=== PATIENT | male | born 1955 | race Caucasian/White ===

== ENCOUNTER 2024-10-24 02:35 | Inpatient (IN) | payer MEDICARE, BC ==
[2024-10-24] VITALS (66 sets, daily range): BP systolic 80–129; BP diastolic 39–74; PULSE 82–115; RESP 14–31; TEMP 98–99.9; O2SAT 85–99
[~2024-10-24] VITALS: Ht 172.7 cm; Wt 90.9 kg
[2024-10-24 04:14] LABS: Alanine Aminotransferase 13 U/L (7-40); Albumin 3.6 g/dL (3.2-4.8); Alkaline Phosphatase 61 U/L (46-116); Anion Gap 9 (5-15); BUN/Creatinine Ratio 10.2 (10.0-20.0); Blood Urea Nitrogen 13 mg/dL (9-23); Calcium 8.8 mg/dL (8.7-10.4); Carbon Dioxide 22 mmol/L (20-31); Chloride 103 mmol/L (98-107); Glucose 101 mg/dL (74-106); Potassium 4.0 mmol/L (3.5-5.1); Total Protein 6.0 g/dL (5.7-8.2)
[2024-10-24 04:15] LABS: Bilirubin, Total 0.7 mg/dL (0.2-1.0)
[2024-10-24] MEDS: SODIUM CHLORIDE 0.9% 3,000 ML IV ONE (04:15)
[2024-10-24] MEDS: MORPHINE SULFATE 4 MG/ML SYR/VIAL IV ONE (04:15)
[2024-10-24 04:17] LABS: Hematocrit 37.6 % (41.0-53.0); Hemoglobin 13.1 g/dL (13.5-17.5); Mean Corpuscular Hemoglobin 31.4 pg (28.0-32.0); Mean Corpuscular Volume 90.4 fL (80.0-100.0); Nucleated Red Blood Cells % 0.0 %
[2024-10-24 04:30] LABS: Sodium 134 mmol/L (136-145)
[2024-10-24] MEDS: ONDANSETRON HCL 4 MG/2 ML VIAL IV ONE (04:41)
[2024-10-24] MEDS: PANTOPRAZOLE 40 MG/10 ML VIAL INJ IV ONE (04:41)
--- NOTE | 2024-10-24 04:45 | ED.PDOC ---
GI ASSESSMENT HPI Comments 68-year-old male with a history of COPD on home O2, hypertension, dyslipidemia and diverticular disease brought in by EMS from home complaining of left lower quadrant pain associated with explosive diarrhea for the past week. Patient states he was seen at urgent care last week and prescribed Cipro and Flagyl, which he has been taking. He states despite taking be antibiotics he has not had improvement of his symptoms. He also notes low-grade fever. He denies any nausea, vomiting or dysuria. He states the current symptoms are similar to past episodes of diverticulitis. Chief Complaint: Diarrhea Time Seen by MD: 02:43 Primary Care Provider: Dr. Fofana Reviewed Notes: Nurses Notes, Painter Notes, Medications, Allergies Allergies: Coded Allergies: NO KNOWN ALLERGIES (Unverified , 10/24/24) Information Source: Patient Mode of Arrival: EMS Past Medical History PAST MEDICAL HISTORY: COPD, High Lipids, HTN Past Medical History (Other): Melanoma in remission, Diverticular disease Surgical History (Other): Left upper extremity surgery for melanoma, right wrist ORIF, bilateral ankle surgery Family History Family History: Reviewed,noncontributory to illness Social History Smoker: Non-Smoker Alcohol: Occasionally Drugs: Denies Drug Use Lives In: Home All Other Systems: Reviewed and Negative (Comprehensive systems review obtained and negative except for what is stated in the HPI.) Physical Exam General Appearance: Mild Distress, Obese HEENT: Other (Pupils and face symmetric. Moist mucous membranes.) Neck: Full Range of Motion, Normal Inspection Respiratory: Lungs Clear, No Accessory Muscle Use, No Respiratory Distress, Normal Breath Sounds Cardiovascular: No Edema, No JVD, Regular Rate/Rhythm Breast Exam: Deferred Gastrointestinal: LLQ, Soft, Tenderness (Left lower quadrant) Genitalia: Deferred Pelvic: Deferred Rectal: Deferred Extremities: Normal inspection, Normal range of motion, Non-tender, No pedal edema Neurologic: Alert (Oriented x4), Normal Affect, Normal Mood, Other (Ambulatory) Cerebellar Function: NOT DONE Reflexes: NOT DONE Skin: Dry, Normal Color, Warm Lymphatic: NOT DONE Was a procedure done? Was a procedure done?: No GI differential Dx Differential Diagnosis: Diverticular disease, Gastroenteritis, Inflammatory BD, Ischemic Bowel, UTI, Dehydration, Electrolyte Imbalance, Food Poisoning, Bacterial, Viral, Hypovolemia, Renal Failure, Stress Ulcer, Kidney Stone X-Ray, Labs, Meds, VS Vital Signs Date Time Temp Pulse Resp B/P (MAP) Pulse Ox O2 Delivery O2 Flow Rate FiO2 10/24/24 05:25 98.1 98 18 93/47 (62) 97 98.1 10/24/24 03:15 98.1 99 18 115/37 (63) 97 98.1 10/24/24 03:15 99 18 97 Nasal Cannula* 3 32 10/24/24 02:37 99.0 102 18 81/38 (52) 97 99.0 10/24/24 02:36 99 Lab Test 10/24/24 03:10 10/24/24 02:45 Range/Units White Blood Count 15.9 H 4.4-10.8 10^3/uL Red Blood Count 4.16 L 4.5-5.90 10^6/uL Hemoglobin 13.1 L 13.5-17.5 g/dL Hematocrit 37.6 L 41.0-53.0 % Mean Corpuscular Volume 90.4 80.0-100.0 fL Mean Corpuscular Hemoglobin 31.4 28.0-32.0 pg Mean Corpuscular Hemoglobin Concent 34.8 32.0-36.0 g/dL Red Cell Distribution Width 13.1 11.8-14.3 % Platelet Count 371 140-450 10^3/uL Mean Platelet Volume 7.5 6.9-10.8 fL Neutrophils (%) (Auto) 78.8 37.0-80.0 % Lymphocytes (%) (Auto) 6.1 L 10.0-50.0 % Monocytes (%) (Auto) 14.3 H 0.0-12.0 % Eosinophils (%) (Auto) 0.4 0.0-7.0 % Basophils (%) (Auto) 0.4 0.0-2.0 % Neutrophils # (Auto) 12.5 H 1.6-8.6 10 ^3/uL Lymphocytes # (Auto) 1.0 0.4-5.4 10 ^3/uL Monocytes # (Auto) 2.3 H 0-1.3 10 ^3/uL Eosinophils # (Auto) 0.1 0-0.8 10 ^3/uL Basophils # (Auto) 0.1 0-0.2 10 ^3/uL Nucleated Red Blood Cells 0.0 % Sodium Level 134 L 136-145 mmol/L Potassium Level 4.0 3.5-5.1 mmol/L Chloride Level 103 98-107 mmol/L Carbon Dioxide Level 22 20-31 mmol/L Anion Gap 9 5-15 Blood Urea Nitrogen 13 9-23 mg/dL Creatinine 1.27 0.700-1.30 mg/dL Glomerular Filtration Rate Calc 61 >90 mL/min BUN/Creatinine Ratio 10.2 10.0-20.0 Serum Glucose 101 74-106 mg/dL Lactic Acid Level 1.8 0.4-2.0 mmol/L Calcium Level 8.8 8.7-10.4 mg/dL Total Bilirubin 0.7 0.2-1.0 mg/dL Aspartate Amino Transferase (AST) 21 13-40 U/L Alanine Aminotransferase (ALT) 13 7-40 U/L Alkaline Phosphatase 61 46-116 U/L Total Protein 6.0 5.7-8.2 g/dL Albumin 3.6 3.2-4.8 g/dL POC Glucose 99 70-106 mg/dl Current Medications Medications (Trade) Dose Ordered Sig/Yari Route Start Time Stop Time Status Last Admin Sodium Chloride 3,000 ml @ 1,000 mls/hr Q3H ONCE IV 10/24/24 04:15 10/24/24 07:14 10/24/24 04:15 Ondansetron HCl (Zofran) 4 mg ONCE ONCE IV 10/24/24 04:15 10/24/24 04:16 DC 10/24/24 04:41 Pantoprazole Sodium (Protonix) 40 mg ONCE ONCE IV 10/24/24 04:15 10/24/24 04:16 DC 10/24/24 04:41 Levofloxacin/ Dextrose 100 ml @ 100 mls/hr ONCE ONCE IV 10/24/24 04:15 10/24/24 05:14 DC 10/24/24 04:15 Metronidazole 100 ml @ 100 mls/hr ONCE ONCE IV 10/24/24 04:15 10/24/24 05:14 DC 10/24/24 04:15 Ketorolac Tromethamine (Toradol Injection) 15 mg ONCE ONCE IV 10/24/24 05:30 10/24/24 05:31 DC 10/24/24 05:45 PROCEDURE(s): ABPL - CT AB PEL WO CON-NO ORAL OR IV REASON: diarrhea, abd pain ORDER NUMBER(s): [id number], ACCESSION NUMBER(s): [id number] EXAM: CT CT AB PEL WO CON-NO ORAL OR IV HISTORY: diarrhea, abd pain COMPARISON: None TECHNIQUE: Helical CT images of the abdomen and pelvis were performed without IV contrast. Sagittal and coronal reformatted images were obtained. This CT exam was performed using one or more of the following dose reduction techniques: Automated exposure control, adjustment of the mA and/or kv according to patient size, or the use of iterative reconstruction techniques. Radiation Dose: Abdomen/Pelvis: CTDIvol 19.28 mGy, DLP 1237.98 mGy*cm. FINDINGS: CT abdomen: There is severe emphysema in the lung bases. There are coronary artery calcifications. The heart is not enlarged. The central pulmonary arteries are ectatic, not fully imaged here. The liver is diffusely fatty density. The gallbladder is hydropic measuring 10.5 cm length x 4.7 cm width, without visualization of gallstones. The noncontrast spleen, pancreas, kidneys, and adrenal glands are unremarkable. No abdominal aortic aneurysm. There is a chronic appearing infrarenal abdominal aortic dissection just below the level of the renal arteries (image 43, series 2). There is a left upper quadrant splenule. CT pelvis: No abnormal bowel dilatation or free air. There is low volume free fluid in the pelvis. There is wall thickening of the sigmoid colon, distal descending colon, and rectum, with adjacent fat stranding and fluid. There is also wall thickening of the ascending colon and hepatic flexure with mild adjace nt fat stranding. There are sigmoid colon diverticula. The appendix and urinary bladder are unremarkable. The prostate is upper limits of normal in size. There are small fatty bilateral inguinal indirect hernias. There is advanced lumbar degenerative disc disease. IMPRESSION: 1. Severe emphysema in the lung bases. The chest is not fully imaged here. 2. Coronary artery disease. 3. Pulmonary arterial hypertension. 4. Hepatic steatosis. 5. Colitis involving the sigmoid colon, rectum, and distal descending colon. Additionally, there is less severe colitis involving the ascending colon and hepatic flexure. 6. Advanced lumbar degenerative disc disease. 7. No evidence of bowel obstruction, acute appendicitis, or other acute process in the abdomen or pelvis. X-Ray, Labs, Meds, VS Comment 68-year-old male with a history of COPD, hypertension, dyslipidemia and diverticular disease brought in by EMS complaining of left lower quadrant pain and diarrhea despite taking antibiotics Vitals remarkable for heart rate 102, BP 81/38 Exam remarkable for left lower quadrant tenderness to palpation Rhythm strip independently interpreted by me: Sinus tach, rate 102, no ectopy. CT abdomen and pelvis IMPRESSION: 1. Severe emphysema in the lung bases. The chest is not fully imaged here. 2. Coronary artery disease. 3. Pulmonary arterial hypertension. 4. Hepatic steatosis. 5. Colitis involving the sigmoid colon, rectum, and distal descending colon. Additionally, there is less severe colitis involving the ascending colon and hepatic flexure. 6. Advanced lumbar degenerative disc disease. 7. No evidence of bowel obstruction, acute appendicitis, or other acute process in the abdomen or pelvis. CBC remarkable for WBC 15.9, CMP remarkable for sodium 134, lactate 1.8, UA pending Patient treated with the following in the ED: 3 L 0.9 normal saline IV bolus, morphine 4 mg IV, Zofran 4 mg IV, Protonix 40 mg IV, Levaquin 500 mg IV, Flagyl 500 mg IV On re-evaluation, patient states pain has improved. Despite IV fluid boluses, patient's blood pressure dropped to the 70s systolic. IV Levophed was ordered. Plan is to admit the patient for IV antibiotics, blood pressure support and pain control. Time of 1ST Reevaluation: 04:44 Reevaluation 1ST: Improved Patient Education/Counseling: Diagnosis, Treatment Family Education/Counseling: Diagnosis, Treatment SEPSIS Sepsis Screen Date sepsis recognized/suspect: Oct 24, 2024 Time Sepsis recognized/suspect: 236 Recent Procedure: No On Antibiotic Therapy: No Respiratory Rate >20: No Heart Rate >90: Yes Temp<36 C (96.8 F) or >38.3 C: No SBP <90 or MAP <65 mmHG: Yes New Acute Mental Status Change: No Is the patient on CPAP, BIPAP,: No SEPSIS EXCLUSION NOTE: Sepsis Exclusion Note: Patient presents with SIRS criteria, but the SIRS response is attributed to [dehydration, acute pain ]. Sepsis bundle is not initiated at this time, due to this reason. Further management will focus on the treatment of the above condition (s). Physician Orders Urinalysis (10/24/24 02:50) Ct Ab Pel Wo Con-No Oral Or Iv (10/24/24 02:50) Blood Culture (10/24/24 02:50) Electrocardigram (10/24/24 02:52) Sodium Chloride 0.9% (10/24/24 04:15) Vital Signs Date Time Temp Pulse Resp B/P (MAP) Pulse Ox O2 Delivery O2 Flow Rate FiO2 10/24/24 05:25 98.1 98 18 93/47 (62) 97 98.1 10/24/24 03:15 98.1 99 18 115/37 (63) 97 98.1 10/24/24 03:15 99 18 97 Nasal Cannula* 3 32 10/24/24 02:37 99.0 102 18 81/38 (52) 97 99.0 10/24/24 02:36 99 Laboratory Tests Test 10/24/24 03:10 Lactic Acid Level 1.8 mmol/L (0.4-2.0) White Blood Count 15.9 10^3/uL (4.4-10.8) H Medications Medications Dose Ordered Sig/Yari Route Start Time Stop Time Status Last Admin Dose Admin Ketorolac Tromethamine 15 mg ONCE ONCE IV 10/24/24 05:30 10/24/24 05:31 DC 10/24/24 05:45 Levofloxacin/ Dextrose 100 ml @ 100 mls/hr ONCE ONCE IV 10/24/24 04:15 10/24/24 05:14 DC 10/24/24 04:15 Metronidazole 100 ml @ 100 mls/hr ONCE ONCE IV 10/24/24 04:15 10/24/24 05:14 DC 10/24/24 04:15 Ondansetron HCl 4 mg ONCE ONCE IV 10/24/24 04:15 10/24/24 04:16 DC 10/24/24 04:41 Pantoprazole Sodium 40 mg ONCE ONCE IV 10/24/24 04:15 10/24/24 04:16 DC 10/24/24 04:41 Sodium Chloride 3,000 ml @ 1,000 mls/hr Q3H ONCE IV 10/24/24 04:15 10/24/24 07:14 10/24/24 04:15 Departure 1 Departure Time of Disposition: 04:45 Impression: Primary Impression: Diverticulitis Additional Impression: Hypotension Disposition: 09 ADMITTED INPATIENT Admit to: Tele Condition: Guarded Critical Care Note Critical Care Time?: Yes (45 min-critical care time only) Critical care comment: Critical care time including multiple bedside re-evaluations, review of lab and imaging studies, and discussion of the case with the admitting provider. Patient is high risk for hemodynamic decompensation. Stability Stability form required: No Heart Score Heart Score: Heart Score Response (Comments) Value History N/A 0 EKG N/A 0 Age N/A 0 Risk Factors N/A 0 Troponin N/A 0 Total 0 NITZA RUEDA MD Oct 24, 2024 04:45
[2024-10-24] MEDS: KETOROLAC TROMETH 30 MG/ML 1ML VIAL IV ONE (05:45)
--- NOTE | 2024-10-24 05:57 | DVH ---
EXAM: CT CT AB PEL WO CON-NO ORAL OR IV HISTORY: diarrhea, abd pain COMPARISON: None TECHNIQUE: Helical CT images of the abdomen and pelvis were performed without IV contrast. Sagittal a nd coronal reformatted images were obtained. This CT exam was performed using one or more of the foll owing dose reduction techniques: Automated exposure control, adjustment of the mA and/or kv according to patient size, or the use of iterative reconstruction techniques. Radiation Dose: Abdomen/Pelvis: CTDIvol 19.28 mGy, DLP 1237.98 mGy*cm. FINDINGS: CT abdomen: There is severe emphysema in the lung bases. There are coronary artery calcifications. T he heart is not enlarged. The central pulmonary arteries are ectatic, not fully imaged here. The live r is diffusely fatty density. The gallbladder is hydropic measuring 10.5 cm length x 4.7 cm width, wi thout visualization of gallstones. The noncontrast spleen, pancreas, kidneys, and adrenal glands are unremarkable. No abdominal aortic aneurysm. There is a chronic appearing infrarenal abdominal aortic dissection just below the level of the renal arteries (image 43, series 2). There is a left upper pierce drant splenule. CT pelvis: No abnormal bowel dilatation or free air. There is low volume free fluid in the pelvis. T here is wall thickening of the sigmoid colon, distal descending colon, and rectum, with adjacent fat stranding and fluid. There is also wall thickening of the ascending colon and hepatic flexure with mi ld adjacent fat stranding. There are sigmoid colon diverticula. The appendix and urinary bladder are unremarkable. The prostate is upper limits of normal in size. There are small fatty bilateral inguin al indirect hernias. There is advanced lumbar degenerative disc disease. IMPRESSION: 1. Severe emphysema in the lung bases. The chest is not fully imaged here. 2. Coronary artery disease. 3. Pulmonary arterial hypertension. 4. Hepatic steatosis. 5. Colitis involving the sigmoid colon, rectum, and distal descending colon. Additionally, there is less severe colitis involving the ascending colon and hepatic flexure. 6. Advanced lumbar degenerative disc disease. 7. No evidence of bowel obstruction, acute appendicitis, or other acute process in the abdomen or pel vis.
[2024-10-24] MEDS: NOREPINEPHRINE 8 MG/250ML KIT 250 ML IV SCH (06:37)
[2024-10-24] MEDS: NOREPINEPHRINE 8 MG/250ML KIT 250 ML IV ONE (06:38)
--- NOTE | 2024-10-24 07:01 | ECG ---
[facility] Test Date: 2024-10-24 Test Time: 02:36:03 Pat Name: JAG BHATT Department: ED Room: [address] [place] [address] Gender: M Defense Attorney: milena : 1955 Requested By: NITZA CARLTON Order Number: [id number] Reading MD: Vikash Bruce Measurements Intervals [place] Rate: 99 P: -53 ND: 129 QRS: 69 QRSD: 108 T: 45 QT: 374 QTc: 480 Interpretive Statements Sinus or ectopic atrial rhythm RSR' in V1 or V2, right VCD or RVH Borderline prolonged QT interval Electronically Signed On 10-29-2024 18:49:44 PDT by Vikash Bruce Please click the below link to view image of tracing.
[2024-10-24] MEDS ORDERED: DOCUSATE SOD 100 MG CAP PO PRN (08:45)
--- NOTE | 2024-10-24 09:08 | DVHHP2 ---
History of Present Illness Reason for Visit: Hypotension History of Present Illness The patient is a 62-year-old male with multiple past medical history including COPD, hypertension, and hyperlipidemia who presented to [facility] ED with complaint of left lower quadrant abdominal pain. Patient reports symptoms progressively get worse with explosive diarrhea for the past 1 week, notes low-grade fever, seen at urgent care last week and was prescribed Cipro and Flagyl with no improvement of symptoms. Patient was seen and evaluated in the ED, laboratory data shows WBC 15.9, platelets 371, sodium 134, potassium 4.0, BUN 13, creatinine 1.27, glucose 101, calcium 8.8, lactic acid 1.8, blood pressure 81/38 trending up to 95/65, heart rate 115 trending down to 85, temperature 99.9 F trending down to 98.2 F, O2 saturation 97% on oxygen. Abdomen/pelvis CT revealing colitis involving the sigmoid colon, rectum, and distal descending colon. Patient was started on IV antibiotic regimen levofloxacin, please see medication orders section in the computer. On my assessment, patient denied chest pain, no headache, no dizziness, no diaphoresis, no shortness of breaths, no diarrhea, nausea or vomiting at this moment, no fever, no chills. Patient was admitted for further evaluation and medical management. Past Medical History COPD, High Lipids, HTN, Melanoma in remission, Diverticular disease Past Surgical History Left upper extremity surgery for melanoma, right wrist ORIF, bilateral ankle surgery Family History Reviewed, noncontributory to the management of this case. Past Social History The patient lives at home, denies smoking, alcohol or illicit drugs abuse. Review of Systems Constitutional: Yes: Weakness; No: Fever, Chills, Sweats, Malaise, Other Eyes: No: Pain, Vision change, Conjunctivae inflammation, Eyelid inflammation, Other, Redness ENT: No: Ear pain, Ear discharge, Nose pain, Nose discharge, Nose congestion, Mouth pain, Mouth swelling, Throat pain, Throat swelling, Other Respiratory: Shortness of breath; No: Cough, Dry, SOB with excertion, Wheezing, Hemoptysis, Pleuritic Pain, Sputum, Wheezing, Other Cardiovascular: No: Chest Pain, Palpitations, Orthopnea, Paroxysmal Noc. Dyspnea, Edema, Lt Headedness, Other Gastrointestinal: Nausea, Vomiting, Abdominal Pain, Diarrhea; No: Constipation, Melena, Hematochezia, Other Genitourinary: No Dysuria, No Frequency, No Incontinence, No Hematuria, No Retention, No Other Musculoskeletal: No: other, neck pain, shoulder pain, arm pain, back pain, hand pain, leg pain, foot pain Skin: No: Rash, Lesions, Jaundice, Bruising, Other Neurological: No: Weakness, Numbness, Incoordination, Change in speech, Confusion, Seizures, Other Allergies: Coded Allergies: NO KNOWN ALLERGIES (Unverified , 10/24/24) Medications Current Medications Medications Dose Ordered Sig/Yari Route Start Time Stop Time Status Last Admin Dose Admin Norepinephrine Bitartrate 250 ml @ 3.75 mls/hr Q24H IV 10/24/24 06:30 10/24/24 06:38 3.75 MLS/HR Pantoprazole Sodium 40 mg DAILY IV 10/24/24 10:00 UNV Levofloxacin/ Dextrose 100 ml @ 100 mls/hr DAILY IV 10/24/24 10:00 UNV Metronidazole 100 ml @ 100 mls/hr Q8HR IV 10/24/24 14:00 UNV Albuterol 2.5 mg Q4HPRN PRN NEB 10/24/24 08:45 UNV Ipratropium [place] 0.5 mg Q4HR NEB 10/24/24 10:00 UNV Clonidine HCl 0.1 mg Q4HP PRN PO 10/24/24 08:45 UNV Sodium Chloride 1,000 ml @ 60 mls/hr [id number] IV 10/24/24 08:45 UNV Acetaminophen/ Hydrocodone Bitart 1 tab Q4HP PRN PO 10/24/24 08:45 UNV Ondansetron HCl 4 mg Q4HP PRN IV 10/24/24 08:45 UNV Docusate Sodium 100 mg BIDPRN PRN PO 10/24/24 08:45 UNV Acetaminophen 650 mg Q6HP PRN PO 10/24/24 08:45 UNV Morphine Sulfate 2 mg Q4HPRN PRN IV 10/24/24 08:45 UNV Atorvastatin Calcium 20 mg HS PO 10/24/24 22:00 UNV Exam Vital Signs Vital Signs Date Time Temp Pulse Resp B/P (MAP) Pulse Ox O2 Delivery O2 Flow Rate FiO2 10/24/24 08:31 73/34 10/24/24 07:51 85 20 97 Nasal Cannula* 2 28 10/24/24 07:51 98.2 98.2 General Appearance: Alert, Oriented X3, Cooperative, No acute distress HEENT: Atraumatic, PERRLA, EOMI, Mucous membr. moist/pink Respiratory: Normal air movement Cardiovascular: Regular rate, Normal S1, Normal S2, No murmurs Abdominal: Normal bowel sounds, Soft, No tenderness, No hepatospenomegaly, No masses Extremities: No clubbing, No cyanosis, No edema, Normal pulses, No tenderness/swelling Skin: No rashes, No breakdown, No significant lesion Neuro: Normal speech, Normal tone, Sensation intact, Cranial nerves 3-12 NL, Reflexes 2+, Other (Generalized weakness) Psych/Mental Status: Mental status NL, Mood NL Labs/Xrays Labs Test 10/24/24 03:10 10/24/24 02:45 Range/Units White Blood Count 15.9 H 4.4-10.8 10^3/uL Red Blood Count 4.16 L 4.5-5.90 10^6/uL Hemoglobin 13.1 L 13.5-17.5 g/dL Hematocrit 37.6 L 41.0-53.0 % Mean Corpuscular Volume 90.4 80.0-100.0 fL Mean Corpuscular Hemoglobin 31.4 28.0-32.0 pg Mean Corpuscular Hemoglobin Concent 34.8 32.0-36.0 g/dL Red Cell Distribution Width 13.1 11.8-14.3 % Platelet Count 371 140-450 10^3/uL Mean Platelet Volume 7.5 6.9-10.8 fL Neutrophils (%) (Auto) 78.8 37.0-80.0 % Lymphocytes (%) (Auto) 6.1 L 10.0-50.0 % Monocytes (%) (Auto) 14.3 H 0.0-12.0 % Eosinophils (%) (Auto) 0.4 0.0-7.0 % Basophils (%) (Auto) 0.4 0.0-2.0 % Neutrophils # (Auto) 12.5 H 1.6-8.6 10 ^3/uL Lymphocytes # (Auto) 1.0 0.4-5.4 10 ^3/uL Monocytes # (Auto) 2.3 H 0-1.3 10 ^3/uL Eosinophils # (Auto) 0.1 0-0.8 10 ^3/uL Basophils # (Auto) 0.1 0-0.2 10 ^3/uL Nucleated Red Blood Cells 0.0 % Sodium Level 134 L 136-145 mmol/L Potassium Level 4.0 3.5-5.1 mmol/L Chloride Level 103 98-107 mmol/L Carbon Dioxide Level 22 20-31 mmol/L Anion Gap 9 5-15 Blood Urea Nitrogen 13 9-23 mg/dL Creatinine 1.27 0.700-1.30 mg/dL Glomerular Filtration Rate Calc 61 >90 mL/min BUN/Creatinine Ratio 10.2 10.0-20.0 Serum Glucose 101 74-106 mg/dL Lactic Acid Level 1.8 0.4-2.0 mmol/L Calcium Level 8.8 8.7-10.4 mg/dL Total Bilirubin 0.7 0.2-1.0 mg/dL Aspartate Amino Transferase (AST) 21 13-40 U/L Alanine Aminotransferase (ALT) 13 7-40 U/L Alkaline Phosphatase 61 46-116 U/L Total Protein 6.0 5.7-8.2 g/dL Albumin 3.6 3.2-4.8 g/dL POC Glucose 99 70-106 mg/dl PATIENT: JAG BHATT ACCT: [id number] UNIT: [id number] : 1955 LOC: ER ROOM / BED: / AGE / SEX: 68 / M ADM STATUS: REG ER SERVICE 0250 ORDERING PHYSICIAN: NITZA RUEDA MD PROCEDURE(s): ABPL - CT AB PEL WO CON-NO ORAL OR IV REASON: diarrhea, abd pain ORDER NUMBER(s): [id number], ACCESSION NUMBER(s): [id number] EXAM: CT CT AB PEL WO CON-NO ORAL OR IV HISTORY: diarrhea, abd pain COMPARISON: None TECHNIQUE: Helical CT images of the abdomen and pelvis were performed without IV contrast. Sagittal and coronal reformatted images were obtained. This CT exam was performed using one or more of the following dose reduction techniques: Automated exposure control, adjustment of the mA and/or kv according to patient size, or the use of iterative reconstruction techniques. Radiation Dose: Abdomen/Pelvis: CTDIvol 19.28 mGy, DLP 1237.98 mGy*cm. FINDINGS: CT abdomen: There is severe emphysema in the lung bases. There are coronary artery calcifications. The heart is not enlarged. The central pulmonary arteries are ectatic, not fully imaged here. The liver is diffusely fatty density. The gallbladder is hydropic measuring 10.5 cm length x 4.7 cm width, without v isualization of gallstones. The noncontrast spleen, pancreas, kidneys, and adrenal glands are unremarkable. No abdominal aortic aneurysm. There is a chronic appearing infrarenal abdominal aortic dissection just below the level of the renal arteries (image 43, series 2). There is a left upper quadrant splenule. CT pelvis: No abnormal bowel dilatation or free air. There is low volume free fluid in the pelvis. There is wall thickening of the sigmoid colon, distal descending colon, and rectum, with adjacent fat stranding and fluid. There is also wall thickening of the ascending colon and hepatic flexure with mild adjacent fat stranding. There are sigmoid colon diverticula. The appendix and urinary bladder are unremarkable. The prostate is upper limits of normal in size. There are small fatty bilateral inguinal indirect hernias. There is advanced lumbar degenerative disc disease. IMPRESSION: 1. Severe emphysema in the lung bases. The chest is not fully imaged here. 2. Coronary artery disease. 3. Pulmonary arterial hypertension. 4. Hepatic steatosis. 5. Colitis involving the sigmoid colon, rectum, and distal descending colon. Additionally, there is less severe colitis involving the ascending colon and hepatic flexure. 6. Advanced lumbar degenerative disc disease. 7. No evidence of bowel obstruction, acute appendicitis, or other acute process in the abdomen or pelvis. Assessment/Plan Assessment/Plan Diverticulitis Hypotension Abdominal pain Leukocytosis, unspecified Plan 1. Admit to telemetry unit 2. Breathing treatment 3. Pain control management 4. IV antibiotic management 5. Management of fluids and electrolytes 6. Consultation for Cardiology 7. Diagnostic test abdomen/pelvis CT 8. DVT prophylaxis-on SCDs 9. Repeat labs CBC, CMP in a.m. 10. Home medication reviewed and reconciled 11. Continue with current medical management 12. Treatment plan discussed with patient and RN. Patient verbalized understanding. Plan discussed with: Patient, Other (RN) My Orders Orders - VAZQUEZ LITTLE DNP Procedure Category Date Status Time * Cardiology Consult CONS 10/24/24 Transmitted 08:33 Pantoprazole PHA 10/24/24 Logged (Protonix) 10:00 Levofloxacin 500mg PHA 10/24/24 Logged (Levaquin 500mg/ 100m 10:00 Metronidazole PHA 10/24/24 Logged 500mg/100ml (Flagyl 14:00 Albuterol Medneb PHA 10/24/24 Logged (Ventolin Medneb) 08:45 Ipratropium Medneb PHA 10/24/24 Logged (Atrovent Medneb) 10:00 Clonidine Hcl Tablet PHA 10/24/24 Logged (Catapres Tablet) 08:45 Allergies GISELE 10/24/24 In Process 08:33 Code Status CODE 10/24/24 Transmitted 08:33 2 Gm Sodium Diet DIET 10/24/24 Transmitted Breakfast Sodium Chloride 0.9% PHA 10/24/24 Logged 08:45 Oxygen Per Hour RT 10/24/24 Transmitted 08:33 Hydrocodone-Acet PHA 10/24/24 Logged 5/325mg Tab ([place] 08:45 Ondansetron Hcl PHA 10/24/24 Logged (Zofran) 08:45 Docusate Sodium PHA 10/24/24 Logged Capsule (Colace 08:45 Complete Blood Count LAB 10/25/24 Verified 04:00 Comprehensive LAB 10/25/24 Verified Metabolic Panel 04:00 Condition: Serious GISELE 10/24/24 In Process 08:33 Acetaminophen Tablet PHA 10/24/24 Logged (Tylenol Tablet) 08:45 Bedrest With Bathroom GISELE 10/24/24 In Process Privileg 08:33 Morphine Sulfate PHA 10/24/24 Logged Injection 08:45 Sequential GISELE 10/24/24 In Process Compression Device Atorvastatin (Lipitor) PHA 10/24/24 Logged 22:00 Problem List: (1) Diverticulitis (2) Hypotension (3) Abdominal pain (4) Leukocytosis, unspecified Date of Service: Oct 24, 2024 Billing Provider: VAZQUEZ LITTLE DNP Common Visit Codes: [id number] INP/OBS CARE (HIGH) VAZQUEZ LITTLE DNP Oct 24, 2024 09:08
[2024-10-24] MEDS ORDERED: MORPHINE SULFATE INJ 2 MG/ml SYRG IV PRN (09:15)
[2024-10-24] MEDS ORDERED: NITROGLYCERIN 0.4 MG SL TAB SL PRN (09:15)
[2024-10-24] MEDS: SODIUM CHLORIDE 0.9% 1,000 ML IV SCH ×2 (10:00→16:00)
[2024-10-24] MEDS: IPRATROPIUM BROM 0.5 MG/2.5ML INH SOL NEB SCH (10:00)
[2024-10-24] MEDS: PANTOPRAZOLE 40 MG/10 ML VIAL INJ IV SCH (10:28)
--- NOTE | 2024-10-24 13:16 | DVHINCON2 ---
Date Seen: Oct 24, 2024 Referring Physician REGINA Desir Reason for Consultation Hypotension History of Present Illness This is a 68-year-old male patient who presents to the emergency room with chief complaint of left lower quadrant abdominal pain and diarrhea for two weeks. The patient reports recently going to urgent care where he was diagnosed with diverticulitis and sent home on antibiotics. On the day of emergency room arrival, the patient reports having explosive diarrhea which prompted him to come to the emergency room. While in the emergency room, the patient was noted to be hypotensive. Cardiology has now been consulted for hypotension. Initial twelve lead electrocardiogram reveals normal sinus rhythm. No troponin levels available at time of assessment. The patient denies any cardiac symptoms. Significant past medical history includes hypertension, dyslipidemia, COPD on continuous home O2, diverticulitis, malignant melanoma status post excision on left arm, osteoarthritis, tobacco use and morbid obesity. Past Medical History Past medical history reviewed. No other significant than mentioned above. Past Surgical History Multiple orthopedic surgeries Family History: Patient reports no known family medical history. Family History Family history reviewed. Social History Patient has a 50 pack-year history, quit smoking approximately 20 months ago Admits to occasional marijuana use Denies any alcohol use Allergies: Coded Allergies: NO KNOWN ALLERGIES (Unverified , 10/24/24) Home Meds Home medications reviewed. Current Medications Current Medications Medications (Trade) Dose Ordered Sig/Yari Route PRN Reason Start Time Stop Time Status Last Admin Norepinephrine Bitartrate 250 ml @ 3.75 mls/hr Q24H IV 10/24/24 06:30 10/24/24 06:38 Pantoprazole Sodium (Protonix) 40 mg DAILY IV 10/24/24 10:00 10/24/24 10:28 Levofloxacin/ Dextrose 100 ml @ 100 mls/hr DAILY IV 10/24/24 10:00 10/24/24 10:28 Metronidazole 100 ml @ 100 mls/hr Q8HR IV 10/24/24 14:00 Albuterol (Ventolin Medneb) 2.5 mg Q4HPRN PRN NEB SHORTNESS OF BREATH 10/24/24 08:45 Ipratropium [place] (Atrovent Medneb) 0.5 mg Q4HR NEB 10/24/24 10:00 Clonidine HCl (Catapres Tablet) 0.1 mg Q4HP PRN PO SBP>150 10/24/24 08:45 10/24/24 12:47 DC Sodium Chloride 1,000 ml @ 60 mls/hr [id number] IV 10/24/24 08:45 10/24/24 10:00 Acetaminophen/ Hydrocodone Bitart ([place] 5/325MG Tab) 1 tab Q4HP PRN PO MODERATE PAIN (4-6 PAIN SCALE) 10/24/24 08:45 Ondansetron HCl (Zofran) 4 mg Q4HP PRN IV NAUSEA / VOMITING 10/24/24 08:45 Docusate Sodium (Colace Capsule) 100 mg BIDPRN PRN PO FOR CONSTIPATION 10/24/24 08:45 Acetaminophen (Tylenol Tablet) 650 mg Q6HP PRN PO PAIN SCALE 1-3 OR TEMP>100.4 10/24/24 08:45 Morphine Sulfate 2 mg Q4HPRN PRN IV SEVERE PAIN (7-10 PAIN SCALE) 10/24/24 08:45 Atorvastatin Calcium (Lipitor) 20 mg HS PO 10/24/24 22:00 Nitroglycerin (Ntrostat Sublingual) 0.4 mg Q5MINP PRN SL FOR CHEST PAIN 10/24/24 09:15 Morphine Sulfate 2 mg Q30M PRN IV FOR CHEST PAIN 10/24/24 09:15 Loperamide HCl (Imodium Capsule) 2 mg PRN PRN PO FOR DIARRHEA 10/24/24 13:00 UNV Review of Systems Constitutional: No symptom reported Ears, Nose, & Throat: No symptom reported Eyes: No symptom reported Neurological: No symptoms reported Pulmonary/Respiratory: No symptoms reported Cardiovascular: No symptom reported Gastrointestinal: Left lower quadrant pain, diarrhea Genitourinary: No symptom reported Musculoskeletal: No symptom reported Skin: No symptom reported Psychiatric: No symptom reported Endocrine: No symptom reported Hematologic/Lymphatic: No symptom reported Vital Signs Vital Signs Date Time Temp Pulse Resp B/P (MAP) Pulse Ox O2 Delivery O2 Flow Rate FiO2 10/24/24 12:16 96 10/24/24 12:15 20 117/65 (82) 97 10/24/24 12:13 Nasal Cannula* 3 32 10/24/24 10:45 98.1 98.1 Physical Exam General Appearance: Cooperative. Obese. Pulmonary/Respiratory: Clear, bilateral breaths sounds. Cardiovascular/Chest: Regular rate and rhythm. Peripheral Pulses: 2+ Radial (R). 2+ Radial (L). 2+ Pedal (R). 2+ Pedal (L) Abdominal Exam: Normal bowel sounds. Ankle Exam: Negative ankle edema Lower extremities: Negative lower extremity edema Neuro/Mental Status: A/OX4, coherent. Thoughts/Psych: Normal thought pattern. Appropriate mood and affect. Good judgment and insight. Appearance: No acute distress. Skin Exam: Normal inspection. Normal color. Warm and dry. Labs/Diagnostic Data Labs Test 10/24/24 03:10 10/24/24 02:45 Range/Units White Blood Count 15.9 H 4.4-10.8 10^3/uL Red Blood Count 4.16 L 4.5-5.90 10^6/uL Hemoglobin 13.1 L 13.5-17.5 g/dL Hematocrit 37.6 L 41.0-53.0 % Mean Corpuscular Volume 90.4 80.0-100.0 fL Mean Corpuscular Hemoglobin 31.4 28.0-32.0 pg Mean Corpuscular Hemoglobin Concent 34.8 32.0-36.0 g/dL Red Cell Distribution Width 13.1 11.8-14.3 % Platelet Count 371 140-450 10^3/uL Mean Platelet Volume 7.5 6.9-10.8 fL Neutrophils (%) (Auto) 78.8 37.0-80.0 % Lymphocytes (%) (Auto) 6.1 L 10.0-50.0 % Monocytes (%) (Auto) 14.3 H 0.0-12.0 % Eosinophils (%) (Auto) 0.4 0.0-7.0 % Basophils (%) (Auto) 0.4 0.0-2.0 % Neutrophils # (Auto) 12.5 H 1.6-8.6 10 ^3/uL Lymphocytes # (Auto) 1.0 0.4-5.4 10 ^3/uL Monocytes # (Auto) 2.3 H 0-1.3 10 ^3/uL Eosinophils # (Auto) 0.1 0-0.8 10 ^3/uL Basophils # (Auto) 0.1 0-0.2 10 ^3/uL Nucleated Red Blood Cells 0.0 % Sodium Level 134 L 136-145 mmol/L Potassium Level 4.0 3.5-5.1 mmol/L Chloride Level 103 98-107 mmol/L Carbon Dioxide Level 22 20-31 mmol/L Anion Gap 9 5-15 Blood Urea Nitrogen 13 9-23 mg/dL Creatinine 1.27 0.700-1.30 mg/dL Glomerular Filtration Rate Calc 61 >90 mL/min BUN/Creatinine Ratio 10.2 10.0-20.0 Serum Glucose 101 74-106 mg/dL Lactic Acid Level 1.8 0.4-2.0 mmol/L Calcium Level 8.8 8.7-10.4 mg/dL Total Bilirubin 0.7 0.2-1.0 mg/dL Aspartate Amino Transferase (AST) 21 13-40 U/L Alanine Aminotransferase (ALT) 13 7-40 U/L Alkaline Phosphatase 61 46-116 U/L Total Protein 6.0 5.7-8.2 g/dL Albumin 3.6 3.2-4.8 g/dL POC Glucose 99 70-106 mg/dl Assessment Hypotension, likely in the setting of sepsis Rule out structural heart disease History of hypertension Dyslipidemia COPD with continuous home O2 Colitis History of diverticulitis Malignant melanoma status post excision on left arm Osteoarthritis Tobacco use Morbid obesity Plan/Recommendation We will continue with the following plan/recommendations (Dr. Wilkerson): Case discussed with . We will proceed with obtaining a transthoracic echocardiogram to evaluate cardiac function. Hypotension likely in the setting of infection. Recommend to treat the underlying cause. Continue with vasopressor therapy for hemodynamic support in the meantime. In the setting of an unremarkable transthoracic echocardiogram, there is no further inpatient cardiac workup indicated at this time. Consider GI consult for colitis found on imaging. Thank you for allowing us to care for this patient. Please call with any questions or concerns. Critical care time spent: 44 minutes This medical document was created using an electronic medical record system with voice recognition software and computerized dictation system. Although this document has been carefully reviewed, there might still be some phonetic and typographical errors. Occasional wrong-word or ``sound-alike substitutions may have occurred due to the inherent limitations of voice recognition software. These areas are purely typographical due to imperfections of the software programs and do not reflect any compromise in the patient's medical care. Please read the chart carefully and recognize, using context, where these substitutions have occurred. Plan discussed with: Patient NYHA Physical activity limitations: NA Date of Service: Oct 24, 2024 Billing Provider: WILIAM HALL Cardiology Common Codes: 12996-[id number] INP/OBS CARE (High) Cardiology Consultation Codes: [id number] CONSULT <45MIN WILIAM HALL Oct 24, 2024 13:16
[2024-10-24 13:58] LABS: Urine Protein, UAD 1+ (Negative)
[2024-10-24] MEDS: LOPERAMIDE HCL 2 MG CAP/TAB PO PRN (14:48)
[2024-10-24] MEDS: ALBUTEROL SULF 2.5 MG/0.5ML(0.5%) NEB SOLN NEB PRN (18:33)
[2024-10-24] MEDS: ATORVASTATIN 20 MG TAB PO SCH (22:38)
[2024-10-25] VITALS (106 sets, daily range): BP systolic 82–140; BP diastolic 29–122; PULSE 90–120; RESP 10–34; TEMP 98.4–100.2; O2SAT 73–100
[2024-10-25 04:02] LABS: Hematocrit 34.8 % (41.0-53.0); Hemoglobin 12.1 g/dL (13.5-17.5); Mean Corpuscular Hemoglobin 31.7 pg (28.0-32.0); Mean Corpuscular Volume 91.4 fL (80.0-100.0); Nucleated Red Blood Cells % 0.1 %
[2024-10-25 04:22] LABS: Alanine Aminotransferase 15 U/L (7-40); Albumin 3.1 g/dL (3.2-4.8); Alkaline Phosphatase 53 U/L (46-116); Anion Gap 11 (5-15); BUN/Creatinine Ratio 10.1 (10.0-20.0); Bilirubin, Total 0.4 mg/dL (0.2-1.0); Blood Urea Nitrogen 9 mg/dL (9-23); Calcium 8.2 mg/dL (8.7-10.4); Carbon Dioxide 20 mmol/L (20-31); Chloride 106 mmol/L (98-107); Glucose 103 mg/dL (74-106); Magnesium 2.1 mg/dL (1.6-2.6); Potassium 3.7 mmol/L (3.5-5.1); Sodium 137 mmol/L (136-145); Total Protein 5.3 g/dL (5.7-8.2)
--- NOTE | 2024-10-25 09:56 | DVHSR ---
APPROVED REPORT EXAM: LIMITED Two-dimensional and M-mode echocardiogram with Doppler and color Doppler. Blood Pressure: 121/63 mmHg INDICATION heart function RISK FACTORS Obesity: Height: 5'8, Weight: 215 DIMENSIONS LVDd3.9 (3.8-5.7cm)LA (2D)3.8 (1.9-4.0cm)Aortic Root3.1 (2.0-3.7cm) LVDs2.6 (2.5-4.0cm)LA (MM) (1.9-4.0cm)Aortic Cusp Exc (1.5-2.0cm) EF (%) 60.0 (55-70%)Rt. Atrium4.4 (1.9-4.0cm)Asc. Aorta cm IVSd0.9 (0.7-1.1cm)RV (D) (1.8-2.4cm) PWd1.0 (0.7-1.1cm) Mitral Valve MitralMitral Stenosis E wave0.73m/sMV Mean GR.mmHg A wave1.26m/sMV Peak GR.mmHg E/A ratio0.62D MVAcm2 DECEL [id number] 1/2 [place] Aortic Valve Aortic ValveAortic Stenosis V11.39m/Jeff Mean GR.7mmHg V21.86m/Jeff Peak GR.14mmHg LVOT Diameter1.9 (1.8-2.4cm)Doppler AVA2.12cm2 Tricuspid Valve TR Velocity2.46m/s [id number] Other Information Quality : Technically LimitedRhythm : Technically limited study due to body habitus.patient position. COPD Conclusion very limited study lvef 55% mild lvh pericardial fat pad noted valves note wlell seen
[2024-10-25] MEDS: ONDANSETRON HCL 4 MG/2 ML VIAL IV PRN (11:29)
[2024-10-25] MEDS: HYDROcodone-ACET 5/325MG TAB PO PRN (11:30)
[2024-10-25] MEDS: MORPHINE SULFATE INJ 2 MG/ml SYRG IV PRN (11:31)
--- NOTE | 2024-10-25 12:40 | DVHPN2 ---
Reviewed: Care Plan, H&P, Labs, Medications, Previous Orders, Radiology Changes from previous H/P or p: No Changes General: Per HPI Eyes: No Pain, No Vision change, No Conjunctivae inflammation, No Eyelid inflammation, No Other, No Redness ENT: No Ear pain, No Ear discharge, No Nose pain, No Nose discharge, No Nose congestion, No Mouth pain, No Mouth swelling, No Throat pain, No Throat swelling, No Other Cardiovascular: No Chest Pain, No Palpitations, No Orthopnea, No Paroxysmal Noc. Dyspnea, No Edema, No Lt Headedness, No Other Respiratory: No Cough, No Dry; Shortness of breath; No SOB with excertion, No Wheezing, No Hemoptysis, No Pleuritic Pain, No Sputum, No Other Gastrointestinal: Nausea, Vomiting, Abdominal Pain, Diarrhea; No Constipation, No Melena, No Hematochezia, No Other Genitourinary: No Dysuria, No Frequency, No Incontinence, No Hematuria, No Retention, No Other Musculoskeletal: No other, No neck pain, No shoulder pain, No arm pain, No back pain, No hand pain, No leg pain, No foot pain Skin: No Rash, No Lesions, No Jaundice, No Bruising, No Other Objective Vitals Vital Signs Date Time Temp Pulse Resp B/P (MAP) Pulse Ox O2 Delivery O2 Flow Rate FiO2 10/25/24 11:31 107 28 126/70 10/25/24 10:44 94 10/25/24 09:59 Nasal Cannula 3.0 10/25/24 09:59 32 10/24/24 23:02 98.7 98.7 Intake/Output Intake and Output 10/25/24 06:59 Intake Total 4203.75 ml Output Total 2681 ml Balance 1522.75 ml Intake Oral 1900 ml IV Total 2303.75 ml Output Urine Total 2380 ml Stool Total 301 ml # Bowel Movements 8 General Appearance: Alert, Oriented X3, Cooperative Cardiovascular: Regular rate Medications Current Medications Medications Dose Ordered Sig/Yari Route Start Time Stop Time Status Last Admin Dose Admin Norepinephrine Bitartrate 250 ml @ 3.75 mls/hr Q24H IV 10/24/24 06:30 10/25/24 01:30 7.5 MLS/HR Pantoprazole Sodium 40 mg DAILY IV 10/24/24 10:00 10/25/24 11:19 40 MG Levofloxacin/ Dextrose 100 ml @ 100 mls/hr DAILY IV 10/24/24 10:00 10/25/24 11:19 100 MLS/HR Metronidazole 100 ml @ 100 mls/hr Q8HR IV 10/24/24 14:00 10/25/24 06:02 100 MLS/HR Albuterol 2.5 mg Q4HPRN PRN NEB 10/24/24 08:45 10/25/24 09:59 2.5 MG Ipratropium [place] 0.5 mg Q4HR NEB 10/24/24 10:00 10/25/24 09:59 0.5 MG Acetaminophen/ Hydrocodone Bitart 1 tab Q4HP PRN PO 10/24/24 08:45 10/25/24 11:30 1 TAB Ondansetron HCl 4 mg Q4HP PRN IV 10/24/24 08:45 10/25/24 11:29 4 MG Docusate Sodium 100 mg BIDPRN PRN PO 10/24/24 08:45 Acetaminophen 650 mg Q6HP PRN PO 10/24/24 08:45 Morphine Sulfate 2 mg Q4HPRN PRN IV 10/24/24 08:45 10/25/24 11:31 2 MG Atorvastatin Calcium 20 mg HS PO 10/24/24 22:00 10/24/24 22:38 20 MG Nitroglycerin 0.4 mg Q5MINP PRN SL 10/24/24 09:15 Morphine Sulfate 2 mg Q30M PRN IV 10/24/24 09:15 Loperamide HCl 2 mg Q2H PRN PO 10/24/24 13:00 10/25/24 11:29 2 MG Sodium Chloride 1,000 ml @ 100 mls/hr Q10H IV 10/24/24 16:30 10/25/24 01:31 100 MLS/HR Laboratory Results Laboratory Tests 10/25/24 03:14 Chemistry Test 10/25/24 03:14 Albumin 3.1 g/dL (3.2-4.8) L Calcium Level 8.2 mg/dL (8.7-10.4) L Magnesium Level 2.1 mg/dL (1.6-2.6) Total Protein 5.3 g/dL (5.7-8.2) L LFT Test 10/25/24 03:14 Alanine Aminotransferase (ALT) 15 U/L (7-40) Alkaline Phosphatase 53 U/L (46-116) Aspartate Amino Transferase (AST) 28 U/L (13-40) Total Bilirubin 0.4 mg/dL (0.2-1.0) Urinalysis Test 10/24/24 12:35 Urine Color [place] (Yellow) H Urine Clarity Turbid (Clear) H Urine pH 5.5 (5.0-9.0) Urine Specific [place] 1.023 (1.001-1.035) Urine Protein 1+ (Negative) H Urine Ketones 2+ (Negative) H Urine Blood Negative /uL (Negative) Urine Nitrite Negative (Negative) Urine Bilirubin Negative (Negative) Urine Urobilinogen Normal mg/dL (Negative) Urine Leukocyte Esterase Trace /uL (Negative) Urine RBC 3 /hpf (0 - 3) Urine Microscopic WBC 11 /HPF (0-3) H Urine Squamous Epithelial Cells Few /hpf (<5) Urine Bacteria None seen /hpf (None Seen) Urine Hyaline Casts Many /lpf (0 - 2) Urine Mucus Few (None Seen) Urine Glucose Normal mg/dL (Normal) Microbiology Microbiology Date/Time Source Procedure Growth Status 10/24/24 03:10 Blood Blood Culture - Preliminary NO GROWTH AFTER 24 HOURS OF INCUBATION. Resulted Labs and/or images reviewed: Labs reviewed by me, Image(s) reviewed by me Assessment/Plan Assessment/Plan The patient is a 62-year-old male with multiple past medical history including COPD, hypertension, and hyperlipidemia who presented to [facility] ED with complaint of left lower quadrant abdominal pain. Patient reports symptoms progressively get worse with explosive diarrhea for the past 1 week, notes low-grade fever, seen at urgent care last week and was prescribed Cipro and Flagyl with no improvement of symptoms. Patient was seen and evaluated in the ED, laboratory data shows WBC 15.9, platelets 371, sodium 134, potassium 4.0, BUN 13, creatinine 1.27, glucose 101, calcium 8.8, lactic acid 1.8, blood pressure 81/38 trending up to 95/65, heart rate 115 trending down to 85, temperature 99.9 F trending down to 98.2 F, O2 saturation 97% on oxygen. Abdomen/pelvis CT revealing colitis involving the sigmoid colon, rectum, and distal descending colon. Patient was started on IV antibiotic regimen levofloxacin, please see medication orders section in the computer. On my assessment, patient denied chest pain, no headache, no dizziness, no diaphoresis, no shortness of breaths, no diarrhea, nausea or vomiting at this moment, no fever, no chills. Patient was admitted for further evaluation and medical management. (1) Diverticulitis (2) Hypotension (3) Abdominal pain (4) Leukocytosis, unspecified Melena Obesity Hypertension History of COPD, acute on chronic respiratory failure 10/25/2024: Discussed with nursing at bedside. Patient's significant other (? ) was at bedside writing down everything. Patient was seen by GI, patient will be started on either clear or full liquid per GI Depending on how patient is doing, perhaps IV fluid can be started since patient has not had much p.o. intake for the past 24 hours Mild tachycardia with intermittent episode of tachycardia in the 130s, however asymptomatic. Can be related to be on Levophed and dehydration Discussed with the patient at bedside patient agree with plan of care and has no questions for me Time: > 35 minutes of critical care time Plan discussed with: Patient Date of Service: Oct 25, 2024 Billing Provider: PHILLY YEAGER DO Common Visit Codes: [id number] CARE 30-74 MIN PHILLY YEAGER DO Oct 25, 2024 12:40
--- NOTE | 2024-10-25 14:00 | DVHINCON2 ---
Date of service: Oct 25, [address] Desir Reason for Consultation Abdominal pain diarrhea abdominal distention History of Present Illness This 68-year-old male with history of COPD on oxygen and history of diverticulosis and dyslipidemia is admitted with complaints of abdominal pain in the left lower quadrant with severe diarrhea for about a week patient was seen in the urgent care and was given antibiotics but apparently had persistence of symptoms and did not improve and also had some low-grade fever and hence came to the hospital and from there admitted patient has got history of diverticulosis in the past no history of any colitis no history of travel or unusual food ingestion and history of recent antibiotics intake. Past Medical History COPD hyperlipidemia hypertension Past Surgical History History of melanoma in the past as well as diverticular disease Family History: Patient reports no known family medical history. Family History Noncontributory Social History Social smoking and drinking Allergies: Coded Allergies: NO KNOWN ALLERGIES (Unverified , 10/24/24) Current Medications Current Medications Medications (Trade) Dose Ordered Sig/Yari Route PRN Reason Start Time Stop Time Status Last Admin Metronidazole 100 ml @ 100 mls/hr Q8HR IV 10/24/24 14:00 10/25/24 06:02 Atorvastatin Calcium (Lipitor) 20 mg HS PO 10/24/24 22:00 10/24/24 22:38 Sodium Chloride 1,000 ml @ 100 mls/hr Q10H IV 10/24/24 16:30 10/25/24 01:31 Review of Systems unRemarkable Vital Signs Vital Signs Date Time Temp Pulse Resp B/P (MAP) Pulse Ox O2 Delivery O2 Flow Rate FiO2 10/25/24 12:44 104 21 122/74 (90) 92 10/25/24 09:59 Nasal Cannula 3.0 10/25/24 09:59 32 10/24/24 23:02 98.7 98.7 Physical Exam Moderately Built and nourished slightly on the obese side Distress because of the abdominal discomfort Examination no pallor no clear Vascular unremarkable Mild distention tenderness in the left lower quadrant no rigidity no guarding some fullness bowel sounds were slightly decreased Extremities no edema no varicosities no clubbing Neurological grossly intact Labs/Diagnostic Data Labs Test 10/25/24 03:14 10/24/24 12:35 10/24/24 03:10 10/24/24 02:45 Range/Units White Blood Count 13.6 H 4.4-10.8 10^3/uL Red Blood Count 3.81 L 4.5-5.90 10^6/uL Hemoglobin 12.1 L 13.5-17.5 g/dL Hematocrit 34.8 L 41.0-53.0 % Mean Corpuscular Volume 91.4 80.0-100.0 fL Mean Corpuscular Hemoglobin 31.7 28.0-32.0 pg Mean Corpuscular Hemoglobin Concent 34.7 32.0-36.0 g/dL Red Cell Distribution Width 12.9 11.8-14.3 % Platelet Count 342 140-450 10^3/uL Mean Platelet Volume 7.2 6.9-10.8 fL Neutrophils (%) (Auto) 76.4 37.0-80.0 % Lymphocytes (%) (Auto) 7.4 L 10.0-50.0 % Monocytes (%) (Auto) 14.8 H 0.0-12.0 % Eosinophils (%) (Auto) 1.0 0.0-7.0 % Basophils (%) (Auto) 0.4 0.0-2.0 % Neutrophils # (Auto) 10.4 H 1.6-8.6 10 ^3/uL Lymphocytes # (Auto) 1.0 0.4-5.4 10 ^3/uL Monocytes # (Auto) 2.0 H 0-1.3 10 ^3/uL Eosinophils # (Auto) 0.1 0-0.8 10 ^3/uL Basophils # (Auto) 0 0-0.2 10 ^3/uL Nucleated Red Blood Cells 0.1 % Sodium Level 137 136-145 mmol/L Potassium Level 3.7 3.5-5.1 mmol/L Chloride Level 106 98-107 mmol/L Carbon Dioxide Level 20 20-31 mmol/L Anion Gap 11 5-15 Blood Urea Nitrogen 9 9-23 mg/dL Creatinine 0.89 0.700-1.30 mg/dL Glomerular Filtration Rate Calc 93 >90 mL/min BUN/Creatinine Ratio 10.1 10.0-20.0 Serum Glucose 103 74-106 mg/dL Calcium Level 8.2 L 8.7-10.4 mg/dL Magnesium Level 2.1 1.6-2.6 mg/dL Total Bilirubin 0.4 0.2-1.0 mg/dL Aspartate Amino Transferase (AST) 28 13-40 U/L Alanine Aminotransferase (ALT) 15 7-40 U/L Alkaline Phosphatase 53 46-116 U/L Total Protein 5.3 L 5.7-8.2 g/dL Albumin 3.1 L 3.2-4.8 g/dL Urine Color [place] H Yellow Urine Clarity Turbid H Clear Urine pH 5.5 5.0-9.0 Urine Specific [place] 1.023 1.001-1.035 Urine Protein 1+ H Negative Urine Ketones 2+ H Negative Urine Blood Negative Negative /uL Urine Nitrite Negative Negative Urine Bilirubin Negative Negative Urine Urobilinogen Normal Negative mg/dL Urine Leukocyte Esterase Trace Negative /uL Urine RBC 3 0 - 3 /hpf Urine Microscopic WBC 11 H 0-3 /HPF Urine Squamous Epithelial Cells Few <5 /hpf Urine Bacteria None seen None Seen /hpf Urine Hyaline Casts Many 0 - 2 /lpf Urine Mucus Few None Seen Urine Glucose Normal Normal mg/dL Lactic Acid Level 1.8 0.4-2.0 mmol/L POC Glucose 99 70-106 mg/dl Microbiology Date/Time Source Procedure Growth Status 10/24/24 21:34 Nose MRSA Screen - Final Complete 10/24/24 03:10 Blood Blood Culture - Preliminary NO GROWTH AFTER 24 HOURS OF INCUBATION. Resulted Assessment 68-year-old with a history of COPD and oxygen residual diverticular disease admitted with complaints of abdominal pain and severe diarrhea patient was on Cipro and Flagyl for possible diverticulitis CT scan showed colitis involving mostly in the left side and severe emphysema in the lungs. No evidence of any acute abdomen Impression is possible diverticulitis possible colitis rule out possible C diff also Plan/Recommendation Recommend stool studies including O&P C&S and C diff Abdominal KUB If symptoms persist in the pains persist surgical consult as well as the infectious disease consult CBC CMP lipase tomorrow If abdominal Distention persist as well as pain persist may need to repeat the CAT scan with oral contrast of abdomen and pelvis Thank you Dr. chau Plan discussed with: Patient ELIZABETH CHAU MD Oct 25, 2024 14:00
--- NOTE | 2024-10-25 23:38 | DVHINCON2 ---
Date of service: Oct 25, 2024 Referring Physician [facility] Reason for Consultation Acute hypoxic respiratory failure History of Present Illness A 68-year-old man with multiple past medical history including COPD, hypertension, and hyperlipidemia who presented to ED on 10/24/24 with complaint of left lower quadrant abdominal pain. Patient reported progressively worsening sx with explosive diarrhea for the past 1 week, noted low-grade fever. He was seen at urgent care last week and was prescribed Cipro and Flagyl with no improvement of symptoms. ED workup shows WBC 15.9, platelets 371, sodium 134, potassium 4.0, BUN 13, creatinine 1.27, glucose 101, calcium 8.8, lactic acid 1.8, blood pressure 81/38 trending up to 95/65, heart rate 115 trending down to 85, temperature 99.9 F trending down to 98.2 F, O2 saturation 97% on oxygen. Abdomen/pelvis CT revealing colitis involving the sigmoid colon, rectum, and distal descending colon. Patient was started on IV antibiotic regimen and admitted for further care. Pulmonary consultation is requested for evaluation and management of acute hypoxic respiratory failure. Review of Systems: 14-point review of systems negative unless otherwise noted above. Past Medical History COPD, High Lipids, HTN, Melanoma in remission, Diverticular disease Past Surgical History Left upper extremity surgery for melanoma, right wrist ORIF, bilateral ankle surgery Medications: Reviewed. Allergies: No known drug allergies. Family History: No family history of premature CAD. No family history of lung disorders. Social History: Nonsmoker. No alcohol or illicit drug use. Family History: Patient reports no known family medical history. Allergies: Coded Allergies: NO KNOWN ALLERGIES (Unverified , 10/24/24) Vital Signs Vital Signs Date Time Temp Pulse Resp B/P (MAP) Pulse Ox O2 Delivery O2 Flow Rate FiO2 10/25/24 22:00 101 10/25/24 20:00 21 92 Nasal Cannula* 3 32 10/25/24 19:00 130/76 (94) 10/25/24 16:01 100.2 100.2 Physical Exam Gen.: Patient lying in bed in no apparent distress. On supplemental oxygen. Head: Normocephalic, atraumatic. Eyes: EOMI/PERRLA. Ears: Normal hearing. Normal anatomy. Neck/trachea: Trachea midline, supple. Nose: Normal external anatomy. Mouth: Moist mucous membranes. Chest: Decreased air entry bilaterally. No wheezing or rhonchi. Cardiovascular: Positive S1, positive S2. Regular rate and rhythm. Abdomen: Positive bowel sounds in all 4 quadrants. Soft, non-tender, non- distended. : Deferred. Rectal: Deferred. Skin: Warm, dry. Intact. Extremities: 2+ radial pulses bilaterally. No lower extremity edema. Neuro: Awake, alert, oriented x3. No gross motor or sensory deficits. Cranial nerves II through XII intact. Gait not assessed. Labs/Diagnostic Data Labs Test 10/25/24 03:14 10/24/24 12:35 10/24/24 03:10 10/24/24 02:45 Range/Units White Blood Count 13.6 H 4.4-10.8 10^3/uL Red Blood Count 3.81 L 4.5-5.90 10^6/uL Hemoglobin 12.1 L 13.5-17.5 g/dL Hematocrit 34.8 L 41.0-53.0 % Mean Corpuscular Volume 91.4 80.0-100.0 fL Mean Corpuscular Hemoglobin 31.7 28.0-32.0 pg Mean Corpuscular Hemoglobin Concent 34.7 32.0-36.0 g/dL Red Cell Distribution Width 12.9 11.8-14.3 % Platelet Count 342 140-450 10^3/uL Mean Platelet Volume 7.2 6.9-10.8 fL Neutrophils (%) (Auto) 76.4 37.0-80.0 % Lymphocytes (%) (Auto) 7.4 L 10.0-50.0 % Monocytes (%) (Auto) 14.8 H 0.0-12.0 % Eosinophils (%) (Auto) 1.0 0.0-7.0 % Basophils (%) (Auto) 0.4 0.0-2.0 % Neutrophils # (Auto) 10.4 H 1.6-8.6 10 ^3/uL Lymphocytes # (Auto) 1.0 0.4-5.4 10 ^3/uL Monocytes # (Auto) 2.0 H 0-1.3 10 ^3/uL Eosinophils # (Auto) 0.1 0-0.8 10 ^3/uL Basophils # (Auto) 0 0-0.2 10 ^3/uL Nucleated Red Blood Cells 0.1 % Sodium Level 137 136-145 mmol/L Potassium Level 3.7 3.5-5.1 mmol/L Chloride Level 106 98-107 mmol/L Carbon Dioxide Level 20 20-31 mmol/L Anion Gap 11 5-15 Blood Urea Nitrogen 9 9-23 mg/dL Creatinine 0.89 0.700-1.30 mg/dL Glomerular Filtration Rate Calc 93 >90 mL/min BUN/Creatinine Ratio 10.1 10.0-20.0 Serum Glucose 103 74-106 mg/dL Calcium Level 8.2 L 8.7-10.4 mg/dL Magnesium Level 2.1 1.6-2.6 mg/dL Total Bilirubin 0.4 0.2-1.0 mg/dL Aspartate Amino Transferase (AST) 28 13-40 U/L Alanine Aminotransferase (ALT) 15 7-40 U/L Alkaline Phosphatase 53 46-116 U/L Total Protein 5.3 L 5.7-8.2 g/dL Albumin 3.1 L 3.2-4.8 g/dL Urine Color [place] H Yellow Urine Clarity Turbid H Clear Urine pH 5.5 5.0-9.0 Urine Specific [place] 1.023 1.001-1.035 Urine Protein 1+ H Negative Urine Ketones 2+ H Negative Urine Blood Negative Negative /uL Urine Nitrite Negative Negative Urine Bilirubin Negative Negative Urine Urobilinogen Normal Negative mg/dL Urine Leukocyte Esterase Trace Negative /uL Urine RBC 3 0 - 3 /hpf Urine Microscopic WBC 11 H 0-3 /HPF Urine Squamous Epithelial Cells Few <5 /hpf Urine Bacteria None seen None Seen /hpf Urine Hyaline Casts Many 0 - 2 /lpf Urine Mucus Few None Seen Urine Glucose Normal Normal mg/dL Lactic Acid Level 1.8 0.4-2.0 mmol/L POC Glucose 99 70-106 mg/dl Microbiology Date/Time Source Procedure Growth Status 10/24/24 21:34 Nose MRSA Screen - Final Complete 10/24/24 03:10 Blood Blood Culture - Preliminary NO GROWTH AFTER 24 HOURS OF INCUBATION. Resulted Assessment Impression: Acute hypoxic respiratory failure Dependence on supplemental oxygen Sepsis Colitis Diarrhea Shock Obesity, BMI 32.5 Plan: Supplemental oxygen 4 LPM NC Titrate to keep O2 sats above 92%. Taper O2 as tolerated. On pressors for hemodynamic support Levophed 4 mcg/min Titrate to keep mean arterial pressure greater than 65 mmHg. Continue antibiotics Follow up cultures Monitor renal function. Monitor electrolytes. Supplement as necessary. Monitor ins and outs. Follow up GI recommendations Started on clear liquids Monitor rectal tube output Diet and lifestyle modifications for weight reduction Obesity - complicates all care DVT prophylaxis. Prognosis: Poor given patient's multiple co-morbidities. Condition: Critical Rest of plan per hospitalist and other consultants. A total of 35 minutes of critical care time was spent reviewing the patient record, examining the patient, making a diagnostic and therapeutic plan, discussing this plan with the medical personnel, following up on diagnostic studies and following the patient for clinical stability excluding any and all procedures. At least 50% of this time was spent in direct, [id number] contact. Thank you, REGINA Desir, for allowing me to participate in this patient's care. Further recommendations will depend on the patient's clinical course. Please do not hesitate to contact me if you have any questions or concerns. This medical document was created using an electronic medical record system with [employer] computerized dictation system. Although these documentations are being carefully reviewed, there may still be some phonetic and typographical changes. The errors are purely typographical, due to imperfection on the software program, and do not reflect any compromise in the patient's medical care. Plan discussed with: Patient, Other (JELENA Ambriz/REGINA Desir/) EH DE SOUZA MD Oct 25, 2024 23:38
[2024-10-26] VITALS (91 sets, daily range): BP systolic 69–133; BP diastolic 31–101; PULSE 83–113; RESP 14–98; TEMP 97.2–98.5; O2SAT 86–100
[2024-10-26 04:08] LABS: Hematocrit 34.6 % (41.0-53.0); Hemoglobin 11.9 g/dL (13.5-17.5); Mean Corpuscular Hemoglobin 31.3 pg (28.0-32.0); Mean Corpuscular Volume 91.3 fL (80.0-100.0); Nucleated Red Blood Cells % 0.0 %
[2024-10-26 04:19] LABS: Alanine Aminotransferase 19 U/L (7-40); Alkaline Phosphatase 52 U/L (46-116); Anion Gap 8 (5-15); BUN/Creatinine Ratio 8.8 (10.0-20.0); Carbon Dioxide 25 mmol/L (20-31); Chloride 103 mmol/L (98-107); Glucose 87 mg/dL (74-106); Lipase 20 U/L (12-53); Potassium 4.1 mmol/L (3.5-5.1)
[2024-10-26 04:20] LABS: Bilirubin, Total 0.5 mg/dL (0.2-1.0)
[2024-10-26 04:40] LABS: Albumin 3.0 g/dL (3.2-4.8); Blood Urea Nitrogen 9 mg/dL (9-23); Calcium 8.4 mg/dL (8.7-10.4); Sodium 136 mmol/L (136-145); Total Protein 5.0 g/dL (5.7-8.2)
[2024-10-26 10:56] LABS: Base Excess -4.5 mmol/L (-2.0-3.0)
--- NOTE | 2024-10-26 11:32 | DVH ---
CHEST RADIOGRAPH Indication: SOB Technique: Single frontal view of the chest was obtained Comparison: None FINDINGS: Lines and Tubes: None Lungs: Right basilar opacity. Pleura: No effusion. No pneumothorax. Cardiomediastinal contours: Unremarkable Bones: No acute osseous abnormality. IMPRESSION: No acute cardiopulmonary disease. Severe emphysema. Right basilar opacity.
--- NOTE | 2024-10-26 12:39 | DVHPN2 ---
Subjective Patient continues to report having severe abdominal distention and pain. Reviewed: Care Plan, H&P, Labs, Medications, Previous Orders, Radiology Changes from previous H/P or p: No Changes General: Per HPI Eyes: No Pain, No Vision change, No Conjunctivae inflammation, No Eyelid inflammation, No Other, No Redness ENT: No Ear pain, No Ear discharge, No Nose pain, No Nose discharge, No Nose congestion, No Mouth pain, No Mouth swelling, No Throat pain, No Throat swelling, No Other Cardiovascular: No Chest Pain, No Palpitations, No Orthopnea, No Paroxysmal Noc. Dyspnea, No Edema, No Lt Headedness, No Other Respiratory: No Cough, No Dry; Shortness of breath; No SOB with excertion, No Wheezing, No Hemoptysis, No Pleuritic Pain, No Sputum, No Other Gastrointestinal: Nausea, Vomiting, Abdominal Pain, Diarrhea; No Constipation, No Melena, No Hematochezia, No Other Genitourinary: No Dysuria, No Frequency, No Incontinence, No Hematuria, No Retention, No Other Musculoskeletal: No other, No neck pain, No shoulder pain, No arm pain, No back pain, No hand pain, No leg pain, No foot pain Skin: No Rash, No Lesions, No Jaundice, No Bruising, No Other Objective Vitals Vital Signs Date Time Temp Pulse Resp B/P (MAP) Pulse Ox O2 Delivery O2 Flow Rate FiO2 10/26/24 10:29 108 20 94 10/26/24 10:21 Nasal Cannula* 4 36 10/26/24 06:45 98.3 98.3 Intake/Output Intake and Output 10/26/24 07:00 Intake Total 4434.25 ml Output Total 2750 ml Balance 1684.25 ml Intake Oral 1670 ml IV Total 2764.25 ml Output Urine Total 1550 ml Stool Total 1200 ml # Bowel Movements 4 General Appearance: Alert, Oriented X3, Cooperative, moderate distress HEENT: Atraumatic Lungs: Other (Decreased breath sounds in bases. Nasal cannula 4 L/min) Cardiovascular: Regular rate, Normal S1, Normal S2 Abdomen: Other (Absent bowel sounds. Severely distended abdomen) Genitourinary: No Apparent Abnormalities Skin: Dry, Intact Psych/Mental Status: Mental status NL, Mood NL Medications Current Medications Medications Dose Ordered Sig/Yari Route Start Time Stop Time Status Last Admin Dose Admin Norepinephrine Bitartrate 250 ml @ 3.75 mls/hr Q24H IV 10/24/24 06:30 10/25/24 01:30 7.5 MLS/HR Pantoprazole Sodium 40 mg DAILY IV 10/24/24 10:00 10/26/24 10:33 40 MG Levofloxacin/ Dextrose 100 ml @ 100 mls/hr DAILY IV 10/24/24 10:00 10/26/24 10:34 100 MLS/HR Metronidazole 100 ml @ 100 mls/hr Q8HR IV 10/24/24 14:00 10/26/24 05:39 100 MLS/HR Albuterol 2.5 mg Q4HPRN PRN NEB 10/24/24 08:45 10/25/24 13:57 2.5 MG Ipratropium [place] 0.5 mg Q4HR NEB 10/24/24 10:00 10/26/24 10:21 0.5 MG Acetaminophen/ Hydrocodone Bitart 1 tab Q4HP PRN PO 10/24/24 08:45 10/26/24 00:45 1 TAB Ondansetron HCl 4 mg Q4HP PRN IV 10/24/24 08:45 10/25/24 11:29 4 MG Docusate Sodium 100 mg BIDPRN PRN PO 10/24/24 08:45 Acetaminophen 650 mg Q6HP PRN PO 10/24/24 08:45 Morphine Sulfate 2 mg Q4HPRN PRN IV 10/24/24 08:45 10/25/24 11:31 2 MG Atorvastatin Calcium 20 mg HS PO 10/24/24 22:00 10/25/24 21:29 20 MG Nitroglycerin 0.4 mg Q5MINP PRN SL 10/24/24 09:15 Morphine Sulfate 2 mg Q30M PRN IV 10/24/24 09:15 Loperamide HCl 2 mg Q2H PRN PO 10/24/24 13:00 10/25/24 16:36 2 MG Sodium Chloride 1,000 ml @ 100 mls/hr Q10H IV 10/24/24 16:30 10/25/24 22:30 100 MLS/HR Laboratory Results Laboratory Tests 10/26/24 03:23 Chemistry Test 10/26/24 03:23 Albumin 3.0 g/dL (3.2-4.8) L Calcium Level 8.4 mg/dL (8.7-10.4) L Total Protein 5.0 g/dL (5.7-8.2) L Lipid panel Test 10/26/24 03:23 Lipase 20 U/L (12-53) LFT Test 10/26/24 03:23 Alanine Aminotransferase (ALT) 19 U/L (7-40) Alkaline Phosphatase 52 U/L (46-116) Aspartate Amino Transferase (AST) 47 U/L (13-40) H Total Bilirubin 0.5 mg/dL (0.2-1.0) Urinalysis Test 10/24/24 12:35 Urine Color [place] (Yellow) H Urine Clarity Turbid (Clear) H Urine pH 5.5 (5.0-9.0) Urine Specific [place] 1.023 (1.001-1.035) Urine Protein 1+ (Negative) H Urine Ketones 2+ (Negative) H Urine Blood Negative /uL (Negative) Urine Nitrite Negative (Negative) Urine Bilirubin Negative (Negative) Urine Urobilinogen Normal mg/dL (Negative) Urine Leukocyte Esterase Trace /uL (Negative) Urine RBC 3 /hpf (0 - 3) Urine Microscopic WBC 11 /HPF (0-3) H Urine Squamous Epithelial Cells Few /hpf (<5) Urine Bacteria None seen /hpf (None Seen) Urine Hyaline Casts Many /lpf (0 - 2) Urine Mucus Few (None Seen) Urine Glucose Normal mg/dL (Normal) Blood Gas Results Test 10/26/24 10:46 Arterial Blood pH 7.401 (7.350-7.450) FiO2 % 32.0 Microbiology Microbiology Date/Time Source Procedure Growth Status 10/24/24 21:34 Nose MRSA Screen - Final Complete 10/24/24 03:10 Blood Blood Culture - Preliminary NO GROWTH AFTER 48 HOURS OF INCUBATION. Resulted Labs and/or images reviewed: Labs reviewed by me, Image(s) reviewed by me Assessment/Plan Assessment/Plan Impression: -septic shock -acute colitis, rule out acute gastric perforation -obesity -acute on chronic hypoxic respiratory failure -COPD -degenerative joint disease Plan: -continue IV fluids at 100 mL/hour. Five hundred normal saline bolus -norepinephrine drip to keep map greater than 65 mm of mercury -stat CT scan of the abdomen and pelvis with oral contrast -NG tube to low intermittent suction -O2 supplementation to keep saturation greater than 92% -continue bronchodilators -continue antibiotic therapy with Levaquin and Flagyl -consultations: Pulmonology, GI -repeat labs in a.m. -surgical consultation warranted if patient is noted to have acute abdomen. Awaiting CT scan results Critical care time spent with patient discussing and formulating plan of care: 40 minutes. This does not include time spent performing procedures. This medical document was created using an electronic medical record system with [employer] dictation system. Although this document has been carefully reviewed, there may still be some phonetic and typographical errors. These areas are purely typographical due to imperfections of the software programs, and do not reflect any compromise in the patient's medical care. Plan discussed with: Patient, Other (RN) My Orders Orders - ANAYA ONTIVEROS NP Procedure Category Date Status Time Abg W/ Co-Ox RT 10/26/24 Logged 10:23 Chest Portable XY 10/26/24 Resulted 10:23 Sodium Chloride 0.9% PHA 10/26/24 In Process 11:45 Basic Metabolic Panel LAB 10/27/24 Verified 05:00 Basic Metabolic Panel LAB 10/28/24 Verified 05:00 Basic Metabolic Panel LAB 10/29/24 Verified 05:00 Stool Bacterial JULIA 10/26/24 Logged Culture 11:36 Date of Service: Oct 26, 2024 Billing Provider: ANAYA ONTIVEROS NP Common Visit Codes: [id number] CARE 30-74 MIN ANAYA ONTIVEROS NP Oct 26, 2024 12:39
[2024-10-26] MEDS: SODIUM CHLORIDE 0.9% 500 ML IV ONE (14:35)
--- NOTE | 2024-10-26 16:19 | DVH ---
Exam: CT CT AB PEL WITH ORAL CON ONLY History: abd distention Comparison Study: CT CT AB PEL WO CON-NO ORAL OR IV on DOS: 10/24/24 Technique: Multidetector CT of the abdomen and pelvis with oral contrast only. Axial, coronal and sag ittal multiplanar reformats were performed by the technologist on a separate workstation. Radiation Dose Information: CT Dose: CTDI volume is 23.14 mGy. Dose-length product is 1331.74 mGy*cm Findings: Severe emphysematous changes of the lung bases. Trace bilateral pleural effusions with bibasilar atel ectasis. Partially visualized heart is unremarkable. Liver, spleen, pancreas and adrenal glands unremarkable. Moderate distention of the gallbladder. Oth erwise, the gallbladder is unremarkable. Small splenule is noted adjacent to the spleen. Mild nonspecific bilateral perirenal fat stranding. Otherwise, kidneys, ureters and urinary bladder a re unremarkable. Prostate is unremarkable. Small amount of fluid within the esophagus. Enteric tube terminates within the stomach. Contrast is noted within the stomach and proximal to mid small bowel loops no contrast within the mid to distal s mall bowel loops which may be due to timing of imaging. The small bowel loops unremarkable. The colon is filled with liquid stool and gas with distention of the transverse colon up to 7.7 cm distention of the ascending colon up to 9.9 cm. Descending colon and sigmoid are not significantly distended servando suring up to 5.2 cm. There is fat stranding adjacent to the colon. Wall thickening of the rectum and segmental Sigmoid. A rectal tube is noted in place. Colonic diverticulosis with limited evaluation fo r diverticulitis given pericolonic fat stranding. Appendix is unremarkable. No evidence of intraperitoneal free air. Colonic fat stranding extends adjacent to the duodenum. 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 Slightly prominent Mesenteric lymph nodes measuring up to 1 cm in short axis which may be reactive. Small fat containing bilateral inguinal hernias. Mild abdominopelvic body wall edema. No destructive osseous lesions are noted. IMPRESSION: A rectal tube is noted in place. Large amount of liquid stool and gas within the colon with distentio n of the ascending colon up to 9.5 cm and distention of the transverse colon to 7.7 cm. Fat stranding adjacent to the colon with wall thickening of the rectum and segmental wall thickening of the sigmoid consistent with colitis. Oral contrast is noted within the stomach and proximal to mid small bowel with no contrast noted with in the mid to distal small bowel and large bowel which may be due to timing of imaging. Additional findings as above.
--- NOTE | 2024-10-26 17:06 | DVHINCON2 ---
Date of service: Oct 26, 2024 Family History: Patient reports no known family medical history. Allergies: Coded Allergies: NO KNOWN ALLERGIES (Unverified , 10/24/24) Vital Signs Vital Signs Date Time Temp Pulse Resp B/P (MAP) Pulse Ox O2 Delivery O2 Flow Rate FiO2 10/26/24 15:40 105 22 102/62 (75) 98 10/26/24 14:41 97.2 97.2 10/26/24 13:18 Nasal Cannula* 3 32 Labs/Diagnostic Data Labs Test 10/26/24 10:46 10/26/24 03:23 10/25/24 03:14 10/24/24 12:35 Range/Units Blood Gas Specimen Type Arterial Blood Gas Sample Site Left radial Blood Gas Patient Temperature 37.0 Arterial Blood Date Drawn [id number] Arterial Blood pH 7.401 7.350-7.450 Arterial Blood Partial Pressure CO2 31.8 L 35.0-48.0 mmHg Arterial Blood Partial Pressure O2 65.2 L 83.0-108.0 mmHg Arterial Blood HCO3 19.3 L 21.0-28.0 mmol/L Arterial Blood Oxygen Saturation 91.5 L 94.0-98.0 % Arterial Blood Base Excess -4.5 L -2.0-3.0 mmol/L Arterial Blood Oxyhemoglobin 90.7 L 94.0-98.0 % Arterial Blood Carboxyhemoglobin 0.3 L 0.5-1.5 % Arterial Blood Methemoglobin 0.6 0.0-1.5 % Mack Test Yes Blood Gas Total Hemoglobin 13.10 L 13.5-17.5 g/dL Blood Gas Liter Flow 3.00 Blood Gas Modality Nasal cannula FiO2 % 32.0 White Blood Count 14.2 H 4.4-10.8 10^3/uL Red Blood Count 3.80 L 4.5-5.90 10^6/uL Hemoglobin 11.9 L 13.5-17.5 g/dL Hematocrit 34.6 L 41.0-53.0 % Mean Corpuscular Volume 91.3 80.0-100.0 fL Mean Corpuscular Hemoglobin 31.3 28.0-32.0 pg Mean Corpuscular Hemoglobin Concent 34.3 32.0-36.0 g/dL Red Cell Distribution Width 13.2 11.8-14.3 % Platelet Count 336 140-450 10^3/uL Mean Platelet Volume 7.1 6.9-10.8 fL Neutrophils (%) (Auto) 78.1 37.0-80.0 % Lymphocytes (%) (Auto) 6.7 L 10.0-50.0 % Monocytes (%) (Auto) 13.9 H 0.0-12.0 % Eosinophils (%) (Auto) 1.3 0.0-7.0 % Basophils (%) (Auto) 0.0 0.0-2.0 % Neutrophils # (Auto) 11.1 H 1.6-8.6 10 ^3/uL Lymphocytes # (Auto) 1.0 0.4-5.4 10 ^3/uL Monocytes # (Auto) 2.0 H 0-1.3 10 ^3/uL Eosinophils # (Auto) 0.2 0-0.8 10 ^3/uL Basophils # (Auto) 0 0-0.2 10 ^3/uL Nucleated Red Blood Cells 0.0 % Sodium Level 136 136-145 mmol/L Potassium Level 4.1 3.5-5.1 mmol/L Chloride Level 103 98-107 mmol/L Carbon Dioxide Level 25 20-31 mmol/L Anion Gap 8 5-15 Blood Urea Nitrogen 9 9-23 mg/dL Creatinine 1.02 0.700-1.30 mg/dL Glomerular Filtration Rate Calc 80 >90 mL/min BUN/Creatinine Ratio 8.8 L 10.0-20.0 Serum Glucose 87 74-106 mg/dL Calcium Level 8.4 L 8.7-10.4 mg/dL Total Bilirubin 0.5 0.2-1.0 mg/dL Aspartate Amino Transferase (AST) 47 H 13-40 U/L Alanine Aminotransferase (ALT) 19 7-40 U/L Alkaline Phosphatase 52 46-116 U/L Total Protein 5.0 L 5.7-8.2 g/dL Albumin 3.0 L 3.2-4.8 g/dL Lipase 20 12-53 U/L Magnesium Level 2.1 1.6-2.6 mg/dL Urine Color [place] H Yellow Urine Clarity Turbid H Clear Urine pH 5.5 5.0-9.0 Urine Specific [place] 1.023 1.001-1.035 Urine Protein 1+ H Negative Urine Ketones 2+ H Negative Urine Blood Negative Negative /uL Urine Nitrite Negative Negative Urine Bilirubin Negative Negative Urine Urobilinogen Normal Negative mg/dL Urine Leukocyte Esterase Trace Negative /uL Urine RBC 3 0 - 3 /hpf Urine Microscopic WBC 11 H 0-3 /HPF Urine Squamous Epithelial Cells Few <5 /hpf Urine Bacteria None seen None Seen /hpf Urine Hyaline Casts Many 0 - 2 /lpf Urine Mucus Few None Seen Urine Glucose Normal Normal mg/dL Test 10/24/24 03:10 10/24/24 02:45 Range/Units Lactic Acid Level 1.8 0.4-2.0 mmol/L POC Glucose 99 70-106 mg/dl Microbiology Date/Time Source Procedure Growth Status 10/25/24 16:00 Stool Clostridium difficile Toxin Assay - Final Complete 10/24/24 21:34 Nose MRSA Screen - Final Complete 10/24/24 03:10 Blood Blood Culture - Preliminary NO GROWTH AFTER 48 HOURS OF INCUBATION. Resulted Assessment [id number] AFEBRILE VSS ABD SOFT DISTENDED MILD TENDER LLQ BM + DIARRHEA CT SCAN NO AC PROCESS WBC MILD ELEVATION LACTATE WNL COLITIS CONTINUE CLOSE OBSERVATION CONSIDER EMERGENT SURGERY BASED ON ONGOING EVAL REPEAT CT SCAN PENDING Plan discussed with: Patient LINDSAY RAMOS MD Oct 26, 2024 17:06
--- NOTE | 2024-10-26 18:12 | DVHINCON2 ---
DATE OF CONSULTATION: 10/26/2024 HISTORY OF PRESENT ILLNESS: This patient is 68 years old, seen in the ICU and originally admitted on 10/24 with left lower quadrant abdominal pain. The pain got worse and he had explosive diarrhea for the past 1 week with low-grade fever. He was seen in the urgent care, given Cipro and Flagyl, and then he comes and gets admitted, and I was asked to see him with regards to abdominal pain and evaluation for possible surgery. PAST MEDICAL HISTORY: COPD, hypertension, melanoma in remission, diverticular disease. PAST SURGICAL HISTORY: Left upper extremity surgery for melanoma, right wrist ORIF, and bilateral ankle surgery. PHYSICAL EXAMINATION: VITAL SIGNS: Afebrile, stable signs. HEENT: There is no evidence of pallor, cyanosis, or jaundice. NECK: Supple and nontender with no thyromegaly or lymphadenopathy. CHEST AND LUNGS: Clear. HEART: Within normal limits. ABDOMEN: Soft. He is distended. He is morbidly obese. Difficult to evaluate, but minimally tender. No rebound. EXTREMITIES: Unremarkable. NEUROLOGIC: Not assessed. DIAGNOSTIC DATA: His white cell count is 14.2 up from 13.6 and lipase is 20. Lactic acid is 1.8 and liver enzymes are within normal limits with AST mildly elevated to 47. He has had an abdominal CT scan done showing severe emphysema in the lung bases and hepatic steatosis. There is colitis involving the sigmoid colon as well as the ascending colon and hepatic flexure. No evidence of bowel obstruction or acute process identified in the first CT scan and the second CT scan is pending. CLINICAL IMPRESSION: Colitis, gastroenteritis, rule out ileus. PLAN: Continue close observation, keep him n.p.o. with NG suctioning and evaluate the repeat CT scan and consider emergent surgery based upon ongoing evaluation and repeat CT scan findings. Randall Berry MD RG/VIDA TID: [id number] RECEIPT: [id number] cc: Edi Mccartney NP
--- NOTE | 2024-10-26 21:25 | DVHPN2 ---
Progress Note - Dictate Date Seen: Oct 26, 2024 Medical Necessity Reason Pt with a Central, PICC or Fol: Yes Subjective Patient seen at bedside in ICU 105 Patient is awake responsive in mild distress Mild generalized abdominal distention with underlying obesity Patient had removal of his rectal tube and since then had a small bowel movement and abdominal distention is improved He has not had a recent colonoscopy and last exam was several years ago which showed diverticulosis Patient had an attack of diverticulitis what 6-7 years ago vital signs Vital Sign Date Time Temp Pulse Resp B/P (MAP) Pulse Ox O2 Delivery O2 Flow Rate FiO2 10/26/24 20:00 97 15 98 Nasal Cannula* 3 32 10/26/24 19:02 97/55 (69) 10/26/24 16:20 97.8 97.8 Total Intake and Output 10/25/24 10/25/24 10/26/24 15:00 23:00 07:00 Intake Total 1057.5 ml 1956.75 ml 1520 ml Output Total 1550 ml 200 ml 1000 ml Balance -492.5 ml 1756.75 ml 520 ml medications Current Medications Medications Dose Ordered Sig/Yari Route Start Time Stop Time Status Last Admin Dose Admin Norepinephrine Bitartrate 250 ml @ 3.75 mls/hr Q24H IV 10/24/24 06:30 10/25/24 01:30 7.5 MLS/HR Pantoprazole Sodium 40 mg DAILY IV 10/24/24 10:00 10/26/24 10:33 40 MG Levofloxacin/ Dextrose 100 ml @ 100 mls/hr DAILY IV 10/24/24 10:00 10/26/24 10:34 100 MLS/HR Metronidazole 100 ml @ 100 mls/hr Q8HR IV 10/24/24 14:00 10/26/24 14:32 100 MLS/HR Albuterol 2.5 mg Q4HPRN PRN NEB 10/24/24 08:45 10/26/24 18:54 2.5 MG Ipratropium [place] 0.5 mg Q4HR NEB 10/24/24 10:00 10/26/24 18:54 0.5 MG Acetaminophen/ Hydrocodone Bitart 1 tab Q4HP PRN PO 10/24/24 08:45 10/26/24 00:45 1 TAB Ondansetron HCl 4 mg Q4HP PRN IV 10/24/24 08:45 10/25/24 11:29 4 MG Docusate Sodium 100 mg BIDPRN PRN PO 10/24/24 08:45 Acetaminophen 650 mg Q6HP PRN PO 10/24/24 08:45 Morphine Sulfate 2 mg Q4HPRN PRN IV 10/24/24 08:45 10/26/24 14:35 2 MG Atorvastatin Calcium 20 mg HS PO 10/24/24 22:00 10/25/24 21:29 20 MG Nitroglycerin 0.4 mg Q5MINP PRN SL 10/24/24 09:15 Morphine Sulfate 2 mg Q30M PRN IV 10/24/24 09:15 Loperamide HCl 2 mg Q2H PRN PO 10/24/24 13:00 10/25/24 16:36 2 MG Sodium Chloride 1,000 ml @ 100 mls/hr Q10H IV 10/24/24 16:30 10/26/24 18:35 100 MLS/HR Phenol/Menthol 1 spr Q2HP PRN MT 10/26/24 18:45 objective VITAL SIGNS: Afebrile, stable signs. HEENT: There is no evidence of pallor, cyanosis, or jaundice. NECK: Supple and nontender with no thyromegaly or lymphadenopathy. CHEST AND LUNGS: Clear. HEART: Within normal limits. ABDOMEN: Soft and distended. He is morbidly obese. Difficult to evaluate, but minimally tender. No rebound. EXTREMITIES: Unremarkable. NEUROLOGIC: Alert and oriented x3, nonfocal laboratory and microbiology Laboratory Tests 10/26/24 03:23 Test 10/26/24 03:23 Range/Units Serum Glucose 87 74-106 mg/dL Repeat CT scan abd pelvis IMPRESSION: A rectal tube is noted in place. Large amount of liquid stool and gas within the colon with distention of the ascending colon up to 9.5 cm and distention of the transverse colon to 7.7 cm. Fat stranding adjacent to the colon with wall thickening of the rectum and segmental wall thickening of the sigmoid consistent with colitis. Oral contrast is noted within the stomach and proximal to mid small bowel with no contrast noted within the mid to distal small bowel and large bowel which may be due to timing of imaging. Problems(with codes): (1) Ileus (2) Leukocytosis, unspecified (3) Abdominal pain (4) Diverticulitis (5) Hypotension Prognosis Plan NPO, IV fluid hydration ; NG tube to low intermittent suction Broad-spectrum antibiotics Repeat KUB in a.m. Consider Gastrografin small-bowel series Surgical input is appreciated Plan discussed with: Patient, Spouse, Other (ICU Nurse) LAURITA RAMOS MD Oct 26, 2024 21:24
--- NOTE | 2024-10-26 23:49 | DVHPN2 ---
Progress Note - Dictate Date Seen: Oct 26, 2024 Medical Necessity Reason Pt with a Central, PICC or Fol: Yes Subjective Patient seen and examined at bedside. Remains on supplemental oxygen Overnight events reviewed. [facility] vital signs Vital Sign Date Time Temp Pulse Resp B/P (MAP) Pulse Ox O2 Delivery O2 Flow Rate FiO2 10/26/24 22:18 101 19 99 10/26/24 22:10 Nasal Cannula* 2 28 10/26/24 19:02 97/55 (69) 10/26/24 16:20 97.8 97.8 Total Intake and Output 10/25/24 10/25/24 10/26/24 15:00 23:00 07:00 Intake Total 1057.5 ml 1956.75 ml 1520 ml Output Total 1550 ml 200 ml 1000 ml Balance -492.5 ml 1756.75 ml 520 ml medications Current Medications Medications Dose Ordered Sig/Yari Route Start Time Stop Time Status Last Admin Dose Admin Norepinephrine Bitartrate 250 ml @ 3.75 mls/hr Q24H IV 10/24/24 06:30 10/25/24 01:30 7.5 MLS/HR Pantoprazole Sodium 40 mg DAILY IV 10/24/24 10:00 10/26/24 10:33 40 MG Levofloxacin/ Dextrose 100 ml @ 100 mls/hr DAILY IV 10/24/24 10:00 10/26/24 10:34 100 MLS/HR Metronidazole 100 ml @ 100 mls/hr Q8HR IV 10/24/24 14:00 10/26/24 22:01 100 MLS/HR Albuterol 2.5 mg Q4HPRN PRN NEB 10/24/24 08:45 10/26/24 22:10 2.5 MG Ipratropium [place] 0.5 mg Q4HR NEB 10/24/24 10:00 10/26/24 22:10 0.5 MG Acetaminophen/ Hydrocodone Bitart 1 tab Q4HP PRN PO 10/24/24 08:45 10/26/24 00:45 1 TAB Ondansetron HCl 4 mg Q4HP PRN IV 10/24/24 08:45 10/25/24 11:29 4 MG Docusate Sodium 100 mg BIDPRN PRN PO 10/24/24 08:45 Acetaminophen 650 mg Q6HP PRN PO 10/24/24 08:45 Morphine Sulfate 2 mg Q4HPRN PRN IV 10/24/24 08:45 10/26/24 14:35 2 MG Atorvastatin Calcium 20 mg HS PO 10/24/24 22:00 10/25/24 21:29 20 MG Nitroglycerin 0.4 mg Q5MINP PRN SL 10/24/24 09:15 Morphine Sulfate 2 mg Q30M PRN IV 10/24/24 09:15 Loperamide HCl 2 mg Q2H PRN PO 10/24/24 13:00 10/25/24 16:36 2 MG Sodium Chloride 1,000 ml @ 100 mls/hr Q10H IV 10/24/24 16:30 10/26/24 18:35 100 MLS/HR Phenol/Menthol 1 spr Q2HP PRN MT 10/26/24 18:45 objective Gen.: Patient lying in bed in no apparent distress. On supplemental oxygen. Head: Normocephalic, atraumatic. Eyes: EOMI/PERRLA. Ears: Normal hearing. Normal anatomy. Neck/trachea: Trachea midline, supple. Nose: Normal external anatomy. Mouth: Moist mucous membranes. Chest: Decreased air entry bilaterally. No wheezing or rhonchi. Cardiovascular: Positive S1, positive S2. Regular rate and rhythm. Abdomen: Positive bowel sounds in all 4 quadrants. Soft, non-tender, non- distended. : Deferred. Rectal: Deferred. Skin: Warm, dry. Intact. Extremities: 2+ radial pulses bilaterally. No lower extremity edema. Neuro: Awake, alert, oriented x3. No gross motor or sensory deficits. Cranial nerves II through XII intact. Gait not assessed. laboratory and microbiology Laboratory Tests 10/26/24 03:23 Test 10/26/24 03:23 Range/Units Serum Glucose 87 74-106 mg/dL Assessment/Plan Impression: Acute hypoxic respiratory failure Dependence on supplemental oxygen Sepsis Colitis Diarrhea Shock Obesity, BMI 32.5 Events: Remains on supplemental oxygen, 2 LPM NC Taper O2 as tolerated Off Levophed since 10/25/24, monitor hemodynamics Monitor BP closely - remains labile. Surgery recommendations appreciated NPO NGT to LIS. Removed rectal tube. Continue bronchodilators Continue antibiotics Labs and imaging reviewed. Rest of plan as noted below. Plan: Supplemental oxygen Titrate to keep O2 sats above 92%. Pressors as necessary for hemodynamic support Titrate to keep mean arterial pressure greater than 65 mmHg. Continue antibiotics Follow up cultures Monitor renal function. Monitor electrolytes. Supplement as necessary. Monitor ins and outs. NGT to LIS Follow up GI recommendations Rectal tube removed. Surgery recs appreciated. Diet and lifestyle modifications for weight reduction Obesity - complicates all care DVT prophylaxis. Prognosis: Poor given patient's multiple co-morbidities. Rest of plan per hospitalist and other consultants. Thank you, REGINA Desir, for allowing me to participate in this patient's care. Further recommendations will depend on the patient's clinical course. Please do not hesitate to contact me if you have any questions or concerns. This medical document was created using an electronic medical record system with [employer] computerized dictation system. Although these documentations are being carefully reviewed, there may still be some phonetic and typographical changes. The errors are purely typographical, due to imperfection on the software program, and do not reflect any compromise in the patient's medical care. Plan discussed with: Patient, Other (JELENA Holley) EH DE SOUZA MD Oct 26, 2024 23:49
[2024-10-27] VITALS (86 sets, daily range): BP systolic 93–184; BP diastolic 54–115; PULSE 76–111; RESP 12–26; TEMP 97.8–98.3; O2SAT 88–100
[2024-10-27 03:46] LABS: Chloride 103 mmol/L (98-107); Potassium 3.7 mmol/L (3.5-5.1)
[2024-10-27 03:47] LABS: Anion Gap 10 (5-15); Carbon Dioxide 20 mmol/L (20-31)
[2024-10-27 03:52] LABS: BUN/Creatinine Ratio 17.0 (10.0-20.0); Blood Urea Nitrogen 17 mg/dL (9-23)
[2024-10-27 04:15] LABS: Calcium 8.1 mg/dL (8.7-10.4); Glucose 66 mg/dL (74-106); Sodium 133 mmol/L (136-145)
[2024-10-27] MEDS ORDERED: CLINIMIX PER PHARMACY 0 ML IV SCH (09:15)
--- NOTE | 2024-10-27 09:40 | DVHPN2 ---
Progress Note Date Seen: Oct 27, 2024 Medical Necessity Reason Pt with a Central, PICC or Fol: Yes Objective vital signs Vital Sign Date Time Temp Pulse Resp B/P (MAP) Pulse Ox O2 Delivery O2 Flow Rate FiO2 10/27/24 06:28 95 13 98 10/27/24 06:22 Nasal Cannula 2.0 10/27/24 06:22 28 10/27/24 03:10 124/59 (80) 10/26/24 19:40 98.5 98.5 Total Intake and Output 10/26/24 10/26/24 10/27/24 14:59 22:59 06:59 Intake Total 800 ml 800 ml 900 ml Output Total 250 ml Balance 800 ml 800 ml 650 ml medications Current Medications Medications Dose Ordered Sig/Yari Route Start Time Stop Time Status Last Admin Dose Admin Norepinephrine Bitartrate 250 ml @ 3.75 mls/hr Q24H IV 10/24/24 06:30 10/25/24 01:30 7.5 MLS/HR Pantoprazole Sodium 40 mg DAILY IV 10/24/24 10:00 10/26/24 10:33 40 MG Levofloxacin/ Dextrose 100 ml @ 100 mls/hr DAILY IV 10/24/24 10:00 10/26/24 10:34 100 MLS/HR Metronidazole 100 ml @ 100 mls/hr Q8HR IV 10/24/24 14:00 10/27/24 05:41 100 MLS/HR Albuterol 2.5 mg Q4HPRN PRN NEB 10/24/24 08:45 10/27/24 02:38 2.5 MG Ipratropium [place] 0.5 mg Q4HR NEB 10/24/24 10:00 10/27/24 06:22 0.5 MG Acetaminophen/ Hydrocodone Bitart 1 tab Q4HP PRN PO 10/24/24 08:45 10/26/24 00:45 1 TAB Ondansetron HCl 4 mg Q4HP PRN IV 10/24/24 08:45 10/25/24 11:29 4 MG Docusate Sodium 100 mg BIDPRN PRN PO 10/24/24 08:45 Acetaminophen 650 mg Q6HP PRN PO 10/24/24 08:45 Morphine Sulfate 2 mg Q4HPRN PRN IV 10/24/24 08:45 10/26/24 14:35 2 MG Atorvastatin Calcium 20 mg HS PO 10/24/24 22:00 10/25/24 21:29 20 MG Nitroglycerin 0.4 mg Q5MINP PRN SL 10/24/24 09:15 Morphine Sulfate 2 mg Q30M PRN IV 10/24/24 09:15 Loperamide HCl 2 mg Q2H PRN PO 10/24/24 13:00 10/25/24 16:36 2 MG Phenol/Menthol 1 spr Q2HP PRN MT 10/26/24 18:45 Amino Acids 0 ml @ 0 mls/hr PER PHARMACY IV 10/27/24 09:15 UNV Dextrose/Sodium Chloride 1,000 ml @ 50 mls/hr Q20H IV 10/27/24 09:15 laboratory and microbiology Laboratory Tests 10/27/24 02:44 10/26/24 03:23 Test 10/27/24 02:44 Range/Units Serum Glucose 66 L 74-106 mg/dL Microbiology Date/Time Source Procedure Growth Status 10/25/24 16:00 Stool Clostridium difficile Toxin Assay - Final Complete 10/24/24 21:34 Nose MRSA Screen - Final Complete 10/24/24 03:10 Blood Blood Culture - Preliminary NO GROWTH AFTER 72 HOURS OF INCUBATION. Resulted Problem List/Assessment/Plan Problem List/Assessment/Plan AFEBRILE VSS ABD SOFT LESS DISTENDED BM + FLATUS + REPEAT CT SCAN ILEUS LIQUID STOOL CONTINUE CLOSE OBSERVATION REPEAT LABS KUB NURSE AT BEDSIDE Plan discussed with: Patient My Orders My Orders Orders - LINDSAY RAMOS MD Procedure Category Date Status Time D/C Rectal Tube ORDERS 10/26/24 Transmitted 16:21 Npo Except Ice Chips GISELE 10/26/24 In Process 16:21 Npo (Nothing By DIET 10/26/24 Transmitted Mouth) Diet Breakfast Kub Abdomen Single XY 10/27/24 Logged View 09:36 LINDSAY RAMOS MD Oct 27, 2024 09:40
[2024-10-27] MEDS: D5W/SOD CHLO 0.9% 1,000 ML IV SCH (09:57)
[2024-10-27 10:04] LABS: Hematocrit 34.7 % (41.0-53.0); Hemoglobin 11.7 g/dL (13.5-17.5); Mean Corpuscular Hemoglobin 31.4 pg (28.0-32.0); Mean Corpuscular Volume 92.9 fL (80.0-100.0); Nucleated Red Blood Cells % 0.1 %
--- NOTE | 2024-10-27 10:12 | DVHPN2 ---
Subjective Patient continues to report having severe abdominal distention and pain. Reviewed: Care Plan, H&P, Labs, Medications, Previous Orders, Radiology Changes from previous H/P or p: No Changes General: Per HPI Eyes: No Pain, No Vision change, No Conjunctivae inflammation, No Eyelid inflammation, No Other, No Redness ENT: No Ear pain, No Ear discharge, No Nose pain, No Nose discharge, No Nose congestion, No Mouth pain, No Mouth swelling, No Throat pain, No Throat swelling, No Other Cardiovascular: No Chest Pain, No Palpitations, No Orthopnea, No Paroxysmal Noc. Dyspnea, No Edema, No Lt Headedness, No Other Respiratory: No Cough, No Dry; Shortness of breath; No SOB with excertion, No Wheezing, No Hemoptysis, No Pleuritic Pain, No Sputum, No Other Gastrointestinal: Nausea, Vomiting, Abdominal Pain, Diarrhea; No Constipation, No Melena, No Hematochezia, No Other Genitourinary: No Dysuria, No Frequency, No Incontinence, No Hematuria, No Retention, No Other Musculoskeletal: No other, No neck pain, No shoulder pain, No arm pain, No back pain, No hand pain, No leg pain, No foot pain Skin: No Rash, No Lesions, No Jaundice, No Bruising, No Other Objective Vitals Vital Signs Date Time Temp Pulse Resp B/P (MAP) Pulse Ox O2 Delivery O2 Flow Rate FiO2 10/27/24 09:48 95 19 98 10/27/24 09:40 Nasal Cannula 2.0 10/27/24 09:40 28 10/27/24 03:10 124/59 (80) 10/26/24 19:40 98.5 98.5 Intake/Output Intake and Output 10/27/24 07:00 Intake Total 2500 ml Output Total 250 ml Balance 2250 ml Intake Oral 100 ml IV Total 2400 ml Drainage Total 250 ml # Bowel Movements 2 General Appearance: Alert, Oriented X3, Cooperative, moderate distress HEENT: Atraumatic, PERRLA Lungs: Other (Decreased breath sounds in bases. Nasal cannula 4 L/min) Cardiovascular: Regular rate, Normal S1, Normal S2 Abdomen: Other (Absent bowel sounds. Severely distended abdomen) Genitourinary: No Apparent Abnormalities Extremities: Normal pulses Skin: Dry, Intact Psych/Mental Status: Mental status NL, Mood NL Medications Current Medications Medications Dose Ordered Sig/Yari Route Start Time Stop Time Status Last Admin Dose Admin Norepinephrine Bitartrate 250 ml @ 3.75 mls/hr Q24H IV 10/24/24 06:30 10/25/24 01:30 7.5 MLS/HR Pantoprazole Sodium 40 mg DAILY IV 10/24/24 10:00 10/27/24 09:57 40 MG Levofloxacin/ Dextrose 100 ml @ 100 mls/hr DAILY IV 10/24/24 10:00 10/27/24 09:57 100 MLS/HR Metronidazole 100 ml @ 100 mls/hr Q8HR IV 10/24/24 14:00 10/27/24 05:41 100 MLS/HR Albuterol 2.5 mg Q4HPRN PRN NEB 10/24/24 08:45 10/27/24 09:40 2.5 MG Ipratropium [place] 0.5 mg Q4HR NEB 10/24/24 10:00 10/27/24 09:40 0.5 MG Acetaminophen/ Hydrocodone Bitart 1 tab Q4HP PRN PO 10/24/24 08:45 10/26/24 00:45 1 TAB Ondansetron HCl 4 mg Q4HP PRN IV 10/24/24 08:45 10/25/24 11:29 4 MG Docusate Sodium 100 mg BIDPRN PRN PO 10/24/24 08:45 Acetaminophen 650 mg Q6HP PRN PO 10/24/24 08:45 Morphine Sulfate 2 mg Q4HPRN PRN IV 10/24/24 08:45 10/26/24 14:35 2 MG Atorvastatin Calcium 20 mg HS PO 10/24/24 22:00 10/25/24 21:29 20 MG Nitroglycerin 0.4 mg Q5MINP PRN SL 10/24/24 09:15 Morphine Sulfate 2 mg Q30M PRN IV 10/24/24 09:15 Phenol/Menthol 1 spr Q2HP PRN MT 10/26/24 18:45 Amino Acids 0 ml @ 0 mls/hr PER PHARMACY IV 10/27/24 09:15 Dextrose/Sodium Chloride 1,000 ml @ 50 mls/hr Q20H IV 10/27/24 09:15 10/27/24 09:57 50 MLS/HR Laboratory Results Laboratory Tests 10/27/24 02:44 10/27/24 09:41 Chemistry Test 10/27/24 02:44 Calcium Level 8.1 mg/dL (8.7-10.4) L Urinalysis Test 10/24/24 12:35 Urine Color [place] (Yellow) H Urine Clarity Turbid (Clear) H Urine pH 5.5 (5.0-9.0) Urine Specific [place] 1.023 (1.001-1.035) Urine Protein 1+ (Negative) H Urine Ketones 2+ (Negative) H Urine Blood Negative /uL (Negative) Urine Nitrite Negative (Negative) Urine Bilirubin Negative (Negative) Urine Urobilinogen Normal mg/dL (Negative) Urine Leukocyte Esterase Trace /uL (Negative) Urine RBC 3 /hpf (0 - 3) Urine Microscopic WBC 11 /HPF (0-3) H Urine Squamous Epithelial Cells Few /hpf (<5) Urine Bacteria None seen /hpf (None Seen) Urine Hyaline Casts Many /lpf (0 - 2) Urine Mucus Few (None Seen) Urine Glucose Normal mg/dL (Normal) Blood Gas Results Test 10/26/24 10:46 Arterial Blood pH 7.401 (7.350-7.450) FiO2 % 32.0 Microbiology Microbiology Date/Time Source Procedure Growth Status 10/25/24 16:00 Stool Clostridium difficile Toxin Assay - Final Complete 10/24/24 21:34 Nose MRSA Screen - Final Complete 10/24/24 03:10 Blood Blood Culture - Preliminary NO GROWTH AFTER 72 HOURS OF INCUBATION. Resulted Labs and/or images reviewed: Labs reviewed by me, Image(s) reviewed by me Assessment/Plan Assessment/Plan Impression: -septic shock -acute colitis, rule out acute gastric perforation -obesity -acute on chronic hypoxic respiratory failure -COPD -degenerative joint disease -probable ileus Plan: Events: No events overnight -CT scan results reviewed and discussed with General surgery. -continue NPO status -NG tube to low intermittent suction -O2 supplementation to keep saturation greater than 92% -continue bronchodilators -continue antibiotic therapy with Levaquin and Flagyl -consultations: Pulmonology, GI -repeat labs in a.m. -off vasopressors Critical care time spent with patient discussing and formulating plan of care: 40 minutes. This does not include time spent performing procedures. This medical document was created using an electronic medical record system with [employer] dictation system. Although this document has been carefully reviewed, there may still be some phonetic and typographical errors. These areas are purely typographical due to imperfections of the software programs, and do not reflect any compromise in the patient's medical care. Plan discussed with: Patient, Other (RN) My Orders Orders - ANAYA ONTIVEROS NP Procedure Category Date Status Time Abg W/ Co-Ox RT 10/26/24 Logged 10:23 Chest Portable XY 10/26/24 Resulted 10:23 Basic Metabolic Panel LAB 10/28/24 Verified 05:00 Basic Metabolic Panel LAB 10/29/24 Verified 05:00 Stool Bacterial JULIA 10/26/24 In Process Culture 11:36 * Dietary Consult CONS 10/26/24 Transmitted 17:28 Complete Blood Count LAB 10/28/24 Verified 05:00 Complete Blood Count LAB 10/29/24 Verified 05:00 Complete Blood Count LAB 10/30/24 Verified 05:00 Clinimix Per Pharmacy PHA 10/27/24 In Process 09:15 D5w/Sod Chlo 0.9% PHA 10/27/24 In Process (D5w Ns 0.9%) 09:15 Date of Service: Oct 27, 2024 Billing Provider: ANAYA ONTIVEROS NP Common Visit Codes: 95000-CEGMKNXF CARE 30-74 MIN ANAYA ONTIVEROS NP Oct 27, 2024 10:12
--- NOTE | 2024-10-27 11:04 | DVH ---
Exam: XY KUB ABDOMEN SINGLE VIEW Indication: abdominal distension Comparison: None Technique: 1 radiographic views of the abdomen. Findings: Nasogastric tube tip in the stomach. Nonspecific bowel-gas pattern There is no definite evidence for pneumoperitoneum. No abnormal calcifications noted. Impression: Nonspecific bowel-gas pattern.
[2024-10-27] MEDS: SORE THROAT SPRAY 6OZ BOTTLE MT PRN (11:14)
--- NOTE | 2024-10-27 15:40 | DVHPN2 ---
Progress Note - Dictate Date Seen: Oct 27, 2024 Medical Necessity Reason Pt with a Central, PICC or Fol: Yes Subjective Patient seen at bedside in ICU 105 Patient is awake responsive in no acute distress, tolerating clear liquid diet Mild generalized abdominal distention with underlying obesity Patient had removal of his rectal tube and since then has been moving his bowels and abdominal distention is improved He has not had a recent colonoscopy and last exam was several years ago which showed diverticulosis Patient had an attack of diverticulitis what 6-7 years ago Stool WBC showed many WBC and stool for occult blood was positive suggestive of colitis Stool for C diff is negative, bacterial culture is pending vital signs Vital Sign Date Time Temp Pulse Resp B/P (MAP) Pulse Ox O2 Delivery O2 Flow Rate FiO2 10/27/24 14:00 91 16 104/70 (81) 96 10/27/24 13:37 Nasal Cannula* 2 28 10/27/24 13:00 97.8 97.8 Total Intake and Output 10/26/24 10/26/24 10/27/24 15:00 23:00 07:00 Intake Total 800 ml 800 ml 900 ml Output Total 250 ml Balance 800 ml 800 ml 650 ml medications Current Medications Medications Dose Ordered Sig/Yari Route Start Time Stop Time Status Last Admin Dose Admin Pantoprazole Sodium 40 mg DAILY IV 10/24/24 10:00 10/27/24 09:57 40 MG Levofloxacin/ Dextrose 100 ml @ 100 mls/hr DAILY IV 10/24/24 10:00 10/27/24 09:57 100 MLS/HR Metronidazole 100 ml @ 100 mls/hr Q8HR IV 10/24/24 14:00 10/27/24 14:28 100 MLS/HR Albuterol 2.5 mg Q4HPRN PRN NEB 10/24/24 08:45 10/27/24 13:37 2.5 MG Ipratropium [place] 0.5 mg Q4HR NEB 10/24/24 10:00 10/27/24 13:37 0.5 MG Acetaminophen/ Hydrocodone Bitart 1 tab Q4HP PRN PO 10/24/24 08:45 10/26/24 00:45 1 TAB Ondansetron HCl 4 mg Q4HP PRN IV 10/24/24 08:45 10/25/24 11:29 4 MG Docusate Sodium 100 mg BIDPRN PRN PO 10/24/24 08:45 Acetaminophen 650 mg Q6HP PRN PO 10/24/24 08:45 Morphine Sulfate 2 mg Q4HPRN PRN IV 10/24/24 08:45 10/26/24 14:35 2 MG Atorvastatin Calcium 20 mg HS PO 10/24/24 22:00 10/25/24 21:29 20 MG Nitroglycerin 0.4 mg Q5MINP PRN SL 10/24/24 09:15 Morphine Sulfate 2 mg Q30M PRN IV 10/24/24 09:15 Phenol/Menthol 1 spr Q2HP PRN MT 10/26/24 18:45 10/27/24 14:28 1 SPR Amino Acids 0 ml @ 0 mls/hr PER PHARMACY IV 10/27/24 09:15 Dextrose/Sodium Chloride 1,000 ml @ 50 mls/hr Q20H IV 10/27/24 09:15 10/27/24 09:57 50 MLS/HR Amino Acids/ Electrolytes/ Dextrose 1,000 ml @ 41 mls/hr DAILY@2200 IV 10/27/24 22:00 Diagnostic Test (Pha) 1 strip Q6HR 10/28/24 00:00 Insulin Human Regular FOLLOW SLIDING SCALE Q6HR SC 10/28/24 00:00 Dextrose 50 ml UD IV 10/27/24 22:00 objective VITAL SIGNS: Afebrile, stable signs. HEENT: There is no evidence of pallor, cyanosis, or jaundice. NECK: Supple and nontender with no thyromegaly or lymphadenopathy. CHEST AND LUNGS: Clear. HEART: Within normal limits. ABDOMEN: Soft and distended. He is morbidly obese. Difficult to evaluate, but minimally tender. No rebound. EXTREMITIES: Unremarkable. NEUROLOGIC: Alert and oriented x3, nonfocal laboratory and microbiology Laboratory Tests 10/27/24 09:41 10/27/24 02:44 Test 10/27/24 02:44 Range/Units Serum Glucose 66 L 74-106 mg/dL Repeat KUB Impression: Nonspecific bowel-gas pattern. Problems(with codes): (1) Ileus (2) Leukocytosis, unspecified (3) Abdominal pain (4) Diverticulitis Prognosis Plan Continue IV Levaquin and IV Flagyl Clear liquid diet advance to full liquid diet Continue to monitor labs, his leukocytosis is improving Check stool for bacterial culture Outpatient elective colonoscopy once medically stabilized Dietary Evaluation Review Comments: 1) Advance Diet as medically feasible 2) TPN to meet at leaast 75% estimated needs within 7 days Expected Outcomes/Goals: GI symptoms to improve To meet 75% estimated needs in 7 days FU 2-3 days Plan discussed with: Patient, Other (Nurse) LAURITA RAMOS MD Oct 27, 2024 15:40
[2024-10-27] MEDS: AMINO ACID INFUSION IN D10W 1,000 ML IV SCH (21:57)
[2024-10-27] MEDS ORDERED: DEXTROSE (50%) 50ML SYRG IV SCH (22:00)
--- NOTE | 2024-10-27 23:08 | DVHPN2 ---
Progress Note - Dictate Date Seen: Oct 27, 2024 Medical Necessity Reason Pt with a Central, PICC or Fol: Yes Subjective Patient seen and examined at bedside. Remains on supplemental oxygen Overnight events reviewed. [facility] vital signs Vital Sign Date Time Temp Pulse Resp B/P (MAP) Pulse Ox O2 Delivery O2 Flow Rate FiO2 10/27/24 22:10 93 14 100 10/27/24 22:01 107/65 (79) 10/27/24 20:01 98.0 98.0 10/27/24 20:00 Nasal Cannula* 3 32 Total Intake and Output 10/26/24 10/26/24 10/27/24 15:00 23:00 07:00 Intake Total 800 ml 800 ml 1000 ml Output Total 250 ml Balance 800 ml 800 ml 750 ml medications Current Medications Medications Dose Ordered Sig/Yari Route Start Time Stop Time Status Last Admin Dose Admin Pantoprazole Sodium 40 mg DAILY IV 10/24/24 10:00 10/27/24 09:57 40 MG Levofloxacin/ Dextrose 100 ml @ 100 mls/hr DAILY IV 10/24/24 10:00 10/27/24 09:57 100 MLS/HR Metronidazole 100 ml @ 100 mls/hr Q8HR IV 10/24/24 14:00 10/27/24 21:56 100 MLS/HR Albuterol 2.5 mg Q4HPRN PRN NEB 10/24/24 08:45 10/27/24 22:00 2.5 MG Ipratropium [place] 0.5 mg Q4HR NEB 10/24/24 10:00 10/27/24 22:00 0.5 MG Acetaminophen/ Hydrocodone Bitart 1 tab Q4HP PRN PO 10/24/24 08:45 10/26/24 00:45 1 TAB Ondansetron HCl 4 mg Q4HP PRN IV 10/24/24 08:45 10/25/24 11:29 4 MG Docusate Sodium 100 mg BIDPRN PRN PO 10/24/24 08:45 Acetaminophen 650 mg Q6HP PRN PO 10/24/24 08:45 Morphine Sulfate 2 mg Q4HPRN PRN IV 10/24/24 08:45 10/27/24 18:20 2 MG Atorvastatin Calcium 20 mg HS PO 10/24/24 22:00 10/25/24 21:29 20 MG Nitroglycerin 0.4 mg Q5MINP PRN SL 10/24/24 09:15 Morphine Sulfate 2 mg Q30M PRN IV 10/24/24 09:15 Phenol/Menthol 1 spr Q2HP PRN MT 10/26/24 18:45 10/27/24 22:29 1 SPR Amino Acids 0 ml @ 0 mls/hr PER PHARMACY IV 10/27/24 09:15 Dextrose/Sodium Chloride 1,000 ml @ 50 mls/hr Q20H IV 10/27/24 09:15 10/27/24 09:57 50 MLS/HR Amino Acids/ Electrolytes/ Dextrose 1,000 ml @ 41 mls/hr DAILY@2200 IV 10/27/24 22:00 10/27/24 21:57 41 MLS/HR Diagnostic Test (Pha) 1 strip Q6HR 10/28/24 00:00 Insulin Human Regular FOLLOW SLIDING SCALE Q6HR SC 10/28/24 00:00 Dextrose 50 ml UD IV 10/27/24 22:00 objective Gen.: Patient lying in bed in no apparent distress. On supplemental oxygen. Head: Normocephalic, atraumatic. Eyes: EOMI/PERRLA. Ears: Normal hearing. Normal anatomy. Neck/trachea: Trachea midline, supple. Nose: Normal external anatomy. Mouth: Moist mucous membranes. Chest: Decreased air entry bilaterally. No wheezing or rhonchi. Cardiovascular: Positive S1, positive S2. Regular rate and rhythm. Abdomen: Positive bowel sounds in all 4 quadrants. Soft, non-tender, non- distended. : Deferred. Rectal: Deferred. Skin: Warm, dry. Intact. Extremities: 2+ radial pulses bilaterally. No lower extremity edema. Neuro: Awake, alert, oriented x3. No gross motor or sensory deficits. Cranial nerves II through XII intact. Gait not assessed. laboratory and microbiology Laboratory Tests 10/27/24 09:41 10/27/24 02:44 Test 10/27/24 02:44 Range/Units Serum Glucose 66 L 74-106 mg/dL Assessment/Plan Impression: Acute hypoxic respiratory failure Dependence on supplemental oxygen Sepsis Colitis Diarrhea Shock Obesity, BMI 32.5 Events: Remains on supplemental oxygen, 2 LPM NC Taper O2 as tolerated Off Levophed since 10/25/24, monitor hemodynamics Monitor BP closely - remains labile. Surgery recommendations appreciated NGT was clamped. Patient had flatus/bowel movement Clinimix for nutritional support Continue bronchodilators Continue antibiotics IV fluids with D5-NS at 50 ml/hr. Pain control Avoid oversedation Labs and imaging reviewed. Rest of plan as noted below. Plan: Supplemental oxygen Titrate to keep O2 sats above 92%. Pressors as necessary for hemodynamic support Titrate to keep mean arterial pressure greater than 65 mmHg. Continue bronchodilators Continue antibiotics Follow up cultures Pain control Avoid oversedation Monitor renal function. Monitor electrolytes. Supplement as necessary. Monitor ins and outs. Follow up GI recommendations NGT clamped Surgery recs appreciated. Clinimix for nutritional support Diet and lifestyle modifications for weight reduction Obesity - complicates all care DVT prophylaxis. Prognosis: Poor given patient's multiple co-morbidities. Rest of plan per hospitalist and other consultants. Thank you, [employer] Karlee, for allowing me to participate in this patient's care. Further recommendations will depend on the patient's clinical course. Please do not hesitate to contact me if you have any questions or concerns. This medical document was created using an electronic medical record system with [employer] dictation system. Although these documentations are being carefully reviewed, there may still be some phonetic and typographical changes. The errors are purely typographical, due to imperfection on the software program, and do not reflect any compromise in the patient's medical care. Dietary Evaluation Review Comments: 1) Advance Diet as medically feasible 2) TPN to meet at leaast 75% estimated needs within 7 days Expected Outcomes/Goals: GI symptoms to improve To meet 75% estimated needs in 7 days FU 2-3 days Plan discussed with: Patient, Other (JELENA Nichole) EH DE SOUZA MD Oct 27, 2024 23:08
[2024-10-28] VITALS (38 sets, daily range): BP systolic 102–142; BP diastolic 56–78; PULSE 84–112; RESP 12–33; TEMP 97.7–98.3; O2SAT 89–100
[2024-10-28] MEDS: InsuLIN REG 1unit/0.01ml Soln (100units/ml) SC SCH
[2024-10-28] MEDS: ACCU-CHEK COMFORT CURVE STRIP VI SCH
[2024-10-28 03:30] LABS: Hematocrit 35.6 % (41.0-53.0); Hemoglobin 12.0 g/dL (13.5-17.5); Mean Corpuscular Hemoglobin 31.2 pg (28.0-32.0); Mean Corpuscular Volume 92.3 fL (80.0-100.0); Nucleated Red Blood Cells % 0.1 %
[2024-10-28 03:38] LABS: Chloride 105 mmol/L (98-107); Potassium 3.6 mmol/L (3.5-5.1); Sodium 137 mmol/L (136-145)
[2024-10-28 03:39] LABS: Anion Gap 9 (5-15); Carbon Dioxide 23 mmol/L (20-31)
[2024-10-28 03:45] LABS: BUN/Creatinine Ratio 22.0 (10.0-20.0); Blood Urea Nitrogen 18 mg/dL (9-23); Magnesium 2.3 mg/dL (1.6-2.6)
[2024-10-28 03:50] LABS: Calcium 8.3 mg/dL (8.7-10.4); Glucose 107 mg/dL (74-106)
--- NOTE | 2024-10-28 09:39 | DVHPN2 ---
Subjective Reporting multiple loose BMs. Reviewed: Care Plan, H&P, Labs, Medications, Previous Orders, Radiology Changes from previous H/P or p: Changes General: Per HPI Eyes: No Pain, No Vision change, No Conjunctivae inflammation, No Eyelid inflammation, No Other, No Redness ENT: No Ear pain, No Ear discharge, No Nose pain, No Nose discharge, No Nose congestion, No Mouth pain, No Mouth swelling, No Throat pain, No Throat swelling, No Other Cardiovascular: No Chest Pain, No Palpitations, No Orthopnea, No Paroxysmal Noc. Dyspnea, No Edema, No Lt Headedness, No Other Respiratory: No Cough, No Dry; Shortness of breath; No SOB with excertion, No Wheezing, No Hemoptysis, No Pleuritic Pain, No Sputum, No Other Gastrointestinal: Nausea, Vomiting, Abdominal Pain, Diarrhea; No Constipation, No Melena, No Hematochezia, No Other Genitourinary: No Dysuria, No Frequency, No Incontinence, No Hematuria, No Retention, No Other Musculoskeletal: No other, No neck pain, No shoulder pain, No arm pain, No back pain, No hand pain, No leg pain, No foot pain Skin: No Rash, No Lesions, No Jaundice, No Bruising, No Other Objective Vitals Vital Signs Date Time Temp Pulse Resp B/P (MAP) Pulse Ox O2 Delivery O2 Flow Rate FiO2 10/28/24 08:52 101 23 137/72 10/28/24 06:23 95 10/28/24 06:23 Nasal Cannula* 3 32 10/28/24 04:01 97.7 97.7 Intake/Output Intake and Output 10/28/24 07:00 Intake Total 1971 ml Output Total 500 ml Balance 1471 ml Intake Oral 0 ml IV Total 1971 ml Output Urine Total 500 ml # Bowel Movements 3 General Appearance: Alert, Oriented X3, Cooperative, mild distress HEENT: Atraumatic, PERRLA Lungs: Other (Decreased breath sounds in bases. Nasal cannula 4 L/min) Cardiovascular: Regular rate, Normal S1, Normal S2 Abdomen: Other (Absent bowel sounds. Severely distended abdomen) Genitourinary: No Apparent Abnormalities Extremities: Normal pulses Skin: Dry, Intact Psych/Mental Status: Mental status NL, Mood NL Medications Current Medications Medications Dose Ordered Sig/Yari Route Start Time Stop Time Status Last Admin Dose Admin Pantoprazole Sodium 40 mg DAILY IV 10/24/24 10:00 10/27/24 09:57 40 MG Levofloxacin/ Dextrose 100 ml @ 100 mls/hr DAILY IV 10/24/24 10:00 10/27/24 09:57 100 MLS/HR Metronidazole 100 ml @ 100 mls/hr Q8HR IV 10/24/24 14:00 10/28/24 05:30 100 MLS/HR Albuterol 2.5 mg Q4HPRN PRN NEB 10/24/24 08:45 10/28/24 06:24 2.5 MG Ipratropium [place] 0.5 mg Q4HR NEB 10/24/24 10:00 10/28/24 06:24 0.5 MG Acetaminophen/ Hydrocodone Bitart 1 tab Q4HP PRN PO 10/24/24 08:45 10/26/24 00:45 1 TAB Ondansetron HCl 4 mg Q4HP PRN IV 10/24/24 08:45 10/25/24 11:29 4 MG Docusate Sodium 100 mg BIDPRN PRN PO 10/24/24 08:45 Acetaminophen 650 mg Q6HP PRN PO 10/24/24 08:45 Morphine Sulfate 2 mg Q4HPRN PRN IV 10/24/24 08:45 10/28/24 08:52 2 MG Atorvastatin Calcium 20 mg HS PO 10/24/24 22:00 10/25/24 21:29 20 MG Nitroglycerin 0.4 mg Q5MINP PRN SL 10/24/24 09:15 Morphine Sulfate 2 mg Q30M PRN IV 10/24/24 09:15 Phenol/Menthol 1 spr Q2HP PRN MT 10/26/24 18:45 10/27/24 22:29 1 SPR Amino Acids 0 ml @ 0 mls/hr PER PHARMACY IV 10/27/24 09:15 Dextrose/Sodium Chloride 1,000 ml @ 50 mls/hr Q20H IV 10/27/24 09:15 10/27/24 09:57 50 MLS/HR Amino Acids/ Electrolytes/ Dextrose 1,000 ml @ 41 mls/hr DAILY@2200 IV 10/27/24 22:00 10/27/24 21:57 41 MLS/HR Diagnostic Test (Pha) 1 strip Q6HR 10/28/24 00:00 10/28/24 05:25 1 STRIP Insulin Human Regular FOLLOW SLIDING SCALE Q6HR SC 10/28/24 00:00 Dextrose 50 ml UD IV 10/27/24 22:00 Laboratory Results Laboratory Tests 10/28/24 02:42 Chemistry Test 10/28/24 02:42 Calcium Level 8.3 mg/dL (8.7-10.4) L Magnesium Level 2.3 mg/dL (1.6-2.6) Phosphorus Level 2.3 mg/dL (2.4-5.1) L Urinalysis Test 10/24/24 12:35 Urine Color [place] (Yellow) H Urine Clarity Turbid (Clear) H Urine pH 5.5 (5.0-9.0) Urine Specific [place] 1.023 (1.001-1.035) Urine Protein 1+ (Negative) H Urine Ketones 2+ (Negative) H Urine Blood Negative /uL (Negative) Urine Nitrite Negative (Negative) Urine Bilirubin Negative (Negative) Urine Urobilinogen Normal mg/dL (Negative) Urine Leukocyte Esterase Trace /uL (Negative) Urine RBC 3 /hpf (0 - 3) Urine Microscopic WBC 11 /HPF (0-3) H Urine Squamous Epithelial Cells Few /hpf (<5) Urine Bacteria None seen /hpf (None Seen) Urine Hyaline Casts Many /lpf (0 - 2) Urine Mucus Few (None Seen) Urine Glucose Normal mg/dL (Normal) Microbiology Microbiology Date/Time Source Procedure Growth Status 10/27/24 09:14 Stool Stool Culture - Preliminary Resulted 10/27/24 09:14 Stool Shiga Toxin I & II - Final Resulted 10/24/24 21:34 Nose MRSA Screen - Final Complete 10/24/24 03:10 Blood Blood Culture - Preliminary NO GROWTH AFTER 72 HOURS OF INCUBATION. Resulted Labs and/or images reviewed: Labs reviewed by me, Image(s) reviewed by me Assessment/Plan Assessment/Plan Impression: -septic shock -acute colitis, rule out acute gastric perforation -obesity -acute on chronic hypoxic respiratory failure -COPD -degenerative joint disease -probable ileus Plan: Events: No events overnight. Multiple BMs. -CT scan results reviewed and discussed with General surgery. -continue NPO status -Repeat KUB pending -O2 supplementation to keep saturation greater than 92% -continue bronchodilators, add mucomyst and pulmicort. -continue antibiotic therapy with Levaquin and Flagyl -PT -Advance diet as tolerated. -consultations: Pulmonology, GI -repeat labs in a.m. -Transfer to [facility] Critical care time spent with patient discussing and formulating plan of care: 40 minutes. This does not include time spent performing procedures. This medical document was created using an electronic medical record system with [employer] dictation system. Although this document has been carefully reviewed, there may still be some phonetic and typographical errors. These areas are purely typographical due to imperfections of the software programs, and do not reflect any compromise in the patient's medical care. Plan discussed with: Patient, Other (RN) My Orders Orders - ANAYA ONTIVEROS NP Procedure Category Date Status Time Clinimix Per Pharmacy GISELE 10/27/24 In Process 22:00 Amino Acid Infusion PHA 10/27/24 In Process In D10w (Clinimix 4. 22:00 Glucose Blood PHA 10/28/24 In Process (Accu-Chek Comfort 00:00 Insulin R (Human) PHA 10/28/24 In Process (Insulin R) 00:00 Dextrose 50% Syringe PHA 10/27/24 In Process 22:00 Pt Request For Service PT 10/27/24 Logged 12:54 Kub Abdomen Single XY 10/28/24 Logged View 09:18 Transfer Orders XFER 10/28/24 Transmitted 09:19 Acetylcysteine PHA 10/28/24 Logged Inhalation 10% 12:00 Budesonide PHA 10/28/24 Logged (Inhalation) 10:00 Date of Service: Oct 28, 2024 Billing Provider: ANAYA ONTIVEROS NP Common Visit Codes: [id number] INP/OBS CARE(HIGH) ANAYA ONTIVEROS NP Oct 28, 2024 09:39
--- NOTE | 2024-10-28 09:57 | DVH ---
Date: 10/28/2024 09:24 AM Examination: XY KUB ABDOMEN SINGLE VIEW History: ileus Comparison: XY KUB ABDOMEN SINGLE VIEW on DOS: 10/27/24 TECHNIQUE: Frontal views of the abdomen was obtained. FINDINGS: DIFFUSELY DILATED LOOPS of large bowel measuring up to 13 cm. Nasogastric tube in the stomach. The lung bases are unremarkable. No acute osseous abnormality identified. IMPRESSION: DIFFUSELY DILATED LOOPS of large bowel measuring up to 13 cm. Nasogastric tube in the stomach.
[2024-10-28] MEDS: BUDESONIDE (INHALATION) 0.5 MG/2 ML NEB NEB SCH (10:00)
--- NOTE | 2024-10-28 11:50 | DVHPN2 ---
Progress Note Date Seen: Oct 28, 2024 Medical Necessity Reason Pt with a Central, PICC or Fol: Yes Objective vital signs Vital Sign Date Time Temp Pulse Resp B/P (MAP) Pulse Ox O2 Delivery O2 Flow Rate FiO2 10/28/24 10:10 96 16 94 10/28/24 09:22 111/63 10/28/24 08:00 Nasal Cannula* 3 32 10/28/24 04:01 97.7 97.7 Total Intake and Output 10/27/24 10/27/24 10/28/24 15:00 23:00 07:00 Intake Total 500 ml 644 ml 827 ml Output Total 500 ml Balance 500 ml 644 ml 327 ml medications Current Medications Medications Dose Ordered Sig/Yari Route Start Time Stop Time Status Last Admin Dose Admin Pantoprazole Sodium 40 mg DAILY IV 10/24/24 10:00 10/28/24 10:46 40 MG Levofloxacin/ Dextrose 100 ml @ 100 mls/hr DAILY IV 10/24/24 10:00 10/28/24 10:46 100 MLS/HR Metronidazole 100 ml @ 100 mls/hr Q8HR IV 10/24/24 14:00 10/28/24 05:30 100 MLS/HR Albuterol 2.5 mg Q4HPRN PRN NEB 10/24/24 08:45 10/28/24 10:10 2.5 MG Ipratropium [place] 0.5 mg Q4HR NEB 10/24/24 10:00 10/28/24 10:10 0.5 MG Acetaminophen/ Hydrocodone Bitart 1 tab Q4HP PRN PO 10/24/24 08:45 10/26/24 00:45 1 TAB Ondansetron HCl 4 mg Q4HP PRN IV 10/24/24 08:45 10/25/24 11:29 4 MG Docusate Sodium 100 mg BIDPRN PRN PO 10/24/24 08:45 Acetaminophen 650 mg Q6HP PRN PO 10/24/24 08:45 Morphine Sulfate 2 mg Q4HPRN PRN IV 10/24/24 08:45 10/28/24 08:52 2 MG Atorvastatin Calcium 20 mg HS PO 10/24/24 22:00 10/25/24 21:29 20 MG Nitroglycerin 0.4 mg Q5MINP PRN SL 10/24/24 09:15 Morphine Sulfate 2 mg Q30M PRN IV 10/24/24 09:15 Phenol/Menthol 1 spr Q2HP PRN MT 10/26/24 18:45 10/27/24 22:29 1 SPR Amino Acids 0 ml @ 0 mls/hr PER PHARMACY IV 10/27/24 09:15 Dextrose/Sodium Chloride 1,000 ml @ 50 mls/hr Q20H IV 10/27/24 09:15 10/27/24 09:57 50 MLS/HR Amino Acids/ Electrolytes/ Dextrose 1,000 ml @ 41 mls/hr DAILY@2200 IV 10/27/24 22:00 10/28/24 21:59 10/27/24 21:57 41 MLS/HR Diagnostic Test (Pha) 1 strip Q6HR 10/28/24 00:00 10/28/24 05:25 1 STRIP Insulin Human Regular FOLLOW SLIDING SCALE Q6HR SC 10/28/24 00:00 Dextrose 50 ml UD IV 10/27/24 22:00 Acetylcysteine 100 mg Q6HR NEB 10/28/24 12:00 Budesonide 0.5 mg BID NEB 10/28/24 10:00 laboratory and microbiology Laboratory Tests 10/28/24 02:42 Test 10/28/24 02:42 Range/Units Serum Glucose 107 H 74-106 mg/dL Microbiology Date/Time Source Procedure Growth Status 10/27/24 09:14 Stool Stool Culture - Preliminary Resulted 10/27/24 09:14 Stool Shiga Toxin I & II - Final Resulted 10/24/24 21:34 Nose MRSA Screen - Final Complete 10/24/24 03:10 Blood Blood Culture - Preliminary NO GROWTH AFTER 72 HOURS OF INCUBATION. Resulted Problem List/Assessment/Plan Problem List/Assessment/Plan AFEBRILE VSS ABD SOFT LESS DISTENDED BM + FLATUS + REPEAT CT SCAN ILEUS LIQUID STOOL CONTINUE CLOSE OBSERVATION KUB DILATED COLON RECTAL TUBE DECOMPRESSION DONE AT BEDSIDE USING BAIN CATH NO COMPLICATIONS REPEAT KUB THIS PM CONSIDER EMERGENT SURGERY BASED ON ONGOING EVAL NURSE AND FAMILY AT BEDSIDE Plan discussed with: Patient Dietary Evaluation Review Comments: 1) Advance Diet as medically feasible 2) TPN to meet at leaast 75% estimated needs within 7 days Expected Outcomes/Goals: GI symptoms to improve To meet 75% estimated needs in 7 days FU 2-3 days LINDSAY RAMOS MD Oct 28, 2024 11:50
[2024-10-28] MEDS: ACETYLCYSTEINE 10 %(100MG/ML) SOL 4ML NEB SCH (12:00)
[2024-10-28] MEDS: POTASSIUM PHOSPHATE 22 MEQ in SODIUM CHL 0.9% 100 ML IV ONE (13:24)
[2024-10-28] MEDS ORDERED: SODIUM CHLORIDE LOCK 10 ML ONE (14:03)
[2024-10-28] MEDS ORDERED: FLUMAZENIL 0.1 MG/ML INJ 10ML MDV IV ONE (14:05)
[2024-10-28] MEDS ORDERED: NALOXONE HCL 0.4 MG/ML VIAL ONE (14:05)
[2024-10-28 14:28] LABS: INR 1.52 (0.9-1.15); Partial Thromboplastin Time 29.2 SEC (24.5-34.5); Prothrombin Time 15.5 sec (9.3-11.8)
[2024-10-28] MEDS: fentaNYL CITRATE 100 MCG/2 ML VL ONE (14:46)
[2024-10-28] MEDS: MIDAZOLAM HCL 5 MG/ML-1ML VIAL ONE (14:46)
[2024-10-28] MEDS: diphenhdrAMINE HCL 50 MG/1 ML VL ONE (14:50)
--- NOTE | 2024-10-28 15:02 | DVHOP2 ---
Operative Report DATE OF OPERATION: 10/28/24 PROCEDURE: Flexible sigmoidoscopy with biopsy and decompression PREOPERATIVE INDICATION: The patient is a 68 -year-old male undergoing Sigmoidoscopy for colonic distention and suspected colitis POSTOPERATIVE DIAGNOSES: 1. Patient had severe ulcerative colitis up to and beyond the extent of the examination to 35 cm above the anal verge with areas of extensive ulceration hyperemia erythema mucopus There was moderate amount of spasm at the sigmoid and descending colon junction and because of severe inflammation the colonoscope was not pushed or advanced any further at this time Colonic decompression was performed PROCEDURE PERFORMED BY: Laurita Berry M.D. SCOPE: Olympus videocolonoscope. ASA CLASS: 3 PREOPERATIVE MEDICATIONS: Versed 1 mg, Fentanyl 25 mcg, Benadryl 25 mg PROCEDURE IN DETAIL: After obtaining an informed consent, the patient was placed on left lateral decubitus position. He was then sedated with the above medications. A rectal examination was performed that was normal. The colonoscope was then passed through the anus into the rectosigmoid up to 35 cm above the anal verge Beyond this area there was sharp angulation some spasm and severe inflammation mucosal edema beyond which the colonoscope could not be advanced safely at this time Colonic decompression was performed. Multiple rectosigmoid biopsies were obtained. The colonoscope was then withdrawn. The patient tolerated the procedure well without difficulty. WITHDRAWAL TIME: Not applicable QUALITY OF THE PREP: [place] Bowel Prep score: Not applicable COMPLICATIONS : None SPECIMENS: Rectosigmoid biopsy DISPOSITION: Monitor in ICU Stable PLAN: 1. Repeat colonoscopy at a future date once acute inflammation subsides 2. Continue IV Levaquin and Flagyl 3. Check stool for bacterial culture and check IBD panel and CRP 4. I will add IV steroids Solu-Medrol 40 mg q.8 hours 5. Continue to monitor labs 6. Prognosis is guarded at this time and surgical consult is standing by; if patient does not improve clinically then he may need a subtotal colectomy LAURITA BERRY MD Oct 28, 2024 15:02
--- NOTE | 2024-10-28 16:03 | DVH ---
Date: 10/28/2024 03:32 PM Examination: XY KUB ABDOMEN SINGLE VIEW History: POST PROCEDURE ENDOSCOPIC/SIDMOID DECOMPRESSION Comparison: XY KUB ABDOMEN SINGLE VIEW on DOS: 10/28/24, XY KUB ABDOMEN SINGLE VIEW on DOS: 10/27/24 TECHNIQUE: Frontal views of the abdomen was obtained. FINDINGS: Bowel gas pattern is unremarkable. The lung bases are unremarkable. No acute osseous abnormality identified. IMPRESSION: 1. Gas in the colon consistent with endoscopy. 2. Free air can not be excluded since both views are supine.
--- NOTE | 2024-10-28 21:05 | DVHPN2 ---
Progress Note Date Seen: Oct 28, 2024 Medical Necessity Reason Pt with a Central, PICC or Fol: Yes Objective vital signs Vital Sign Date Time Temp Pulse Resp B/P (MAP) Pulse Ox O2 Delivery O2 Flow Rate FiO2 10/28/24 19:05 106 18 98 10/28/24 19:00 120/63 (82) 10/28/24 18:55 Nasal Cannula* 4 36 10/28/24 16:00 97.9 97.9 Total Intake and Output 10/27/24 10/27/24 10/28/24 15:00 23:00 07:00 Intake Total 500 ml 644 ml 827 ml Output Total 500 ml Balance 500 ml 644 ml 327 ml medications Current Medications Medications Dose Ordered Sig/Yari Route Start Time Stop Time Status Last Admin Dose Admin Pantoprazole Sodium 40 mg DAILY IV 10/24/24 10:00 10/28/24 10:46 40 MG Levofloxacin/ Dextrose 100 ml @ 100 mls/hr DAILY IV 10/24/24 10:00 10/28/24 10:46 100 MLS/HR Metronidazole 100 ml @ 100 mls/hr Q8HR IV 10/24/24 14:00 10/28/24 15:06 100 MLS/HR Albuterol 2.5 mg Q4HPRN PRN NEB 10/24/24 08:45 10/28/24 18:57 2.5 MG Ipratropium [place] 0.5 mg Q4HR NEB 10/24/24 10:00 10/28/24 18:57 0.5 MG Acetaminophen/ Hydrocodone Bitart 1 tab Q4HP PRN PO 10/24/24 08:45 10/26/24 00:45 1 TAB Ondansetron HCl 4 mg Q4HP PRN IV 10/24/24 08:45 10/25/24 11:29 4 MG Docusate Sodium 100 mg BIDPRN PRN PO 10/24/24 08:45 Acetaminophen 650 mg Q6HP PRN PO 10/24/24 08:45 Morphine Sulfate 2 mg Q4HPRN PRN IV 10/24/24 08:45 10/28/24 18:41 2 MG Atorvastatin Calcium 20 mg HS PO 10/24/24 22:00 10/25/24 21:29 20 MG Nitroglycerin 0.4 mg Q5MINP PRN SL 10/24/24 09:15 Morphine Sulfate 2 mg Q30M PRN IV 10/24/24 09:15 Phenol/Menthol 1 spr Q2HP PRN MT 10/26/24 18:45 10/27/24 22:29 1 SPR Amino Acids 0 ml @ 0 mls/hr PER PHARMACY IV 10/27/24 09:15 Dextrose/Sodium Chloride 1,000 ml @ 50 mls/hr Q20H IV 10/27/24 09:15 10/28/24 19:48 50 MLS/HR Amino Acids/ Electrolytes/ Dextrose 1,000 ml @ 41 mls/hr DAILY@2200 IV 10/27/24 22:00 10/28/24 21:59 10/27/24 21:57 41 MLS/HR Diagnostic Test (Pha) 1 strip Q6HR 10/28/24 00:00 10/28/24 18:00 1 STRIP Insulin Human Regular FOLLOW SLIDING SCALE Q6HR SC 10/28/24 00:00 Dextrose 50 ml UD IV 10/27/24 22:00 Acetylcysteine 100 mg Q6HR NEB 10/28/24 12:00 10/28/24 18:57 100 MG Budesonide 0.5 mg BID NEB 10/28/24 10:00 10/28/24 15:47 0.5 MG Amino Acids 1,000 ml @ 41 mls/hr DAILY@2200 IV 10/28/24 22:00 Methylprednisolone Sodium Succinate 40 mg Q8HR IV 10/28/24 22:00 laboratory and microbiology Laboratory Tests 10/28/24 02:42 Test 10/28/24 02:42 Range/Units Serum Glucose 107 H 74-106 mg/dL Microbiology Date/Time Source Procedure Growth Status 10/27/24 09:14 Stool Stool Culture - Preliminary Resulted 10/27/24 09:14 Stool Shiga Toxin I & II - Final Resulted 10/24/24 21:34 Nose MRSA Screen - Final Complete 10/24/24 03:10 Blood Blood Culture - Preliminary NO GROWTH AFTER 72 HOURS OF INCUBATION. Resulted Problem List/Assessment/Plan Problem List/Assessment/Plan AFEBRILE VSS ABD SOFT LESS DISTENDED BM + FLATUS + CONTINUE CLOSE OBSERVATION KUB DILATED COLON LIMITED SIGMOIDOSCOPY R/O ULCERATIVE COLITIS REPEAT KUB AM CONSIDER EMERGENT SURGERY BASED ON ONGOING EVAL KEEP NPO NG NURSE AND AT BEDSIDE Plan discussed with: Patient My Orders My Orders Orders - LINDSAY RAMOS MD Procedure Category Date Status Time Kub Abdomen Single XY 10/28/24 Resulted View 16:00 Dietary Evaluation Review Comments: 1) Advance Diet as medically feasible 2) TPN to meet at leaast 75% estimated needs within 7 days Expected Outcomes/Goals: GI symptoms to improve To meet 75% estimated needs in 7 days FU 2-3 days LINDSAY RAMOS MD Oct 28, 2024 21:05
--- NOTE | 2024-10-28 21:20 | DVHPN2 ---
Progress Note - Dictate Date Seen: Oct 28, 2024 Medical Necessity Reason Pt with a Central, PICC or Fol: Yes Subjective Patient seen and examined at bedside. Remains on supplemental oxygen Overnight events reviewed. [facility] vital signs Vital Sign Date Time Temp Pulse Resp B/P (MAP) Pulse Ox O2 Delivery O2 Flow Rate FiO2 10/28/24 19:05 106 18 98 10/28/24 19:00 120/63 (82) 10/28/24 18:55 Nasal Cannula* 4 36 10/28/24 16:00 97.9 97.9 Total Intake and Output 10/27/24 10/27/24 10/28/24 15:00 23:00 07:00 Intake Total 500 ml 644 ml 827 ml Output Total 500 ml Balance 500 ml 644 ml 327 ml medications Current Medications Medications Dose Ordered Sig/Yari Route Start Time Stop Time Status Last Admin Dose Admin Pantoprazole Sodium 40 mg DAILY IV 10/24/24 10:00 10/28/24 10:46 40 MG Levofloxacin/ Dextrose 100 ml @ 100 mls/hr DAILY IV 10/24/24 10:00 10/28/24 10:46 100 MLS/HR Metronidazole 100 ml @ 100 mls/hr Q8HR IV 10/24/24 14:00 10/28/24 15:06 100 MLS/HR Albuterol 2.5 mg Q4HPRN PRN NEB 10/24/24 08:45 10/28/24 18:57 2.5 MG Ipratropium [place] 0.5 mg Q4HR NEB 10/24/24 10:00 10/28/24 18:57 0.5 MG Acetaminophen/ Hydrocodone Bitart 1 tab Q4HP PRN PO 10/24/24 08:45 10/26/24 00:45 1 TAB Ondansetron HCl 4 mg Q4HP PRN IV 10/24/24 08:45 10/25/24 11:29 4 MG Docusate Sodium 100 mg BIDPRN PRN PO 10/24/24 08:45 Acetaminophen 650 mg Q6HP PRN PO 10/24/24 08:45 Morphine Sulfate 2 mg Q4HPRN PRN IV 10/24/24 08:45 10/28/24 18:41 2 MG Atorvastatin Calcium 20 mg HS PO 10/24/24 22:00 10/25/24 21:29 20 MG Nitroglycerin 0.4 mg Q5MINP PRN SL 10/24/24 09:15 Morphine Sulfate 2 mg Q30M PRN IV 10/24/24 09:15 Phenol/Menthol 1 spr Q2HP PRN MT 10/26/24 18:45 10/27/24 22:29 1 SPR Amino Acids 0 ml @ 0 mls/hr PER PHARMACY IV 10/27/24 09:15 Dextrose/Sodium Chloride 1,000 ml @ 50 mls/hr Q20H IV 10/27/24 09:15 10/28/24 19:48 50 MLS/HR Amino Acids/ Electrolytes/ Dextrose 1,000 ml @ 41 mls/hr DAILY@2200 IV 10/27/24 22:00 10/28/24 21:59 10/27/24 21:57 41 MLS/HR Diagnostic Test (Pha) 1 strip Q6HR 10/28/24 00:00 10/28/24 18:00 1 STRIP Insulin Human Regular FOLLOW SLIDING SCALE Q6HR SC 10/28/24 00:00 Dextrose 50 ml UD IV 10/27/24 22:00 Acetylcysteine 100 mg Q6HR NEB 10/28/24 12:00 10/28/24 18:57 100 MG Budesonide 0.5 mg BID NEB 10/28/24 10:00 10/28/24 15:47 0.5 MG Amino Acids 1,000 ml @ 41 mls/hr DAILY@2200 IV 10/28/24 22:00 Methylprednisolone Sodium Succinate 40 mg Q8HR IV 10/28/24 22:00 objective Gen.: Patient lying in bed in no apparent distress. On supplemental oxygen. Head: Normocephalic, atraumatic. Eyes: EOMI/PERRLA. Ears: Normal hearing. Normal anatomy. Neck/trachea: Trachea midline, supple. Nose: Normal external anatomy. Mouth: Moist mucous membranes. Chest: Decreased air entry bilaterally. No wheezing or rhonchi. Cardiovascular: Positive S1, positive S2. Regular rate and rhythm. Abdomen: Positive bowel sounds in all 4 quadrants. Soft, non-tender, non- distended. : Deferred. Rectal: Deferred. Skin: Warm, dry. Intact. Extremities: 2+ radial pulses bilaterally. No lower extremity edema. Neuro: Awake, alert, oriented x3. No gross motor or sensory deficits. Cranial nerves II through XII intact. Gait not assessed. laboratory and microbiology Laboratory Tests 10/28/24 02:42 Test 10/28/24 02:42 Range/Units Serum Glucose 107 H 74-106 mg/dL Assessment/Plan Impression: Acute hypoxic respiratory failure Dependence on supplemental oxygen Sepsis Colitis Diarrhea Shock Obesity, BMI 32.5 Events: Remains on supplemental oxygen, 3 LPM NC Taper O2 as tolerated Patient noted to have desaturation episodes. Off Levophed since 10/25/24, monitor hemodynamics Monitor BP closely. Patient is s/p sigmoid decompression by GI for severe colitis. GI recommendations appreciated NGT to LIS. Patient is NPO Continue bronchodilators Mucomyst, Pulmicort BID Continue antibiotics Started on IV steroids Incentive spirometry IV fluids with D5-NS at 50 ml/hr. Pain control Avoid oversedation Labs and imaging reviewed. Rest of plan as noted below. Plan: Supplemental oxygen Titrate to keep O2 sats above 92%. Pressors as necessary for hemodynamic support Titrate to keep mean arterial pressure greater than 65 mmHg. Continue bronchodilators Continue antibiotics Follow up cultures IV steroids Pain control Avoid oversedation Monitor renal function. Monitor electrolytes. Supplement as necessary. Monitor ins and outs. Follow up GI recommendations Follow up Surgery recommendations Diet and lifestyle modifications for weight reduction Obesity - complicates all care DVT prophylaxis. Prognosis: Poor given patient's multiple co-morbidities. Rest of plan per hospitalist and other consultants. Thank you, [employer] Karlee, for allowing me to participate in this patient's care. Further recommendations will depend on the patient's clinical course. Please do not hesitate to contact me if you have any questions or concerns. This medical document was created using an electronic medical record system with [employer] dictation system. Although these documentations are being carefully reviewed, there may still be some phonetic and typographical changes. The errors are purely typographical, due to imperfection on the software program, and do not reflect any compromise in the patient's medical care. Dietary Evaluation Review Comments: 1) Advance Diet as medically feasible 2) TPN to meet at leaast 75% estimated needs within 7 days Expected Outcomes/Goals: GI symptoms to improve To meet 75% estimated needs in 7 days FU 2-3 days Plan discussed with: Patient, Other (JELENA Lewis) EH DE SOUZA MD Oct 28, 2024 21:20
[2024-10-28] MEDS: methylPREDNISolone SOD SUCC 40 MG/ML VL IV SCH (21:56)
[2024-10-28] MEDS: AMINO ACID INFUSION IN D5W 1,000 ML IV SCH (21:56)
[2024-10-28] MEDS ORDERED: MESALAMINE 400mg Delayed Release Cap PO SCH (22:00)
[2024-10-28] MEDS: phytonadione 10 MG in SODIUM CHL 0.9% 50 ML IV ONE (22:23)
[2024-10-29] VITALS (37 sets, daily range): BP systolic 92–148; BP diastolic 48–86; PULSE 83–122; RESP 13–27; TEMP 97.7–98.4; O2SAT 89–99
[2024-10-29 04:19] LABS: Alanine Aminotransferase 19 U/L (7-40); Alkaline Phosphatase 61 U/L (46-116); Anion Gap 9 (5-15); BUN/Creatinine Ratio 23.0 (10.0-20.0); Blood Urea Nitrogen 17 mg/dL (9-23); Calcium 9.1 mg/dL (8.7-10.4); Carbon Dioxide 23 mmol/L (20-31); Chloride 107 mmol/L (98-107); Magnesium 2.1 mg/dL (1.6-2.6); Potassium 3.6 mmol/L (3.5-5.1); Sodium 139 mmol/L (136-145); Triglycerides 55 mg/dL (< 150)
[2024-10-29 04:25] LABS: Hematocrit 35.0 % (41.0-53.0); Hemoglobin 12.2 g/dL (13.5-17.5); Mean Corpuscular Hemoglobin 31.6 pg (28.0-32.0); Mean Corpuscular Volume 90.8 fL (80.0-100.0)
[2024-10-29 04:31] LABS: Albumin 3.1 g/dL (3.2-4.8); Bilirubin, Total 0.3 mg/dL (0.2-1.0); Glucose 142 mg/dL (74-106); Total Protein 5.3 g/dL (5.7-8.2)
[2024-10-29 04:57] LABS: Total Cells Counted 100.0 (100)
--- NOTE | 2024-10-29 07:28 | DVH ---
ABDOMINAL RADIOGRAPH Indication: colitis Technique: Single frontal view of the abdomen was obtained Comparison: XY KUB ABDOMEN SINGLE VIEW on DOS: 10/28/24 FINDINGS: Lines and tubes: Enteric tube with tip terminating in the proximal stomach. There is dilated bowel loops throughout the partially imaged upper abdomen. Bibasilar airspace disease. IMPRESSION: 1. Enteric tube terminates in the proximal stomach.
--- NOTE | 2024-10-29 09:15 | DVHPN2 ---
Subjective Reported to loose BMs yesterday evening. Patient states that clinically his stomach feels better. Breathing has improved. Reviewed: Care Plan, H&P, Labs, Medications, Previous Orders, Radiology Changes from previous H/P or p: No Changes General: Per HPI Eyes: No Pain, No Vision change, No Conjunctivae inflammation, No Eyelid inflammation, No Other, No Redness ENT: No Ear pain, No Ear discharge, No Nose pain, No Nose discharge, No Nose congestion, No Mouth pain, No Mouth swelling, No Throat pain, No Throat swelling, No Other Cardiovascular: No Chest Pain, No Palpitations, No Orthopnea, No Paroxysmal Noc. Dyspnea, No Edema, No Lt Headedness, No Other Respiratory: No Cough, No Dry; Shortness of breath; No SOB with excertion, No Wheezing, No Hemoptysis, No Pleuritic Pain, No Sputum, No Other Gastrointestinal: Nausea, Vomiting, Abdominal Pain, Diarrhea; No Constipation, No Melena, No Hematochezia, No Other Genitourinary: No Dysuria, No Frequency, No Incontinence, No Hematuria, No Retention, No Other Musculoskeletal: No other, No neck pain, No shoulder pain, No arm pain, No back pain, No hand pain, No leg pain, No foot pain Skin: No Rash, No Lesions, No Jaundice, No Bruising, No Other Objective Vitals Vital Signs Date Time Temp Pulse Resp B/P (MAP) Pulse Ox O2 Delivery O2 Flow Rate FiO2 10/29/24 07:23 90 18 98 10/29/24 07:11 Nasal Cannula 4.0 10/29/24 07:11 36 10/29/24 06:00 126/76 (93) 10/29/24 04:00 98.4 98.4 Intake/Output Intake and Output 10/29/24 07:00 Intake Total 2690.00 ml Output Total 1240 ml Balance 1450.00 ml Intake Oral 0 ml IV Total 2690.00 ml Output Urine Total 1060 ml Drainage Total 180 ml # Bowel Movements 6 General Appearance: Alert, Oriented X3, Cooperative, mild distress HEENT: Atraumatic, PERRLA Lungs: Other (Decreased breath sounds in bases. Nasal cannula 4 L/min) Cardiovascular: Regular rate, Normal S1, Normal S2 Abdomen: Other (Absent bowel sounds. Severely distended abdomen) Genitourinary: No Apparent Abnormalities Extremities: Normal pulses Skin: Dry, Intact Psych/Mental Status: Mental status NL, Mood NL Medications Current Medications Medications Dose Ordered Sig/Yari Route Start Time Stop Time Status Last Admin Dose Admin Pantoprazole Sodium 40 mg DAILY IV 10/24/24 10:00 10/28/24 10:46 40 MG Levofloxacin/ Dextrose 100 ml @ 100 mls/hr DAILY IV 10/24/24 10:00 10/28/24 10:46 100 MLS/HR Metronidazole 100 ml @ 100 mls/hr Q8HR IV 10/24/24 14:00 10/29/24 05:42 100 MLS/HR Albuterol 2.5 mg Q4HPRN PRN NEB 10/24/24 08:45 10/29/24 07:11 2.5 MG Ipratropium [place] 0.5 mg Q4HR NEB 10/24/24 10:00 10/29/24 07:11 0.5 MG Acetaminophen/ Hydrocodone Bitart 1 tab Q4HP PRN PO 10/24/24 08:45 10/26/24 00:45 1 TAB Ondansetron HCl 4 mg Q4HP PRN IV 10/24/24 08:45 10/25/24 11:29 4 MG Docusate Sodium 100 mg BIDPRN PRN PO 10/24/24 08:45 Acetaminophen 650 mg Q6HP PRN PO 10/24/24 08:45 Morphine Sulfate 2 mg Q4HPRN PRN IV 10/24/24 08:45 10/28/24 18:41 2 MG Atorvastatin Calcium 20 mg HS PO 10/24/24 22:00 10/25/24 21:29 20 MG Nitroglycerin 0.4 mg Q5MINP PRN SL 10/24/24 09:15 Morphine Sulfate 2 mg Q30M PRN IV 10/24/24 09:15 Phenol/Menthol 1 spr Q2HP PRN MT 10/26/24 18:45 10/29/24 01:45 1 SPR Amino Acids 0 ml @ 0 mls/hr PER PHARMACY IV 10/27/24 09:15 Dextrose/Sodium Chloride 1,000 ml @ 50 mls/hr Q20H IV 10/27/24 09:15 10/28/24 19:48 50 MLS/HR Diagnostic Test (Pha) 1 strip Q6HR 10/28/24 00:00 10/29/24 05:41 1 STRIP Insulin Human Regular FOLLOW SLIDING SCALE Q6HR SC 10/28/24 00:00 Dextrose 50 ml UD IV 10/27/24 22:00 Acetylcysteine 100 mg Q6HR NEB 10/28/24 12:00 10/29/24 07:12 100 MG Budesonide 0.5 mg BID NEB 10/28/24 10:00 10/29/24 07:11 0.5 MG Amino Acids 1,000 ml @ 41 mls/hr DAILY@2200 IV 10/28/24 22:00 10/28/24 21:56 41 MLS/HR Methylprednisolone Sodium Succinate 40 mg Q8HR IV 10/28/24 22:00 10/29/24 05:42 40 MG Laboratory Results Laboratory Tests 10/29/24 02:50 Chemistry Test 10/29/24 02:50 Albumin 3.1 g/dL (3.2-4.8) L Calcium Level 9.1 mg/dL (8.7-10.4) Magnesium Level 2.1 mg/dL (1.6-2.6) Phosphorus Level 2.4 mg/dL (2.4-5.1) Total Protein 5.3 g/dL (5.7-8.2) L Coagulation Test 10/28/24 13:50 Prothrombin Time 15.5 sec (9.3-11.8) H Prothrombin Time INR 1.52 (0.9-1.15) H Activated Partial Thromboplast Time 29.2 SEC (24.5-34.5) Lipid panel Test 10/29/24 02:50 Triglycerides Level 55 mg/dL (< 150) LFT Test 10/29/24 02:50 Alanine Aminotransferase (ALT) 19 U/L (7-40) Alkaline Phosphatase 61 U/L (46-116) Aspartate Amino Transferase (AST) 28 U/L (13-40) Total Bilirubin 0.3 mg/dL (0.2-1.0) Urinalysis Test 10/24/24 12:35 Urine Color [place] (Yellow) H Urine Clarity Turbid (Clear) H Urine pH 5.5 (5.0-9.0) Urine Specific [place] 1.023 (1.001-1.035) Urine Protein 1+ (Negative) H Urine Ketones 2+ (Negative) H Urine Blood Negative /uL (Negative) Urine Nitrite Negative (Negative) Urine Bilirubin Negative (Negative) Urine Urobilinogen Normal mg/dL (Negative) Urine Leukocyte Esterase Trace /uL (Negative) Urine RBC 3 /hpf (0 - 3) Urine Microscopic WBC 11 /HPF (0-3) H Urine Squamous Epithelial Cells Few /hpf (<5) Urine Bacteria None seen /hpf (None Seen) Urine Hyaline Casts Many /lpf (0 - 2) Urine Mucus Few (None Seen) Urine Glucose Normal mg/dL (Normal) Microbiology Microbiology Date/Time Source Procedure Growth Status 10/28/24 18:50 Stool Stool Culture - Preliminary Resulted 10/28/24 18:50 Stool Shiga Toxin I & II Pending Resulted 10/24/24 21:34 Nose MRSA Screen - Final Complete 10/24/24 03:10 Blood Blood Culture - Final NO GROWTH AFTER 5 DAYS OF INCUBATION. Complete Labs and/or images reviewed: Labs reviewed by me, Image(s) reviewed by me Assessment/Plan Assessment/Plan Impression: -septic shock -acute colitis, rule out acute gastric perforation -obesity -acute on chronic hypoxic respiratory failure -COPD -degenerative joint disease -probable ileus -ulcerative colitis Plan: Events: No events overnight. Status post colonoscopy. Abdomen softer, not as distended. Repeat KUB reveals persistent distended colon. -continue IV steroids -continue NPO status, NG to low intermittent suction -Repeat KUB in a.m. -O2 supplementation to keep saturation greater than 92% -continue bronchodilators, add mucomyst and pulmicort. -continue antibiotic therapy with Levaquin and Flagyl -continue Clinimix. Consider TPN if patient remains NPO per Gastroenterology recommendations. -PT -Advance diet as tolerated. -consultations: Pulmonology, GI -repeat labs in a.m. Critical care time spent with patient discussing and formulating plan of care: 40 minutes. This does not include time spent performing procedures. This medical document was created using an electronic medical record system with [employer] system. Although this document has been carefully reviewed, there may still be some phonetic and typographical errors. These areas are purely typographical due to imperfections of the software programs, and do not reflect any compromise in the patient's medical care. Plan discussed with: Patient, Other (RN) My Orders Orders - ANAYA ONTIVEROS [employer] Procedure Category Date Status Time Kub Abdomen Single XY 10/28/24 Resulted View 09:18 Transfer Orders XFER 10/28/24 Transmitted 09:19 Acetylcysteine PHA 10/28/24 In Process Inhalation 10% 12:00 Budesonide PHA 10/28/24 In Process (Inhalation) 10:00 Amino Acid Infusion PHA 10/28/24 In Process In D5w (Clinimix 4.2 22:00 Clinimix Per Pharmacy GISELE 10/28/24 In Process 22:00 Communication Order ORDERS 10/28/24 Transmitted 20:09 Date of Service: Oct 29, 2024 Billing Provider: ANAYA ONTIVEROS NP Common Visit Codes: [id number] CARE 30-74 MIN ANAYA ONTIVEROS NP Oct 29, 2024 09:15
--- NOTE | 2024-10-29 09:43 | DVHPN2 ---
Progress Note Date Seen: Oct 29, 2024 Medical Necessity Reason Pt with a Central, PICC or Fol: Yes Objective vital signs Vital Sign Date Time Temp Pulse Resp B/P (MAP) Pulse Ox O2 Delivery O2 Flow Rate FiO2 10/29/24 07:23 90 18 98 10/29/24 07:11 Nasal Cannula 4.0 10/29/24 07:11 36 10/29/24 06:00 126/76 (93) 10/29/24 04:00 98.4 98.4 Total Intake and Output 10/28/24 10/28/24 10/29/24 15:00 23:00 07:00 Intake Total 880.50 ml 981.50 ml 828 ml Output Total 400 ml 840 ml Balance 880.50 ml 581.50 ml -12 ml medications Current Medications Medications Dose Ordered Sig/Yari Route Start Time Stop Time Status Last Admin Dose Admin Pantoprazole Sodium 40 mg DAILY IV 10/24/24 10:00 10/28/24 10:46 40 MG Levofloxacin/ Dextrose 100 ml @ 100 mls/hr DAILY IV 10/24/24 10:00 10/28/24 10:46 100 MLS/HR Metronidazole 100 ml @ 100 mls/hr Q8HR IV 10/24/24 14:00 10/29/24 05:42 100 MLS/HR Albuterol 2.5 mg Q4HPRN PRN NEB 10/24/24 08:45 10/29/24 07:11 2.5 MG Ipratropium [place] 0.5 mg Q4HR NEB 10/24/24 10:00 10/29/24 07:11 0.5 MG Acetaminophen/ Hydrocodone Bitart 1 tab Q4HP PRN PO 10/24/24 08:45 10/26/24 00:45 1 TAB Ondansetron HCl 4 mg Q4HP PRN IV 10/24/24 08:45 10/25/24 11:29 4 MG Docusate Sodium 100 mg BIDPRN PRN PO 10/24/24 08:45 Acetaminophen 650 mg Q6HP PRN PO 10/24/24 08:45 Morphine Sulfate 2 mg Q4HPRN PRN IV 10/24/24 08:45 10/28/24 18:41 2 MG Atorvastatin Calcium 20 mg HS PO 10/24/24 22:00 10/25/24 21:29 20 MG Nitroglycerin 0.4 mg Q5MINP PRN SL 10/24/24 09:15 Morphine Sulfate 2 mg Q30M PRN IV 10/24/24 09:15 Phenol/Menthol 1 spr Q2HP PRN MT 10/26/24 18:45 10/29/24 01:45 1 SPR Amino Acids 0 ml @ 0 mls/hr PER PHARMACY IV 10/27/24 09:15 Dextrose/Sodium Chloride 1,000 ml @ 50 mls/hr Q20H IV 10/27/24 09:15 10/28/24 19:48 50 MLS/HR Diagnostic Test (Pha) 1 strip Q6HR 10/28/24 00:00 10/29/24 05:41 1 STRIP Insulin Human Regular FOLLOW SLIDING SCALE Q6HR SC 10/28/24 00:00 Dextrose 50 ml UD IV 10/27/24 22:00 Acetylcysteine 100 mg Q6HR NEB 10/28/24 12:00 10/29/24 07:12 100 MG Budesonide 0.5 mg BID NEB 10/28/24 10:00 10/29/24 07:11 0.5 MG Amino Acids 1,000 ml @ 41 mls/hr DAILY@2200 IV 10/28/24 22:00 10/28/24 21:56 41 MLS/HR Methylprednisolone Sodium Succinate 40 mg Q8HR IV 10/28/24 22:00 10/29/24 05:42 40 MG laboratory and microbiology Laboratory Tests 10/29/24 02:50 Test 10/29/24 02:50 Range/Units Serum Glucose 142 H 74-106 mg/dL Microbiology Date/Time Source Procedure Growth Status 10/28/24 18:50 Stool Stool Culture - Preliminary Resulted 10/28/24 18:50 Stool Shiga Toxin I & II Pending Resulted 10/24/24 21:34 Nose MRSA Screen - Final Complete 10/24/24 03:10 Blood Blood Culture - Final NO GROWTH AFTER 5 DAYS OF INCUBATION. Complete Problem List/Assessment/Plan Problem List/Assessment/Plan AFEBRILE VSS ABD SOFT LESS DISTENDED BM + FLATUS + CONTINUE CLOSE OBSERVATION KUB DILATED COLON NO FREE AIR RECTAL DISIMPACTION DONE AGAIN USING BAIN CATH. AIR AND STOOL NOTED. NO COMPLICATIONS CONSIDER EMERGENT SURGERY BASED ON ONGOING EVAL KEEP NPO NG NURSE AND FAMILY AT BEDSIDE Plan discussed with: Patient My Orders My Orders Orders - LINDSAY RAMOS MD Procedure Category Date Status Time Kub Abdomen Single XY 10/28/24 Resulted View 16:00 Phytonadione (Vitamin PHA 10/29/24 In Process K) 10:00 Kub Abdomen Single XY 10/29/24 Resulted View 09:00 Dietary Evaluation Review Comments: 1) Advance Diet as medically feasible 2) TPN to meet at leaast 75% estimated needs within 7 days Expected Outcomes/Goals: GI symptoms to improve To meet 75% estimated needs in 7 days FU 2-3 days LINDSAY RAMOS MD Oct 29, 2024 09:43
[2024-10-29] MEDS: phytonadione 10 MG in SODIUM CHL 0.9% 50 ML IV ONE (09:59)
[2024-10-29] MEDS ORDERED: TPN PER PHARMACY 0 ML IV SCH (10:15)
[2024-10-29] MEDS: LIDOCAINE 1% (LOCAL ANESTH.) PF 5ml SDV ID ONE (14:30)
[2024-10-29] MEDS: POTASSIUM PHOSPHATE 26.4 MEQ in SODIUM CHL 0.9% 100 ML IV ONE (17:19)
[2024-10-29] MEDS: SODIUM CHLOR 0.9% PF (SALINE LOCK) 10ML VIAL/SYR IV SCH (22:27)
--- NOTE | 2024-10-29 23:28 | DVHPN2 ---
Progress Note - Dictate Date Seen: Oct 29, 2024 Medical Necessity Reason Pt with a Central, PICC or Fol: Yes Subjective Patient is clinically stable He has been started on IV Solu-Medrol 40 mg g q.8 hours Once the patient is started on oral liquid diet we can put him on mesalamine 800 mg p.o. three times a day His stool tests were negative Stool WBC showed many WBC and stool for occult blood was positive suggestive of colitis Stool for C diff is negative, bacterial culture is pending vital signs Vital Sign Date Time Temp Pulse Resp B/P (MAP) Pulse Ox O2 Delivery O2 Flow Rate FiO2 10/29/24 22:14 120 18 96 10/29/24 21:00 119/78 (92) 10/29/24 20:09 Nasal Cannula* 4 36 10/29/24 19:00 97.9 97.9 Total Intake and Output 10/28/24 10/28/24 10/29/24 15:00 23:00 07:00 Intake Total 880.50 ml 981.50 ml 828 ml Output Total 400 ml 840 ml Balance 880.50 ml 581.50 ml -12 ml medications Current Medications Medications Dose Ordered Sig/Yari Route Start Time Stop Time Status Last Admin Dose Admin Pantoprazole Sodium 40 mg DAILY IV 10/24/24 10:00 10/29/24 09:50 40 MG Levofloxacin/ Dextrose 100 ml @ 100 mls/hr DAILY IV 10/24/24 10:00 10/29/24 09:54 100 MLS/HR Metronidazole 100 ml @ 100 mls/hr Q8HR IV 10/24/24 14:00 10/29/24 22:27 100 MLS/HR Albuterol 2.5 mg Q4HPRN PRN NEB 10/24/24 08:45 10/29/24 22:07 2.5 MG Ipratropium [place] 0.5 mg Q4HR NEB 10/24/24 10:00 10/29/24 22:07 0.5 MG Acetaminophen/ Hydrocodone Bitart 1 tab Q4HP PRN PO 10/24/24 08:45 10/26/24 00:45 1 TAB Ondansetron HCl 4 mg Q4HP PRN IV 10/24/24 08:45 10/25/24 11:29 4 MG Docusate Sodium 100 mg BIDPRN PRN PO 10/24/24 08:45 Acetaminophen 650 mg Q6HP PRN PO 10/24/24 08:45 Morphine Sulfate 2 mg Q4HPRN PRN IV 10/24/24 08:45 10/29/24 18:28 2 MG Atorvastatin Calcium 20 mg HS PO 10/24/24 22:00 10/25/24 21:29 20 MG Nitroglycerin 0.4 mg Q5MINP PRN SL 10/24/24 09:15 Morphine Sulfate 2 mg Q30M PRN IV 10/24/24 09:15 Phenol/Menthol 1 spr Q2HP PRN MT 10/26/24 18:45 10/29/24 01:45 1 SPR Dextrose/Sodium Chloride 1,000 ml @ 50 mls/hr Q20H IV 10/27/24 09:15 10/29/24 20:36 50 MLS/HR Diagnostic Test (Pha) 1 strip Q6HR 10/28/24 00:00 10/29/24 18:20 1 STRIP Insulin Human Regular FOLLOW SLIDING SCALE Q6HR SC 10/28/24 00:00 10/29/24 18:21 2 UNITS Dextrose 50 ml UD IV 10/27/24 22:00 Acetylcysteine 100 mg Q6HR NEB 10/28/24 12:00 10/29/24 17:42 100 MG Budesonide 0.5 mg BID NEB 10/28/24 10:00 10/29/24 22:07 0.5 MG Amino Acids 1,000 ml @ 41 mls/hr DAILY@2200 IV 10/28/24 22:00 10/30/24 21:59 10/29/24 22:00 41 MLS/HR Methylprednisolone Sodium Succinate 40 mg Q8HR IV 10/28/24 22:00 10/29/24 22:27 40 MG Amino Acids 0 ml @ 0 mls/hr PER PHARMACY IV 10/29/24 10:15 Sodium Chloride 10 ml QSHIFT@10,22 IV 10/29/24 22:00 10/29/24 22:27 10 ML objective VITAL SIGNS: Afebrile, stable signs. HEENT: There is no evidence of pallor, cyanosis, or jaundice. NECK: Supple and nontender with no thyromegaly or lymphadenopathy. CHEST AND LUNGS: Clear. HEART: Within normal limits. ABDOMEN: Soft and distended. He is morbidly obese. Difficult to evaluate, but minimally tender. No rebound. EXTREMITIES: Unremarkable. NEUROLOGIC: Alert and oriented x3, nonfocal laboratory and microbiology Laboratory Tests 10/29/24 02:50 Test 10/29/24 02:50 Range/Units Serum Glucose 142 H 74-106 mg/dL Problems(with codes): (1) Severe ulcerative colitis (2) Ileus (3) Leukocytosis, unspecified (4) Abdominal pain Prognosis Plan Await biopsy results Continue to monitor him clinically Surgical consult on board for severe ileus NG tube to low intermittent suction Jaramillo catheter decompression per rectally done by Dr. Collin Berry Monitor labs normal IV Clinimix, IV antibiotics Dietary Evaluation Review Comments: 1) Advance Diet as medically feasible 2) TPN to meet at leaast 75% estimated needs within 7 days Expected Outcomes/Goals: GI symptoms to improve To meet 75% estimated needs in 7 days FU 2-3 days Plan discussed with: Other (Dr Collin Berry) LAURITA BERRY MD Oct 29, 2024 23:28
--- NOTE | 2024-10-29 23:41 | DVHPN2 ---
Progress Note - Dictate Date Seen: Oct 29, 2024 Medical Necessity Reason Pt with a Central, PICC or Fol: Yes Subjective Patient seen and examined at bedside. Remains on supplemental oxygen Overnight events reviewed. [facility] vital signs Vital Sign Date Time Temp Pulse Resp B/P (MAP) Pulse Ox O2 Delivery O2 Flow Rate FiO2 10/29/24 22:14 120 18 96 10/29/24 21:00 119/78 (92) 10/29/24 20:09 Nasal Cannula* 4 36 10/29/24 19:00 97.9 97.9 Total Intake and Output 10/28/24 10/28/24 10/29/24 15:00 23:00 07:00 Intake Total 880.50 ml 981.50 ml 828 ml Output Total 400 ml 840 ml Balance 880.50 ml 581.50 ml -12 ml medications Current Medications Medications Dose Ordered Sig/Yari Route Start Time Stop Time Status Last Admin Dose Admin Pantoprazole Sodium 40 mg DAILY IV 10/24/24 10:00 10/29/24 09:50 40 MG Levofloxacin/ Dextrose 100 ml @ 100 mls/hr DAILY IV 10/24/24 10:00 10/29/24 09:54 100 MLS/HR Metronidazole 100 ml @ 100 mls/hr Q8HR IV 10/24/24 14:00 10/29/24 22:27 100 MLS/HR Albuterol 2.5 mg Q4HPRN PRN NEB 10/24/24 08:45 10/29/24 22:07 2.5 MG Ipratropium [place] 0.5 mg Q4HR NEB 10/24/24 10:00 10/29/24 22:07 0.5 MG Acetaminophen/ Hydrocodone Bitart 1 tab Q4HP PRN PO 10/24/24 08:45 10/26/24 00:45 1 TAB Ondansetron HCl 4 mg Q4HP PRN IV 10/24/24 08:45 10/25/24 11:29 4 MG Docusate Sodium 100 mg BIDPRN PRN PO 10/24/24 08:45 Acetaminophen 650 mg Q6HP PRN PO 10/24/24 08:45 Morphine Sulfate 2 mg Q4HPRN PRN IV 10/24/24 08:45 10/29/24 18:28 2 MG Atorvastatin Calcium 20 mg HS PO 10/24/24 22:00 10/25/24 21:29 20 MG Nitroglycerin 0.4 mg Q5MINP PRN SL 10/24/24 09:15 Morphine Sulfate 2 mg Q30M PRN IV 10/24/24 09:15 Phenol/Menthol 1 spr Q2HP PRN MT 10/26/24 18:45 10/29/24 01:45 1 SPR Dextrose/Sodium Chloride 1,000 ml @ 50 mls/hr Q20H IV 10/27/24 09:15 10/29/24 20:36 50 MLS/HR Diagnostic Test (Pha) 1 strip Q6HR 10/28/24 00:00 10/29/24 18:20 1 STRIP Insulin Human Regular FOLLOW SLIDING SCALE Q6HR SC 10/28/24 00:00 10/29/24 18:21 2 UNITS Dextrose 50 ml UD IV 10/27/24 22:00 Acetylcysteine 100 mg Q6HR NEB 10/28/24 12:00 10/29/24 17:42 100 MG Budesonide 0.5 mg BID NEB 10/28/24 10:00 10/29/24 22:07 0.5 MG Amino Acids 1,000 ml @ 41 mls/hr DAILY@2200 IV 10/28/24 22:00 10/30/24 21:59 10/29/24 22:00 41 MLS/HR Methylprednisolone Sodium Succinate 40 mg Q8HR IV 10/28/24 22:00 10/29/24 22:27 40 MG Amino Acids 0 ml @ 0 mls/hr PER PHARMACY IV 10/29/24 10:15 Sodium Chloride 10 ml QSHIFT@10,22 IV 10/29/24 22:00 10/29/24 22:27 10 ML objective Gen.: Patient lying in bed in no apparent distress. On supplemental oxygen. Head: Normocephalic, atraumatic. Eyes: EOMI/PERRLA. Ears: Normal hearing. Normal anatomy. Neck/trachea: Trachea midline, supple. Nose: Normal external anatomy. Mouth: Moist mucous membranes. Chest: Decreased air entry bilaterally. No wheezing or rhonchi. Cardiovascular: Positive S1, positive S2. Regular rate and rhythm. Abdomen: Positive bowel sounds in all 4 quadrants. Soft, non-tender, non- distended. : Deferred. Rectal: Deferred. Skin: Warm, dry. Intact. Extremities: 2+ radial pulses bilaterally. No lower extremity edema. Neuro: Awake, alert, oriented x3. No gross motor or sensory deficits. Cranial nerves II through XII intact. Gait not assessed. laboratory and microbiology Laboratory Tests 10/29/24 02:50 Test 10/29/24 02:50 Range/Units Serum Glucose 142 H 74-106 mg/dL Assessment/Plan Impression: Acute hypoxic respiratory failure Dependence on supplemental oxygen Sepsis Colitis Diarrhea Shock Obesity, BMI 32.5 Events: Remains on supplemental oxygen, 4 LPM NC Taper O2 as tolerated Off pressors since 10/25/24, monitor hemodynamics Monitor blood pressure closely. NGT to LIS. Strict NPO Abdomen is distended. S/p sigmoid decompression by GI for severe ulcerative colitis. GI recommendations appreciated Follow up biopsy results Plan for TPN S/p PICC line placement. Bronchodilators PRN. Mucomyst, Pulmicort BID Continue antibiotics Continue steroids Incentive spirometry IV fluids with D5-NS at 50 ml/hr. Pain control Avoid oversedation Labs and imaging reviewed. Rest of plan as noted below. Plan: Supplemental oxygen Titrate to keep O2 sats above 92%. Pressors as necessary for hemodynamic support Titrate to keep mean arterial pressure greater than 65 mmHg. Continue bronchodilators Continue antibiotics Follow up cultures IV steroids Pain control Avoid oversedation Monitor renal function. Monitor electrolytes. Supplement as necessary. Monitor ins and outs. Follow up GI recommendations Follow up Surgery recommendations Diet and lifestyle modifications for weight reduction Obesity - complicates all care DVT prophylaxis. Prognosis: Poor given patient's multiple co-morbidities. Rest of plan per hospitalist and other consultants. Thank you, REGINA Desir, for allowing me to participate in this patient's care. Further recommendations will depend on the patient's clinical course. Please do not hesitate to contact me if you have any questions or concerns. This medical document was created using an electronic medical record system with [employer] dictation system. Although these documentations are being carefully reviewed, there may still be some phonetic and typographical changes. The errors are purely typographical, due to imperfection on the software program, and do not reflect any compromise in the patient's medical care. Dietary Evaluation Review Comments: 1) Advance Diet as medically feasible 2) TPN to meet at leaast 75% estimated needs within 7 days Expected Outcomes/Goals: GI symptoms to improve To meet 75% estimated needs in 7 days FU 2-3 days Plan discussed with: Patient, Other (JELENA Dumont) EH DE SOUZA MD Oct 29, 2024 23:40
[2024-10-30] VITALS (73 sets, daily range): BP systolic 99–149; BP diastolic 60–82; PULSE 66–106; RESP 9–32; TEMP 97.8–98.5; O2SAT 85–99
[2024-10-30 03:47] LABS: Hematocrit 35.4 % (41.0-53.0); Hemoglobin 11.8 g/dL (13.5-17.5); Mean Corpuscular Hemoglobin 30.8 pg (28.0-32.0); Mean Corpuscular Volume 92.9 fL (80.0-100.0); Nucleated Red Blood Cells % 0.0 %
[2024-10-30 04:47] LABS: Alanine Aminotransferase 16 U/L (7-40); Alkaline Phosphatase 59 U/L (46-116); Anion Gap 9 (5-15); BUN/Creatinine Ratio 33.8 (10.0-20.0); Carbon Dioxide 22 mmol/L (20-31); Magnesium 2.2 mg/dL (1.6-2.6); Potassium 3.8 mmol/L (3.5-5.1); Sodium 140 mmol/L (136-145)
[2024-10-30 05:02] LABS: Albumin 3.0 g/dL (3.2-4.8); Bilirubin, Total 0.2 mg/dL (0.2-1.0); Blood Urea Nitrogen 26 mg/dL (9-23); Calcium 8.3 mg/dL (8.7-10.4); Chloride 109 mmol/L (98-107); Glucose 193 mg/dL (74-106); Total Protein 5.2 g/dL (5.7-8.2)
--- NOTE | 2024-10-30 08:51 | DVHPN2 ---
Subjective Patient reporting increased flatulence. Reviewed: Care Plan, H&P, Labs, Medications, Previous Orders, Radiology Changes from previous H/P or p: No Changes General: Per HPI Eyes: No Pain, No Vision change, No Conjunctivae inflammation, No Eyelid inflammation, No Other, No Redness ENT: No Ear pain, No Ear discharge, No Nose pain, No Nose discharge, No Nose congestion, No Mouth pain, No Mouth swelling, No Throat pain, No Throat swelling, No Other Cardiovascular: No Chest Pain, No Palpitations, No Orthopnea, No Paroxysmal Noc. Dyspnea, No Edema, No Lt Headedness, No Other Respiratory: No Cough, No Dry; Shortness of breath; No SOB with excertion, No Wheezing, No Hemoptysis, No Pleuritic Pain, No Sputum, No Other Gastrointestinal: Nausea, Vomiting, Abdominal Pain, Diarrhea; No Constipation, No Melena, No Hematochezia, No Other Genitourinary: No Dysuria, No Frequency, No Incontinence, No Hematuria, No Retention, No Other Musculoskeletal: No other, No neck pain, No shoulder pain, No arm pain, No back pain, No hand pain, No leg pain, No foot pain Skin: No Rash, No Lesions, No Jaundice, No Bruising, No Other Objective Vitals Vital Signs Date Time Temp Pulse Resp B/P (MAP) Pulse Ox O2 Delivery O2 Flow Rate FiO2 10/30/24 08:00 85 15 130/79 10/30/24 07:45 94 10/30/24 06:45 Nasal Cannula* 3 32 10/30/24 04:00 97.9 97.9 Intake/Output Intake and Output 10/30/24 07:00 Intake Total 2322 ml Output Total 1575 ml Balance 747 ml Intake Oral 0 ml IV Total 2322 ml Output Urine Total 1100 ml Gastric Drainage Total 200 ml Drainage Total 275 ml # Bowel Movements 5 General Appearance: Alert, Oriented X3, Cooperative, mild distress HEENT: Atraumatic, PERRLA Lungs: Other (Decreased breath sounds in bases. Nasal cannula 4 L/min) Cardiovascular: Regular rate, Normal S1, Normal S2 Abdomen: Other (Absent bowel sounds. Severely distended abdomen) Genitourinary: No Apparent Abnormalities Extremities: Normal pulses Neuro: Sensation intact, Cranial nerves 3-12 NL Skin: Dry, Intact Psych/Mental Status: Mental status NL, Mood NL Medications Current Medications Medications Dose Ordered Sig/Yari Route Start Time Stop Time Status Last Admin Dose Admin Pantoprazole Sodium 40 mg DAILY IV 10/24/24 10:00 10/29/24 09:50 40 MG Levofloxacin/ Dextrose 100 ml @ 100 mls/hr DAILY IV 10/24/24 10:00 10/29/24 09:54 100 MLS/HR Metronidazole 100 ml @ 100 mls/hr Q8HR IV 10/24/24 14:00 10/30/24 05:39 100 MLS/HR Albuterol 2.5 mg Q4HPRN PRN NEB 10/24/24 08:45 10/30/24 06:40 2.5 MG Ipratropium [place] 0.5 mg Q4HR NEB 10/24/24 10:00 10/30/24 06:40 0.5 MG Acetaminophen/ Hydrocodone Bitart 1 tab Q4HP PRN PO 10/24/24 08:45 10/26/24 00:45 1 TAB Ondansetron HCl 4 mg Q4HP PRN IV 10/24/24 08:45 10/25/24 11:29 4 MG Docusate Sodium 100 mg BIDPRN PRN PO 10/24/24 08:45 Acetaminophen 650 mg Q6HP PRN PO 10/24/24 08:45 Morphine Sulfate 2 mg Q4HPRN PRN IV 10/24/24 08:45 10/30/24 08:00 2 MG Atorvastatin Calcium 20 mg HS PO 10/24/24 22:00 10/25/24 21:29 20 MG Nitroglycerin 0.4 mg Q5MINP PRN SL 10/24/24 09:15 Morphine Sulfate 2 mg Q30M PRN IV 10/24/24 09:15 Phenol/Menthol 1 spr Q2HP PRN MT 10/26/24 18:45 10/29/24 01:45 1 SPR Dextrose/Sodium Chloride 1,000 ml @ 50 mls/hr Q20H IV 10/27/24 09:15 10/29/24 20:36 50 MLS/HR Diagnostic Test (Pha) 1 strip Q6HR 10/28/24 00:00 10/30/24 05:39 1 STRIP Insulin Human Regular FOLLOW SLIDING SCALE Q6HR SC 10/28/24 00:00 10/30/24 05:43 4 UNITS Dextrose 50 ml UD IV 10/27/24 22:00 Acetylcysteine 100 mg Q6HR NEB 10/28/24 12:00 10/30/24 06:40 100 MG Budesonide 0.5 mg BID NEB 10/28/24 10:00 10/29/24 22:07 0.5 MG Amino Acids 1,000 ml @ 41 mls/hr DAILY@2200 IV 10/28/24 22:00 10/30/24 21:59 10/29/24 22:00 41 MLS/HR Methylprednisolone Sodium Succinate 40 mg Q8HR IV 10/28/24 22:00 10/30/24 05:39 40 MG Amino Acids 0 ml @ 0 mls/hr PER PHARMACY IV 10/29/24 10:15 Sodium Chloride 10 ml QSHIFT@ IV 10/29/24 22:00 10/29/24 22:27 10 ML Laboratory Results Laboratory Tests 10/30/24 02:48 Chemistry Test 10/30/24 02:48 Albumin 3.0 g/dL (3.2-4.8) L Calcium Level 8.3 mg/dL (8.7-10.4) L Magnesium Level 2.2 mg/dL (1.6-2.6) Phosphorus Level 2.8 mg/dL (2.4-5.1) Total Protein 5.2 g/dL (5.7-8.2) L LFT Test 10/30/24 02:48 Alanine Aminotransferase (ALT) 16 U/L (7-40) Alkaline Phosphatase 59 U/L (46-116) Aspartate Amino Transferase (AST) 23 U/L (13-40) Total Bilirubin 0.2 mg/dL (0.2-1.0) Urinalysis Test 10/24/24 12:35 Urine Color [place] (Yellow) H Urine Clarity Turbid (Clear) H Urine pH 5.5 (5.0-9.0) Urine Specific [place] 1.023 (1.001-1.035) Urine Protein 1+ (Negative) H Urine Ketones 2+ (Negative) H Urine Blood Negative /uL (Negative) Urine Nitrite Negative (Negative) Urine Bilirubin Negative (Negative) Urine Urobilinogen Normal mg/dL (Negative) Urine Leukocyte Esterase Trace /uL (Negative) Urine RBC 3 /hpf (0 - 3) Urine Microscopic WBC 11 /HPF (0-3) H Urine Squamous Epithelial Cells Few /hpf (<5) Urine Bacteria None seen /hpf (None Seen) Urine Hyaline Casts Many /lpf (0 - 2) Urine Mucus Few (None Seen) Urine Glucose Normal mg/dL (Normal) Microbiology Microbiology Date/Time Source Procedure Growth Status 10/28/24 18:50 Stool Stool Culture - Preliminary Resulted 10/28/24 18:50 Stool Shiga Toxin I & II Pending Resulted 10/24/24 21:34 Nose MRSA Screen - Final Complete 10/24/24 03:10 Blood Blood Culture - Final NO GROWTH AFTER 5 DAYS OF INCUBATION. Complete Labs and/or images reviewed: Labs reviewed by me, Image(s) reviewed by me Assessment/Plan Assessment/Plan Impression: -septic shock -acute colitis, rule out acute gastric perforation -obesity -acute on chronic hypoxic respiratory failure -COPD -degenerative joint disease -probable ileus -ulcerative colitis Plan: Events: No events overnight. -continue IV steroids -continue NPO status, NG to low intermittent suction -Repeat KUB in a.m. -O2 supplementation to keep saturation greater than 92% -continue bronchodilators, add mucomyst and pulmicort. -continue antibiotic therapy with Levaquin and Flagyl -TPN started -PT -consultations: Pulmonology, GI -repeat labs in a.m. Critical care time spent with patient discussing and formulating plan of care: 40 minutes. This does not include time spent performing procedures. This medical document was created using an electronic medical record system with [employer] dictation system. Although this document has been carefully reviewed, there may still be some phonetic and typographical errors. These areas are purely typographical due to imperfections of the software programs, and do not reflect any compromise in the patient's medical care. Plan discussed with: Patient, Other (RN) My Orders Orders - ANAYA ONTIVEROS NP Procedure Category Date Status Time * Clay Stain Mixer CONS 10/29/24 Transmitted Consult Kub Abdomen Single XY 10/31/24 Logged View 05:00 Kub Abdomen Single XY 11/01/24 Logged View 05:00 Kub Abdomen Single XY 11/02/24 Logged View 05:00 Date of Service: Oct 30, 2024 Billing Provider: ANAYA ONTIVEROS NP Common Visit Codes: 24928-[id number] CARE 30-74 MIN ANAYA ONTIVEROS NP Oct 30, 2024 08:51
--- NOTE | 2024-10-30 12:18 | DVHPN2 ---
Progress Note - Dictate Date Seen: Oct 30, 2024 Medical Necessity Reason Pt with a Central, PICC or Fol: Yes vital signs Vital Sign Date Time Temp Pulse Resp B/P (MAP) Pulse Ox O2 Delivery O2 Flow Rate FiO2 10/30/24 12:00 84 10/30/24 12:00 17 96 Nasal Cannula* 4 36 10/30/24 12:00 98.5 98.5 Total Intake and Output 10/29/24 10/29/24 10/30/24 15:00 23:00 07:00 Intake Total 828 ml 757 ml 737 ml Output Total 875 ml 700 ml Balance 828 ml -118 ml 37 ml medications Current Medications Medications Dose Ordered Sig/Yari Route Start Time Stop Time Status Last Admin Dose Admin Pantoprazole Sodium 40 mg DAILY IV 10/24/24 10:00 10/30/24 10:38 40 MG Levofloxacin/ Dextrose 100 ml @ 100 mls/hr DAILY IV 10/24/24 10:00 10/30/24 10:38 100 MLS/HR Metronidazole 100 ml @ 100 mls/hr Q8HR IV 10/24/24 14:00 10/30/24 05:39 100 MLS/HR Albuterol 2.5 mg Q4HPRN PRN NEB 10/24/24 08:45 10/30/24 06:40 2.5 MG Ipratropium [place] 0.5 mg Q4HR NEB 10/24/24 10:00 10/30/24 09:43 0.5 MG Acetaminophen/ Hydrocodone Bitart 1 tab Q4HP PRN PO 10/24/24 08:45 10/26/24 00:45 1 TAB Ondansetron HCl 4 mg Q4HP PRN IV 10/24/24 08:45 10/25/24 11:29 4 MG Docusate Sodium 100 mg BIDPRN PRN PO 10/24/24 08:45 Acetaminophen 650 mg Q6HP PRN PO 10/24/24 08:45 Morphine Sulfate 2 mg Q4HPRN PRN IV 10/24/24 08:45 10/30/24 08:00 2 MG Atorvastatin Calcium 20 mg HS PO 10/24/24 22:00 10/25/24 21:29 20 MG Nitroglycerin 0.4 mg Q5MINP PRN SL 10/24/24 09:15 Morphine Sulfate 2 mg Q30M PRN IV 10/24/24 09:15 Phenol/Menthol 1 spr Q2HP PRN MT 10/26/24 18:45 10/29/24 01:45 1 SPR Dextrose/Sodium Chloride 1,000 ml @ 50 mls/hr Q20H IV 10/27/24 09:15 10/29/24 20:36 50 MLS/HR Diagnostic Test (Pha) 1 strip Q6HR 10/28/24 00:00 10/30/24 11:54 1 STRIP Insulin Human Regular FOLLOW SLIDING SCALE Q6HR SC 10/28/24 00:00 10/30/24 11:56 2 UNITS Dextrose 50 ml UD IV 10/27/24 22:00 Acetylcysteine 100 mg Q6HR NEB 10/28/24 12:00 10/30/24 06:40 100 MG Budesonide 0.5 mg BID NEB 10/28/24 10:00 10/30/24 09:43 0.5 MG Amino Acids 1,000 ml @ 41 mls/hr DAILY@2200 IV 10/28/24 22:00 10/30/24 21:59 10/29/24 22:00 41 MLS/HR Methylprednisolone Sodium Succinate 40 mg Q8HR IV 10/28/24 22:00 10/30/24 05:39 40 MG Amino Acids 0 ml @ 0 mls/hr PER PHARMACY IV 10/29/24 10:15 Sodium Chloride 10 ml QSHIFT@10,22 IV 10/29/24 22:00 10/30/24 10:38 10 ML laboratory and microbiology Laboratory Tests 10/30/24 02:48 Test 10/30/24 02:48 Range/Units Serum Glucose 193 H 74-106 mg/dL Assessment/Plan Impression: Acute hypoxic respiratory failure Dependence on supplemental oxygen Sepsis Colitis Diarrhea Shock Obesity, BMI 32.5 Events: Remains on supplemental oxygen, 4 LPM NC h/o COPD following commands Off pressors monitor hemodynamics Monitor blood pressure closely. NGT to LIS. Strict NPO Abdomen is distended. S/p sigmoid decompression by GI for severe ulcerative colitis. GI recommendations appreciated Follow up biopsy results TPN S/p PICC line placement. Bronchodilators PRN. Mucomyst, Pulmicort BID Continue antibiotics Continue steroids Incentive spirometry Pain control Avoid oversedation dvt proph crit care time 35 min Dietary Evaluation Review Comments: 1) Advance Diet as medically feasible 2) TPN to meet at leaast 75% estimated needs within 7 days Expected Outcomes/Goals: GI symptoms to improve To meet 75% estimated needs in 7 days FU 2-3 days Plan discussed with: Patient, Spouse KELLY ABRAHAM MD Oct 30, 2024 12:18
--- NOTE | 2024-10-30 13:44 | DVHPN2 ---
Progress Note Date Seen: Oct 30, 2024 Medical Necessity Reason Pt with a Central, PICC or Fol: Yes Objective vital signs Vital Sign Date Time Temp Pulse Resp B/P (MAP) Pulse Ox O2 Delivery O2 Flow Rate FiO2 10/30/24 12:30 71 10 121/73 (89) 97 10/30/24 12:00 Nasal Cannula* 4 36 10/30/24 12:00 98.5 98.5 Total Intake and Output 10/29/24 10/29/24 10/30/24 15:00 23:00 07:00 Intake Total 828 ml 757 ml 928 ml Output Total 875 ml 700 ml Balance 828 ml -118 ml 228 ml medications Current Medications Medications Dose Ordered Sig/Yari Route Start Time Stop Time Status Last Admin Dose Admin Pantoprazole Sodium 40 mg DAILY IV 10/24/24 10:00 10/30/24 10:38 40 MG Levofloxacin/ Dextrose 100 ml @ 100 mls/hr DAILY IV 10/24/24 10:00 10/30/24 10:38 100 MLS/HR Metronidazole 100 ml @ 100 mls/hr Q8HR IV 10/24/24 14:00 10/30/24 05:39 100 MLS/HR Albuterol 2.5 mg Q4HPRN PRN NEB 10/24/24 08:45 10/30/24 06:40 2.5 MG Ipratropium [place] 0.5 mg Q4HR NEB 10/24/24 10:00 10/30/24 09:43 0.5 MG Acetaminophen/ Hydrocodone Bitart 1 tab Q4HP PRN PO 10/24/24 08:45 10/26/24 00:45 1 TAB Ondansetron HCl 4 mg Q4HP PRN IV 10/24/24 08:45 10/25/24 11:29 4 MG Docusate Sodium 100 mg BIDPRN PRN PO 10/24/24 08:45 Acetaminophen 650 mg Q6HP PRN PO 10/24/24 08:45 Morphine Sulfate 2 mg Q4HPRN PRN IV 10/24/24 08:45 10/30/24 08:00 2 MG Atorvastatin Calcium 20 mg HS PO 10/24/24 22:00 10/25/24 21:29 20 MG Nitroglycerin 0.4 mg Q5MINP PRN SL 10/24/24 09:15 Morphine Sulfate 2 mg Q30M PRN IV 10/24/24 09:15 Phenol/Menthol 1 spr Q2HP PRN MT 10/26/24 18:45 10/29/24 01:45 1 SPR Dextrose/Sodium Chloride 1,000 ml @ 50 mls/hr Q20H IV 10/27/24 09:15 10/29/24 20:36 50 MLS/HR Diagnostic Test (Pha) 1 strip Q6HR 10/28/24 00:00 10/30/24 11:54 1 STRIP Insulin Human Regular FOLLOW SLIDING SCALE Q6HR SC 10/28/24 00:00 10/30/24 11:56 2 UNITS Dextrose 50 ml UD IV 10/27/24 22:00 Acetylcysteine 100 mg Q6HR NEB 10/28/24 12:00 10/30/24 06:40 100 MG Budesonide 0.5 mg BID NEB 10/28/24 10:00 10/30/24 09:43 0.5 MG Amino Acids 1,000 ml @ 41 mls/hr DAILY@2200 IV 10/28/24 22:00 10/30/24 21:59 10/29/24 22:00 41 MLS/HR Methylprednisolone Sodium Succinate 40 mg Q8HR IV 10/28/24 22:00 10/30/24 05:39 40 MG Amino Acids 0 ml @ 0 mls/hr PER PHARMACY IV 10/29/24 10:15 Sodium Chloride 10 ml QSHIFT@10,22 IV 10/29/24 22:00 10/30/24 10:38 10 ML Fat Emulsion Intravenous 50 ml/ Potassium Acetate 20 meq/Potassium Phosphate 30 meq/ Calcium Gluconate 2.3 meq/Magnesium Sulfate 6 meq/ Multivitamins 10 ml/Chromium/ Copper/Manganese/ Zinc 1 ml/Insulin Human Regular 4 units/Amino Acids/ Dextrose/Purified Water 1,084.3044 ml @ 45 mls/hr Q24H6M IV 10/30/24 22:00 10/31/24 21:59 laboratory and microbiology Laboratory Tests 10/30/24 02:48 Test 10/30/24 02:48 Range/Units Serum Glucose 193 H 74-106 mg/dL Microbiology Date/Time Source Procedure Growth Status 10/28/24 18:50 Stool Stool Culture - Preliminary Resulted 10/28/24 18:50 Stool Shiga Toxin I & II Pending Resulted 10/24/24 21:34 Nose MRSA Screen - Final Complete 10/24/24 03:10 Blood Blood Culture - Final NO GROWTH AFTER 5 DAYS OF INCUBATION. Complete Problem List/Assessment/Plan Problem List/Assessment/Plan AFEBRILE VSS ABD SOFT LESS DISTENDED BM + FLATUS + WBC DOWN CONTINUE CLOSE OBSERVATION CONSIDER EMERGENT SURGERY BASED ON ONGOING EVAL KEEP NPO NG NURSE AND FAMILY AT BEDSIDE Plan discussed with: Patient My Orders My Orders Orders - LINDSAY RAMOS MD Procedure Category Date Status Time Tpn Per Pharmacy [facility] 10/29/24 In Process 22:00 Nursing Protocol Picc GISELE 10/29/24 In Process 14:26 Change Dressing Prn [facility] 10/29/24 In Process 14:26 PICC BD 10/29/24 Transmitted 14:26 Sodium Chloride Lock PHA 10/29/24 In Process (Saline Lock Ns) 22:00 Do Not Use Picc For [facility] 10/29/24 In Process Blood Cult 14:26 May Draw Blood From [facility] 10/29/24 In Process Picc 14:26 Ok To Use Picc [facility] 10/29/24 In Process 14:26 Change Picc Dressing [facility] 10/29/24 In Process Q7 Days 14:26 Amino Acid PHA 10/30/24 In Process Infusion... W/Fat 22:00 Comprehensive LAB 10/31/24 Verified Metabolic Panel 04:00 Magnesium LAB 10/31/24 Verified 04:00 Phosphorus LAB 10/31/24 Verified 04:00 Tpn Per Pharmacy [facility] 10/30/24 In Process 22:00 Dietary Evaluation Review Comments: 1) Advance Diet as medically feasible 2) [facility] estimated needs within 7 days Expected Outcomes/Goals: GI symptoms to improve To meet 75% estimated needs in 7 days FU 2-3 days LINDSAY RAMOS MD Oct 30, 2024 13:44
--- NOTE | 2024-10-30 21:19 | DVHPN2 ---
Progress Note - Dictate Date Seen: Oct 30, 2024 Medical Necessity Reason Pt with a Central, PICC or Fol: Yes Subjective Patient is clinically stable He has been started on IV Solu-Medrol 40 mg g q.8 hours Is overall feeling better Patient continues to have diarrhea Wants NG tube removed, NG tube output minimal at 150 mL vital signs Vital Sign Date Time Temp Pulse Resp B/P (MAP) Pulse Ox O2 Delivery O2 Flow Rate FiO2 10/30/24 20:00 18 96 Nasal Cannula* 4 36 10/30/24 20:00 92 10/30/24 19:00 133/82 (99) 10/30/24 12:00 98.5 98.5 Total Intake and Output 10/29/24 10/29/24 10/30/24 15:00 23:00 07:00 Intake Total 828 ml 757 ml 928 ml Output Total 875 ml 700 ml Balance 828 ml -118 ml 228 ml medications Current Medications Medications Dose Ordered Sig/Yari Route Start Time Stop Time Status Last Admin Dose Admin Pantoprazole Sodium 40 mg DAILY IV 10/24/24 10:00 10/30/24 10:38 40 MG Levofloxacin/ Dextrose 100 ml @ 100 mls/hr DAILY IV 10/24/24 10:00 10/30/24 10:38 100 MLS/HR Metronidazole 100 ml @ 100 mls/hr Q8HR IV 10/24/24 14:00 10/30/24 14:07 100 MLS/HR Albuterol 2.5 mg Q4HPRN PRN NEB 10/24/24 08:45 10/30/24 06:40 2.5 MG Ipratropium [place] 0.5 mg Q4HR NEB 10/24/24 10:00 10/30/24 18:51 0.5 MG Acetaminophen/ Hydrocodone Bitart 1 tab Q4HP PRN PO 10/24/24 08:45 10/26/24 00:45 1 TAB Ondansetron HCl 4 mg Q4HP PRN IV 10/24/24 08:45 10/25/24 11:29 4 MG Docusate Sodium 100 mg BIDPRN PRN PO 10/24/24 08:45 Acetaminophen 650 mg Q6HP PRN PO 10/24/24 08:45 Morphine Sulfate 2 mg Q4HPRN PRN IV 10/24/24 08:45 10/30/24 17:54 2 MG Atorvastatin Calcium 20 mg HS PO 10/24/24 22:00 10/25/24 21:29 20 MG Nitroglycerin 0.4 mg Q5MINP PRN SL 10/24/24 09:15 Morphine Sulfate 2 mg Q30M PRN IV 10/24/24 09:15 Phenol/Menthol 1 spr Q2HP PRN MT 10/26/24 18:45 10/29/24 01:45 1 SPR Dextrose/Sodium Chloride 1,000 ml @ 50 mls/hr Q20H IV 10/27/24 09:15 10/30/24 17:33 50 MLS/HR Diagnostic Test (Pha) 1 strip Q6HR 10/28/24 00:00 10/30/24 17:34 1 STRIP Insulin Human Regular FOLLOW SLIDING SCALE Q6HR SC 10/28/24 00:00 10/30/24 17:42 2 UNITS Dextrose 50 ml UD IV 10/27/24 22:00 Acetylcysteine 100 mg Q6HR NEB 10/28/24 12:00 10/30/24 18:51 100 MG Budesonide 0.5 mg BID NEB 10/28/24 10:00 10/30/24 09:43 0.5 MG Amino Acids 1,000 ml @ 41 mls/hr DAILY@2200 IV 10/28/24 22:00 10/30/24 21:59 10/29/24 22:00 41 MLS/HR Methylprednisolone Sodium Succinate 40 mg Q8HR IV 10/28/24 22:00 10/30/24 14:06 40 MG Amino Acids 0 ml @ 0 mls/hr PER PHARMACY IV 10/29/24 10:15 Sodium Chloride 10 ml QSHIFT@10,22 IV 10/29/24 22:00 10/30/24 10:38 10 ML Fat Emulsion Intravenous 50 ml/ Potassium Acetate 20 meq/Potassium Phosphate 30 meq/ Calcium Gluconate 2.3 meq/Magnesium Sulfate 6 meq/ Multivitamins 10 ml/Chromium/ Copper/Manganese/ Zinc 1 ml/Insulin Human Regular 4 units/Amino Acids/ Dextrose/Purified Water 1,084.3044 ml @ 45 mls/hr Q24H6M IV 10/30/24 22:00 10/31/24 21:59 objective VITAL SIGNS: Afebrile, stable signs. HEENT: There is no evidence of pallor, cyanosis, or jaundice. NECK: Supple and nontender with no thyromegaly or lymphadenopathy. CHEST AND LUNGS: Clear. HEART: Within normal limits. ABDOMEN: Soft and distended. He is morbidly obese. Difficult to evaluate, but minimally tender. No rebound. EXTREMITIES: Unremarkable. NEUROLOGIC: Alert and oriented x3, nonfocal laboratory and microbiology Laboratory Tests 10/30/24 02:48 Test 10/30/24 02:48 Range/Units Serum Glucose 193 H 74-106 mg/dL Problems(with codes): (1) Severe ulcerative colitis (2) Ileus (3) Leukocytosis, unspecified (4) Abdominal pain Prognosis Plan Clamp and then DC NG-tube Continue IV fluid hydration and NPO status, IV Clinimix He is on IV Levaquin and Flagyl , leukocytosis is improving IV Solu-Medrol 40 mg q.8 hours; I will decrease that to 40 mg q.12 hours in a.m. If cleared by surgery consider starting clear liquid diet tomorrow Repeat KUB scheduled for the morning and IBD panel is pending Dietary Evaluation Review Comments: 1) Advance Diet as medically feasible 2) TPN to meet at leaast 75% estimated needs within 7 days Expected Outcomes/Goals: GI symptoms to improve To meet 75% estimated needs in 7 days FU 2-3 days Plan discussed with: Patient, Other (Nurse Yael) LAURITA RAMOS MD Oct 30, 2024 21:19
[2024-10-30] MEDS: TPN PER PHARMACY IV NR (22:00)
[2024-10-31] VITALS (64 sets, daily range): BP systolic 125–150; BP diastolic 66–81; PULSE 64–117; RESP 10–29; TEMP 97.6–98.8; O2SAT 90–100
[2024-10-31 04:05] LABS: Alanine Aminotransferase 19 U/L (7-40); Alkaline Phosphatase 57 U/L (46-116); Anion Gap 8 (5-15); BUN/Creatinine Ratio 34.8 (10.0-20.0); Calcium 9.6 mg/dL (8.7-10.4); Carbon Dioxide 26 mmol/L (20-31); Magnesium 2.3 mg/dL (1.6-2.6); Potassium 4.0 mmol/L (3.5-5.1); Sodium 144 mmol/L (136-145)
[2024-10-31 04:06] LABS: Albumin 3.0 g/dL (3.2-4.8); Bilirubin, Total 0.3 mg/dL (0.2-1.0); Blood Urea Nitrogen 32 mg/dL (9-23); Chloride 110 mmol/L (98-107); Glucose 205 mg/dL (74-106); Total Protein 5.3 g/dL (5.7-8.2)
--- NOTE | 2024-10-31 07:48 | DVH ---
Exam: US US GUIDED VASCULAR ACCESS Clinical History: picc line placement Comparison: None Findings: Targeted sonographic evaluation of the vein was obtained utilizing grayscale and color Doppler joao reyna IMPRESSION: Sonographic assistance for peripherally inserted central line placement. Please refer to procedural r eport for detailed findings.
--- NOTE | 2024-10-31 07:50 | DVH ---
Indication: Colonic distention Technique: XY KUB ABDOMEN SINGLE VIEWXY Comparison: 10/26/2024 FINDINGS/IMPRESSION: Nasogastric tube tip projects at the level of the GE junction. Recommend repositioning / advancement . Cardiomegaly. Bibasilar airspace opacities. Multiple loops of dilated large bowel most pronounced in the transverse colon up to 10 cm. This could be secondary to ileus, colonic obstruction. Correlate clinically.
--- NOTE | 2024-10-31 09:57 | DVHPN2 ---
Subjective Patient with a positive bowel movement, fluctuance. Reviewed: Care Plan, H&P, Labs, Medications, Previous Orders, Radiology Changes from previous H/P or p: No Changes General: Per HPI Eyes: No Pain, No Vision change, No Conjunctivae inflammation, No Eyelid inflammation, No Other, No Redness ENT: No Ear pain, No Ear discharge, No Nose pain, No Nose discharge, No Nose congestion, No Mouth pain, No Mouth swelling, No Throat pain, No Throat swelling, No Other Cardiovascular: No Chest Pain, No Palpitations, No Orthopnea, No Paroxysmal Noc. Dyspnea, No Edema, No Lt Headedness, No Other Respiratory: No Cough, No Dry; Shortness of breath; No SOB with excertion, No Wheezing, No Hemoptysis, No Pleuritic Pain, No Sputum, No Other Gastrointestinal: Nausea, Vomiting, Abdominal Pain, Diarrhea; No Constipation, No Melena, No Hematochezia, No Other Genitourinary: No Dysuria, No Frequency, No Incontinence, No Hematuria, No Retention, No Other Musculoskeletal: No other, No neck pain, No shoulder pain, No arm pain, No back pain, No hand pain, No leg pain, No foot pain Skin: No Rash, No Lesions, No Jaundice, No Bruising, No Other Objective Vitals Vital Signs Date Time Temp Pulse Resp B/P (MAP) Pulse Ox O2 Delivery O2 Flow Rate FiO2 10/31/24 08:30 97.6 88 19 90 97.6 10/31/24 08:00 Nasal Cannula* 4 36 Intake/Output Intake and Output 10/31/24 07:00 Intake Total 2012 ml Output Total 1200 ml Balance 813 ml Intake Oral 0 ml IV Total 2013 ml Output Urine Total 950 ml Gastric Drainage Total 250 ml # Bowel Movements 7 General Appearance: Alert, Oriented X3, Cooperative, mild distress HEENT: Atraumatic, PERRLA Lungs: Other (Decreased breath sounds in bases. Nasal cannula 4 L/min) Cardiovascular: Regular rate, Normal S1, Normal S2 Abdomen: Other (Absent bowel sounds. Severely distended abdomen) Genitourinary: No Apparent Abnormalities Extremities: Normal pulses Neuro: Sensation intact, Cranial nerves 3-12 NL Skin: Dry, Intact Psych/Mental Status: Mental status NL, Mood NL Medications Current Medications Medications Dose Ordered Sig/Yari Route Start Time Stop Time Status Last Admin Dose Admin Pantoprazole Sodium 40 mg DAILY IV 10/24/24 10:00 10/31/24 09:42 40 MG Levofloxacin/ Dextrose 100 ml @ 100 mls/hr DAILY IV 10/24/24 10:00 10/31/24 09:42 100 MLS/HR Metronidazole 100 ml @ 100 mls/hr Q8HR IV 10/24/24 14:00 10/31/24 06:38 100 MLS/HR Albuterol 2.5 mg Q4HPRN PRN NEB 10/24/24 08:45 10/31/24 06:37 2.5 MG Ipratropium [place] 0.5 mg Q4HR NEB 10/24/24 10:00 10/31/24 06:37 0.5 MG Acetaminophen/ Hydrocodone Bitart 1 tab Q4HP PRN PO 10/24/24 08:45 10/26/24 00:45 1 TAB Ondansetron HCl 4 mg Q4HP PRN IV 10/24/24 08:45 10/25/24 11:29 4 MG Docusate Sodium 100 mg BIDPRN PRN PO 10/24/24 08:45 Acetaminophen 650 mg Q6HP PRN PO 10/24/24 08:45 Morphine Sulfate 2 mg Q4HPRN PRN IV 10/24/24 08:45 10/31/24 03:00 2 MG Atorvastatin Calcium 20 mg HS PO 10/24/24 22:00 10/30/24 21:47 20 MG Nitroglycerin 0.4 mg Q5MINP PRN SL 10/24/24 09:15 Morphine Sulfate 2 mg Q30M PRN IV 10/24/24 09:15 Phenol/Menthol 1 spr Q2HP PRN MT 10/26/24 18:45 10/29/24 01:45 1 SPR Dextrose/Sodium Chloride 1,000 ml @ 50 mls/hr Q20H IV 10/27/24 09:15 10/30/24 17:33 50 MLS/HR Diagnostic Test (Pha) 1 strip Q6HR 10/28/24 00:00 10/31/24 06:00 1 STRIP Insulin Human Regular FOLLOW SLIDING SCALE Q6HR SC 10/28/24 00:00 10/31/24 06:36 8 UNITS Dextrose 50 ml UD IV 10/27/24 22:00 Budesonide 0.5 mg BID NEB 10/28/24 10:00 10/31/24 06:36 0.5 MG Methylprednisolone Sodium Succinate 40 mg Q8HR IV 10/28/24 22:00 10/31/24 06:38 40 MG Amino Acids 0 ml @ 0 mls/hr PER PHARMACY IV 10/29/24 10:15 Sodium Chloride 10 ml QSHIFT@10,22 IV 10/29/24 22:00 10/31/24 09:42 10 ML Fat Emulsion Intravenous 50 ml/ Potassium Acetate 20 meq/Potassium Phosphate 30 meq/ Calcium Gluconate 2.3 meq/Magnesium Sulfate 6 meq/ Multivitamins 10 ml/Chromium/ Copper/Manganese/ Zinc 1 ml/Insulin Human Regular 4 units/Amino Acids/ Dextrose/Purified Water 1,084.3044 ml @ 45 mls/hr Q24H6M IV 10/30/24 22:00 10/31/24 21:59 10/30/24 22:00 45 MLS/HR Laboratory Results Laboratory Tests 10/30/24 02:48 10/31/24 03:07 Chemistry Test 10/31/24 03:07 Albumin 3.0 g/dL (3.2-4.8) L Calcium Level 9.6 mg/dL (8.7-10.4) Magnesium Level 2.3 mg/dL (1.6-2.6) Phosphorus Level 3.1 mg/dL (2.4-5.1) Total Protein 5.3 g/dL (5.7-8.2) L LFT Test 10/31/24 03:07 Alanine Aminotransferase (ALT) 19 U/L (7-40) Alkaline Phosphatase 57 U/L (46-116) Aspartate Amino Transferase (AST) 33 U/L (13-40) Total Bilirubin 0.3 mg/dL (0.2-1.0) Urinalysis Test 10/24/24 12:35 Urine Color [place] (Yellow) H Urine Clarity Turbid (Clear) H Urine pH 5.5 (5.0-9.0) Urine Specific [place] 1.023 (1.001-1.035) Urine Protein 1+ (Negative) H Urine Ketones 2+ (Negative) H Urine Blood Negative /uL (Negative) Urine Nitrite Negative (Negative) Urine Bilirubin Negative (Negative) Urine Urobilinogen Normal mg/dL (Negative) Urine Leukocyte Esterase Trace /uL (Negative) Urine RBC 3 /hpf (0 - 3) Urine Microscopic WBC 11 /HPF (0-3) H Urine Squamous Epithelial Cells Few /hpf (<5) Urine Bacteria None seen /hpf (None Seen) Urine Hyaline Casts Many /lpf (0 - 2) Urine Mucus Few (None Seen) Urine Glucose Normal mg/dL (Normal) Microbiology Microbiology Date/Time Source Procedure Growth Status 10/28/24 18:50 Stool Stool Culture - Preliminary Resulted 10/28/24 18:50 Stool Shiga Toxin I & II - Final Resulted 10/24/24 21:34 Nose MRSA Screen - Final Complete 10/24/24 03:10 Blood Blood Culture - Final NO GROWTH AFTER 5 DAYS OF INCUBATION. Complete Labs and/or images reviewed: Labs reviewed by me, Image(s) reviewed by me Assessment/Plan Assessment/Plan Impression: -septic shock -acute colitis, rule out acute gastric perforation -obesity -acute on chronic hypoxic respiratory failure -COPD -degenerative joint disease -probable ileus -ulcerative colitis Plan: Events: No events overnight. KUB reveals persistent ileus. Clinically reporting that he feels better. Continue NPO status at this time. -continue IV steroids -continue NPO status, NG to low intermittent suction -Repeat KUB in a.m. -O2 supplementation to keep saturation greater than 92% -continue bronchodilators, add mucomyst and pulmicort. -continue antibiotic therapy with Levaquin and Flagyl -increase physical therapy -continue TPN -consultations: Pulmonology, GI -repeat labs in a.m. Critical care time spent with patient discussing and formulating plan of care: 40 minutes. This does not include time spent performing procedures. This medical document was created using an electronic medical record system with [employer] dictation system. Although this document has been carefully reviewed, there may still be some phonetic and typographical errors. These areas are purely typographical due to imperfections of the software programs, and do not reflect any compromise in the patient's medical care. Plan discussed with: Patient, Other (RN) My Orders Orders - ANAYA ONTIVEROS HAND MODEL Procedure Category Date Status Time Complete Blood Count LAB 11/01/24 Verified 05:00 Complete Blood Count LAB 11/02/24 Verified 05:00 Complete Blood Count LAB 11/03/24 Verified 05:00 Basic Metabolic Panel LAB 11/01/24 Verified 05:00 Basic Metabolic Panel LAB 11/02/24 Verified 05:00 Basic Metabolic Panel LAB 11/03/24 Verified 05:00 Date of Service: Oct 31, 2024 Billing Provider: ANAYA ONTIVEROS NP Common Visit Codes: 29143-[id number] CARE 30-74 MIN ANAYA ONTIVEROS NP Oct 31, 2024 09:57
--- NOTE | 2024-10-31 10:21 | DVHPN2 ---
Progress Note Date Seen: Oct 31, 2024 Medical Necessity Reason Pt with a Central, PICC or Fol: Yes Objective vital signs Vital Sign Date Time Temp Pulse Resp B/P (MAP) Pulse Ox O2 Delivery O2 Flow Rate FiO2 10/31/24 10:00 85 18 95 10/31/24 09:54 Nasal Cannula* 2 28 10/31/24 08:30 97.6 97.6 Total Intake and Output 10/30/24 10/30/24 10/31/24 15:00 23:00 07:00 Intake Total 928 ml 750 ml 335 ml Output Total 600 ml 600 ml Balance 928 ml 150 ml -265 ml medications Current Medications Medications Dose Ordered Sig/Yari Route Start Time Stop Time Status Last Admin Dose Admin Pantoprazole Sodium 40 mg DAILY IV 10/24/24 10:00 10/31/24 09:42 40 MG Levofloxacin/ Dextrose 100 ml @ 100 mls/hr DAILY IV 10/24/24 10:00 10/31/24 09:42 100 MLS/HR Metronidazole 100 ml @ 100 mls/hr Q8HR IV 10/24/24 14:00 10/31/24 06:38 100 MLS/HR Albuterol 2.5 mg Q4HPRN PRN NEB 10/24/24 08:45 10/31/24 09:54 2.5 MG Ipratropium [place] 0.5 mg Q4HR NEB 10/24/24 10:00 10/31/24 09:54 0.5 MG Acetaminophen/ Hydrocodone Bitart 1 tab Q4HP PRN PO 10/24/24 08:45 10/26/24 00:45 1 TAB Ondansetron HCl 4 mg Q4HP PRN IV 10/24/24 08:45 10/25/24 11:29 4 MG Docusate Sodium 100 mg BIDPRN PRN PO 10/24/24 08:45 Acetaminophen 650 mg Q6HP PRN PO 10/24/24 08:45 Morphine Sulfate 2 mg Q4HPRN PRN IV 10/24/24 08:45 10/31/24 03:00 2 MG Atorvastatin Calcium 20 mg HS PO 10/24/24 22:00 10/30/24 21:47 20 MG Nitroglycerin 0.4 mg Q5MINP PRN SL 10/24/24 09:15 Morphine Sulfate 2 mg Q30M PRN IV 10/24/24 09:15 Phenol/Menthol 1 spr Q2HP PRN MT 10/26/24 18:45 10/29/24 01:45 1 SPR Dextrose/Sodium Chloride 1,000 ml @ 50 mls/hr Q20H IV 10/27/24 09:15 10/30/24 17:33 50 MLS/HR Diagnostic Test (Pha) 1 strip Q6HR 10/28/24 00:00 10/31/24 06:00 1 STRIP Insulin Human Regular FOLLOW SLIDING SCALE Q6HR SC 10/28/24 00:00 10/31/24 06:36 8 UNITS Dextrose 50 ml UD IV 10/27/24 22:00 Budesonide 0.5 mg BID NEB 10/28/24 10:00 10/31/24 06:36 0.5 MG Methylprednisolone Sodium Succinate 40 mg Q8HR IV 10/28/24 22:00 10/31/24 06:38 40 MG Amino Acids 0 ml @ 0 mls/hr PER PHARMACY IV 10/29/24 10:15 Sodium Chloride 10 ml QSHIFT@10,22 IV 10/29/24 22:00 10/31/24 09:42 10 ML Fat Emulsion Intravenous 50 ml/ Potassium Acetate 20 meq/Potassium Phosphate 30 meq/ Calcium Gluconate 2.3 meq/Magnesium Sulfate 6 meq/ Multivitamins 10 ml/Chromium/ Copper/Manganese/ Zinc 1 ml/Insulin Human Regular 4 units/Amino Acids/ Dextrose/Purified Water 1,084.3044 ml @ 45 mls/hr Q24H6M IV 10/30/24 22:00 10/31/24 21:59 10/30/24 22:00 45 MLS/HR laboratory and microbiology Laboratory Tests 10/31/24 03:07 10/30/24 02:48 Test 10/31/24 03:07 Range/Units Serum Glucose 205 H 74-106 mg/dL Microbiology Date/Time Source Procedure Growth Status 10/28/24 18:50 Stool Stool Culture - Preliminary Resulted 10/28/24 18:50 Stool Shiga Toxin I & II - Final Resulted 10/24/24 21:34 Nose MRSA Screen - Final Complete 10/24/24 03:10 Blood Blood Culture - Final NO GROWTH AFTER 5 DAYS OF INCUBATION. Complete Problem List/Assessment/Plan Problem List/Assessment/Plan AFEBRILE VSS ABD SOFT LESS DISTENDED LESS TENDER BM + FLATUS + CONTINUE CLOSE OBSERVATION CONSIDER EMERGENT SURGERY BASED ON ONGOING EVAL KEEP NPO CLAMP NG NURSE AND FAMILY AT BEDSIDE Plan discussed with: Patient My Orders My Orders Orders - LINDSAY RAMOS MD Procedure Category Date Status Time Amino Acid PHA 10/30/24 In Process Infusion... W/Fat 22:00 Tpn Per Pharmacy GISELE 10/30/24 In Process 22:00 Dietary Evaluation Review Comments: 1) Advance Diet as medically feasible 2) TPN to meet at leaast 75% estimated needs within 7 days Expected Outcomes/Goals: GI symptoms to improve To meet 75% estimated needs in 7 days FU 2-3 days LINDSAY RAMOS MD Oct 31, 2024 10:21
--- NOTE | 2024-10-31 12:34 | DVHPN2 ---
Progress Note - Dictate Date Seen: Oct 31, 2024 Medical Necessity Reason Pt with a Central, PICC or Fol: Yes vital signs Vital Sign Date Time Temp Pulse Resp B/P (MAP) Pulse Ox O2 Delivery O2 Flow Rate FiO2 10/31/24 10:00 85 18 95 10/31/24 09:54 Nasal Cannula* 2 28 10/31/24 08:30 97.6 97.6 Total Intake and Output 10/30/24 10/30/24 10/31/24 15:00 23:00 07:00 Intake Total 928 ml 750 ml 335 ml Output Total 600 ml 600 ml Balance 928 ml 150 ml -265 ml medications Current Medications Medications Dose Ordered Sig/Yari Route Start Time Stop Time Status Last Admin Dose Admin Pantoprazole Sodium 40 mg DAILY IV 10/24/24 10:00 10/31/24 09:42 40 MG Levofloxacin/ Dextrose 100 ml @ 100 mls/hr DAILY IV 10/24/24 10:00 10/31/24 09:42 100 MLS/HR Metronidazole 100 ml @ 100 mls/hr Q8HR IV 10/24/24 14:00 10/31/24 06:38 100 MLS/HR Albuterol 2.5 mg Q4HPRN PRN NEB 10/24/24 08:45 10/31/24 09:54 2.5 MG Ipratropium [place] 0.5 mg Q4HR NEB 10/24/24 10:00 10/31/24 09:54 0.5 MG Acetaminophen/ Hydrocodone Bitart 1 tab Q4HP PRN PO 10/24/24 08:45 10/26/24 00:45 1 TAB Ondansetron HCl 4 mg Q4HP PRN IV 10/24/24 08:45 10/25/24 11:29 4 MG Docusate Sodium 100 mg BIDPRN PRN PO 10/24/24 08:45 Acetaminophen 650 mg Q6HP PRN PO 10/24/24 08:45 Morphine Sulfate 2 mg Q4HPRN PRN IV 10/24/24 08:45 10/31/24 03:00 2 MG Atorvastatin Calcium 20 mg HS PO 10/24/24 22:00 10/30/24 21:47 20 MG Nitroglycerin 0.4 mg Q5MINP PRN SL 10/24/24 09:15 Morphine Sulfate 2 mg Q30M PRN IV 10/24/24 09:15 Phenol/Menthol 1 spr Q2HP PRN MT 10/26/24 18:45 10/29/24 01:45 1 SPR Dextrose/Sodium Chloride 1,000 ml @ 50 mls/hr Q20H IV 10/27/24 09:15 10/30/24 17:33 50 MLS/HR Diagnostic Test (Pha) 1 strip Q6HR 10/28/24 00:00 10/31/24 06:00 1 STRIP Insulin Human Regular FOLLOW SLIDING SCALE Q6HR SC 10/28/24 00:00 10/31/24 06:36 8 UNITS Dextrose 50 ml UD IV 10/27/24 22:00 Budesonide 0.5 mg BID NEB 10/28/24 10:00 10/31/24 06:36 0.5 MG Methylprednisolone Sodium Succinate 40 mg Q8HR IV 10/28/24 22:00 10/31/24 06:38 40 MG Amino Acids 0 ml @ 0 mls/hr PER PHARMACY IV 10/29/24 10:15 Sodium Chloride 10 ml QSHIFT@10,22 IV 10/29/24 22:00 10/31/24 09:42 10 ML Fat Emulsion Intravenous 50 ml/ Potassium Acetate 20 meq/Potassium Phosphate 30 meq/ Calcium Gluconate 2.3 meq/Magnesium Sulfate 6 meq/ Multivitamins 10 ml/Chromium/ Copper/Manganese/ Zinc 1 ml/Insulin Human Regular 4 units/Amino Acids/ Dextrose/Purified Water 1,084.3044 ml @ 45 mls/hr Q24H6M IV 10/30/24 22:00 10/31/24 21:59 10/30/24 22:00 45 MLS/HR Fat Emulsion Intravenous 100 ml/Potassium Acetate 20 meq/ Potassium Phosphate 30 meq/ Magnesium Sulfate 6 meq/ Multivitamins 10 ml/Chromium/ Copper/Manganese/ Zinc 1 ml/Insulin Human Regular 8 units/Amino Acids/ Dextrose/Purified Water 1,329.3982 ml @ 55 mls/hr [id number] IV 10/31/24 22:00 11/01/24 21:59 laboratory and microbiology Laboratory Tests 10/31/24 03:07 10/30/24 02:48 Test 10/31/24 03:07 Range/Units Serum Glucose 205 H 74-106 mg/dL Assessment/Plan Impression: Acute hypoxic respiratory failure Dependence on supplemental oxygen Sepsis Colitis Diarrhea Shock Obesity Patient seen and examined in ICU Events: Low oxygen requirements On 2 liters nasal cannula Abdomen remains distended Able to pass gas Labs and imaging reviewed Management Supplemental oxygen Titrate to maintain sats 90% or above Incentive spirometry Bronchodilators PRN. Mucomyst, Pulmicort BID Continue antibiotics Continue steroids Incentive spirometry Pain control Avoid oversedation dvt proph crit care time 35 min Dietary Evaluation Review Comments: 1) Advance Diet as medically feasible 2) TPN to meet at leaast 75% estimated needs within 7 days Expected Outcomes/Goals: GI symptoms to improve To meet 75% estimated needs in 7 days FU 2-3 days Plan discussed with: Patient KELLY ABRAHAM MD Oct 31, 2024 12:33
[2024-10-31] MEDS: POTASSIUM ACETATE IV NR (20:41)
[2024-10-31] MEDS: [UNRECOGNIZED DRUG - OTHER] IV NR (20:41)
[2024-10-31] MEDS: FAT EMULSION IV NR (20:41)
[2024-10-31] MEDS: POTASSIUM PHOSPHATE IV NR (20:41)
--- NOTE | 2024-10-31 23:17 | DVHPN2 ---
Progress Note - Dictate Date Seen: Oct 31, 2024 Medical Necessity Reason Pt with a Central, PICC or Fol: Yes Subjective Patient is clinically stable He has been started on IV Solu-Medrol 40 mg g q.8 hours Is overall feeling better Patient continues to have diarrhea and is passing gas NGT clamped; possible removal Stool cultures were negative, stool for C diff negative vital signs Vital Sign Date Time Temp Pulse Resp B/P (MAP) Pulse Ox O2 Delivery O2 Flow Rate FiO2 10/31/24 22:00 19 95 Nasal Cannula* 4 36 10/31/24 21:34 76 142/78 (99) 10/31/24 20:04 98.1 98.1 Total Intake and Output 10/30/24 10/30/24 10/31/24 15:00 23:00 07:00 Intake Total 928 ml 750 ml 335 ml Output Total 600 ml 600 ml Balance 928 ml 150 ml -265 ml medications Current Medications Medications Dose Ordered Sig/Yari Route Start Time Stop Time Status Last Admin Dose Admin Pantoprazole Sodium 40 mg DAILY IV 10/24/24 10:00 10/31/24 09:42 40 MG Levofloxacin/ Dextrose 100 ml @ 100 mls/hr DAILY IV 10/24/24 10:00 10/31/24 09:42 100 MLS/HR Metronidazole 100 ml @ 100 mls/hr Q8HR IV 10/24/24 14:00 10/31/24 20:18 100 MLS/HR Albuterol 2.5 mg Q4HPRN PRN NEB 10/24/24 08:45 10/31/24 21:26 2.5 MG Ipratropium [place] 0.5 mg Q4HR NEB 10/24/24 10:00 10/31/24 21:26 0.5 MG Acetaminophen/ Hydrocodone Bitart 1 tab Q4HP PRN PO 10/24/24 08:45 10/26/24 00:45 1 TAB Ondansetron HCl 4 mg Q4HP PRN IV 10/24/24 08:45 10/25/24 11:29 4 MG Docusate Sodium 100 mg BIDPRN PRN PO 10/24/24 08:45 Acetaminophen 650 mg Q6HP PRN PO 10/24/24 08:45 Morphine Sulfate 2 mg Q4HPRN PRN IV 10/24/24 08:45 10/31/24 03:00 2 MG Atorvastatin Calcium 20 mg HS PO 10/24/24 22:00 10/30/24 21:47 20 MG Nitroglycerin 0.4 mg Q5MINP PRN SL 10/24/24 09:15 Morphine Sulfate 2 mg Q30M PRN IV 10/24/24 09:15 Phenol/Menthol 1 spr Q2HP PRN MT 10/26/24 18:45 10/29/24 01:45 1 SPR Dextrose/Sodium Chloride 1,000 ml @ 50 mls/hr Q20H IV 10/27/24 09:15 10/31/24 12:42 50 MLS/HR Diagnostic Test (Pha) 1 strip Q6HR 10/28/24 00:00 10/31/24 18:42 1 STRIP Insulin Human Regular FOLLOW SLIDING SCALE Q6HR SC 10/28/24 00:00 10/31/24 18:53 4 UNITS Dextrose 50 ml UD IV 10/27/24 22:00 Budesonide 0.5 mg BID NEB 10/28/24 10:00 10/31/24 19:04 0.5 MG Methylprednisolone Sodium Succinate 40 mg Q8HR IV 10/28/24 22:00 10/31/24 20:18 40 MG Amino Acids 0 ml @ 0 mls/hr PER PHARMACY IV 10/29/24 10:15 Sodium Chloride 10 ml QSHIFT@10,22 IV 10/29/24 22:00 10/31/24 20:18 10 ML Fat Emulsion Intravenous 100 ml/Potassium Acetate 20 meq/ Potassium Phosphate 30 meq/ Magnesium Sulfate 6 meq/ Multivitamins 10 ml/Chromium/ Copper/Manganese/ Zinc 1 ml/Insulin Human Regular 8 units/Amino Acids/ Dextrose/Purified Water 1,329.3982 ml @ 55 mls/hr [id number] IV 10/31/24 22:00 11/01/24 21:59 10/31/24 20:41 55 MLS/HR objective VITAL SIGNS: Afebrile, stable signs. HEENT: There is no evidence of pallor, cyanosis, or jaundice. NECK: Supple and nontender with no thyromegaly or lymphadenopathy. CHEST AND LUNGS: Clear. HEART: Within normal limits. ABDOMEN: Soft and distended. He is morbidly obese. Difficult to evaluate, but minimally tender. No rebound. EXTREMITIES: Unremarkable. NEUROLOGIC: Alert and oriented x3, nonfocal laboratory and microbiology Laboratory Tests 10/31/24 03:07 10/30/24 02:48 Test 10/31/24 03:07 Range/Units Serum Glucose 205 H 74-106 mg/dL Problems(with codes): (1) Severe ulcerative colitis (2) Ileus (3) Leukocytosis, unspecified (4) Abdominal pain Prognosis Plan IV fluid hydration, IV Clinimix IV antibiotics I will likely start tapering his steroids in the next 24-48 hours NPO status ongoing Once patient is started on a diet then we can add mesalamine 800 mg p.o. three times a day Daily KUBs Remove NG tube If cleared by surgical consult possible ice chips and clear liquids in a.m. Dietary Evaluation Review Comments: 1) Advance Diet as medically feasible 2) TPN to meet at leaast 75% estimated needs within 7 days Expected Outcomes/Goals: GI symptoms to improve To meet 75% estimated needs in 7 days FU 2-3 days Plan discussed with: Patient, Other (Dr Collin Berry) LAURITA BERRY MD Oct 31, 2024 23:17
[2024-11-01] VITALS (55 sets, daily range): BP systolic 119–179; BP diastolic 63–94; PULSE 59–120; RESP 9–26; TEMP 97.8–98.8; O2SAT 88–100
[2024-11-01 04:07] LABS: Hematocrit 34.6 % (41.0-53.0); Hemoglobin 11.8 g/dL (13.5-17.5); Mean Corpuscular Hemoglobin 31.5 pg (28.0-32.0); Mean Corpuscular Volume 92.4 fL (80.0-100.0); Nucleated Red Blood Cells % 0.1 %
[2024-11-01 04:18] LABS: Alanine Aminotransferase 19 U/L (7-40); Alkaline Phosphatase 51 U/L (46-116); Anion Gap 6 (5-15); BUN/Creatinine Ratio 37.6 (10.0-20.0); Calcium 9.1 mg/dL (8.7-10.4); Carbon Dioxide 28 mmol/L (20-31); Magnesium 2.2 mg/dL (1.6-2.6); Potassium 3.9 mmol/L (3.5-5.1); Sodium 144 mmol/L (136-145)
[2024-11-01 04:19] LABS: Albumin 2.8 g/dL (3.2-4.8); Bilirubin, Total 0.2 mg/dL (0.2-1.0); Blood Urea Nitrogen 32 mg/dL (9-23); Chloride 110 mmol/L (98-107); Glucose 309 mg/dL (74-106); Total Protein 4.9 g/dL (5.7-8.2)
[2024-11-01] MEDS: SODIUM CHLORIDE 0.9% 1,000 ML IV SCH (07:00)
[2024-11-01] MEDS ORDERED: DEXTROSE (50%) 50ML SYRG IV PRN (07:15)
--- NOTE | 2024-11-01 09:09 | DVHPN2 ---
Subjective Patient with a positive bowel movement, fluctuance. Reviewed: Care Plan, H&P, Labs, Medications, Previous Orders, Radiology Changes from previous H/P or p: No Changes General: Per HPI Eyes: No Pain, No Vision change, No Conjunctivae inflammation, No Eyelid inflammation, No Other, No Redness ENT: No Ear pain, No Ear discharge, No Nose pain, No Nose discharge, No Nose congestion, No Mouth pain, No Mouth swelling, No Throat pain, No Throat swelling, No Other Cardiovascular: No Chest Pain, No Palpitations, No Orthopnea, No Paroxysmal Noc. Dyspnea, No Edema, No Lt Headedness, No Other Respiratory: No Cough, No Dry; Shortness of breath; No SOB with excertion, No Wheezing, No Hemoptysis, No Pleuritic Pain, No Sputum, No Other Gastrointestinal: Nausea, Vomiting, Abdominal Pain, Diarrhea; No Constipation, No Melena, No Hematochezia, No Other Genitourinary: No Dysuria, No Frequency, No Incontinence, No Hematuria, No Retention, No Other Musculoskeletal: No other, No neck pain, No shoulder pain, No arm pain, No back pain, No hand pain, No leg pain, No foot pain Skin: No Rash, No Lesions, No Jaundice, No Bruising, No Other Objective Vitals Vital Signs Date Time Temp Pulse Resp B/P (MAP) Pulse Ox O2 Delivery O2 Flow Rate FiO2 11/01/24 07:15 89 18 100 11/01/24 07:01 121/75 (90) 11/01/24 07:00 Nasal Cannula 2.0 11/01/24 07:00 28 11/01/24 04:00 98.2 98.2 Intake/Output Intake and Output 11/01/24 07:00 Intake Total 2790 ml Output Total 1360 ml Balance 1430 ml Intake Oral 0 ml IV Total 2790 ml Output Urine Total 1350 ml Drainage Total 10 ml # Bowel Movements 3 General Appearance: Alert, Oriented X3, Cooperative, mild distress HEENT: Atraumatic, PERRLA Lungs: Other (Decreased breath sounds in bases. Nasal cannula 4 L/min) Cardiovascular: Regular rate, Normal S1, Normal S2 Abdomen: Other (Absent bowel sounds. Severely distended abdomen) Genitourinary: No Apparent Abnormalities Extremities: Normal pulses Neuro: Sensation intact, Cranial nerves 3-12 NL Skin: Dry, Intact Psych/Mental Status: Mental status NL, Mood NL Medications Current Medications Medications Dose Ordered Sig/Yari Route Start Time Stop Time Status Last Admin Dose Admin Pantoprazole Sodium 40 mg DAILY IV 10/24/24 10:00 10/31/24 09:42 40 MG Levofloxacin/ Dextrose 100 ml @ 100 mls/hr DAILY IV 10/24/24 10:00 10/31/24 09:42 100 MLS/HR Metronidazole 100 ml @ 100 mls/hr Q8HR IV 10/24/24 14:00 11/01/24 04:59 100 MLS/HR Albuterol 2.5 mg Q4HPRN PRN NEB 10/24/24 08:45 11/01/24 02:03 2.5 MG Ipratropium [place] 0.5 mg Q4HR NEB 10/24/24 10:00 11/01/24 07:00 0.5 MG Acetaminophen/ Hydrocodone Bitart 1 tab Q4HP PRN PO 10/24/24 08:45 10/26/24 00:45 1 TAB Ondansetron HCl 4 mg Q4HP PRN IV 10/24/24 08:45 10/25/24 11:29 4 MG Docusate Sodium 100 mg BIDPRN PRN PO 10/24/24 08:45 Acetaminophen 650 mg Q6HP PRN PO 10/24/24 08:45 Morphine Sulfate 2 mg Q4HPRN PRN IV 10/24/24 08:45 10/31/24 03:00 2 MG Atorvastatin Calcium 20 mg HS PO 10/24/24 22:00 10/30/24 21:47 20 MG Nitroglycerin 0.4 mg Q5MINP PRN SL 10/24/24 09:15 Morphine Sulfate 2 mg Q30M PRN IV 10/24/24 09:15 Phenol/Menthol 1 spr Q2HP PRN MT 10/26/24 18:45 10/29/24 01:45 1 SPR Budesonide 0.5 mg BID NEB 10/28/24 10:00 11/01/24 07:00 0.5 MG Methylprednisolone Sodium Succinate 40 mg Q8HR IV 10/28/24 22:00 11/01/24 04:59 40 MG Amino Acids 0 ml @ 0 mls/hr PER PHARMACY IV 10/29/24 10:15 Sodium Chloride 10 ml QSHIFT@,22 IV 10/29/24 22:00 10/31/24 20:18 10 ML Fat Emulsion Intravenous 100 ml/Potassium Acetate 20 meq/ Potassium Phosphate 30 meq/ Magnesium Sulfate 6 meq/ Multivitamins 10 ml/Chromium/ Copper/Manganese/ Zinc 1 ml/Insulin Human Regular 8 units/Amino Acids/ Dextrose/Purified Water 1,329.3982 ml @ 55 mls/hr [id number] IV 10/31/24 22:00 11/01/24 21:59 10/31/24 20:41 55 MLS/HR Sodium Chloride 1,000 ml @ 50 mls/hr Q20H IV 11/01/24 07:00 Diagnostic Test (Pha) 1 strip Q6HR 11/01/24 12:00 Insulin Human Regular Q6HR SC 11/01/24 12:00 Dextrose 50 ml UD PRN IV 11/01/24 07:15 Laboratory Results Laboratory Tests 11/01/24 03:34 Chemistry Test 11/01/24 03:34 Albumin 2.8 g/dL (3.2-4.8) L Calcium Level 9.1 mg/dL (8.7-10.4) Magnesium Level 2.2 mg/dL (1.6-2.6) Phosphorus Level 2.8 mg/dL (2.4-5.1) Total Protein 4.9 g/dL (5.7-8.2) L LFT Test 11/01/24 03:34 Alanine Aminotransferase (ALT) 19 U/L (7-40) Alkaline Phosphatase 51 U/L (46-116) Aspartate Amino Transferase (AST) 19 U/L (13-40) Total Bilirubin 0.2 mg/dL (0.2-1.0) Urinalysis Test 10/24/24 12:35 Urine Color [place] (Yellow) H Urine Clarity [place] (Clear) H Urine pH 5.5 (5.0-9.0) Urine Specific [place] 1.023 (1.001-1.035) Urine Protein 1+ (Negative) H Urine Ketones 2+ (Negative) H Urine Blood Negative /uL (Negative) Urine Nitrite Negative (Negative) Urine Bilirubin Negative (Negative) Urine Urobilinogen Normal mg/dL (Negative) Urine Leukocyte Esterase Trace /uL (Negative) Urine RBC 3 /hpf (0 - 3) Urine Microscopic WBC 11 /HPF (0-3) H Urine Squamous Epithelial Cells Few /hpf (<5) Urine Bacteria None seen /hpf (None Seen) Urine Hyaline Casts Many /lpf (0 - 2) Urine Mucus Few (None Seen) Urine Glucose Normal mg/dL (Normal) Microbiology Microbiology Date/Time Source Procedure Growth Status 10/28/24 18:50 Stool Stool Culture - Preliminary Resulted 10/28/24 18:50 Stool Shiga Toxin I & II - Final Resulted 10/24/24 21:34 Nose MRSA Screen - Final Complete 10/24/24 03:10 Blood Blood Culture - Final NO GROWTH AFTER 5 DAYS OF INCUBATION. Complete Labs and/or images reviewed: Labs reviewed by me, Image(s) reviewed by me Assessment/Plan Assessment/Plan Impression: -septic shock -acute colitis, rule out acute gastric perforation -obesity -acute on chronic hypoxic respiratory failure -COPD -degenerative joint disease -probable ileus -ulcerative colitis Plan: Events: No events overnight. Persistent distention and transverse colon on KUB. NG tube is currently clamped. Positive BM. -continue IV steroids -Repeat KUB in a.m. -O2 supplementation to keep saturation greater than 92% -continue bronchodilators, add mucomyst and pulmicort. -continue antibiotic therapy with Levaquin and Flagyl -increase physical therapy -continue TPN -consultations: Pulmonology, GI -repeat labs in a.m. -transferred to telemetry floor Total time spent with patient discussing and formulating plan of care: 35 minutes. This medical document was created using an electronic medical record system with [employer] dictation system. Although this document has been carefully reviewed, there may still be some phonetic and typographical errors. These areas are purely typographical due to imperfections of the software programs, and do not reflect any compromise in the patient's medical care. Plan discussed with: Patient, Other (RN) My Orders Orders - ANAYA ONTIVEROS [employer] Procedure Category Date Status Time Complete Blood Count LAB 11/02/24 Verified 05:00 Complete Blood Count LAB 11/03/24 Verified 05:00 Basic Metabolic Panel LAB 11/02/24 Verified 05:00 Basic Metabolic Panel LAB 11/03/24 Verified 05:00 Transfer Orders XFER 11/01/24 Transmitted 06:59 Sodium Chloride 0.9% PHA 11/01/24 In Process 07:00 Glucose Blood PHA 11/01/24 In Process (Accu-Chek Comfort 12:00 Insulin R (Human) PHA 11/01/24 In Process (Insulin R) 12:00 Dextrose 50% Syringe PHA 11/01/24 In Process 07:15 Date of Service: Nov 01, 2024 Billing Provider: ANAYA ONTIVEROS NP Common Visit Codes: [id number] INP/OBS CARE(HIGH) ANAYA ONTIVEROS NP Nov 01, 2024 09:09
--- NOTE | 2024-11-01 09:21 | DVH ---
XY KUB ABDOMEN SINGLE VIEW HISTORY: Colonic distention TECHNICAL DATA: 1 view of the abdomen. COMPARISON: XY KUB ABDOMEN SINGLE VIEW on DOS: 10/31/24, XY KUB ABDOMEN SINGLE VIEW on DOS: 10/29/24, X Y KUB ABDOMEN SINGLE VIEW on DOS: 10/28/24 FINDINGS: Similar positioning of the enteric tube which is looped at the GE junction consider repositioning. T here is no abdominal mass effect. The renal and liver shadows are not enlarged. IMPRESSION: Similar positioning of the enteric tube which is looped at the GE junction consider repositioning. Similar nonspecific gaseous distended loops of bowel and colon.
[2024-11-01] MEDS: ACCU-CHEK COMFORT CURVE STRIP VI SCH (11:47)
[2024-11-01] MEDS: InsuLIN REG 1unit/0.01ml Soln (100units/ml) SC SCH (11:49)
--- NOTE | 2024-11-01 12:19 | DVHPN2 ---
Progress Note Date Seen: Nov 01, 2024 Medical Necessity Reason Pt with a Central, PICC or Fol: Yes Objective vital signs Vital Sign Date Time Temp Pulse Resp B/P (MAP) Pulse Ox O2 Delivery O2 Flow Rate FiO2 11/01/24 10:29 90 18 98 11/01/24 10:24 Nasal Cannula 2.0 11/01/24 10:24 32 11/01/24 09:30 132/73 (92) 11/01/24 08:00 98.8 98.8 Total Intake and Output 10/31/24 10/31/24 11/01/24 15:00 23:00 07:00 Intake Total 910 ml 990 ml 890 ml Output Total 610 ml 750 ml Balance 910 ml 380 ml 140 ml medications Current Medications Medications Dose Ordered Sig/Yari Route Start Time Stop Time Status Last Admin Dose Admin Pantoprazole Sodium 40 mg DAILY IV 10/24/24 10:00 11/01/24 10:02 40 MG Levofloxacin/ Dextrose 100 ml @ 100 mls/hr DAILY IV 10/24/24 10:00 11/01/24 10:02 100 MLS/HR Metronidazole 100 ml @ 100 mls/hr Q8HR IV 10/24/24 14:00 11/01/24 04:59 100 MLS/HR Albuterol 2.5 mg Q4HPRN PRN NEB 10/24/24 08:45 11/01/24 02:03 2.5 MG Ipratropium [place] 0.5 mg Q4HR NEB 10/24/24 10:00 11/01/24 10:24 0.5 MG Acetaminophen/ Hydrocodone Bitart 1 tab Q4HP PRN PO 10/24/24 08:45 10/26/24 00:45 1 TAB Ondansetron HCl 4 mg Q4HP PRN IV 10/24/24 08:45 10/25/24 11:29 4 MG Docusate Sodium 100 mg BIDPRN PRN PO 10/24/24 08:45 Acetaminophen 650 mg Q6HP PRN PO 10/24/24 08:45 Morphine Sulfate 2 mg Q4HPRN PRN IV 10/24/24 08:45 10/31/24 03:00 2 MG Atorvastatin Calcium 20 mg HS PO 10/24/24 22:00 10/30/24 21:47 20 MG Nitroglycerin 0.4 mg Q5MINP PRN SL 10/24/24 09:15 Morphine Sulfate 2 mg Q30M PRN IV 10/24/24 09:15 Phenol/Menthol 1 spr Q2HP PRN MT 10/26/24 18:45 10/29/24 01:45 1 SPR Budesonide 0.5 mg BID NEB 10/28/24 10:00 11/01/24 07:00 0.5 MG Methylprednisolone Sodium Succinate 40 mg Q8HR IV 10/28/24 22:00 11/01/24 04:59 40 MG Amino Acids 0 ml @ 0 mls/hr PER PHARMACY IV 10/29/24 10:15 Sodium Chloride 10 ml QSHIFT@,22 IV 10/29/24 22:00 11/01/24 10:02 10 ML Fat Emulsion Intravenous 100 ml/Potassium Acetate 20 meq/ Potassium Phosphate 30 meq/ Magnesium Sulfate 6 meq/ Multivitamins 10 ml/Chromium/ Copper/Manganese/ Zinc 1 ml/Insulin Human Regular 8 units/Amino Acids/ Dextrose/Purified Water 1,329.3982 ml @ 55 mls/hr [id number] IV 10/31/24 22:00 11/01/24 21:59 10/31/24 20:41 55 MLS/HR Sodium Chloride 1,000 ml @ 50 mls/hr Q20H IV 11/01/24 07:00 11/01/24 07:00 50 MLS/HR Diagnostic Test (Pha) 1 strip Q6HR 11/01/24 12:00 11/01/24 11:47 1 STRIP Insulin Human Regular Q6HR SC 11/01/24 12:00 11/01/24 11:49 3 UNITS Dextrose 50 ml UD PRN IV 11/01/24 07:15 laboratory and microbiology Laboratory Tests 11/01/24 03:34 Test 11/01/24 03:34 Range/Units Serum Glucose 309 #H 74-106 mg/dL Microbiology Date/Time Source Procedure Growth Status 10/28/24 18:50 Stool Stool Culture - Preliminary Resulted 10/28/24 18:50 Stool Shiga Toxin I & II - Final Resulted 10/24/24 21:34 Nose MRSA Screen - Final Complete 10/24/24 03:10 Blood Blood Culture - Final NO GROWTH AFTER 5 DAYS OF INCUBATION. Complete Problem List/Assessment/Plan Problem List/Assessment/Plan AFEBRILE VSS ABD SOFT LESS DISTENDED LESS TENDER BM + FLATUS + CONTINUE CLOSE OBSERVATION CONSIDER EMERGENT SURGERY BASED ON ONGOING EVAL DC NG ALLOW SIPS OF WATER NURSE AT BEDSIDE Plan discussed with: Patient My Orders My Orders Orders - LINDSAY RAMOS MD Procedure Category Date Status Time Discontinue Ng ORDERS 11/01/24 Transmitted 10:57 Npo Except For GISELE 11/01/24 In Process Medications 10:57 Communication Order ORDERS 11/01/24 Transmitted 11:08 Dietary Evaluation Review Comments: 1) Advance Diet as medically feasible 2) TPN to meet at leaast 75% estimated needs within 7 days Expected Outcomes/Goals: GI symptoms to improve To meet 75% estimated needs in 7 days FU 2-3 days LINDSAY RAMOS MD Nov 01, 2024 12:19
--- NOTE | 2024-11-01 12:39 | DVHPN2 ---
Progress Note - Dictate Date Seen: Nov 01, 2024 Medical Necessity Reason Pt with a Central, PICC or Fol: Yes vital signs Vital Sign Date Time Temp Pulse Resp B/P (MAP) Pulse Ox O2 Delivery O2 Flow Rate FiO2 11/01/24 10:29 90 18 98 11/01/24 10:24 Nasal Cannula 2.0 11/01/24 10:24 32 11/01/24 09:30 132/73 (92) 11/01/24 08:00 98.8 98.8 Total Intake and Output 10/31/24 10/31/24 11/01/24 15:00 23:00 07:00 Intake Total 910 ml 990 ml 890 ml Output Total 610 ml 750 ml Balance 910 ml 380 ml 140 ml medications Current Medications Medications Dose Ordered Sig/Yari Route Start Time Stop Time Status Last Admin Dose Admin Pantoprazole Sodium 40 mg DAILY IV 10/24/24 10:00 11/01/24 10:02 40 MG Levofloxacin/ Dextrose 100 ml @ 100 mls/hr DAILY IV 10/24/24 10:00 11/01/24 10:02 100 MLS/HR Metronidazole 100 ml @ 100 mls/hr Q8HR IV 10/24/24 14:00 11/01/24 04:59 100 MLS/HR Albuterol 2.5 mg Q4HPRN PRN NEB 10/24/24 08:45 11/01/24 02:03 2.5 MG Ipratropium [place] 0.5 mg Q4HR NEB 10/24/24 10:00 11/01/24 10:24 0.5 MG Acetaminophen/ Hydrocodone Bitart 1 tab Q4HP PRN PO 10/24/24 08:45 10/26/24 00:45 1 TAB Ondansetron HCl 4 mg Q4HP PRN IV 10/24/24 08:45 10/25/24 11:29 4 MG Docusate Sodium 100 mg BIDPRN PRN PO 10/24/24 08:45 Acetaminophen 650 mg Q6HP PRN PO 10/24/24 08:45 Morphine Sulfate 2 mg Q4HPRN PRN IV 10/24/24 08:45 10/31/24 03:00 2 MG Atorvastatin Calcium 20 mg HS PO 10/24/24 22:00 10/30/24 21:47 20 MG Nitroglycerin 0.4 mg Q5MINP PRN SL 10/24/24 09:15 Morphine Sulfate 2 mg Q30M PRN IV 10/24/24 09:15 Phenol/Menthol 1 spr Q2HP PRN MT 10/26/24 18:45 10/29/24 01:45 1 SPR Budesonide 0.5 mg BID NEB 10/28/24 10:00 11/01/24 07:00 0.5 MG Methylprednisolone Sodium Succinate 40 mg Q8HR IV 10/28/24 22:00 11/01/24 04:59 40 MG Amino Acids 0 ml @ 0 mls/hr PER PHARMACY IV 10/29/24 10:15 Sodium Chloride 10 ml QSHIFT@10,22 IV 10/29/24 22:00 11/01/24 10:02 10 ML Fat Emulsion Intravenous 100 ml/Potassium Acetate 20 meq/ Potassium Phosphate 30 meq/ Magnesium Sulfate 6 meq/ Multivitamins 10 ml/Chromium/ Copper/Manganese/ Zinc 1 ml/Insulin Human Regular 8 units/Amino Acids/ Dextrose/Purified Water 1,329.3982 ml @ 55 mls/hr [id number] IV 10/31/24 22:00 11/01/24 21:59 10/31/24 20:41 55 MLS/HR Sodium Chloride 1,000 ml @ 50 mls/hr Q20H IV 11/01/24 07:00 11/01/24 07:00 50 MLS/HR Diagnostic Test (Pha) 1 strip Q6HR 11/01/24 12:00 11/01/24 11:47 1 STRIP Insulin Human Regular Q6HR SC 11/01/24 12:00 11/01/24 11:49 3 UNITS Dextrose 50 ml UD PRN IV 11/01/24 07:15 laboratory and microbiology Laboratory Tests 11/01/24 03:34 Test 11/01/24 03:34 Range/Units Serum Glucose 309 #H 74-106 mg/dL Assessment/Plan Impression: Acute hypoxic respiratory failure Dependence on supplemental oxygen Sepsis Colitis Diarrhea Shock Obesity Patient seen and examined in ICU Events: Low oxygen requirements On 2 liters nasal cannula No new complaints Labs and imaging reviewed Management Supplemental oxygen Titrate to maintain sats 90% or above Incentive spirometry Bronchodilators PRN. Mucomyst, Pulmicort BID Continue antibiotics Continue steroids Incentive spirometry Pain control Avoid oversedation Okay to downgrade to MEDHAT from pulmonary standpoint dvt proph crit care time 35 min Dietary Evaluation Review Comments: 1) Advance Diet as medically feasible 2) TPN to meet at leaast 75% estimated needs within 7 days Expected Outcomes/Goals: GI symptoms to improve To meet 75% estimated needs in 7 days FU 2-3 days Plan discussed with: Patient KELLY ABRAHAM MD Nov 01, 2024 12:39
--- NOTE | 2024-11-01 17:05 | DVHPN2 ---
Progress Note - Dictate Date Seen: Nov 01, 2024 Medical Necessity Reason Pt with a Central, PICC or Fol: Yes Subjective Patient is clinically stable He has been started on IV Solu-Medrol 40 mg g q.8 hours Is overall feeling better ; abdomen is less distended Patient continues to have diarrhea and is passing gas, three bowel movements noted Stool cultures were negative, stool for C diff negative vital signs Vital Sign Date Time Temp Pulse Resp B/P (MAP) Pulse Ox O2 Delivery O2 Flow Rate FiO2 11/01/24 16:31 68 15 138/80 (99) 92 11/01/24 16:00 Nasal Cannula* 2 28 11/01/24 08:00 98.8 98.8 Total Intake and Output 10/31/24 10/31/24 11/01/24 15:00 23:00 07:00 Intake Total 910 ml 990 ml 890 ml Output Total 610 ml 750 ml Balance 910 ml 380 ml 140 ml medications Current Medications Medications Dose Ordered Sig/Yari Route Start Time Stop Time Status Last Admin Dose Admin Pantoprazole Sodium 40 mg DAILY IV 10/24/24 10:00 11/01/24 10:02 40 MG Levofloxacin/ Dextrose 100 ml @ 100 mls/hr DAILY IV 10/24/24 10:00 11/01/24 10:02 100 MLS/HR Metronidazole 100 ml @ 100 mls/hr Q8HR IV 10/24/24 14:00 11/01/24 14:49 100 MLS/HR Albuterol 2.5 mg Q4HPRN PRN NEB 10/24/24 08:45 11/01/24 02:03 2.5 MG Ipratropium [place] 0.5 mg Q4HR NEB 10/24/24 10:00 11/01/24 14:49 0.5 MG Acetaminophen/ Hydrocodone Bitart 1 tab Q4HP PRN PO 10/24/24 08:45 10/26/24 00:45 1 TAB Ondansetron HCl 4 mg Q4HP PRN IV 10/24/24 08:45 10/25/24 11:29 4 MG Docusate Sodium 100 mg BIDPRN PRN PO 10/24/24 08:45 Acetaminophen 650 mg Q6HP PRN PO 10/24/24 08:45 Morphine Sulfate 2 mg Q4HPRN PRN IV 10/24/24 08:45 10/31/24 03:00 2 MG Atorvastatin Calcium 20 mg HS PO 10/24/24 22:00 10/30/24 21:47 20 MG Nitroglycerin 0.4 mg Q5MINP PRN SL 10/24/24 09:15 Morphine Sulfate 2 mg Q30M PRN IV 10/24/24 09:15 Phenol/Menthol 1 spr Q2HP PRN MT 10/26/24 18:45 10/29/24 01:45 1 SPR Budesonide 0.5 mg BID NEB 10/28/24 10:00 11/01/24 07:00 0.5 MG Methylprednisolone Sodium Succinate 40 mg Q8HR IV 10/28/24 22:00 11/01/24 14:49 40 MG Amino Acids 0 ml @ 0 mls/hr PER PHARMACY IV 10/29/24 10:15 Sodium Chloride 10 ml QSHIFT@10,22 IV 10/29/24 22:00 11/01/24 10:02 10 ML Fat Emulsion Intravenous 100 ml/Potassium Acetate 20 meq/ Potassium Phosphate 30 meq/ Magnesium Sulfate 6 meq/ Multivitamins 10 ml/Chromium/ Copper/Manganese/ Zinc 1 ml/Insulin Human Regular 8 units/Amino Acids/ Dextrose/Purified Water 1,329.3982 ml @ 55 mls/hr [id number] IV 10/31/24 22:00 11/01/24 21:59 10/31/24 20:41 55 MLS/HR Sodium Chloride 1,000 ml @ 50 mls/hr Q20H IV 11/01/24 07:00 11/01/24 07:00 50 MLS/HR Diagnostic Test (Pha) 1 strip Q6HR 11/01/24 12:00 11/01/24 11:47 1 STRIP Insulin Human Regular Q6HR SC 11/01/24 12:00 11/01/24 11:49 3 UNITS Dextrose 50 ml UD PRN IV 11/01/24 07:15 Fat Emulsion Intravenous 100 ml/Potassium Acetate 20 meq/ Potassium Phosphate 44 meq/ Magnesium Sulfate 6 meq/ Multivitamins 10 ml/Chromium/ Copper/Manganese/ Zinc 1 ml/Insulin Human Regular 4 units/Amino Acids/ Dextrose/Purified Water 1,532.54 ml @ 63.002 mls/hr [id number] IV 11/01/24 22:00 11/02/24 21:59 objective VITAL SIGNS: Afebrile, stable signs. HEENT: There is no evidence of pallor, cyanosis, or jaundice. NECK: Supple and nontender with no thyromegaly or lymphadenopathy. CHEST AND LUNGS: Clear. HEART: Within normal limits. ABDOMEN: Soft and distended. He is morbidly obese. Difficult to evaluate, but minimally tender. No rebound. EXTREMITIES: Unremarkable. NEUROLOGIC: Alert and oriented x3, nonfocal laboratory and microbiology Laboratory Tests 11/01/24 03:34 Test 11/01/24 03:34 Range/Units Serum Glucose 309 #H 74-106 mg/dL Problems(with codes): (1) Severe ulcerative colitis (2) Ileus (3) Abdominal pain (4) Leukocytosis, unspecified (5) Hypotension Prognosis Plan DC NG-tube Start clear liquid diet Supportive care I will start tapering the steroids tomorrow Once the patient is able to tolerate water and clear liquids we will start him on mesalamine 800 mg p.o. three times a day Dietary Evaluation Review Comments: 1) Advance Diet as medically feasible 2) TPN to meet at leaast 75% estimated needs within 7 days Expected Outcomes/Goals: GI symptoms to improve To meet 75% estimated needs in 7 days FU 2-3 days Plan discussed with: Other (Dr Collin Berry) LAURITA BERRY MD Nov 01, 2024 17:05
[2024-11-01] MEDS: MESALAMINE 400mg Delayed Release Cap PO SCH (22:00)
[2024-11-01] MEDS: TPN PER PHARMACY IV NR (22:09)
[2024-11-02] VITALS (21 sets, daily range): BP systolic 105–129; BP diastolic 69–92; PULSE 70–102; RESP 16–22; TEMP 97.3–98.1; O2SAT 92–99
[2024-11-02 05:36] LABS: Hematocrit 37.0 % (41.0-53.0); Hemoglobin 12.6 g/dL (13.5-17.5); Mean Corpuscular Hemoglobin 31.4 pg (28.0-32.0); Mean Corpuscular Volume 92.3 fL (80.0-100.0); Nucleated Red Blood Cells % 0.0 %
[2024-11-02 05:47] LABS: Alanine Aminotransferase 23 U/L (7-40); Alkaline Phosphatase 51 U/L (46-116); Anion Gap 5 (5-15); BUN/Creatinine Ratio 38.7 (10.0-20.0); Carbon Dioxide 29 mmol/L (20-31); Magnesium 2.1 mg/dL (1.6-2.6); Potassium 4.7 mmol/L (3.5-5.1); Sodium 141 mmol/L (136-145)
[2024-11-02 05:48] LABS: Bilirubin, Total 0.3 mg/dL (0.2-1.0)
[2024-11-02 06:00] LABS: Albumin 2.8 g/dL (3.2-4.8); Blood Urea Nitrogen 29 mg/dL (9-23); Calcium 8.4 mg/dL (8.7-10.4); Chloride 107 mmol/L (98-107); Glucose 193 mg/dL (74-106); Total Protein 4.9 g/dL (5.7-8.2)
--- NOTE | 2024-11-02 09:45 | DVH ---
Date: 11/02/2024 09:14 AM Examination: XY KUB ABDOMEN SINGLE VIEW History: Colonic distention Comparison: XY KUB ABDOMEN SINGLE VIEW on DOS: 11/01/24, XY KUB ABDOMEN SINGLE VIEW on DOS: 10/31/24, X Y KUB ABDOMEN SINGLE VIEW on DOS: 10/29/24, XY KUB ABDOMEN SINGLE VIEW on DOS: 10/28/24, XY KUB ABDOMEN SINGLE VIEW on DOS: 10/28/24 TECHNIQUE: Frontal views of the abdomen was obtained. FINDINGS: Nonspecific gaseous distended loops of colon and small bowel are visualized. The lung bases are unremarkable. No acute osseous abnormality identified. IMPRESSION: Nonspecific gaseous distended loops of colon and small bowel are visualized.
--- NOTE | 2024-11-02 13:29 | DVHPN2 ---
Subjective Patient with a positive bowel movement, fluctuance. Reviewed: Care Plan, H&P, Labs, Medications, Previous Orders, Radiology Changes from previous H/P or p: No Changes General: Per HPI Eyes: No Pain, No Vision change, No Conjunctivae inflammation, No Eyelid inflammation, No Other, No Redness ENT: No Ear pain, No Ear discharge, No Nose pain, No Nose discharge, No Nose congestion, No Mouth pain, No Mouth swelling, No Throat pain, No Throat swelling, No Other Cardiovascular: No Chest Pain, No Palpitations, No Orthopnea, No Paroxysmal Noc. Dyspnea, No Edema, No Lt Headedness, No Other Respiratory: No Cough, No Dry; Shortness of breath; No SOB with excertion, No Wheezing, No Hemoptysis, No Pleuritic Pain, No Sputum, No Other Gastrointestinal: Nausea, Vomiting, Abdominal Pain, Diarrhea; No Constipation, No Melena, No Hematochezia, No Other Genitourinary: No Dysuria, No Frequency, No Incontinence, No Hematuria, No Retention, No Other Musculoskeletal: No other, No neck pain, No shoulder pain, No arm pain, No back pain, No hand pain, No leg pain, No foot pain Skin: No Rash, No Lesions, No Jaundice, No Bruising, No Other Objective Vitals Vital Signs Date Time Temp Pulse Resp B/P (MAP) Pulse Ox O2 Delivery O2 Flow Rate FiO2 11/02/24 10:16 80 20 96 11/02/24 10:08 Nasal Cannula 2.0 11/02/24 10:08 28 11/02/24 09:00 97.7 129/92 (104) 97.7 Intake/Output Intake and Output 11/02/24 07:00 Intake Total 2655 ml Output Total 200 ml Balance 2455 ml Intake Oral 550 ml IV Total 2105 ml Output Urine Total 200 ml # Voids 10 # Bowel Movements 2 General Appearance: Alert, Oriented X3, Cooperative, mild distress HEENT: Atraumatic, PERRLA Lungs: Other (Decreased breath sounds in bases. Nasal cannula 4 L/min) Cardiovascular: Regular rate, Normal S1, Normal S2 Abdomen: Other (Absent bowel sounds. Severely distended abdomen) Genitourinary: No Apparent Abnormalities Extremities: Normal pulses Neuro: Sensation intact, Cranial nerves 3-12 NL Skin: Dry, Intact Psych/Mental Status: Mental status NL, Mood NL Medications Current Medications Medications Dose Ordered Sig/Yari Route Start Time Stop Time Status Last Admin Dose Admin Pantoprazole Sodium 40 mg DAILY IV 10/24/24 10:00 11/02/24 09:08 40 MG Levofloxacin/ Dextrose 100 ml @ 100 mls/hr DAILY IV 10/24/24 10:00 11/02/24 09:07 100 MLS/HR Metronidazole 100 ml @ 100 mls/hr Q8HR IV 10/24/24 14:00 11/02/24 05:28 100 MLS/HR Albuterol 2.5 mg Q4HPRN PRN NEB 10/24/24 08:45 11/02/24 10:08 2.5 MG Ipratropium [place] 0.5 mg Q4HR NEB 10/24/24 10:00 11/02/24 10:08 0.5 MG Acetaminophen/ Hydrocodone Bitart 1 tab Q4HP PRN PO 10/24/24 08:45 10/26/24 00:45 1 TAB Ondansetron HCl 4 mg Q4HP PRN IV 10/24/24 08:45 10/25/24 11:29 4 MG Docusate Sodium 100 mg BIDPRN PRN PO 10/24/24 08:45 Acetaminophen 650 mg Q6HP PRN PO 10/24/24 08:45 Morphine Sulfate 2 mg Q4HPRN PRN IV 10/24/24 08:45 11/01/24 22:03 2 MG Atorvastatin Calcium 20 mg HS PO 10/24/24 22:00 11/01/24 22:02 20 MG Nitroglycerin 0.4 mg Q5MINP PRN SL 10/24/24 09:15 Morphine Sulfate 2 mg Q30M PRN IV 10/24/24 09:15 Phenol/Menthol 1 spr Q2HP PRN MT 10/26/24 18:45 10/29/24 01:45 1 SPR Budesonide 0.5 mg BID NEB 10/28/24 10:00 11/02/24 07:32 0.5 MG Methylprednisolone Sodium Succinate 40 mg Q8HR IV 10/28/24 22:00 11/02/24 05:29 40 MG Amino Acids 0 ml @ 0 mls/hr PER PHARMACY IV 10/29/24 10:15 Sodium Chloride 10 ml QSHIFT@, IV 10/29/24 22:00 11/02/24 09:17 10 ML Sodium Chloride 1,000 ml @ 50 mls/hr Q20H IV 11/01/24 07:00 11/02/24 04:01 50 MLS/HR Diagnostic Test (Pha) 1 strip Q6HR 11/01/24 12:00 11/02/24 12:19 1 STRIP Insulin Human Regular Q6HR SC 11/01/24 12:00 11/02/24 12:19 9 UNITS Dextrose 50 ml UD PRN IV 11/01/24 07:15 Fat Emulsion Intravenous 100 ml/Potassium Acetate 20 meq/ Potassium Phosphate 44 meq/ Magnesium Sulfate 6 meq/ Multivitamins 10 ml/Chromium/ Copper/Manganese/ Zinc 1 ml/Insulin Human Regular 4 units/Amino Acids/ Dextrose/Purified Water 1,532.54 ml @ 63.002 mls/hr [id number] IV 11/01/24 22:00 11/02/24 21:59 11/01/24 22:09 63.002 MLS/HR Mesalamine 800 mg TID PO 11/01/24 22:00 11/02/24 05:30 800 MG Fat Emulsion Intravenous 200 ml/Sodium Phosphate 20 meq/ Magnesium Sulfate 8 meq/ Multivitamins 10 ml/Chromium/ Copper/Manganese/ Zinc 1 ml/Insulin Human Regular 6 units/Amino Acids/ Dextrose/Purified Water 1,668.06 ml @ 69 mls/hr [id number] IV 11/02/24 22:00 11/03/24 21:59 Laboratory Results Laboratory Tests 11/02/24 04:58 Chemistry Test 11/02/24 04:58 Albumin 2.8 g/dL (3.2-4.8) L Calcium Level 8.4 mg/dL (8.7-10.4) L Magnesium Level 2.1 mg/dL (1.6-2.6) Phosphorus Level 3.6 mg/dL (2.4-5.1) Total Protein 4.9 g/dL (5.7-8.2) L LFT Test 11/02/24 04:58 Alanine Aminotransferase (ALT) 23 U/L (7-40) Alkaline Phosphatase 51 U/L (46-116) Aspartate Amino Transferase (AST) 25 U/L (13-40) Total Bilirubin 0.3 mg/dL (0.2-1.0) Urinalysis Test 10/24/24 12:35 Urine Color [place] (Yellow) H Urine Clarity Turbid (Clear) H Urine pH 5.5 (5.0-9.0) Urine Specific [place] 1.023 (1.001-1.035) Urine Protein 1+ (Negative) H Urine Ketones 2+ (Negative) H Urine Blood Negative /uL (Negative) Urine Nitrite Negative (Negative) Urine Bilirubin Negative (Negative) Urine Urobilinogen Normal mg/dL (Negative) Urine Leukocyte Esterase Trace /uL (Negative) Urine RBC 3 /hpf (0 - 3) Urine Microscopic WBC 11 /HPF (0-3) H Urine Squamous Epithelial Cells Few /hpf (<5) Urine Bacteria None seen /hpf (None Seen) Urine Hyaline Casts Many /lpf (0 - 2) Urine Mucus Few (None Seen) Urine Glucose Normal mg/dL (Normal) Microbiology Microbiology Date/Time Source Procedure Growth Status 10/28/24 18:50 Stool Stool Culture - Final Complete 10/28/24 18:50 Stool Shiga Toxin I & II - Final Complete 10/24/24 21:34 Nose MRSA Screen - Final Complete 10/24/24 03:10 Blood Blood Culture - Final NO GROWTH AFTER 5 DAYS OF INCUBATION. Complete Labs and/or images reviewed: Labs reviewed by me, Image(s) reviewed by me Assessment/Plan Assessment/Plan Impression: -septic shock -acute colitis, rule out acute gastric perforation -obesity -acute on chronic hypoxic respiratory failure -COPD -degenerative joint disease -probable ileus -ulcerative colitis Plan: Events: NG tube removed. Tolerating clear liquid diet. Continues to have diarrhea. KUB continues to reveal dilated transverse colon. WBC increased probably secondary to IV Solu-Medrol. -continue IV steroids -Repeat KUB in a.m. -O2 supplementation to keep saturation greater than 92% -continue bronchodilators, Pulmicort -continue antibiotic therapy with Levaquin and Flagyl -increase physical therapy -continue TPN, reassess for discontinuation once patient has advanced to full liquid diet -consultations: Pulmonology, GI -repeat labs in a.m. Out of bed to chair Total time spent with patient discussing and formulating plan of care: 35 minutes. This medical document was created using an electronic medical record system with [employer] dictation system. Although this document has been carefully reviewed, there may still be some phonetic and typographical errors. These areas are purely typographical due to imperfections of the software programs, and do not reflect any compromise in the patient's medical care. Plan discussed with: Patient, Other (RN) Date of Service: Nov 02, 2024 Billing Provider: ANAYA ONTIVEROS NP Common Visit Codes: [id number] INP/OBS CARE(HIGH) ANAYA ONTIVEROS NP Nov 02, 2024 13:29
--- NOTE | 2024-11-02 16:47 | DVHPN2 ---
Progress Note Date Seen: Nov 02, 2024 Medical Necessity Reason Pt with a Central, PICC or Fol: Yes Objective vital signs Vital Sign Date Time Temp Pulse Resp B/P (MAP) Pulse Ox O2 Delivery O2 Flow Rate FiO2 11/02/24 14:10 84 18 98 11/02/24 14:02 Nasal Cannula* 2 28 11/02/24 10:30 129/92 11/02/24 09:00 97.7 97.7 Total Intake and Output 11/01/24 11/01/24 11/02/24 15:00 23:00 07:00 Intake Total 940 ml 915 ml 800 ml Output Total 200 ml Balance 940 ml 915 ml 600 ml medications Current Medications Medications Dose Ordered Sig/Yari Route Start Time Stop Time Status Last Admin Dose Admin Pantoprazole Sodium 40 mg DAILY IV 10/24/24 10:00 11/02/24 09:08 40 MG Levofloxacin/ Dextrose 100 ml @ 100 mls/hr DAILY IV 10/24/24 10:00 11/02/24 09:07 100 MLS/HR Metronidazole 100 ml @ 100 mls/hr Q8HR IV 10/24/24 14:00 11/02/24 15:12 100 MLS/HR Albuterol 2.5 mg Q4HPRN PRN NEB 10/24/24 08:45 11/02/24 14:02 2.5 MG Ipratropium [place] 0.5 mg Q4HR NEB 10/24/24 10:00 11/02/24 14:02 0.5 MG Acetaminophen/ Hydrocodone Bitart 1 tab Q4HP PRN PO 10/24/24 08:45 10/26/24 00:45 1 TAB Ondansetron HCl 4 mg Q4HP PRN IV 10/24/24 08:45 10/25/24 11:29 4 MG Docusate Sodium 100 mg BIDPRN PRN PO 10/24/24 08:45 Acetaminophen 650 mg Q6HP PRN PO 10/24/24 08:45 Morphine Sulfate 2 mg Q4HPRN PRN IV 10/24/24 08:45 11/01/24 22:03 2 MG Atorvastatin Calcium 20 mg HS PO 10/24/24 22:00 11/01/24 22:02 20 MG Nitroglycerin 0.4 mg Q5MINP PRN SL 10/24/24 09:15 Morphine Sulfate 2 mg Q30M PRN IV 10/24/24 09:15 Phenol/Menthol 1 spr Q2HP PRN MT 10/26/24 18:45 10/29/24 01:45 1 SPR Budesonide 0.5 mg BID NEB 10/28/24 10:00 11/02/24 07:32 0.5 MG Methylprednisolone Sodium Succinate 40 mg Q8HR IV 10/28/24 22:00 11/02/24 14:35 40 MG Amino Acids 0 ml @ 0 mls/hr PER PHARMACY IV 10/29/24 10:15 Sodium Chloride 10 ml QSHIFT@10,22 IV 10/29/24 22:00 11/02/24 09:17 10 ML Diagnostic Test (Pha) 1 strip Q6HR 11/01/24 12:00 11/02/24 12:19 1 STRIP Insulin Human Regular Q6HR SC 11/01/24 12:00 11/02/24 12:19 9 UNITS Dextrose 50 ml UD PRN IV 11/01/24 07:15 Fat Emulsion Intravenous 100 ml/Potassium Acetate 20 meq/ Potassium Phosphate 44 meq/ Magnesium Sulfate 6 meq/ Multivitamins 10 ml/Chromium/ Copper/Manganese/ Zinc 1 ml/Insulin Human Regular 4 units/Amino Acids/ Dextrose/Purified Water 1,532.54 ml @ 63.002 mls/hr [id number] IV 11/01/24 22:00 11/02/24 21:59 11/01/24 22:09 63.002 MLS/HR Mesalamine 800 mg TID PO 11/01/24 22:00 11/02/24 14:35 800 MG Fat Emulsion Intravenous 200 ml/Sodium Phosphate 20 meq/ Magnesium Sulfate 8 meq/ Multivitamins 10 ml/Chromium/ Copper/Manganese/ Zinc 1 ml/Insulin Human Regular 6 units/Amino Acids/ Dextrose/Purified Water 1,668.06 ml @ 69 mls/hr [id number] IV 11/02/24 22:00 11/03/24 21:59 laboratory and microbiology Laboratory Tests 11/02/24 04:58 Test 11/02/24 04:58 Range/Units Serum Glucose 193 #H 74-106 mg/dL Microbiology Date/Time Source Procedure Growth Status 10/28/24 18:50 Stool Stool Culture - Final Complete 10/28/24 18:50 Stool Shiga Toxin I & II - Final Complete 10/24/24 21:34 Nose MRSA Screen - Final Complete 10/24/24 03:10 Blood Blood Culture - Final NO GROWTH AFTER 5 DAYS OF INCUBATION. Complete Problem List/Assessment/Plan Problem List/Assessment/Plan AFEBRILE VSS ABD SOFT LESS DISTENDED LESS TENDER BM + FLATUS + CONTINUE CLOSE OBSERVATION CONSIDER EMERGENT SURGERY BASED ON ONGOING EVAL ALLOW CLEAR LIQUIDS NURSE AT BEDSIDE Plan discussed with: Patient My Orders My Orders Orders - LINDSAY RAMOS MD Procedure Category Date Status Time Amino Acid PHA 11/02/24 In Process Infusion... W/Fat 22:00 Comprehensive LAB 11/03/24 Verified Metabolic Panel 04:00 Magnesium LAB 11/03/24 Verified 04:00 Phosphorus LAB 11/03/24 Verified 04:00 Tpn Per Pharmacy [facility] 11/02/24 In Process 22:00 Dietary Evaluation Review Comments: 1) Advance Diet as medically feasible 2) TPN to meet at leaast 75% estimated needs within 7 days Expected Outcomes/Goals: GI symptoms to improve To meet 75% estimated needs in 7 days FU 2-3 days LINDSAY RAMOS MD Nov 02, 2024 16:47
--- NOTE | 2024-11-02 18:38 | DVHPN2 ---
Progress Note - Dictate Date Seen: Nov 02, 2024 Medical Necessity Reason Pt with a Central, PICC or Fol: Yes vital signs Vital Sign Date Time Temp Pulse Resp B/P (MAP) Pulse Ox O2 Delivery O2 Flow Rate FiO2 11/02/24 17:24 97.4 83 18 125/71 (89) 95 97.4 11/02/24 14:02 Nasal Cannula* 2 28 Total Intake and Output 11/01/24 11/01/24 11/02/24 15:00 23:00 07:00 Intake Total 940 ml 915 ml 800 ml Output Total 200 ml Balance 940 ml 915 ml 600 ml medications Current Medications Medications Dose Ordered Sig/Yari Route Start Time Stop Time Status Last Admin Dose Admin Pantoprazole Sodium 40 mg DAILY IV 10/24/24 10:00 11/02/24 09:08 40 MG Levofloxacin/ Dextrose 100 ml @ 100 mls/hr DAILY IV 10/24/24 10:00 11/02/24 09:07 100 MLS/HR Metronidazole 100 ml @ 100 mls/hr Q8HR IV 10/24/24 14:00 11/02/24 15:12 100 MLS/HR Albuterol 2.5 mg Q4HPRN PRN NEB 10/24/24 08:45 11/02/24 18:36 2.5 MG Ipratropium [place] 0.5 mg Q4HR NEB 10/24/24 10:00 11/02/24 18:36 0.5 MG Acetaminophen/ Hydrocodone Bitart 1 tab Q4HP PRN PO 10/24/24 08:45 10/26/24 00:45 1 TAB Ondansetron HCl 4 mg Q4HP PRN IV 10/24/24 08:45 10/25/24 11:29 4 MG Docusate Sodium 100 mg BIDPRN PRN PO 10/24/24 08:45 Acetaminophen 650 mg Q6HP PRN PO 10/24/24 08:45 Morphine Sulfate 2 mg Q4HPRN PRN IV 10/24/24 08:45 11/01/24 22:03 2 MG Atorvastatin Calcium 20 mg HS PO 10/24/24 22:00 11/01/24 22:02 20 MG Nitroglycerin 0.4 mg Q5MINP PRN SL 10/24/24 09:15 Morphine Sulfate 2 mg Q30M PRN IV 10/24/24 09:15 Phenol/Menthol 1 spr Q2HP PRN MT 10/26/24 18:45 10/29/24 01:45 1 SPR Budesonide 0.5 mg BID NEB 10/28/24 10:00 11/02/24 07:32 0.5 MG Methylprednisolone Sodium Succinate 40 mg Q8HR IV 10/28/24 22:00 11/02/24 14:35 40 MG Amino Acids 0 ml @ 0 mls/hr PER PHARMACY IV 10/29/24 10:15 Sodium Chloride 10 ml QSHIFT@10,22 IV 10/29/24 22:00 11/02/24 09:17 10 ML Diagnostic Test (Pha) 1 strip Q6HR 11/01/24 12:00 11/02/24 18:22 1 STRIP Insulin Human Regular Q6HR SC 11/01/24 12:00 11/02/24 18:21 6 UNITS Dextrose 50 ml UD PRN IV 11/01/24 07:15 Fat Emulsion Intravenous 100 ml/Potassium Acetate 20 meq/ Potassium Phosphate 44 meq/ Magnesium Sulfate 6 meq/ Multivitamins 10 ml/Chromium/ Copper/Manganese/ Zinc 1 ml/Insulin Human Regular 4 units/Amino Acids/ Dextrose/Purified Water 1,532.54 ml @ 63.002 mls/hr [id number] IV 11/01/24 22:00 11/02/24 21:59 11/01/24 22:09 63.002 MLS/HR Mesalamine 800 mg TID PO 11/01/24 22:00 11/02/24 14:35 800 MG Fat Emulsion Intravenous 200 ml/Sodium Phosphate 20 meq/ Magnesium Sulfate 8 meq/ Multivitamins 10 ml/Chromium/ Copper/Manganese/ Zinc 1 ml/Insulin Human Regular 6 units/Amino Acids/ Dextrose/Purified Water 1,668.06 ml @ 69 mls/hr [id number] IV 11/02/24 22:00 11/03/24 21:59 laboratory and microbiology Laboratory Tests 11/02/24 04:58 Test 11/02/24 04:58 Range/Units Serum Glucose 193 #H 74-106 mg/dL Assessment/Plan Impression: Acute hypoxic respiratory failure Dependence on supplemental oxygen Sepsis Colitis Diarrhea Shock Obesity Patient seen and examined Events: Low oxygen requirements On 2 liters nasal cannula S/p downgrade NG tube in place Labs and imaging reviewed Management Supplemental oxygen Titrate to maintain sats 90% or above Incentive spirometry Bronchodilators PRN. Mucomyst, Pulmicort BID Continue antibiotics Continue steroids Incentive spirometry Pain control Avoid oversedation dvt proph Dietary Evaluation Review Comments: 1) Advance Diet as medically feasible 2) TPN to meet at leaast 75% estimated needs within 7 days Expected Outcomes/Goals: GI symptoms to improve To meet 75% estimated needs in 7 days FU 2-3 days Plan discussed with: Patient KELLY ABRAHAM MD Nov 02, 2024 18:38
[2024-11-02] MEDS: TPN PER PHARMACY IV NR (22:14)
[2024-11-03] VITALS (23 sets, daily range): BP systolic 112–136; BP diastolic 68–82; PULSE 67–107; RESP 14–22; TEMP 97.4–98.2; O2SAT 94–99
[2024-11-03 05:26] LABS: Hematocrit 37.8 % (41.0-53.0); Hemoglobin 12.4 g/dL (13.5-17.5); Mean Corpuscular Hemoglobin 30.3 pg (28.0-32.0); Mean Corpuscular Volume 92.5 fL (80.0-100.0); Nucleated Red Blood Cells % 0.3 %
[2024-11-03 05:42] LABS: Alanine Aminotransferase 23 U/L (7-40); Alkaline Phosphatase 47 U/L (46-116); Anion Gap 5 (5-15); BUN/Creatinine Ratio 30.3 (10.0-20.0); Calcium 8.9 mg/dL (8.7-10.4); Carbon Dioxide 29 mmol/L (20-31); Chloride 104 mmol/L (98-107); Magnesium 2.1 mg/dL (1.6-2.6); Potassium 4.6 mmol/L (3.5-5.1); Sodium 138 mmol/L (136-145)
[2024-11-03 05:49] LABS: Albumin 2.7 g/dL (3.2-4.8); Bilirubin, Total 0.2 mg/dL (0.2-1.0); Blood Urea Nitrogen 23 mg/dL (9-23); Glucose 267 mg/dL (74-106); Total Protein 4.6 g/dL (5.7-8.2)
[2024-11-03] MEDS: methylPREDNISolone SOD SUCC 40 MG/ML VL IV SCH (09:44)
--- NOTE | 2024-11-03 15:47 | DVHPN2 ---
Subjective Patient with a positive bowel movement, fluctuance. Reviewed: Care Plan, H&P, Labs, Medications, Previous Orders, Radiology Changes from previous H/P or p: No Changes General: Per HPI Eyes: No Pain, No Vision change, No Conjunctivae inflammation, No Eyelid inflammation, No Other, No Redness ENT: No Ear pain, No Ear discharge, No Nose pain, No Nose discharge, No Nose congestion, No Mouth pain, No Mouth swelling, No Throat pain, No Throat swelling, No Other Cardiovascular: No Chest Pain, No Palpitations, No Orthopnea, No Paroxysmal Noc. Dyspnea, No Edema, No Lt Headedness, No Other Respiratory: No Cough, No Dry; Shortness of breath; No SOB with excertion, No Wheezing, No Hemoptysis, No Pleuritic Pain, No Sputum, No Other Gastrointestinal: Nausea, Vomiting, Abdominal Pain, Diarrhea; No Constipation, No Melena, No Hematochezia, No Other Genitourinary: No Dysuria, No Frequency, No Incontinence, No Hematuria, No Retention, No Other Musculoskeletal: No other, No neck pain, No shoulder pain, No arm pain, No back pain, No hand pain, No leg pain, No foot pain Skin: No Rash, No Lesions, No Jaundice, No Bruising, No Other Objective Vitals Vital Signs Date Time Temp Pulse Resp B/P (MAP) Pulse Ox O2 Delivery O2 Flow Rate FiO2 11/03/24 14:37 84 18 97 11/03/24 14:30 Nasal Cannula* 3 32 11/03/24 12:39 98.1 136/82 (100) 98.1 Intake/Output Intake and Output 11/03/24 07:00 Intake Total 3396 ml Output Total 804 ml Balance 2592 ml Intake Oral 1300 ml IV Total 2096 ml Output Urine Total 800 ml Stool Total 4 ml # Voids 4 # Bowel Movements 1 General Appearance: Alert, Oriented X3, Cooperative, mild distress HEENT: Atraumatic, PERRLA Lungs: Other (Decreased breath sounds in bases. Nasal cannula 4 L/min) Cardiovascular: Regular rate, Normal S1, Normal S2 Abdomen: Other (Absent bowel sounds. Severely distended abdomen) Genitourinary: No Apparent Abnormalities Extremities: Normal pulses Neuro: Sensation intact, Cranial nerves 3-12 NL Skin: Dry, Intact Psych/Mental Status: Mental status NL, Mood NL Medications Current Medications Medications Dose Ordered Sig/Yari Route Start Time Stop Time Status Last Admin Dose Admin Pantoprazole Sodium 40 mg DAILY IV 10/24/24 10:00 11/03/24 09:44 40 MG Levofloxacin/ Dextrose 100 ml @ 100 mls/hr DAILY IV 10/24/24 10:00 11/03/24 09:44 100 MLS/HR Metronidazole 100 ml @ 100 mls/hr Q8HR IV 10/24/24 14:00 11/03/24 13:17 100 MLS/HR Albuterol 2.5 mg Q4HPRN PRN NEB 10/24/24 08:45 11/03/24 00:06 2.5 MG Ipratropium [place] 0.5 mg Q4HR NEB 10/24/24 10:00 11/03/24 14:36 0.5 MG Acetaminophen/ Hydrocodone Bitart 1 tab Q4HP PRN PO 10/24/24 08:45 11/03/24 00:50 1 TAB Ondansetron HCl 4 mg Q4HP PRN IV 10/24/24 08:45 10/25/24 11:29 4 MG Docusate Sodium 100 mg BIDPRN PRN PO 10/24/24 08:45 Acetaminophen 650 mg Q6HP PRN PO 10/24/24 08:45 Morphine Sulfate 2 mg Q4HPRN PRN IV 10/24/24 08:45 11/01/24 22:03 2 MG Atorvastatin Calcium 20 mg HS PO 10/24/24 22:00 11/02/24 22:07 20 MG Nitroglycerin 0.4 mg Q5MINP PRN SL 10/24/24 09:15 Morphine Sulfate 2 mg Q30M PRN IV 10/24/24 09:15 Phenol/Menthol 1 spr Q2HP PRN MT 10/26/24 18:45 10/29/24 01:45 1 SPR Budesonide 0.5 mg BID NEB 10/28/24 10:00 11/03/24 06:41 0.5 MG Amino Acids 0 ml @ 0 mls/hr PER PHARMACY IV 10/29/24 10:15 Sodium Chloride 10 ml QSHIFT@10,22 IV 10/29/24 22:00 11/03/24 09:45 10 ML Diagnostic Test (Pha) 1 strip Q6HR 11/01/24 12:00 11/03/24 12:58 1 STRIP Insulin Human Regular Q6HR SC 11/01/24 12:00 11/03/24 06:00 9 UNITS Dextrose 50 ml UD PRN IV 11/01/24 07:15 Mesalamine 800 mg TID PO 11/01/24 22:00 11/03/24 13:17 800 MG Fat Emulsion Intravenous 200 ml/Sodium Phosphate 20 meq/ Magnesium Sulfate 8 meq/ Multivitamins 10 ml/Chromium/ Copper/Manganese/ Zinc 1 ml/Insulin Human Regular 6 units/Amino Acids/ Dextrose/Purified Water 1,668.06 ml @ 69 mls/hr [id number] IV 11/02/24 22:00 11/03/24 21:59 11/02/24 22:14 69 MLS/HR Methylprednisolone Sodium Succinate 40 mg BID IV 11/03/24 10:00 11/03/24 09:44 40 MG Fat Emulsion Intravenous 200 ml/Sodium Chloride 20 meq/ Potassium Phosphate 11 meq/ Magnesium Sulfate 8 meq/ Multivitamins 10 ml/Chromium/ Copper/Manganese/ Zinc 1 ml/Insulin Human Regular 8 units/Amino Acids/ Dextrose/Purified Water 1,770.58 ml @ 73 mls/hr [id number] IV 11/03/24 22:00 11/04/24 21:59 Laboratory Results Laboratory Tests 11/03/24 04:05 Chemistry Test 11/03/24 04:05 Albumin 2.7 g/dL (3.2-4.8) L Calcium Level 8.9 mg/dL (8.7-10.4) Magnesium Level 2.1 mg/dL (1.6-2.6) Phosphorus Level 3.2 mg/dL (2.4-5.1) Total Protein 4.6 g/dL (5.7-8.2) L LFT Test 11/03/24 04:05 Alanine Aminotransferase (ALT) 23 U/L (7-40) Alkaline Phosphatase 47 U/L (46-116) Aspartate Amino Transferase (AST) 20 U/L (13-40) Total Bilirubin 0.2 mg/dL (0.2-1.0) Urinalysis Test 10/24/24 12:35 Urine Color [place] (Yellow) H Urine Clarity Turbid (Clear) H Urine pH 5.5 (5.0-9.0) Urine Specific [place] 1.023 (1.001-1.035) Urine Protein 1+ (Negative) H Urine Ketones 2+ (Negative) H Urine Blood Negative /uL (Negative) Urine Nitrite Negative (Negative) Urine Bilirubin Negative (Negative) Urine Urobilinogen Normal mg/dL (Negative) Urine Leukocyte Esterase Trace /uL (Negative) Urine RBC 3 /hpf (0 - 3) Urine Microscopic WBC 11 /HPF (0-3) H Urine Squamous Epithelial Cells Few /hpf (<5) Urine Bacteria None seen /hpf (None Seen) Urine Hyaline Casts Many /lpf (0 - 2) Urine Mucus Few (None Seen) Urine Glucose Normal mg/dL (Normal) Microbiology Microbiology Date/Time Source Procedure Growth Status 10/28/24 18:50 Stool Stool Culture - Final Complete 10/28/24 18:50 Stool Shiga Toxin I & II - Final Complete 10/24/24 21:34 Nose MRSA Screen - Final Complete 10/24/24 03:10 Blood Blood Culture - Final NO GROWTH AFTER 5 DAYS OF INCUBATION. Complete Labs and/or images reviewed: Labs reviewed by me, Image(s) reviewed by me Assessment/Plan Assessment/Plan Impression: -septic shock -acute colitis, rule out acute gastric perforation -obesity -acute on chronic hypoxic respiratory failure -COPD -degenerative joint disease -probable ileus -ulcerative colitis Plan: Events: No events overnight. Noted swelling to upper extremities. Discussed case with Gastroenterology. Steroids to be tapered. Advanced to full liquid diet -continue IV steroids -O2 supplementation to keep saturation greater than 92% -continue bronchodilators, Pulmicort -continue antibiotic therapy with Levaquin and Flagyl -increase physical therapy -continue TPN, reassess for discontinuation once patient has advanced to full liquid diet -consultations: Pulmonology, GI -repeat labs in a.m. -diurese Total time spent with patient discussing and formulating plan of care: 35 minutes. This medical document was created using an electronic medical record system with [employer] dictation system. Although this document has been carefully reviewed, there may still be some phonetic and typographical errors. These areas are purely typographical due to imperfections of the software programs, and do not reflect any compromise in the patient's medical care. Plan discussed with: Patient, Other (RN) My Orders Orders - ANAYA ONTIVEROS [employer] Procedure Category Date Status Time Furosemide Injection PHA 11/03/24 Verified (Lasix Injection) 15:45 Furosemide Tablet PHA 11/04/24 Verified (Lasix Tablet) 10:00 Date of Service: Nov 03, 2024 Billing Provider: ANAYA ONTIVEROS NP Common Visit Codes: [id number] INP/OBS CARE(HIGH) ANAYA ONTIVEROS NP Nov 03, 2024 15:47
[2024-11-03] MEDS: FUROSEMIDE 20 MG/2 ML VIAL IV ONE (17:04)
--- NOTE | 2024-11-03 17:21 | DVHPN2 ---
Progress Note Date Seen: Nov 03, 2024 Medical Necessity Reason Pt with a Central, PICC or Fol: Yes Objective vital signs Vital Sign Date Time Temp Pulse Resp B/P (MAP) Pulse Ox O2 Delivery O2 Flow Rate FiO2 11/03/24 17:04 134/88 11/03/24 16:48 98.2 67 18 97 98.2 11/03/24 14:30 Nasal Cannula* 3 32 Total Intake and Output 11/02/24 11/02/24 11/03/24 15:00 23:00 07:00 Intake Total 1040 ml 1356 ml 1000 ml Output Total 4 ml 800 ml Balance 1040 ml 1352 ml 200 ml medications Current Medications Medications Dose Ordered Sig/Yari Route Start Time Stop Time Status Last Admin Dose Admin Pantoprazole Sodium 40 mg DAILY IV 10/24/24 10:00 11/03/24 09:44 40 MG Levofloxacin/ Dextrose 100 ml @ 100 mls/hr DAILY IV 10/24/24 10:00 11/03/24 09:44 100 MLS/HR Metronidazole 100 ml @ 100 mls/hr Q8HR IV 10/24/24 14:00 11/03/24 13:17 100 MLS/HR Albuterol 2.5 mg Q4HPRN PRN NEB 10/24/24 08:45 11/03/24 00:06 2.5 MG Ipratropium [place] 0.5 mg Q4HR NEB 10/24/24 10:00 11/03/24 14:36 0.5 MG Acetaminophen/ Hydrocodone Bitart 1 tab Q4HP PRN PO 10/24/24 08:45 11/03/24 00:50 1 TAB Ondansetron HCl 4 mg Q4HP PRN IV 10/24/24 08:45 10/25/24 11:29 4 MG Docusate Sodium 100 mg BIDPRN PRN PO 10/24/24 08:45 Acetaminophen 650 mg Q6HP PRN PO 10/24/24 08:45 Morphine Sulfate 2 mg Q4HPRN PRN IV 10/24/24 08:45 11/01/24 22:03 2 MG Atorvastatin Calcium 20 mg HS PO 10/24/24 22:00 11/02/24 22:07 20 MG Nitroglycerin 0.4 mg Q5MINP PRN SL 10/24/24 09:15 Morphine Sulfate 2 mg Q30M PRN IV 10/24/24 09:15 Phenol/Menthol 1 spr Q2HP PRN MT 10/26/24 18:45 10/29/24 01:45 1 SPR Budesonide 0.5 mg BID NEB 10/28/24 10:00 11/03/24 06:41 0.5 MG Amino Acids 0 ml @ 0 mls/hr PER PHARMACY IV 10/29/24 10:15 Sodium Chloride 10 ml QSHIFT@10,22 IV 10/29/24 22:00 11/03/24 09:45 10 ML Diagnostic Test (Pha) 1 strip Q6HR 11/01/24 12:00 11/03/24 12:58 1 STRIP Insulin Human Regular Q6HR SC 11/01/24 12:00 11/03/24 06:00 9 UNITS Dextrose 50 ml UD PRN IV 11/01/24 07:15 Mesalamine 800 mg TID PO 11/01/24 22:00 11/03/24 13:17 800 MG Fat Emulsion Intravenous 200 ml/Sodium Phosphate 20 meq/ Magnesium Sulfate 8 meq/ Multivitamins 10 ml/Chromium/ Copper/Manganese/ Zinc 1 ml/Insulin Human Regular 6 units/Amino Acids/ Dextrose/Purified Water 1,668.06 ml @ 69 mls/hr [id number] IV 11/02/24 22:00 11/03/24 21:59 11/02/24 22:14 69 MLS/HR Methylprednisolone Sodium Succinate 40 mg BID IV 11/03/24 10:00 11/03/24 09:44 40 MG Fat Emulsion Intravenous 200 ml/Sodium Chloride 20 meq/ Potassium Phosphate 11 meq/ Magnesium Sulfate 8 meq/ Multivitamins 10 ml/Chromium/ Copper/Manganese/ Zinc 1 ml/Insulin Human Regular 8 units/Amino Acids/ Dextrose/Purified Water 1,770.58 ml @ 73 mls/hr [id number] IV 11/03/24 22:00 11/04/24 21:59 Furosemide 20 mg DAILY PO 11/04/24 10:00 laboratory and microbiology Laboratory Tests 11/03/24 04:05 Test 11/03/24 04:05 Range/Units Serum Glucose 267 H 74-106 mg/dL Microbiology Date/Time Source Procedure Growth Status 10/28/24 18:50 Stool Stool Culture - Final Complete 10/28/24 18:50 Stool Shiga Toxin I & II - Final Complete 10/24/24 21:34 Nose MRSA Screen - Final Complete 10/24/24 03:10 Blood Blood Culture - Final NO GROWTH AFTER 5 DAYS OF INCUBATION. Complete Problem List/Assessment/Plan Problem List/Assessment/Plan AFEBRILE VSS ABD SOFT BM + FLATUS + CONTINUE CLOSE OBSERVATION CONSIDER EMERGENT SURGERY BASED ON ONGOING EVAL ALLOW CLEAR LIQUIDS NURSE AT BEDSIDE CONTINUE TPN Plan discussed with: Patient My Orders My Orders Orders - LINDSAY RAMOS MD Procedure Category Date Status Time Amino Acid PHA 11/03/24 In Process Infusion... W/Fat 22:00 Comprehensive LAB 11/04/24 Verified Metabolic Panel 04:00 Magnesium LAB 11/04/24 Verified 04:00 Phosphorus LAB 11/04/24 Verified 04:00 Tpn Per Pharmacy [facility] 11/03/24 In Process 22:00 Dietary Evaluation Review Comments: 1) Advance Diet as medically feasible 2) TPN to meet at leaast 75% estimated needs within 7 days Expected Outcomes/Goals: GI symptoms to improve To meet 75% estimated needs in 7 days FU 2-3 days LINDSAY RAMOS MD Nov 03, 2024 17:21
--- NOTE | 2024-11-03 18:14 | DVHPN2 ---
Progress Note - Dictate Date Seen: Nov 03, 2024 Medical Necessity Reason Pt with a Central, PICC or Fol: Yes vital signs Vital Sign Date Time Temp Pulse Resp B/P (MAP) Pulse Ox O2 Delivery O2 Flow Rate FiO2 11/03/24 17:04 134/88 11/03/24 16:48 98.2 67 18 97 98.2 11/03/24 14:30 Nasal Cannula* 3 32 Total Intake and Output 11/02/24 11/02/24 11/03/24 15:00 23:00 07:00 Intake Total 1040 ml 1356 ml 1000 ml Output Total 4 ml 800 ml Balance 1040 ml 1352 ml 200 ml medications Current Medications Medications Dose Ordered Sig/Yari Route Start Time Stop Time Status Last Admin Dose Admin Pantoprazole Sodium 40 mg DAILY IV 10/24/24 10:00 11/03/24 09:44 40 MG Levofloxacin/ Dextrose 100 ml @ 100 mls/hr DAILY IV 10/24/24 10:00 11/03/24 09:44 100 MLS/HR Metronidazole 100 ml @ 100 mls/hr Q8HR IV 10/24/24 14:00 11/03/24 13:17 100 MLS/HR Albuterol 2.5 mg Q4HPRN PRN NEB 10/24/24 08:45 11/03/24 00:06 2.5 MG Ipratropium [place] 0.5 mg Q4HR NEB 10/24/24 10:00 11/03/24 14:36 0.5 MG Acetaminophen/ Hydrocodone Bitart 1 tab Q4HP PRN PO 10/24/24 08:45 11/03/24 00:50 1 TAB Ondansetron HCl 4 mg Q4HP PRN IV 10/24/24 08:45 10/25/24 11:29 4 MG Docusate Sodium 100 mg BIDPRN PRN PO 10/24/24 08:45 Acetaminophen 650 mg Q6HP PRN PO 10/24/24 08:45 Morphine Sulfate 2 mg Q4HPRN PRN IV 10/24/24 08:45 11/01/24 22:03 2 MG Atorvastatin Calcium 20 mg HS PO 10/24/24 22:00 11/02/24 22:07 20 MG Nitroglycerin 0.4 mg Q5MINP PRN SL 10/24/24 09:15 Morphine Sulfate 2 mg Q30M PRN IV 10/24/24 09:15 Phenol/Menthol 1 spr Q2HP PRN MT 10/26/24 18:45 10/29/24 01:45 1 SPR Budesonide 0.5 mg BID NEB 10/28/24 10:00 11/03/24 06:41 0.5 MG Amino Acids 0 ml @ 0 mls/hr PER PHARMACY IV 10/29/24 10:15 Sodium Chloride 10 ml QSHIFT@10,22 IV 10/29/24 22:00 11/03/24 09:45 10 ML Diagnostic Test (Pha) 1 strip Q6HR 11/01/24 12:00 11/03/24 17:29 1 STRIP Insulin Human Regular Q6HR SC 11/01/24 12:00 11/03/24 06:00 9 UNITS Dextrose 50 ml UD PRN IV 11/01/24 07:15 Mesalamine 800 mg TID PO 11/01/24 22:00 11/03/24 13:17 800 MG Fat Emulsion Intravenous 200 ml/Sodium Phosphate 20 meq/ Magnesium Sulfate 8 meq/ Multivitamins 10 ml/Chromium/ Copper/Manganese/ Zinc 1 ml/Insulin Human Regular 6 units/Amino Acids/ Dextrose/Purified Water 1,668.06 ml @ 69 mls/hr [id number] IV 11/02/24 22:00 11/03/24 21:59 11/02/24 22:14 69 MLS/HR Methylprednisolone Sodium Succinate 40 mg BID IV 11/03/24 10:00 11/03/24 09:44 40 MG Fat Emulsion Intravenous 200 ml/Sodium Chloride 20 meq/ Potassium Phosphate 11 meq/ Magnesium Sulfate 8 meq/ Multivitamins 10 ml/Chromium/ Copper/Manganese/ Zinc 1 ml/Insulin Human Regular 8 units/Amino Acids/ Dextrose/Purified Water 1,770.58 ml @ 73 mls/hr [id number] IV 11/03/24 22:00 11/04/24 21:59 Furosemide 20 mg DAILY PO 11/04/24 10:00 laboratory and microbiology Laboratory Tests 11/03/24 04:05 Test 11/03/24 04:05 Range/Units Serum Glucose 267 H 74-106 mg/dL Assessment/Plan Impression: Acute hypoxic respiratory failure Dependence on supplemental oxygen Sepsis Colitis Diarrhea Shock Obesity Patient seen and examined Events: Low oxygen requirements On 2 liters nasal cannula No acute events NG tube in place Labs and imaging reviewed Management Supplemental oxygen Titrate to maintain sats 90% or above Incentive spirometry Bronchodilators PRN. Mucomyst, Pulmicort BID Continue antibiotics Continue steroids Incentive spirometry Pain control Avoid oversedation Continue physical therapy dvt proph Dietary Evaluation Review Comments: 1) Advance Diet as medically feasible 2) TPN to meet at leaast 75% estimated needs within 7 days Expected Outcomes/Goals: GI symptoms to improve To meet 75% estimated needs in 7 days FU 2-3 days Plan discussed with: Patient KELLY ABRAHAM MD Nov 03, 2024 18:14
[2024-11-03] MEDS: TPN PER PHARMACY IV NR (22:08)
--- NOTE | 2024-11-03 22:39 | DVHPN2 ---
Progress Note - Dictate Date Seen: Nov 03, 2024 Medical Necessity Reason Pt with a Central, PICC or Fol: Yes Subjective Patient is clinically stable; downgraded to the floor IV Solu-Medrol 40 q.12 hours Is overall feeling better ; abdomen is less distended Patient continues to have diarrhea and is passing gas, multiple bowel movements noted Stool cultures were negative, stool for C diff negative vital signs Vital Sign Date Time Temp Pulse Resp B/P (MAP) Pulse Ox O2 Delivery O2 Flow Rate FiO2 11/03/24 22:34 85 18 99 11/03/24 21:00 97.5 112/78 (89) 97.5 11/03/24 19:23 Nasal Cannula 3.0 11/03/24 19:23 32 Total Intake and Output 11/02/24 11/02/24 11/03/24 15:00 23:00 07:00 Intake Total 1040 ml 1356 ml 1000 ml Output Total 4 ml 800 ml Balance 1040 ml 1352 ml 200 ml medications Current Medications Medications Dose Ordered Sig/Yari Route Start Time Stop Time Status Last Admin Dose Admin Pantoprazole Sodium 40 mg DAILY IV 10/24/24 10:00 11/03/24 09:44 40 MG Levofloxacin/ Dextrose 100 ml @ 100 mls/hr DAILY IV 10/24/24 10:00 11/03/24 09:44 100 MLS/HR Metronidazole 100 ml @ 100 mls/hr Q8HR IV 10/24/24 14:00 11/03/24 21:48 100 MLS/HR Albuterol 2.5 mg Q4HPRN PRN NEB 10/24/24 08:45 11/03/24 19:23 2.5 MG Ipratropium [place] 0.5 mg Q4HR NEB 10/24/24 10:00 11/03/24 22:26 0.5 MG Acetaminophen/ Hydrocodone Bitart 1 tab Q4HP PRN PO 10/24/24 08:45 11/03/24 00:50 1 TAB Ondansetron HCl 4 mg Q4HP PRN IV 10/24/24 08:45 10/25/24 11:29 4 MG Docusate Sodium 100 mg BIDPRN PRN PO 10/24/24 08:45 Acetaminophen 650 mg Q6HP PRN PO 10/24/24 08:45 Morphine Sulfate 2 mg Q4HPRN PRN IV 10/24/24 08:45 11/01/24 22:03 2 MG Atorvastatin Calcium 20 mg HS PO 10/24/24 22:00 11/03/24 21:48 20 MG Nitroglycerin 0.4 mg Q5MINP PRN SL 10/24/24 09:15 Morphine Sulfate 2 mg Q30M PRN IV 10/24/24 09:15 Phenol/Menthol 1 spr Q2HP PRN MT 10/26/24 18:45 10/29/24 01:45 1 SPR Budesonide 0.5 mg BID NEB 10/28/24 10:00 11/03/24 22:26 0.5 MG Amino Acids 0 ml @ 0 mls/hr PER PHARMACY IV 10/29/24 10:15 Sodium Chloride 10 ml QSHIFT@10,22 IV 10/29/24 22:00 11/03/24 21:51 10 ML Diagnostic Test (Pha) 1 strip Q6HR 11/01/24 12:00 11/03/24 17:29 1 STRIP Insulin Human Regular Q6HR SC 11/01/24 12:00 11/03/24 06:00 9 UNITS Dextrose 50 ml UD PRN IV 11/01/24 07:15 Mesalamine 800 mg TID PO 11/01/24 22:00 11/03/24 21:51 800 MG Methylprednisolone Sodium Succinate 40 mg BID IV 11/03/24 10:00 11/03/24 21:51 40 MG Fat Emulsion Intravenous 200 ml/Sodium Chloride 20 meq/ Potassium Phosphate 11 meq/ Magnesium Sulfate 8 meq/ Multivitamins 10 ml/Chromium/ Copper/Manganese/ Zinc 1 ml/Insulin Human Regular 8 units/Amino Acids/ Dextrose/Purified Water 1,770.58 ml @ 73 mls/hr [id number] IV 11/03/24 22:00 11/04/24 21:59 11/03/24 22:08 73 MLS/HR Furosemide 20 mg DAILY PO 11/04/24 10:00 objective VITAL SIGNS: Afebrile, stable signs. HEENT: There is no evidence of pallor, cyanosis, or jaundice. NECK: Supple and nontender with no thyromegaly or lymphadenopathy. CHEST AND LUNGS: Clear. HEART: Within normal limits. ABDOMEN: Soft and distended. He is morbidly obese. Difficult to evaluate, but minimally tender. No rebound. EXTREMITIES: Unremarkable. NEUROLOGIC: Alert and oriented x3, nonfocal laboratory and microbiology Laboratory Tests 11/03/24 04:05 Test 11/03/24 04:05 Range/Units Serum Glucose 267 H 74-106 mg/dL Problems(with codes): (1) Severe ulcerative colitis (2) Ileus (3) Leukocytosis, unspecified (4) Abdominal pain Prognosis Plan NG tube was DC then patient started on clear liquid diet Mesalamine 800 mg p.o. three times a day IV Solu-Medrol 40 mg q.12 hours Change to prednisone 40 mg p.o. daily once the patient is able to tolerate p.o. diet Advance to full liquid diet if cleared by surgical consult Dietary Evaluation Review Comments: 1) Advance Diet as medically feasible 2) TPN to meet at leaast 75% estimated needs within 7 days Expected Outcomes/Goals: GI symptoms to improve To meet 75% estimated needs in 7 days FU 2-3 days Plan discussed with: Patient, Other (Dr Collin Berry) LAURITA BERRY MD Nov 03, 2024 22:39
[2024-11-04] VITALS (17 sets, daily range): BP systolic 114–138; BP diastolic 70–91; PULSE 75–102; RESP 16–20; TEMP 97.5–98.1; O2SAT 92–99
[2024-11-04 05:42] LABS: Alanine Aminotransferase 25 U/L (7-40); Anion Gap 6 (5-15); BUN/Creatinine Ratio 31.1 (10.0-20.0); Blood Urea Nitrogen 23 mg/dL (9-23); Calcium 8.9 mg/dL (8.7-10.4); Carbon Dioxide 29 mmol/L (20-31); Chloride 104 mmol/L (98-107); Magnesium 2.1 mg/dL (1.6-2.6); Potassium 4.5 mmol/L (3.5-5.1); Sodium 139 mmol/L (136-145)
[2024-11-04 05:46] LABS: Albumin 2.7 g/dL (3.2-4.8); Alkaline Phosphatase 45 U/L (46-116); Bilirubin, Total 0.3 mg/dL (0.2-1.0); Glucose 262 mg/dL (74-106); Total Protein 4.6 g/dL (5.7-8.2)
[2024-11-04] MEDS: FUROSEMIDE 20 MG TAB PO SCH (11:16)
--- NOTE | 2024-11-04 13:18 | DVHPN2 ---
Subjective Patient with a positive bowel movement, fluctuance. Reviewed: Care Plan, H&P, Labs, Medications, Previous Orders, Radiology Changes from previous H/P or p: No Changes General: Per HPI Eyes: No Pain, No Vision change, No Conjunctivae inflammation, No Eyelid inflammation, No Other, No Redness ENT: No Ear pain, No Ear discharge, No Nose pain, No Nose discharge, No Nose congestion, No Mouth pain, No Mouth swelling, No Throat pain, No Throat swelling, No Other Cardiovascular: No Chest Pain, No Palpitations, No Orthopnea, No Paroxysmal Noc. Dyspnea, No Edema, No Lt Headedness, No Other Respiratory: No Cough, No Dry; Shortness of breath; No SOB with excertion, No Wheezing, No Hemoptysis, No Pleuritic Pain, No Sputum, No Other Gastrointestinal: Nausea, Vomiting, Abdominal Pain, Diarrhea; No Constipation, No Melena, No Hematochezia, No Other Genitourinary: No Dysuria, No Frequency, No Incontinence, No Hematuria, No Retention, No Other Musculoskeletal: No other, No neck pain, No shoulder pain, No arm pain, No back pain, No hand pain, No leg pain, No foot pain Skin: No Rash, No Lesions, No Jaundice, No Bruising, No Other Objective Vitals Vital Signs Date Time Temp Pulse Resp B/P (MAP) Pulse Ox O2 Delivery O2 Flow Rate FiO2 11/04/24 13:06 98.1 79 20 114/73 (87) 97 98.1 11/04/24 10:23 Nasal Cannula 3.0 11/04/24 10:23 32 Intake/Output Intake and Output 11/04/24 07:00 Intake Total 2175 ml Output Total 750 ml Balance 1425 ml Intake Oral 950 ml IV Total 1225 ml Output Urine Total 750 ml # Voids 9 # Bowel Movements 11 General Appearance: Alert, Oriented X3, Cooperative, mild distress HEENT: Atraumatic, PERRLA Lungs: Other (Decreased breath sounds in bases. Nasal cannula 4 L/min) Cardiovascular: Regular rate, Normal S1, Normal S2 Abdomen: Other (Absent bowel sounds. Severely distended abdomen) Genitourinary: No Apparent Abnormalities Extremities: Normal pulses Neuro: Sensation intact, Cranial nerves 3-12 NL Skin: Dry, Intact Psych/Mental Status: Mental status NL, Mood NL Medications Current Medications Medications Dose Ordered Sig/Yari Route Start Time Stop Time Status Last Admin Dose Admin Pantoprazole Sodium 40 mg DAILY IV 10/24/24 10:00 11/04/24 11:15 40 MG Levofloxacin/ Dextrose 100 ml @ 100 mls/hr DAILY IV 10/24/24 10:00 11/04/24 11:16 100 MLS/HR Metronidazole 100 ml @ 100 mls/hr Q8HR IV 10/24/24 14:00 11/04/24 13:11 100 MLS/HR Albuterol 2.5 mg Q4HPRN PRN NEB 10/24/24 08:45 11/03/24 19:23 2.5 MG Ipratropium [place] 0.5 mg Q4HR NEB 10/24/24 10:00 11/04/24 10:23 0.5 MG Acetaminophen/ Hydrocodone Bitart 1 tab Q4HP PRN PO 10/24/24 08:45 11/04/24 00:45 1 TAB Ondansetron HCl 4 mg Q4HP PRN IV 10/24/24 08:45 10/25/24 11:29 4 MG Docusate Sodium 100 mg BIDPRN PRN PO 10/24/24 08:45 Acetaminophen 650 mg Q6HP PRN PO 10/24/24 08:45 Morphine Sulfate 2 mg Q4HPRN PRN IV 10/24/24 08:45 11/01/24 22:03 2 MG Atorvastatin Calcium 20 mg HS PO 10/24/24 22:00 11/03/24 21:48 20 MG Nitroglycerin 0.4 mg Q5MINP PRN SL 10/24/24 09:15 Morphine Sulfate 2 mg Q30M PRN IV 10/24/24 09:15 Phenol/Menthol 1 spr Q2HP PRN MT 10/26/24 18:45 10/29/24 01:45 1 SPR Budesonide 0.5 mg BID NEB 10/28/24 10:00 11/04/24 06:47 0.5 MG Amino Acids 0 ml @ 0 mls/hr PER PHARMACY IV 10/29/24 10:15 Sodium Chloride 10 ml QSHIFT@10,22 IV 10/29/24 22:00 11/04/24 11:15 10 ML Diagnostic Test (Pha) 1 strip Q6HR 11/01/24 12:00 11/04/24 11:17 1 STRIP Insulin Human Regular Q6HR SC 11/01/24 12:00 11/04/24 05:43 6 UNITS Dextrose 50 ml UD PRN IV 11/01/24 07:15 Mesalamine 800 mg TID PO 11/01/24 22:00 11/04/24 13:11 800 MG Methylprednisolone Sodium Succinate 40 mg BID IV 11/03/24 10:00 11/04/24 11:15 40 MG Fat Emulsion Intravenous 200 ml/Sodium Chloride 20 meq/ Potassium Phosphate 11 meq/ Magnesium Sulfate 8 meq/ Multivitamins 10 ml/Chromium/ Copper/Manganese/ Zinc 1 ml/Insulin Human Regular 8 units/Amino Acids/ Dextrose/Purified Water 1,770.58 ml @ 73 mls/hr [id number] IV 11/03/24 22:00 11/04/24 21:59 11/03/24 22:08 73 MLS/HR Furosemide 20 mg DAILY PO 11/04/24 10:00 11/04/24 11:16 20 MG Fat Emulsion Intravenous 200 ml/Sodium Chloride 20 meq/ Potassium Phosphate 11 meq/ Magnesium Sulfate 8 meq/ Multivitamins 10 ml/Chromium/ Copper/Manganese/ Zinc 1 ml/Insulin Human Regular 12 units/Amino Acids/ Dextrose/Purified Water 1,770.62 ml @ 72 mls/hr [id number] IV 11/04/24 22:00 11/05/24 21:59 Laboratory Results Laboratory Tests 11/03/24 04:05 11/04/24 03:51 Chemistry Test 11/04/24 03:51 Albumin 2.7 g/dL (3.2-4.8) L Calcium Level 8.9 mg/dL (8.7-10.4) Magnesium Level 2.1 mg/dL (1.6-2.6) Phosphorus Level 3.2 mg/dL (2.4-5.1) Total Protein 4.6 g/dL (5.7-8.2) L LFT Test 11/04/24 03:51 Alanine Aminotransferase (ALT) 25 U/L (7-40) Alkaline Phosphatase 45 U/L (46-116) L Aspartate Amino Transferase (AST) 22 U/L (13-40) Total Bilirubin 0.3 mg/dL (0.2-1.0) Urinalysis Test 10/24/24 12:35 Urine Color [place] (Yellow) H Urine Clarity Turbid (Clear) H Urine pH 5.5 (5.0-9.0) Urine Specific [place] 1.023 (1.001-1.035) Urine Protein 1+ (Negative) H Urine Ketones 2+ (Negative) H Urine Blood Negative /uL (Negative) Urine Nitrite Negative (Negative) Urine Bilirubin Negative (Negative) Urine Urobilinogen Normal mg/dL (Negative) Urine Leukocyte Esterase Trace /uL (Negative) Urine RBC 3 /hpf (0 - 3) Urine Microscopic WBC 11 /HPF (0-3) H Urine Squamous Epithelial Cells Few /hpf (<5) Urine Bacteria None seen /hpf (None Seen) Urine Hyaline Casts Many /lpf (0 - 2) Urine Mucus Few (None Seen) Urine Glucose Normal mg/dL (Normal) Microbiology Microbiology Date/Time Source Procedure Growth Status 10/28/24 18:50 Stool Stool Culture - Final Complete 10/28/24 18:50 Stool Shiga Toxin I & II - Final Complete 10/24/24 21:34 Nose MRSA Screen - Final Complete 10/24/24 03:10 Blood Blood Culture - Final NO GROWTH AFTER 5 DAYS OF INCUBATION. Complete Labs and/or images reviewed: Labs reviewed by me, Image(s) reviewed by me Assessment/Plan Assessment/Plan Impression: -septic shock -acute colitis, rule out acute gastric perforation -obesity -acute on chronic hypoxic respiratory failure -COPD -degenerative joint disease -probable ileus -ulcerative colitis Plan: Events: No events overnight. Patient is tolerating oral intake. Now on full liquid diet. -continue IV steroids, currently being tapered -O2 supplementation to keep saturation greater than 92% -continue bronchodilators, Pulmicort -continue antibiotic therapy with Levaquin and Flagyl -increase physical therapy -Discontinue TPN -consultations: Pulmonology, GI -repeat labs in a.m. -diurese Total time spent with patient discussing and formulating plan of care: 35 minutes. This medical document was created using an electronic medical record system with [employer] dictation system. Although this document has been carefully reviewed, there may still be some phonetic and typographical errors. These areas are purely typographical due to imperfections of the software programs, and do not reflect any compromise in the patient's medical care. Plan discussed with: Patient, Other (RN) My Orders Orders - ANAYA ONTIVEROS [employer]IST[employer] Procedure Category Date Status Time Furosemide Tablet PHA 11/04/24 In Process (Lasix Tablet) 10:00 Date of Service: Nov 04, 2024 Billing Provider: ANAYA ONTIVEROS NP Common Visit Codes: [id number] INP/OBS CARE(HIGH) ANAYA ONTIVEROS NP Nov 04, 2024 13:18
--- NOTE | 2024-11-04 17:30 | DVHPN2 ---
Progress Note - Dictate Date Seen: Nov 04, 2024 Medical Necessity Reason Pt with a Central, PICC or Fol: Yes Subjective Patient is clinically stable; downgraded to the floor IV Solu-Medrol 40 q.12 hours Is overall feeling better ; abdomen is less distended Patient continues to have diarrhea and is passing gas, multiple bowel movements noted Stool cultures were negative, stool for C diff negative vital signs Vital Sign Date Time Temp Pulse Resp B/P (MAP) Pulse Ox O2 Delivery O2 Flow Rate FiO2 11/04/24 16:59 97.6 90 19 138/91 (107) 93 97.6 11/04/24 13:58 Nasal Cannula 3.0 11/04/24 13:58 32 Total Intake and Output 11/03/24 11/03/24 11/04/24 15:00 23:00 07:00 Intake Total 100 ml 1150 ml 925 ml Output Total 750 ml Balance 100 ml 400 ml 925 ml medications Current Medications Medications Dose Ordered Sig/Yari Route Start Time Stop Time Status Last Admin Dose Admin Pantoprazole Sodium 40 mg DAILY IV 10/24/24 10:00 11/04/24 11:15 40 MG Levofloxacin/ Dextrose 100 ml @ 100 mls/hr DAILY IV 10/24/24 10:00 11/04/24 11:16 100 MLS/HR Metronidazole 100 ml @ 100 mls/hr Q8HR IV 10/24/24 14:00 11/04/24 13:11 100 MLS/HR Albuterol 2.5 mg Q4HPRN PRN NEB 10/24/24 08:45 11/03/24 19:23 2.5 MG Ipratropium [place] 0.5 mg Q4HR NEB 10/24/24 10:00 11/04/24 13:58 0.5 MG Acetaminophen/ Hydrocodone Bitart 1 tab Q4HP PRN PO 10/24/24 08:45 11/04/24 00:45 1 TAB Ondansetron HCl 4 mg Q4HP PRN IV 10/24/24 08:45 10/25/24 11:29 4 MG Docusate Sodium 100 mg BIDPRN PRN PO 10/24/24 08:45 Acetaminophen 650 mg Q6HP PRN PO 10/24/24 08:45 Morphine Sulfate 2 mg Q4HPRN PRN IV 10/24/24 08:45 11/01/24 22:03 2 MG Atorvastatin Calcium 20 mg HS PO 10/24/24 22:00 11/03/24 21:48 20 MG Nitroglycerin 0.4 mg Q5MINP PRN SL 10/24/24 09:15 Morphine Sulfate 2 mg Q30M PRN IV 10/24/24 09:15 Phenol/Menthol 1 spr Q2HP PRN MT 10/26/24 18:45 10/29/24 01:45 1 SPR Budesonide 0.5 mg BID NEB 10/28/24 10:00 11/04/24 06:47 0.5 MG Sodium Chloride 10 ml QSHIFT@10,22 IV 10/29/24 22:00 11/04/24 11:15 10 ML Mesalamine 800 mg TID PO 11/01/24 22:00 11/04/24 13:11 800 MG Methylprednisolone Sodium Succinate 40 mg BID IV 11/03/24 10:00 11/04/24 11:15 40 MG Furosemide 20 mg DAILY PO 11/04/24 10:00 11/04/24 11:16 20 MG objective VITAL SIGNS: Afebrile, stable signs. HEENT: There is no evidence of pallor, cyanosis, or jaundice. NECK: Supple and nontender with no thyromegaly or lymphadenopathy. CHEST AND LUNGS: Clear. HEART: Within normal limits. ABDOMEN: Soft and distended. He is morbidly obese. Difficult to evaluate, but minimally tender. No rebound. EXTREMITIES: Unremarkable. NEUROLOGIC: Alert and oriented x3, nonfocal laboratory and microbiology Laboratory Tests 11/04/24 03:51 11/03/24 04:05 Test 11/04/24 03:51 Range/Units Serum Glucose 262 H 74-106 mg/dL Problems(with codes): (1) Severe ulcerative colitis (2) Ileus (3) Leukocytosis, unspecified (4) Diverticulitis (5) Abdominal pain (6) Hypotension Prognosis Plan Patient had a formed bowel movement and is passing gas I will taper his spread Solu-Medrol to 40 mg once a day in the morning and then put him on oral prednisone 40 mg p.o. daily Mesalamine 800 mg p.o. 3 times a day Advance diet as tolerated if cleared by surgical consult Patient will likely need GI follow up as an outpatient and I will likely we will repeat a colonoscopy in about 6-8 weeks to re-evaluate his colitis Dietary Evaluation Review Comments: 1) Advance Diet as medically feasible 2) TPN to meet at leaast 75% estimated needs within 7 days Expected Outcomes/Goals: GI symptoms to improve To meet 75% estimated needs in 7 days FU 2-3 days Plan discussed with: Patient LAURITA RAMOS MD Nov 04, 2024 17:30
--- NOTE | 2024-11-04 17:52 | DVHPN2 ---
Progress Note Date Seen: Nov 04, 2024 Medical Necessity Reason Pt with a Central, PICC or Fol: Yes Objective vital signs Vital Sign Date Time Temp Pulse Resp B/P (MAP) Pulse Ox O2 Delivery O2 Flow Rate FiO2 11/04/24 16:59 97.6 90 19 138/91 (107) 93 97.6 11/04/24 13:58 Nasal Cannula 3.0 11/04/24 13:58 32 Total Intake and Output 11/03/24 11/03/24 11/04/24 15:00 23:00 07:00 Intake Total 100 ml 1150 ml 925 ml Output Total 750 ml Balance 100 ml 400 ml 925 ml medications Current Medications Medications Dose Ordered Sig/Yari Route Start Time Stop Time Status Last Admin Dose Admin Pantoprazole Sodium 40 mg DAILY IV 10/24/24 10:00 11/04/24 11:15 40 MG Levofloxacin/ Dextrose 100 ml @ 100 mls/hr DAILY IV 10/24/24 10:00 11/04/24 11:16 100 MLS/HR Metronidazole 100 ml @ 100 mls/hr Q8HR IV 10/24/24 14:00 11/04/24 13:11 100 MLS/HR Albuterol 2.5 mg Q4HPRN PRN NEB 10/24/24 08:45 11/03/24 19:23 2.5 MG Ipratropium [place] 0.5 mg Q4HR NEB 10/24/24 10:00 11/04/24 13:58 0.5 MG Acetaminophen/ Hydrocodone Bitart 1 tab Q4HP PRN PO 10/24/24 08:45 11/04/24 00:45 1 TAB Ondansetron HCl 4 mg Q4HP PRN IV 10/24/24 08:45 10/25/24 11:29 4 MG Docusate Sodium 100 mg BIDPRN PRN PO 10/24/24 08:45 Acetaminophen 650 mg Q6HP PRN PO 10/24/24 08:45 Morphine Sulfate 2 mg Q4HPRN PRN IV 10/24/24 08:45 11/01/24 22:03 2 MG Atorvastatin Calcium 20 mg HS PO 10/24/24 22:00 11/03/24 21:48 20 MG Nitroglycerin 0.4 mg Q5MINP PRN SL 10/24/24 09:15 Morphine Sulfate 2 mg Q30M PRN IV 10/24/24 09:15 Phenol/Menthol 1 spr Q2HP PRN MT 10/26/24 18:45 10/29/24 01:45 1 SPR Budesonide 0.5 mg BID NEB 10/28/24 10:00 11/04/24 06:47 0.5 MG Sodium Chloride 10 ml QSHIFT@10,22 IV 10/29/24 22:00 11/04/24 11:15 10 ML Mesalamine 800 mg TID PO 11/01/24 22:00 11/04/24 13:11 800 MG Methylprednisolone Sodium Succinate 40 mg BID IV 11/03/24 10:00 11/04/24 11:15 40 MG Furosemide 20 mg DAILY PO 11/04/24 10:00 11/04/24 11:16 20 MG laboratory and microbiology Laboratory Tests 11/04/24 03:51 11/03/24 04:05 Test 11/04/24 03:51 Range/Units Serum Glucose 262 H 74-106 mg/dL Microbiology Date/Time Source Procedure Growth Status 10/28/24 18:50 Stool Stool Culture - Final Complete 10/28/24 18:50 Stool Shiga Toxin I & II - Final Complete 10/24/24 21:34 Nose MRSA Screen - Final Complete 10/24/24 03:10 Blood Blood Culture - Final NO GROWTH AFTER 5 DAYS OF INCUBATION. Complete Problem List/Assessment/Plan Problem List/Assessment/Plan AFEBRILE VSS ABD SOFT NON DISTENDED BM + FLATUS + ADVANCE DIET JOHANA NURSE AT BEDSIDE Plan discussed with: Patient Dietary Evaluation Review Comments: 1) Advance Diet as medically feasible 2) TPN to meet at [facility] 75% estimated needs within 7 days Expected Outcomes/Goals: GI symptoms to improve To meet 75% estimated needs in 7 days FU 2-3 days LINDSAY RAMOS MD Nov 04, 2024 17:52
--- NOTE | 2024-11-04 21:15 | DVHPN2 ---
Progress Note - Dictate Date Seen: Nov 04, 2024 Medical Necessity Reason Pt with a Central, PICC or Fol: Yes vital signs Vital Sign Date Time Temp Pulse Resp B/P (MAP) Pulse Ox O2 Delivery O2 Flow Rate FiO2 11/04/24 18:47 89 18 98 11/04/24 18:40 Nasal Cannula 3.0 11/04/24 18:40 32 11/04/24 16:59 97.6 138/91 (107) 97.6 Total Intake and Output 11/03/24 11/03/24 11/04/24 15:00 23:00 07:00 Intake Total 100 ml 1150 ml 925 ml Output Total 750 ml Balance 100 ml 400 ml 925 ml medications Current Medications Medications Dose Ordered Sig/Yari Route Start Time Stop Time Status Last Admin Dose Admin Pantoprazole Sodium 40 mg DAILY IV 10/24/24 10:00 11/04/24 11:15 40 MG Levofloxacin/ Dextrose 100 ml @ 100 mls/hr DAILY IV 10/24/24 10:00 11/04/24 11:16 100 MLS/HR Metronidazole 100 ml @ 100 mls/hr Q8HR IV 10/24/24 14:00 11/04/24 13:11 100 MLS/HR Albuterol 2.5 mg Q4HPRN PRN NEB 10/24/24 08:45 11/03/24 19:23 2.5 MG Ipratropium [place] 0.5 mg Q4HR NEB 10/24/24 10:00 11/04/24 18:44 0.5 MG Acetaminophen/ Hydrocodone Bitart 1 tab Q4HP PRN PO 10/24/24 08:45 11/04/24 00:45 1 TAB Ondansetron HCl 4 mg Q4HP PRN IV 10/24/24 08:45 10/25/24 11:29 4 MG Docusate Sodium 100 mg BIDPRN PRN PO 10/24/24 08:45 Acetaminophen 650 mg Q6HP PRN PO 10/24/24 08:45 Morphine Sulfate 2 mg Q4HPRN PRN IV 10/24/24 08:45 11/01/24 22:03 2 MG Atorvastatin Calcium 20 mg HS PO 10/24/24 22:00 11/03/24 21:48 20 MG Nitroglycerin 0.4 mg Q5MINP PRN SL 10/24/24 09:15 Morphine Sulfate 2 mg Q30M PRN IV 10/24/24 09:15 Phenol/Menthol 1 spr Q2HP PRN MT 10/26/24 18:45 10/29/24 01:45 1 SPR Budesonide 0.5 mg BID NEB 10/28/24 10:00 11/04/24 06:47 0.5 MG Sodium Chloride 10 ml QSHIFT@10,22 IV 10/29/24 22:00 11/04/24 11:15 10 ML Mesalamine 800 mg TID PO 11/01/24 22:00 11/04/24 13:11 800 MG Methylprednisolone Sodium Succinate 40 mg BID IV 11/03/24 10:00 11/04/24 11:15 40 MG Furosemide 20 mg DAILY PO 11/04/24 10:00 11/04/24 11:16 20 MG laboratory and microbiology Laboratory Tests 11/04/24 03:51 11/03/24 04:05 Test 11/04/24 03:51 Range/Units Serum Glucose 262 H 74-106 mg/dL Assessment/Plan Impression: Acute hypoxic respiratory failure Dependence on supplemental oxygen Sepsis Colitis Diarrhea Shock Obesity Patient seen and examined Events: Low oxygen requirements On 2 liters nasal cannula No acute events NG tube in place Labs and imaging reviewed Management Supplemental oxygen Titrate to maintain sats 90% or above Incentive spirometry Bronchodilators PRN. Mucomyst, Pulmicort BID Continue antibiotics Continue steroids Incentive spirometry Pain control Avoid oversedation Continue physical therapy dvt proph Dietary Evaluation Review Comments: 1) Advance Diet as medically feasible 2) [facility] within 7 days Expected Outcomes/Goals: GI symptoms to improve To meet 75% estimated needs in 7 days FU 2-3 days Plan discussed with: Patient KELLY ABRAHAM MD Nov 04, 2024 21:15
[2024-11-04] MEDS ORDERED: TPN PER PHARMACY IV NR (22:00)
[2024-11-05] VITALS (13 sets, daily range): BP systolic 112–136; BP diastolic 56–89; PULSE 68–97; RESP 16–80; TEMP 97.6–98.4; O2SAT 95–100
--- NOTE | 2024-11-05 15:46 | DVHPN2 ---
Subjective Patient with a positive bowel movement, fluctuance. Reviewed: Care Plan, H&P, Labs, Medications, Previous Orders, Radiology Changes from previous H/P or p: No Changes General: Per HPI Eyes: No Pain, No Vision change, No Conjunctivae inflammation, No Eyelid inflammation, No Other, No Redness ENT: No Ear pain, No Ear discharge, No Nose pain, No Nose discharge, No Nose congestion, No Mouth pain, No Mouth swelling, No Throat pain, No Throat swelling, No Other Cardiovascular: No Chest Pain, No Palpitations, No Orthopnea, No Paroxysmal Noc. Dyspnea, No Edema, No Lt Headedness, No Other Respiratory: No Cough, No Dry; Shortness of breath; No SOB with excertion, No Wheezing, No Hemoptysis, No Pleuritic Pain, No Sputum, No Other Gastrointestinal: Nausea, Vomiting, Abdominal Pain, Diarrhea; No Constipation, No Melena, No Hematochezia, No Other Genitourinary: No Dysuria, No Frequency, No Incontinence, No Hematuria, No Retention, No Other Musculoskeletal: No other, No neck pain, No shoulder pain, No arm pain, No back pain, No hand pain, No leg pain, No foot pain Skin: No Rash, No Lesions, No Jaundice, No Bruising, No Other Objective Vitals Vital Signs Date Time Temp Pulse Resp B/P (MAP) Pulse Ox O2 Delivery O2 Flow Rate FiO2 11/05/24 10:30 87 19 117/56 95 3.0 11/05/24 10:00 Nasal Cannula 11/05/24 10:00 32 11/05/24 09:00 97.6 97.6 Intake/Output Intake and Output 11/05/24 07:00 Intake Total 2250 ml Output Total 1750 ml Balance 500 ml Intake Oral 1250 ml IV Total 1000 ml Output Urine Total 1750 ml # Bowel Movements 2 General Appearance: Alert, Oriented X3, Cooperative, mild distress HEENT: Atraumatic, PERRLA Lungs: Other (Decreased breath sounds in bases. Nasal cannula 4 L/min) Cardiovascular: Regular rate, Normal S1, Normal S2 Abdomen: Other (Abdominal distention resolved) Genitourinary: No Apparent Abnormalities Extremities: Normal pulses Neuro: Sensation intact, Cranial nerves 3-12 NL Skin: Dry, Intact Psych/Mental Status: Mental status NL, Mood NL Medications Current Medications Medications Dose Ordered Sig/Yari Route Start Time Stop Time Status Last Admin Dose Admin Pantoprazole Sodium 40 mg DAILY IV 10/24/24 10:00 11/05/24 10:08 40 MG Levofloxacin/ Dextrose 100 ml @ 100 mls/hr DAILY IV 10/24/24 10:00 11/04/24 11:16 100 MLS/HR Metronidazole 100 ml @ 100 mls/hr Q8HR IV 10/24/24 14:00 11/05/24 13:46 100 MLS/HR Albuterol 2.5 mg Q4HPRN PRN NEB 10/24/24 08:45 11/05/24 07:21 2.5 MG Ipratropium [place] 0.5 mg Q4HR NEB 10/24/24 10:00 11/05/24 07:22 0.5 MG Acetaminophen/ Hydrocodone Bitart 1 tab Q4HP PRN PO 10/24/24 08:45 11/04/24 00:45 1 TAB Ondansetron HCl 4 mg Q4HP PRN IV 10/24/24 08:45 10/25/24 11:29 4 MG Docusate Sodium 100 mg BIDPRN PRN PO 10/24/24 08:45 Acetaminophen 650 mg Q6HP PRN PO 10/24/24 08:45 Morphine Sulfate 2 mg Q4HPRN PRN IV 10/24/24 08:45 11/01/24 22:03 2 MG Atorvastatin Calcium 20 mg HS PO 10/24/24 22:00 11/04/24 22:24 20 MG Nitroglycerin 0.4 mg Q5MINP PRN SL 10/24/24 09:15 Morphine Sulfate 2 mg Q30M PRN IV 10/24/24 09:15 Phenol/Menthol 1 spr Q2HP PRN MT 10/26/24 18:45 10/29/24 01:45 1 SPR Budesonide 0.5 mg BID NEB 10/28/24 10:00 11/05/24 07:22 0.5 MG Sodium Chloride 10 ml QSHIFT@10,22 IV 10/29/24 22:00 11/05/24 10:08 10 ML Mesalamine 800 mg TID PO 11/01/24 22:00 11/05/24 13:46 800 MG Furosemide 20 mg DAILY PO 11/04/24 10:00 11/05/24 10:08 20 MG Methylprednisolone Sodium Succinate 40 mg DAILY IV 11/06/24 10:00 UNV Laboratory Results Laboratory Tests 11/03/24 04:05 11/04/24 03:51 Urinalysis Test 10/24/24 12:35 Urine Color [place] (Yellow) H Urine Clarity Turbid (Clear) H Urine pH 5.5 (5.0-9.0) Urine Specific [place] 1.023 (1.001-1.035) Urine Protein 1+ (Negative) H Urine Ketones 2+ (Negative) H Urine Blood Negative /uL (Negative) Urine Nitrite Negative (Negative) Urine Bilirubin Negative (Negative) Urine Urobilinogen Normal mg/dL (Negative) Urine Leukocyte Esterase Trace /uL (Negative) Urine RBC 3 /hpf (0 - 3) Urine Microscopic WBC 11 /HPF (0-3) H Urine Squamous Epithelial Cells Few /hpf (<5) Urine Bacteria None seen /hpf (None Seen) Urine Hyaline Casts Many /lpf (0 - 2) Urine Mucus Few (None Seen) Urine Glucose Normal mg/dL (Normal) Microbiology Microbiology Date/Time Source Procedure Growth Status 10/28/24 18:50 Stool Stool Culture - Final Complete 10/28/24 18:50 Stool Shiga Toxin I & II - Final Complete 10/24/24 21:34 Nose MRSA Screen - Final Complete 10/24/24 03:10 Blood Blood Culture - Final NO GROWTH AFTER 5 DAYS OF INCUBATION. Complete Labs and/or images reviewed: Labs reviewed by me, Image(s) reviewed by me Assessment/Plan Assessment/Plan Impression: -septic shock -acute colitis, rule out acute gastric perforation -obesity -acute on chronic hypoxic respiratory failure -COPD -degenerative joint disease -probable ileus -ulcerative colitis Plan: Events: No events overnight. KUB reveals that patient is distended transverse colon has resolved. Clinically, patient has no longer a distended abdomen. Patient noted to have swelling to upper and lower extremities. Echocardiogram reveals ejection fraction 55%. Continue tapering steroids. IV diuresis. Check CMP, CBC, BNP. Repeat chest x-ray. Advanced to consistent carbohydrate diet -continue IV steroids, currently being tapered -O2 supplementation to keep saturation greater than 92% -continue bronchodilators, Pulmicort -continue antibiotic therapy with Levaquin and Flagyl -increase physical therapy -consultations: Pulmonology, GI -repeat labs in a.m. Total time spent with patient discussing and formulating plan of care: 35 minutes. This medical document was created using an electronic medical record system with [employer] dictation system. Although this document has been carefully reviewed, there may still be some phonetic and typographical errors. These areas are purely typographical due to imperfections of the software programs, and do not reflect any compromise in the patient's medical care. Plan discussed with: Patient, Other (RN) My Orders Orders - ANAYA ONTIVEROS NP Procedure Category Date Status Time Kub Abdomen Single XY 11/05/24 Taken View 13:17 Hemoglobin A1c LAB 11/05/24 Logged 15:20 Consistent DIET 11/05/24 Transmitted Carb(Ccho)Diabetes Dinner Methylprednisolone PHA 11/06/24 Logged Sod Succ (Solu Medrol 10:00 Comprehensive LAB 11/05/24 Transmitted Metabolic Panel 15:39 Complete Blood Count LAB 11/05/24 Transmitted 15:39 Chest Xray 1 View XY 11/05/24 Logged 15:39 B-Type Natriuretic LAB 11/05/24 Transmitted Peptide 15:39 Echo 2d Mode Cardiac US 11/05/24 Logged DOP 15:39 Furosemide Injection PHA 11/05/24 Transmitted (Lasix Injection) 15:45 Date of Service: Nov 05, 2024 Billing Provider: ANAYA ONTIVEROS NP Common Visit Codes: [id number] INP/OBS CARE(HIGH) ANAYA ONTIVEROS NP Nov 05, 2024 15:46
[2024-11-05 15:53] LABS: Hematocrit 40.3 % (41.0-53.0); Hemoglobin 13.4 g/dL (13.5-17.5); Mean Corpuscular Hemoglobin 31.1 pg (28.0-32.0); Mean Corpuscular Volume 93.4 fL (80.0-100.0)
--- NOTE | 2024-11-05 15:54 | DVH ---
EXAM: XY KUB ABDOMEN SINGLE VIEW HISTORY: reassess ileus COMPARISON: XY KUB ABDOMEN SINGLE VIEW on DOS: 11/02/24, XY KUB ABDOMEN SINGLE VIEW on DOS: 11/01/24, X Y KUB ABDOMEN SINGLE VIEW on DOS: 10/31/24 TECHNIQUE: Single AP of the abdomen and pelvis was obtained. Findings: Frontal view of the abdomen demonstrates a paucity of bowel gas. No visualized renal calculi. There i s no evidence of an acute fracture, dislocation, blastic, or lytic lesions. The visualized portions of the lung bases are unremarkable. No radiopaque foreign bodies. No superficial soft tissue abnormalities. Impression: 1. Paucity of bowel gas. Cannot exclude fluid filled loops of dilated bowel.
[2024-11-05 16:11] LABS: Alanine Aminotransferase 40 U/L (7-40); Alkaline Phosphatase 58 U/L (46-116); Anion Gap 4 (5-15); BUN/Creatinine Ratio 22.5 (10.0-20.0); Bilirubin, Total 0.4 mg/dL (0.2-1.0); Blood Urea Nitrogen 18 mg/dL (9-23); Carbon Dioxide 29 mmol/L (20-31); Chloride 106 mmol/L (98-107); Potassium 4.7 mmol/L (3.5-5.1); Sodium 139 mmol/L (136-145)
[2024-11-05 16:12] LABS: Albumin 3.0 g/dL (3.2-4.8); Calcium 8.6 mg/dL (8.7-10.4); Glucose 175 mg/dL (74-106); Total Protein 5.2 g/dL (5.7-8.2)
[2024-11-05] MEDS: FUROSEMIDE 40 MG/4 ML VIAL IV ONE (16:38)
[2024-11-05 16:46] LABS: RBC Morphology Normal; Total Cells Counted 100.0 (100)
--- NOTE | 2024-11-05 16:52 | DVH ---
CHEST RADIOGRAPH Indication: chf Technique: Single frontal view of the chest was obtained COMPARISON: XY CHEST PORTABLE on DOS: 10/26/24 FINDINGS: Lines and Tubes: Right PICC in satisfactory position. Lungs: Increased interstitial prominence. Pleura: No effusion. No pneumothorax. Cardiomediastinal contours: Cardiomegaly Bones: Unremarkable IMPRESSION: Increased pulmonary vascular congestion. Right PICC in satisfactory position.
--- NOTE | 2024-11-05 17:08 | DVHPN2 ---
Progress Note - Dictate Date Seen: Nov 05, 2024 Medical Necessity Reason Pt with a Central, PICC or Fol: Yes vital signs Vital Sign Date Time Temp Pulse Resp B/P (MAP) Pulse Ox O2 Delivery O2 Flow Rate FiO2 11/05/24 17:00 98.1 78 18 136/75 (95) 98 98.1 11/05/24 10:30 3.0 11/05/24 10:00 Nasal Cannula 11/05/24 10:00 32 Total Intake and Output 11/04/24 11/04/24 11/05/24 15:00 23:00 07:00 Intake Total 2250 ml Output Total 600 ml 1150 ml Balance -600 ml 1100 ml medications Current Medications Medications Dose Ordered Sig/Yari Route Start Time Stop Time Status Last Admin Dose Admin Pantoprazole Sodium 40 mg DAILY IV 10/24/24 10:00 11/05/24 10:08 40 MG Levofloxacin/ Dextrose 100 ml @ 100 mls/hr DAILY IV 10/24/24 10:00 11/04/24 11:16 100 MLS/HR Metronidazole 100 ml @ 100 mls/hr Q8HR IV 10/24/24 14:00 11/05/24 13:46 100 MLS/HR Albuterol 2.5 mg Q4HPRN PRN NEB 10/24/24 08:45 11/05/24 07:21 2.5 MG Ipratropium [place] 0.5 mg Q4HR NEB 10/24/24 10:00 11/05/24 07:22 0.5 MG Acetaminophen/ Hydrocodone Bitart 1 tab Q4HP PRN PO 10/24/24 08:45 11/04/24 00:45 1 TAB Ondansetron HCl 4 mg Q4HP PRN IV 10/24/24 08:45 10/25/24 11:29 4 MG Docusate Sodium 100 mg BIDPRN PRN PO 10/24/24 08:45 Acetaminophen 650 mg Q6HP PRN PO 10/24/24 08:45 Morphine Sulfate 2 mg Q4HPRN PRN IV 10/24/24 08:45 11/01/24 22:03 2 MG Atorvastatin Calcium 20 mg HS PO 10/24/24 22:00 11/04/24 22:24 20 MG Nitroglycerin 0.4 mg Q5MINP PRN SL 10/24/24 09:15 Morphine Sulfate 2 mg Q30M PRN IV 10/24/24 09:15 Phenol/Menthol 1 spr Q2HP PRN MT 10/26/24 18:45 10/29/24 01:45 1 SPR Budesonide 0.5 mg BID NEB 10/28/24 10:00 11/05/24 07:22 0.5 MG Sodium Chloride 10 ml QSHIFT@10,22 IV 10/29/24 22:00 11/05/24 10:08 10 ML Mesalamine 800 mg TID PO 11/01/24 22:00 11/05/24 13:46 800 MG Furosemide 20 mg DAILY PO 11/04/24 10:00 11/05/24 10:08 20 MG Methylprednisolone Sodium Succinate 40 mg DAILY IV 11/06/24 10:00 laboratory and microbiology Laboratory Tests 11/05/24 15:43 Test 11/05/24 15:43 Range/Units Serum Glucose 175 H 74-106 mg/dL Assessment/Plan Impression: Acute hypoxic respiratory failure Dependence on supplemental oxygen Sepsis Colitis Diarrhea Shock Obesity Patient seen and examined Events: Low oxygen requirements On 3 liters nasal cannula- at baseline No distress Labs and imaging reviewed Management Supplemental oxygen Titrate to maintain sats 90% or above Incentive spirometry Bronchodilators PRN. Mucomyst, Pulmicort BID Continue antibiotics Continue steroids Incentive spirometry Pain control Avoid oversedation Okay to discharge from pulmonary standpoint Diet as tolerated dvt proph Dietary Evaluation Review Comments: 1) Advance Diet as medically feasible 2) TPN to meet [facility] 75% estimated needs within 7 days Expected Outcomes/Goals: GI symptoms to improve To meet 75% estimated needs in 7 days FU 2-3 days Plan discussed with: Patient KELLY ABRAHAM MD Nov 05, 2024 17:08
--- NOTE | 2024-11-05 21:19 | DVHPN2 ---
Progress Note - Dictate Date Seen: Nov 05, 2024 Medical Necessity Reason Pt with a Central, PICC or Fol: Yes Subjective Patient is clinically stable; doing much better Patient's abdomen is less distended areas moving his bowels Patient is currently on a carb controlled diet which he is tolerating Stool cultures were negative, stool for C diff negative; CRP was elevated to 19.5 vital signs Vital Sign Date Time Temp Pulse Resp B/P (MAP) Pulse Ox O2 Delivery O2 Flow Rate FiO2 11/05/24 18:31 97 Nasal Cannula 3.0 11/05/24 18:31 91 18 11/05/24 18:31 32 11/05/24 17:00 98.1 136/75 (95) 98.1 Total Intake and Output 11/04/24 11/04/24 11/05/24 15:00 23:00 07:00 Intake Total 2250 ml Output Total 600 ml 1150 ml Balance -600 ml 1100 ml medications Current Medications Medications Dose Ordered Sig/Yari Route Start Time Stop Time Status Last Admin Dose Admin Pantoprazole Sodium 40 mg DAILY IV 10/24/24 10:00 11/05/24 10:08 40 MG Levofloxacin/ Dextrose 100 ml @ 100 mls/hr DAILY IV 10/24/24 10:00 11/04/24 11:16 100 MLS/HR Metronidazole 100 ml @ 100 mls/hr Q8HR IV 10/24/24 14:00 11/05/24 13:46 100 MLS/HR Albuterol 2.5 mg Q4HPRN PRN NEB 10/24/24 08:45 11/05/24 07:21 2.5 MG Ipratropium [place] 0.5 mg Q4HR NEB 10/24/24 10:00 11/05/24 18:31 0.5 MG Acetaminophen/ Hydrocodone Bitart 1 tab Q4HP PRN PO 10/24/24 08:45 11/04/24 00:45 1 TAB Ondansetron HCl 4 mg Q4HP PRN IV 10/24/24 08:45 10/25/24 11:29 4 MG Docusate Sodium 100 mg BIDPRN PRN PO 10/24/24 08:45 Acetaminophen 650 mg Q6HP PRN PO 10/24/24 08:45 Morphine Sulfate 2 mg Q4HPRN PRN IV 10/24/24 08:45 11/01/24 22:03 2 MG Atorvastatin Calcium 20 mg HS PO 10/24/24 22:00 11/04/24 22:24 20 MG Nitroglycerin 0.4 mg Q5MINP PRN SL 10/24/24 09:15 Morphine Sulfate 2 mg Q30M PRN IV 10/24/24 09:15 Phenol/Menthol 1 spr Q2HP PRN MT 10/26/24 18:45 10/29/24 01:45 1 SPR Budesonide 0.5 mg BID NEB 10/28/24 10:00 11/05/24 18:31 0.5 MG Sodium Chloride 10 ml QSHIFT@10,22 IV 10/29/24 22:00 11/05/24 10:08 10 ML Mesalamine 800 mg TID PO 11/01/24 22:00 11/05/24 13:46 800 MG Furosemide 20 mg DAILY PO 11/04/24 10:00 11/05/24 10:08 20 MG Methylprednisolone Sodium Succinate 40 mg DAILY IV 11/06/24 10:00 Prednisone 40 mg DAILY PO 11/06/24 10:00 objective VITAL SIGNS: Afebrile, stable signs. HEENT: There is no evidence of pallor, cyanosis, or jaundice. NECK: Supple and nontender with no thyromegaly or lymphadenopathy. CHEST AND LUNGS: Clear. HEART: Within normal limits. ABDOMEN: Soft and distended. He is morbidly obese. Difficult to evaluate, but minimally tender. No rebound. EXTREMITIES: Unremarkable. NEUROLOGIC: Alert and oriented x3, nonfocal laboratory and microbiology Laboratory Tests 11/05/24 15:43 Test 11/05/24 15:43 Range/Units Serum Glucose 175 H 74-106 mg/dL Problems(with codes): (1) Severe ulcerative colitis (2) Ileus (3) Leukocytosis, unspecified (4) Abdominal pain Prognosis Plan I had decrease the Solu-Medrol to 40 mg once a day Tomorrow I will change him to prednisone 40 mg p.o. daily Mesalamine 800 mg p.o. three times a day Possible discharge planning as per hospitalist Patient will need to be discharged on mesalamine and prednisone at 20 mg p.o. daily Outpatient follow up with me in 1-2 weeks to continue to monitor this patient's and possible repeat attempt at colonoscopy in the future pending patient's clinical progress and improvement Dietary Evaluation Review Comments: 1) Advance Diet as medically feasible 2) TPN to meet at [facility] 75% estimated needs within 7 days Expected Outcomes/Goals: GI symptoms to improve To meet 75% estimated needs in 7 days FU 2-3 days Plan discussed with: Other (Dr Collin Berry) LAURITA BERRY MD Nov 05, 2024 21:19
[2024-11-06] VITALS (11 sets, daily range): BP systolic 102–131; BP diastolic 51–81; PULSE 68–99; RESP 14–19; TEMP 97.5–98.2; O2SAT 94–99
[2024-11-06] MEDS ORDERED: methylPREDNISolone SOD SUCC 40 MG/ML VL IV SCH (10:00)
--- NOTE | 2024-11-06 10:26 | DVHPN2 ---
Progress Note - Dictate Date Seen: Nov 06, 2024 Medical Necessity Reason Pt with a Central, PICC or Fol: Yes vital signs Vital Sign Date Time Temp Pulse Resp B/P (MAP) Pulse Ox O2 Delivery O2 Flow Rate FiO2 11/06/24 09:07 97.7 68 14 113/51 (71) 98 97.7 11/06/24 08:00 Nasal Cannula* 2 28 Total Intake and Output 11/05/24 11/05/24 11/06/24 14:59 22:59 06:59 Intake Total 1750 ml 780 ml Output Total 220 ml 1500 ml 875 ml Balance -220 ml 250 ml -95 ml medications Current Medications Medications Dose Ordered Sig/Yari Route Start Time Stop Time Status Last Admin Dose Admin Pantoprazole Sodium 40 mg DAILY IV 10/24/24 10:00 11/05/24 10:08 40 MG Levofloxacin/ Dextrose 100 ml @ 100 mls/hr DAILY IV 10/24/24 10:00 11/04/24 11:16 100 MLS/HR Metronidazole 100 ml @ 100 mls/hr Q8HR IV 10/24/24 14:00 11/06/24 05:31 100 MLS/HR Albuterol 2.5 mg Q4HPRN PRN NEB 10/24/24 08:45 11/05/24 07:21 2.5 MG Ipratropium [place] 0.5 mg Q4HR NEB 10/24/24 10:00 11/06/24 06:53 0.5 MG Acetaminophen/ Hydrocodone Bitart 1 tab Q4HP PRN PO 10/24/24 08:45 11/04/24 00:45 1 TAB Ondansetron HCl 4 mg Q4HP PRN IV 10/24/24 08:45 10/25/24 11:29 4 MG Docusate Sodium 100 mg BIDPRN PRN PO 10/24/24 08:45 Acetaminophen 650 mg Q6HP PRN PO 10/24/24 08:45 Morphine Sulfate 2 mg Q4HPRN PRN IV 10/24/24 08:45 11/01/24 22:03 2 MG Atorvastatin Calcium 20 mg HS PO 10/24/24 22:00 11/05/24 22:04 20 MG Nitroglycerin 0.4 mg Q5MINP PRN SL 10/24/24 09:15 Morphine Sulfate 2 mg Q30M PRN IV 10/24/24 09:15 Phenol/Menthol 1 spr Q2HP PRN MT 10/26/24 18:45 10/29/24 01:45 1 SPR Budesonide 0.5 mg BID NEB 10/28/24 10:00 11/06/24 06:53 0.5 MG Sodium Chloride 10 ml QSHIFT@10,22 IV 10/29/24 22:00 11/05/24 23:19 10 ML Mesalamine 800 mg TID PO 11/01/24 22:00 11/06/24 05:31 800 MG Methylprednisolone Sodium Succinate 40 mg DAILY IV 11/06/24 10:00 Prednisone 40 mg DAILY PO 11/06/24 10:00 Furosemide 40 mg DAILY IV 11/06/24 10:00 laboratory and microbiology Laboratory Tests 11/05/24 15:43 Test 11/05/24 15:43 Range/Units Serum Glucose 175 H 74-106 mg/dL Assessment/Plan Impression: Acute hypoxic respiratory failure Dependence on supplemental oxygen Sepsis Colitis Diarrhea Shock Obesity Patient seen and examined Events: Low oxygen requirements On 3 liters nasal cannula- at baseline No distress Labs and imaging reviewed Management Supplemental oxygen Titrate to maintain sats 90% or above Incentive spirometry Bronchodilators PRN. Mucomyst, Pulmicort BID Continue antibiotics Continue steroids Incentive spirometry Pain control Avoid oversedation Okay to discharge from pulmonary standpoint Diet as tolerated dvt proph Dietary Evaluation Review Comments: 1) Advance Diet as medically feasible 2) TPN to meet at [facility]% estimated needs within 7 days Expected Outcomes/Goals: GI symptoms to improve To meet 75% estimated needs in 7 days FU 2-3 days Plan discussed with: Patient KELLY ABRAHAM MD Nov 06, 2024 10:26
[2024-11-06] MEDS: predniSONE 20 MG TAB PO SCH (11:41)
[2024-11-06] MEDS: FUROSEMIDE 40 MG/4 ML VIAL IV SCH (11:47)
[2024-11-06 12:11] LABS: Chloride 102 mmol/L (98-107); Potassium 4.0 mmol/L (3.5-5.1); Sodium 141 mmol/L (136-145)
[2024-11-06 12:12] LABS: Anion Gap 5 (5-15)
[2024-11-06 12:13] LABS: Calcium 8.8 mg/dL (8.7-10.4); Carbon Dioxide 34 mmol/L (20-31)
[2024-11-06 12:17] LABS: BUN/Creatinine Ratio 24.7 (10.0-20.0); Blood Urea Nitrogen 20 mg/dL (9-23); Glucose 84 mg/dL (74-106)
--- NOTE | 2024-11-06 13:05 | DVHPN2 ---
Subjective Patient with a positive bowel movement, fluctuance. Reviewed: Care Plan, H&P, Labs, Medications, Previous Orders, Radiology Changes from previous H/P or p: No Changes General: Per HPI Eyes: No Pain, No Vision change, No Conjunctivae inflammation, No Eyelid inflammation, No Other, No Redness ENT: No Ear pain, No Ear discharge, No Nose pain, No Nose discharge, No Nose congestion, No Mouth pain, No Mouth swelling, No Throat pain, No Throat swelling, No Other Cardiovascular: No Chest Pain, No Palpitations, No Orthopnea, No Paroxysmal Noc. Dyspnea, No Edema, No Lt Headedness, No Other Respiratory: No Cough, No Dry; Shortness of breath; No SOB with excertion, No Wheezing, No Hemoptysis, No Pleuritic Pain, No Sputum, No Other Gastrointestinal: Nausea, Vomiting, Abdominal Pain, Diarrhea; No Constipation, No Melena, No Hematochezia, No Other Genitourinary: No Dysuria, No Frequency, No Incontinence, No Hematuria, No Retention, No Other Musculoskeletal: No other, No neck pain, No shoulder pain, No arm pain, No back pain, No hand pain, No leg pain, No foot pain Skin: No Rash, No Lesions, No Jaundice, No Bruising, No Other Objective Vitals Vital Signs Date Time Temp Pulse Resp B/P (MAP) Pulse Ox O2 Delivery O2 Flow Rate FiO2 11/06/24 11:47 113/51 11/06/24 10:00 96 Nasal Cannula 2.0 11/06/24 10:00 28 11/06/24 09:07 97.7 68 14 97.7 Intake/Output Intake and Output 11/06/24 07:00 Intake Total 2530 ml Output Total 2595 ml Balance -65 ml Intake Oral 2330 ml IV Total 200 ml Output Urine Total 2595 ml # Bowel Movements 4 General Appearance: Alert, Oriented X3, Cooperative, mild distress HEENT: Atraumatic, PERRLA Lungs: Other (Decreased breath sounds in bases. Nasal cannula 4 L/min) Cardiovascular: Regular rate, Normal S1, Normal S2 Abdomen: Other (Abdominal distention resolved) Genitourinary: No Apparent Abnormalities Extremities: Normal pulses, Other (Plus two pitting edema to lower extreme) Neuro: Sensation intact, Cranial nerves 3-12 NL Skin: Dry, Intact Psych/Mental Status: Mental status NL, Mood NL Medications Current Medications Medications Dose Ordered Sig/Yari Route Start Time Stop Time Status Last Admin Dose Admin Pantoprazole Sodium 40 mg DAILY IV 10/24/24 10:00 11/06/24 11:41 40 MG Levofloxacin/ Dextrose 100 ml @ 100 mls/hr DAILY IV 10/24/24 10:00 11/06/24 11:41 100 MLS/HR Metronidazole 100 ml @ 100 mls/hr Q8HR IV 10/24/24 14:00 11/06/24 05:31 100 MLS/HR Albuterol 2.5 mg Q4HPRN PRN NEB 10/24/24 08:45 11/05/24 07:21 2.5 MG Ipratropium [place] 0.5 mg Q4HR NEB 10/24/24 10:00 11/06/24 06:53 0.5 MG Acetaminophen/ Hydrocodone Bitart 1 tab Q4HP PRN PO 10/24/24 08:45 11/04/24 00:45 1 TAB Ondansetron HCl 4 mg Q4HP PRN IV 10/24/24 08:45 10/25/24 11:29 4 MG Docusate Sodium 100 mg BIDPRN PRN PO 10/24/24 08:45 Acetaminophen 650 mg Q6HP PRN PO 10/24/24 08:45 Morphine Sulfate 2 mg Q4HPRN PRN IV 10/24/24 08:45 11/01/24 22:03 2 MG Atorvastatin Calcium 20 mg HS PO 10/24/24 22:00 11/05/24 22:04 20 MG Nitroglycerin 0.4 mg Q5MINP PRN SL 10/24/24 09:15 Morphine Sulfate 2 mg Q30M PRN IV 10/24/24 09:15 Phenol/Menthol 1 spr Q2HP PRN MT 10/26/24 18:45 10/29/24 01:45 1 SPR Budesonide 0.5 mg BID NEB 10/28/24 10:00 11/06/24 06:53 0.5 MG Sodium Chloride 10 ml QSHIFT@10,22 IV 10/29/24 22:00 11/06/24 11:43 10 ML Mesalamine 800 mg TID PO 11/01/24 22:00 11/06/24 05:31 800 MG Prednisone 40 mg DAILY PO 11/06/24 10:00 11/06/24 11:41 40 MG Furosemide 40 mg DAILY IV 11/06/24 10:00 11/06/24 11:47 40 MG Laboratory Results Laboratory Tests 11/05/24 15:43 11/06/24 10:56 Chemistry Test 11/05/24 15:43 11/06/24 10:56 Albumin 3.0 g/dL (3.2-4.8) L Calcium Level 8.6 mg/dL (8.7-10.4) L 8.8 mg/dL (8.7-10.4) Total Protein 5.2 g/dL (5.7-8.2) L Cardiac Markers Test 11/05/24 15:43 B-Type Natriuretic Peptide 147.25 pg/mL (0-100) LFT Test 11/05/24 15:43 Alanine Aminotransferase (ALT) 40 U/L (7-40) Alkaline Phosphatase 58 U/L (46-116) Aspartate Amino Transferase (AST) 40 U/L (13-40) Total Bilirubin 0.4 mg/dL (0.2-1.0) HgA1c, TSH Test 11/05/24 15:43 Hemoglobin A1c 5.7 % A1C (<5.7) Urinalysis Test 10/24/24 12:35 Urine Color [place] (Yellow) H Urine Clarity Turbid (Clear) H Urine pH 5.5 (5.0-9.0) Urine Specific [place] 1.023 (1.001-1.035) Urine Protein 1+ (Negative) H Urine Ketones 2+ (Negative) H Urine Blood Negative /uL (Negative) Urine Nitrite Negative (Negative) Urine Bilirubin Negative (Negative) Urine Urobilinogen Normal mg/dL (Negative) Urine Leukocyte Esterase Trace /uL (Negative) Urine RBC 3 /hpf (0 - 3) Urine Microscopic WBC 11 /HPF (0-3) H Urine Squamous Epithelial Cells Few /hpf (<5) Urine Bacteria None seen /hpf (None Seen) Urine Hyaline Casts Many /lpf (0 - 2) Urine Mucus Few (None Seen) Urine Glucose Normal mg/dL (Normal) Microbiology Microbiology Date/Time Source Procedure Growth Status 10/28/24 18:50 Stool Stool Culture - Final Complete 10/28/24 18:50 Stool Shiga Toxin I & II - Final Complete 10/24/24 21:34 Nose MRSA Screen - Final Complete 10/24/24 03:10 Blood Blood Culture - Final NO GROWTH AFTER 5 DAYS OF INCUBATION. Complete Labs and/or images reviewed: Labs reviewed by me, Image(s) reviewed by me Assessment/Plan Assessment/Plan Impression: -septic shock -acute colitis, rule out acute gastric perforation -obesity -acute on chronic hypoxic respiratory failure -COPD -degenerative joint disease -probable ileus -ulcerative colitis Plan: Events: Patient with some pulmonary vascular congestion on chest x-ray. Patient with improved swelling to upper and lower extremities after starting IV diuresis yesterday. Echocardiogram from 10/24/2024 reveals normal ejection fraction. Swelling probably secondary to Solu-Medrol. Continue diuresis. -Solu-Medrol stopped. Prednisone 40 mg order daily -O2 supplementation to keep saturation greater than 92% -continue bronchodilators, Pulmicort -patient had full antibiotic course. Stop today. -increase physical therapy -consultations: Pulmonology, GI -repeat labs in a.m. Total time spent with patient discussing and formulating plan of care: 35 minutes. This medical document was created using an electronic medical record system with [employer] dictation system. Although this document has been carefully reviewed, there may still be some phonetic and typographical errors. These areas are purely typographical due to imperfections of the software programs, and do not reflect any compromise in the patient's medical care. Plan discussed with: Patient, Other (RN) My Orders Orders - ANAYA ONTIVEROS NP Procedure Category Date Status Time Kub Abdomen Single XY 11/05/24 Resulted View 13:17 Consistent DIET 11/05/24 Transmitted Carb(Ccho)Diabetes Dinner Chest Xray 1 View XY 11/05/24 Resulted 15:39 Furosemide Injection PHA 11/06/24 In Process (Lasix Injection) 10:00 Basic Metabolic Panel LAB 11/07/24 Verified 04:00 Magnesium LAB 11/07/24 Verified 04:00 Complete Blood Count LAB 11/07/24 Verified 04:00 Date of Service: Nov 06, 2024 Billing Provider: ANAYA ONTIVEROS NP Common Visit Codes: [id number] INP/OBS CARE(HIGH) ANAYA ONTIVEROS NP Nov 06, 2024 13:05
--- NOTE | 2024-11-06 16:12 | DVHPN2 ---
Progress Note - Dictate Date Seen: Nov 06, 2024 Medical Necessity Reason Pt with a Central, PICC or Fol: Yes Subjective Patient is clinically doing much better Patient's abdomen is less distended areas moving his bowels Patient is currently on a carb controlled diet which he is tolerating Stool cultures were negative, stool for C diff negative; CRP was elevated to 19.5 Patient had fluid overload with pedal edema and some pulmonary vascular congestion He has been started on IV diuresis and he is on oxygen supplementation Patient has started to ambulate with the assistance vital signs Vital Sign Date Time Temp Pulse Resp B/P (MAP) Pulse Ox O2 Delivery O2 Flow Rate FiO2 11/06/24 13:10 97.5 90 14 107/75 (86) 94 97.5 11/06/24 10:00 Nasal Cannula 2.0 11/06/24 10:00 28 Total Intake and Output 11/05/24 11/05/24 11/06/24 15:00 23:00 07:00 Intake Total 1750 ml 780 ml Output Total 220 ml 1500 ml 875 ml Balance -220 ml 250 ml -95 ml medications Current Medications Medications Dose Ordered Sig/Yari Route Start Time Stop Time Status Last Admin Dose Admin Albuterol 2.5 mg Q4HPRN PRN NEB 10/24/24 08:45 11/05/24 07:21 2.5 MG Ipratropium [place] 0.5 mg Q4HR NEB 10/24/24 10:00 11/06/24 06:53 0.5 MG Acetaminophen/ Hydrocodone Bitart 1 tab Q4HP PRN PO 10/24/24 08:45 11/04/24 00:45 1 TAB Ondansetron HCl 4 mg Q4HP PRN IV 10/24/24 08:45 10/25/24 11:29 4 MG Docusate Sodium 100 mg BIDPRN PRN PO 10/24/24 08:45 Acetaminophen 650 mg Q6HP PRN PO 10/24/24 08:45 Morphine Sulfate 2 mg Q4HPRN PRN IV 10/24/24 08:45 11/01/24 22:03 2 MG Atorvastatin Calcium 20 mg HS PO 10/24/24 22:00 11/05/24 22:04 20 MG Nitroglycerin 0.4 mg Q5MINP PRN SL 10/24/24 09:15 Morphine Sulfate 2 mg Q30M PRN IV 10/24/24 09:15 Phenol/Menthol 1 spr Q2HP PRN MT 10/26/24 18:45 10/29/24 01:45 1 SPR Budesonide 0.5 mg BID NEB 10/28/24 10:00 11/06/24 06:53 0.5 MG Sodium Chloride 10 ml QSHIFT@10,22 IV 10/29/24 22:00 11/06/24 11:43 10 ML Mesalamine 800 mg TID PO 11/01/24 22:00 11/06/24 15:49 800 MG Prednisone 40 mg DAILY PO 11/06/24 10:00 11/06/24 11:41 40 MG Furosemide 40 mg DAILY IV 11/06/24 10:00 11/06/24 11:47 40 MG objective VITAL SIGNS: Afebrile, stable signs. HEENT: There is no evidence of pallor, cyanosis, or jaundice. NECK: Supple and nontender with no thyromegaly or lymphadenopathy. CHEST AND LUNGS: Clear. HEART: Within normal limits. ABDOMEN: Soft and distended. He is morbidly obese. Difficult to evaluate, but minimally tender. No rebound. EXTREMITIES: Unremarkable. NEUROLOGIC: Alert and oriented x3, nonfocal laboratory and microbiology Laboratory Tests 11/06/24 10:56 11/05/24 15:43 Test 11/06/24 10:56 Range/Units Serum Glucose 84 74-106 mg/dL Problems(with codes): (1) Severe ulcerative colitis (2) Ileus (3) Leukocytosis, unspecified (4) Abdominal pain (5) Diverticulitis (6) Hypotension Prognosis Plan Mesalamine 800 mg p.o. three times a day Prednisone 40 mg p.o. daily I will taper that down slowly over the weekend Hopefully we can discharge him on mesalamine and oral prednisone at 20 milligrams/hour He can follow up in my office as an outpatient for ongoing management and monitoring of his ulcerative colitis Dietary Evaluation Review Comments: 1) Advance Diet as medically feasible 2) TPN to meet at leaast 75% estimated needs within 7 days Expected Outcomes/Goals: GI symptoms to improve To meet 75% estimated needs in 7 days FU 2-3 days Plan discussed with: Patient LAURITA RAMOS MD Nov 06, 2024 16:12
[2024-11-07] VITALS (14 sets, daily range): BP systolic 98–122; BP diastolic 56–73; PULSE 65–103; RESP 16–22; TEMP 97.7–98.2; O2SAT 94–100
[2024-11-07 07:53] LABS: Hematocrit 36.6 % (41.0-53.0); Hemoglobin 12.7 g/dL (13.5-17.5); Mean Corpuscular Hemoglobin 31.9 pg (28.0-32.0); Mean Corpuscular Volume 91.8 fL (80.0-100.0); Nucleated Red Blood Cells % 0.0 %
[2024-11-07 08:06] LABS: Calcium 9.3 mg/dL (8.7-10.4); Chloride 101 mmol/L (98-107); Potassium 4.0 mmol/L (3.5-5.1); Sodium 140 mmol/L (136-145)
[2024-11-07 08:07] LABS: Anion Gap 5 (5-15); Carbon Dioxide 34 mmol/L (20-31)
[2024-11-07 08:12] LABS: BUN/Creatinine Ratio 23.8 (10.0-20.0); Blood Urea Nitrogen 19 mg/dL (9-23)
[2024-11-07 08:14] LABS: Glucose 110 mg/dL (74-106)
[2024-11-07 08:45] LABS: Magnesium 2.2 mg/dL (1.6-2.6)
--- NOTE | 2024-11-07 11:32 | DVHPN2 ---
Progress Note Date Seen: Nov 07, 2024 Medical Necessity Reason Pt with a Central, PICC or Fol: Yes Objective vital signs Vital Sign Date Time Temp Pulse Resp B/P (MAP) Pulse Ox O2 Delivery O2 Flow Rate FiO2 11/07/24 10:33 122/62 11/07/24 10:00 96 Nasal Cannula* 2 28 11/07/24 08:36 97.7 83 20 97.7 Total Intake and Output 11/06/24 11/06/24 11/07/24 15:00 23:00 07:00 Intake Total 1200 ml 500 ml Output Total 1750 ml 1550 ml Balance -550 ml -1050 ml medications Current Medications Medications Dose Ordered Sig/Yari Route Start Time Stop Time Status Last Admin Dose Admin Albuterol 2.5 mg Q4HPRN PRN NEB 10/24/24 08:45 11/05/24 07:21 2.5 MG Acetaminophen/ Hydrocodone Bitart 1 tab Q4HP PRN PO 10/24/24 08:45 11/04/24 00:45 1 TAB Ondansetron HCl 4 mg Q4HP PRN IV 10/24/24 08:45 10/25/24 11:29 4 MG Docusate Sodium 100 mg BIDPRN PRN PO 10/24/24 08:45 Acetaminophen 650 mg Q6HP PRN PO 10/24/24 08:45 Morphine Sulfate 2 mg Q4HPRN PRN IV 10/24/24 08:45 11/01/24 22:03 2 MG Atorvastatin Calcium 20 mg HS PO 10/24/24 22:00 11/06/24 20:46 20 MG Nitroglycerin 0.4 mg Q5MINP PRN SL 10/24/24 09:15 Morphine Sulfate 2 mg Q30M PRN IV 10/24/24 09:15 Phenol/Menthol 1 spr Q2HP PRN MT 10/26/24 18:45 10/29/24 01:45 1 SPR Budesonide 0.5 mg BID NEB 10/28/24 10:00 11/07/24 06:54 0.5 MG Sodium Chloride 10 ml QSHIFT@10,22 IV 10/29/24 22:00 11/07/24 10:32 10 ML Mesalamine 800 mg TID PO 11/01/24 22:00 11/07/24 06:37 800 MG Prednisone 40 mg DAILY PO 11/06/24 10:00 11/07/24 10:33 40 MG Furosemide 40 mg DAILY IV 11/06/24 10:00 11/07/24 10:33 40 MG Ipratropium [place] 0.5 mg Q4HPRN PRN NEB 11/07/24 07:15 laboratory and microbiology Laboratory Tests 11/07/24 06:30 Test 11/07/24 06:30 Range/Units Serum Glucose 110 H 74-106 mg/dL Microbiology Date/Time Source Procedure Growth Status 10/28/24 18:50 Stool Stool Culture - Final Complete 10/28/24 18:50 Stool Shiga Toxin I & II - Final Complete 10/24/24 21:34 Nose MRSA Screen - Final Complete 10/24/24 03:10 Blood Blood Culture - Final NO GROWTH AFTER 5 DAYS OF INCUBATION. Complete Problem List/Assessment/Plan Problem List/Assessment/Plan AFEBRILE VSS ABD SOFT NON DISTENDED BM + FLATUS + ADVANCE DIET [facility] FAMILY AT BEDSIDE Plan discussed with: Patient Dietary Evaluation Review Comments: 1) Advance Diet as medically feasible 2) TPN to meet at leaast 75% estimated needs within 7 days Expected Outcomes/Goals: GI symptoms to improve To meet 75% estimated needs in 7 days FU 2-3 days LINDSAY RAMOS MD Nov 07, 2024 11:32
--- NOTE | 2024-11-07 14:15 | DVHPN2 ---
Subjective Thte patient seen and examined at bedside. Complains of shortness of breath. Reviewed: Care Plan, H&P, Labs, Medications, Previous Orders, Radiology Changes from previous H/P or p: No Changes General: Per HPI Eyes: No Pain, No Vision change, No Conjunctivae inflammation, No Eyelid inflammation, No Other, No Redness ENT: No Ear pain, No Ear discharge, No Nose pain, No Nose discharge, No Nose congestion, No Mouth pain, No Mouth swelling, No Throat pain, No Throat swelling, No Other Cardiovascular: No Chest Pain, No Palpitations, No Orthopnea, No Paroxysmal Noc. Dyspnea, No Edema, No Lt Headedness, No Other Respiratory: No Cough, No Dry; Shortness of breath; No SOB with excertion, No Wheezing, No Hemoptysis, No Pleuritic Pain, No Sputum, No Other Gastrointestinal: Nausea, Vomiting, Abdominal Pain, Diarrhea; No Constipation, No Melena, No Hematochezia, No Other Genitourinary: No Dysuria, No Frequency, No Incontinence, No Hematuria, No Retention, No Other Musculoskeletal: No other, No neck pain, No shoulder pain, No arm pain, No back pain, No hand pain, No leg pain, No foot pain Skin: No Rash, No Lesions, No Jaundice, No Bruising, No Other Objective Vitals Vital Signs Date Time Temp Pulse Resp B/P (MAP) Pulse Ox O2 Delivery O2 Flow Rate FiO2 11/07/24 13:00 98.0 103 22 98/73 (81) 94 98.0 11/07/24 10:00 Nasal Cannula* 2 28 Intake/Output Intake and Output 11/07/24 07:00 Intake Total 1700 ml Output Total 3300 ml Balance -1600 ml Intake Oral 1700 ml Output Urine Total 3300 ml # Voids 6 # Bowel Movements 2 General Appearance: Alert, Oriented X3, Cooperative, mild distress HEENT: Atraumatic, PERRLA Lungs: Other (Decreased breath sounds in bases. Nasal cannula 4 L/min) Cardiovascular: Regular rate, Normal S1, Normal S2 Abdomen: Other (Abdominal distention resolved) Genitourinary: No Apparent Abnormalities Extremities: Normal pulses, Other (Plus two pitting edema to lower extreme) Neuro: Sensation intact, Cranial nerves 3-12 NL Skin: Dry, Intact Psych/Mental Status: Mental status NL, Mood NL Medications Current Medications Medications Dose Ordered Sig/Yari Route Start Time Stop Time Status Last Admin Dose Admin Albuterol 2.5 mg Q4HPRN PRN NEB 10/24/24 08:45 11/05/24 07:21 2.5 MG Acetaminophen/ Hydrocodone Bitart 1 tab Q4HP PRN PO 10/24/24 08:45 11/04/24 00:45 1 TAB Ondansetron HCl 4 mg Q4HP PRN IV 10/24/24 08:45 10/25/24 11:29 4 MG Docusate Sodium 100 mg BIDPRN PRN PO 10/24/24 08:45 Acetaminophen 650 mg Q6HP PRN PO 10/24/24 08:45 Morphine Sulfate 2 mg Q4HPRN PRN IV 10/24/24 08:45 11/01/24 22:03 2 MG Atorvastatin Calcium 20 mg HS PO 10/24/24 22:00 11/06/24 20:46 20 MG Nitroglycerin 0.4 mg Q5MINP PRN SL 10/24/24 09:15 Morphine Sulfate 2 mg Q30M PRN IV 10/24/24 09:15 Phenol/Menthol 1 spr Q2HP PRN MT 10/26/24 18:45 10/29/24 01:45 1 SPR Budesonide 0.5 mg BID NEB 10/28/24 10:00 11/07/24 06:54 0.5 MG Sodium Chloride 10 ml QSHIFT@10,22 IV 10/29/24 22:00 11/07/24 10:32 10 ML Mesalamine 800 mg TID PO 11/01/24 22:00 11/07/24 06:37 800 MG Prednisone 40 mg DAILY PO 11/06/24 10:00 11/07/24 10:33 40 MG Furosemide 40 mg DAILY IV 11/06/24 10:00 11/07/24 10:33 40 MG Ipratropium [place] 0.5 mg Q4HPRN PRN NEB 11/07/24 07:15 Laboratory Results Laboratory Tests 11/07/24 06:30 Chemistry Test 11/07/24 06:30 Calcium Level 9.3 mg/dL (8.7-10.4) Magnesium Level 2.2 mg/dL (1.6-2.6) Urinalysis Test 10/24/24 12:35 Urine Color [place] (Yellow) H Urine Clarity Turbid (Clear) H Urine pH 5.5 (5.0-9.0) Urine Specific [place] 1.023 (1.001-1.035) Urine Protein 1+ (Negative) H Urine Ketones 2+ (Negative) H Urine Blood Negative /uL (Negative) Urine Nitrite Negative (Negative) Urine Bilirubin Negative (Negative) Urine Urobilinogen Normal mg/dL (Negative) Urine Leukocyte Esterase Trace /uL (Negative) Urine RBC 3 /hpf (0 - 3) Urine Microscopic WBC 11 /HPF (0-3) H Urine Squamous Epithelial Cells Few /hpf (<5) Urine Bacteria None seen /hpf (None Seen) Urine Hyaline Casts Many /lpf (0 - 2) Urine Mucus Few (None Seen) Urine Glucose Normal mg/dL (Normal) Microbiology Microbiology Date/Time Source Procedure Growth Status 10/28/24 18:50 Stool Stool Culture - Final Complete 10/28/24 18:50 Stool Shiga Toxin I & II - Final Complete 10/24/24 21:34 Nose MRSA Screen - Final Complete 10/24/24 03:10 Blood Blood Culture - Final NO GROWTH AFTER 5 DAYS OF INCUBATION. Complete Labs and/or images reviewed: Labs reviewed by me Assessment/Plan Assessment/Plan -septic shock -acute colitis, rule out acute gastric perforation -obesity -acute on chronic hypoxic respiratory failure -COPD -degenerative joint disease -probable ileus -ulcerative colitis Plan: Continue current management. Continue IV lasix. Continue Prednisone. Continue physical therapy. Continue oxygen supplement. Appreciate Pulm input. This medical document was created using an electronic medical record system with [employer] computerized dictation system. Although this document has been carefully reviewed, there may still be some phonetic and typographical errors. These areas are purely typographical due to imperfections of the software programs, and do not reflect any compromise in the patient's medical care. Plan discussed with: Patient Date of Service: Nov 09, 2024 Billing Provider: ALEX CHACON MD Common Visit Codes: [id number] INP/OBS CARE(HIGH) ALEX CHACON MD Nov 07, 2024 14:15
--- NOTE | 2024-11-07 14:32 | DVHPN2 ---
Progress Note - Dictate Date Seen: Nov 07, 2024 Medical Necessity Reason Pt with a Central, PICC or Fol: Yes vital signs Vital Sign Date Time Temp Pulse Resp B/P (MAP) Pulse Ox O2 Delivery O2 Flow Rate FiO2 11/07/24 13:00 98.0 103 22 98/73 (81) 94 98.0 11/07/24 10:00 Nasal Cannula* 2 28 Total Intake and Output 11/06/24 11/06/24 11/07/24 15:00 23:00 07:00 Intake Total 1200 ml 500 ml Output Total 1750 ml 1550 ml Balance -550 ml -1050 ml medications Current Medications Medications Dose Ordered Sig/Yari Route Start Time Stop Time Status Last Admin Dose Admin Albuterol 2.5 mg Q4HPRN PRN NEB 10/24/24 08:45 11/05/24 07:21 2.5 MG Acetaminophen/ Hydrocodone Bitart 1 tab Q4HP PRN PO 10/24/24 08:45 11/04/24 00:45 1 TAB Ondansetron HCl 4 mg Q4HP PRN IV 10/24/24 08:45 10/25/24 11:29 4 MG Docusate Sodium 100 mg BIDPRN PRN PO 10/24/24 08:45 Acetaminophen 650 mg Q6HP PRN PO 10/24/24 08:45 Morphine Sulfate 2 mg Q4HPRN PRN IV 10/24/24 08:45 11/01/24 22:03 2 MG Atorvastatin Calcium 20 mg HS PO 10/24/24 22:00 11/06/24 20:46 20 MG Nitroglycerin 0.4 mg Q5MINP PRN SL 10/24/24 09:15 Morphine Sulfate 2 mg Q30M PRN IV 10/24/24 09:15 Phenol/Menthol 1 spr Q2HP PRN MT 10/26/24 18:45 10/29/24 01:45 1 SPR Budesonide 0.5 mg BID NEB 10/28/24 10:00 11/07/24 06:54 0.5 MG Sodium Chloride 10 ml QSHIFT@10,22 IV 10/29/24 22:00 11/07/24 10:32 10 ML Mesalamine 800 mg TID PO 11/01/24 22:00 11/07/24 14:17 800 MG Prednisone 40 mg DAILY PO 11/06/24 10:00 11/07/24 10:33 40 MG Furosemide 40 mg DAILY IV 11/06/24 10:00 11/07/24 10:33 40 MG Ipratropium [place] 0.5 mg Q4HPRN PRN NEB 11/07/24 07:15 laboratory and microbiology Laboratory Tests 11/07/24 06:30 Test 11/07/24 06:30 Range/Units Serum Glucose 110 H 74-106 mg/dL Assessment/Plan Impression: Acute hypoxic respiratory failure Dependence on supplemental oxygen Sepsis Colitis Diarrhea Shock Obesity Patient seen and examined Events: Low oxygen requirements On 3 liters nasal cannula- at baseline No acute events Labs and imaging reviewed Management Supplemental oxygen Titrate to maintain sats 90% or above Incentive spirometry Bronchodilators PRN. Mucomyst, Pulmicort BID Continue antibiotics Continue steroids Incentive spirometry Pain control Avoid oversedation Diet as tolerated Disposition per primary dvt proph Dietary Evaluation Review Comments: 1) Advance Diet as medically feasible 2) TPN to meet at leaast 75% estimated needs within 7 days Expected Outcomes/Goals: GI symptoms to improve To meet 75% estimated needs in 7 days FU 2-3 days Plan discussed with: Patient KELLY ABRAHAM MD Nov 07, 2024 14:32
--- NOTE | 2024-11-07 17:01 | DVHPN2 ---
Progress Note - Dictate Date Seen: Nov 07, 2024 Medical Necessity Reason Pt with a Central, PICC or Fol: Yes Subjective No new complaints, patient is feeling better Patient is currently on a carb controlled diet which he is tolerating Two bowel movements recorded Stool cultures were negative, stool for C diff negative; CRP was elevated to 19.5 Patient had fluid overload with pedal edema and some pulmonary vascular congestion He has been started on IV diuresis and he is on oxygen supplementation Patient has started to ambulate with the assistance vital signs Vital Sign Date Time Temp Pulse Resp B/P (MAP) Pulse Ox O2 Delivery O2 Flow Rate FiO2 11/07/24 13:00 98.0 103 22 98/73 (81) 94 98.0 11/07/24 10:30 2.0 28 11/07/24 10:00 Nasal Cannula* Total Intake and Output 11/06/24 11/06/24 11/07/24 15:00 23:00 07:00 Intake Total 1200 ml 500 ml Output Total 1750 ml 1550 ml Balance -550 ml -1050 ml medications Current Medications Medications Dose Ordered Sig/Yari Route Start Time Stop Time Status Last Admin Dose Admin Albuterol 2.5 mg Q4HPRN PRN NEB 10/24/24 08:45 11/05/24 07:21 2.5 MG Acetaminophen/ Hydrocodone Bitart 1 tab Q4HP PRN PO 10/24/24 08:45 11/04/24 00:45 1 TAB Ondansetron HCl 4 mg Q4HP PRN IV 10/24/24 08:45 10/25/24 11:29 4 MG Docusate Sodium 100 mg BIDPRN PRN PO 10/24/24 08:45 Acetaminophen 650 mg Q6HP PRN PO 10/24/24 08:45 Morphine Sulfate 2 mg Q4HPRN PRN IV 10/24/24 08:45 11/01/24 22:03 2 MG Atorvastatin Calcium 20 mg HS PO 10/24/24 22:00 11/06/24 20:46 20 MG Nitroglycerin 0.4 mg Q5MINP PRN SL 10/24/24 09:15 Morphine Sulfate 2 mg Q30M PRN IV 10/24/24 09:15 Phenol/Menthol 1 spr Q2HP PRN MT 10/26/24 18:45 10/29/24 01:45 1 SPR Budesonide 0.5 mg BID NEB 10/28/24 10:00 11/07/24 06:54 0.5 MG Sodium Chloride 10 ml QSHIFT@10,22 IV 10/29/24 22:00 11/07/24 10:32 10 ML Mesalamine 800 mg TID PO 11/01/24 22:00 11/07/24 14:17 800 MG Prednisone 40 mg DAILY PO 11/06/24 10:00 11/07/24 10:33 40 MG Furosemide 40 mg DAILY IV 11/06/24 10:00 11/07/24 10:33 40 MG Ipratropium [place] 0.5 mg Q4HPRN PRN NEB 11/07/24 07:15 objective VITAL SIGNS: Afebrile, stable signs. HEENT: There is no evidence of pallor, cyanosis, or jaundice. NECK: Supple and nontender with no thyromegaly or lymphadenopathy. CHEST AND LUNGS: Clear. HEART: Within normal limits. ABDOMEN: Soft and distended. He is morbidly obese. Difficult to evaluate, but minimally tender. No rebound. EXTREMITIES: Unremarkable. NEUROLOGIC: Alert and oriented x3, nonfocal laboratory and microbiology Laboratory Tests 11/07/24 06:30 Test 11/07/24 06:30 Range/Units Serum Glucose 110 H 74-106 mg/dL Problems(with codes): (1) Severe ulcerative colitis (2) Ileus (3) Leukocytosis, unspecified (4) Abdominal pain (5) Diverticulitis Prognosis Plan Decrease prednisone to 30 mg p.o. daily Continue mesalamine 800 mg p.o. three times a day Ambulate patient, physical therapy Patient is getting breathing treatments and also low-dose diuresis Outpatient follow up with GI Services upon discharge Dietary Evaluation Review Comments: 1) Advance Diet as medically feasible 2) TPN to meet at leaast 75% estimated needs within 7 days Expected Outcomes/Goals: GI symptoms to improve To meet 75% estimated needs in 7 days FU 2-3 days Plan discussed with: Other (Dr Collin Berry) LAURITA BERRY MD Nov 07, 2024 17:01
[2024-11-07] MEDS: ACETAMINOPHEN 325 MG TAB PO PRN (21:42)
[2024-11-08] VITALS (13 sets, daily range): BP systolic 103–122; BP diastolic 65–70; PULSE 65–91; RESP 16–19; TEMP 97.3–98.6; O2SAT 94–100
[2024-11-08] MEDS: predniSONE 20 MG TAB PO SCH (09:46)
[2024-11-08] MEDS: IPRATROPIUM BROM 0.5 MG/2.5ML INH SOL NEB PRN (11:35)
--- NOTE | 2024-11-08 15:15 | DVHPN2 ---
Subjective The patient is seen and examined at bedside. Complain of being tired. Reviewed: Care Plan, H&P, Labs, Medications, Previous Orders, Radiology Changes from previous H/P or p: No Changes General: Per HPI Eyes: No Pain, No Vision change, No Conjunctivae inflammation, No Eyelid inflammation, No Other, No Redness ENT: No Ear pain, No Ear discharge, No Nose pain, No Nose discharge, No Nose congestion, No Mouth pain, No Mouth swelling, No Throat pain, No Throat swelling, No Other Cardiovascular: No Chest Pain, No Palpitations, No Orthopnea, No Paroxysmal Noc. Dyspnea, No Edema, No Lt Headedness, No Other Respiratory: No Cough, No Dry; Shortness of breath; No SOB with excertion, No Wheezing, No Hemoptysis, No Pleuritic Pain, No Sputum, No Other Gastrointestinal: Nausea, Vomiting, Abdominal Pain, Diarrhea; No Constipation, No Melena, No Hematochezia, No Other Genitourinary: No Dysuria, No Frequency, No Incontinence, No Hematuria, No Retention, No Other Musculoskeletal: No other, No neck pain, No shoulder pain, No arm pain, No back pain, No hand pain, No leg pain, No foot pain Skin: No Rash, No Lesions, No Jaundice, No Bruising, No Other Objective Vitals Vital Signs Date Time Temp Pulse Resp B/P (MAP) Pulse Ox O2 Delivery O2 Flow Rate FiO2 11/08/24 14:12 119/65 11/08/24 12:53 97.6 76 19 96 97.6 11/08/24 11:35 Nasal Cannula 2.0 11/08/24 11:35 28 Intake/Output Intake and Output 11/08/24 07:00 Intake Total 2085 ml Output Total 3075 ml Balance -990 ml Intake Oral 2085 ml Output Urine Total 3075 ml # Bowel Movements 3 General Appearance: Alert, Oriented X3, Cooperative, mild distress HEENT: Atraumatic, PERRLA Lungs: Other (Decreased breath sounds in bases. Nasal cannula 4 L/min) Cardiovascular: Regular rate, Normal S1, Normal S2 Abdomen: Other (Abdominal distention resolved) Genitourinary: No Apparent Abnormalities Extremities: Normal pulses, Other (Plus two pitting edema to lower extreme) Neuro: Sensation intact, Cranial nerves 3-12 NL Skin: Dry, Intact Psych/Mental Status: Mental status NL, Mood NL Medications Current Medications Medications Dose Ordered Sig/Yari Route Start Time Stop Time Status Last Admin Dose Admin Albuterol 2.5 mg Q4HPRN PRN NEB 10/24/24 08:45 11/08/24 11:35 2.5 MG Acetaminophen/ Hydrocodone Bitart 1 tab Q4HP PRN PO 10/24/24 08:45 11/04/24 00:45 1 TAB Ondansetron HCl 4 mg Q4HP PRN IV 10/24/24 08:45 10/25/24 11:29 4 MG Docusate Sodium 100 mg BIDPRN PRN PO 10/24/24 08:45 Acetaminophen 650 mg Q6HP PRN PO 10/24/24 08:45 11/07/24 21:42 650 MG Morphine Sulfate 2 mg Q4HPRN PRN IV 10/24/24 08:45 11/01/24 22:03 2 MG Atorvastatin Calcium 20 mg HS PO 10/24/24 22:00 11/07/24 22:00 20 MG Nitroglycerin 0.4 mg Q5MINP PRN SL 10/24/24 09:15 Morphine Sulfate 2 mg Q30M PRN IV 10/24/24 09:15 Phenol/Menthol 1 spr Q2HP PRN MT 10/26/24 18:45 10/29/24 01:45 1 SPR Budesonide 0.5 mg BID NEB 10/28/24 10:00 11/08/24 06:50 0.5 MG Sodium Chloride 10 ml QSHIFT@10,22 IV 10/29/24 22:00 11/08/24 14:12 10 ML Mesalamine 800 mg TID PO 11/01/24 22:00 11/08/24 14:13 800 MG Furosemide 40 mg DAILY IV 11/06/24 10:00 11/08/24 14:12 40 MG Ipratropium [place] 0.5 mg Q4HPRN PRN NEB 11/07/24 07:15 11/08/24 11:35 0.5 MG Prednisone 30 mg DAILY PO 11/08/24 10:00 11/08/24 09:46 30 MG Laboratory Results Laboratory Tests 11/07/24 06:30 Urinalysis Test 10/24/24 12:35 Urine Color [place] (Yellow) H Urine Clarity Turbid (Clear) H Urine pH 5.5 (5.0-9.0) Urine Specific [place] 1.023 (1.001-1.035) Urine Protein 1+ (Negative) H Urine Ketones 2+ (Negative) H Urine Blood Negative /uL (Negative) Urine Nitrite Negative (Negative) Urine Bilirubin Negative (Negative) Urine Urobilinogen Normal mg/dL (Negative) Urine Leukocyte Esterase Trace /uL (Negative) Urine RBC 3 /hpf (0 - 3) Urine Microscopic WBC 11 /HPF (0-3) H Urine Squamous Epithelial Cells Few /hpf (<5) Urine Bacteria None seen /hpf (None Seen) Urine Hyaline Casts Many /lpf (0 - 2) Urine Mucus Few (None Seen) Urine Glucose Normal mg/dL (Normal) Microbiology Microbiology Date/Time Source Procedure Growth Status 10/28/24 18:50 Stool Stool Culture - Final Complete 10/28/24 18:50 Stool Shiga Toxin I & II - Final Complete 10/24/24 21:34 Nose MRSA Screen - Final Complete 10/24/24 03:10 Blood Blood Culture - Final NO GROWTH AFTER 5 DAYS OF INCUBATION. Complete Labs and/or images reviewed: Labs reviewed by me Assessment/Plan Assessment/Plan -septic shock -acute colitis, rule out acute gastric perforation -obesity -acute on chronic hypoxic respiratory failure -COPD -degenerative joint disease -probable ileus -ulcerative colitis Plan: Continue current management. Continue IV lasix. Continue Prednisone. Continue physical therapy. Continue oxygen supplement. Appreciate Pulm input. Discharge planning This medical document was created using an electronic medical record system with [employer] direct computerized dictation system. Although this document has been carefully reviewed, there may still be some phonetic and typographical errors. These areas are purely typographical due to imperfections of the software programs, and do not reflect any compromise in the patient's medical care. Plan discussed with: Patient Date of Service: Nov 08, 2024 Billing Provider: ALEX CHACON MD Common Visit Codes: [id number] INP/OBS CARE(HIGH) ALEX CHACON MD Nov 08, 2024 15:15
[2024-11-09] VITALS (11 sets, daily range): BP systolic 101–131; BP diastolic 53–86; PULSE 64–119; RESP 14–18; TEMP 36.5; O2SAT 90–100
[2024-11-09] MEDS ORDERED: PRED20TA2 PO ×2 (12:10→15:15)
[2024-11-09] MEDS ORDERED: MESA800T9 PO (12:10)
--- NOTE | 2024-11-09 12:49 | DVHPN2 ---
Progress Note - Dictate Date Seen: Nov 09, 2024 Medical Necessity Reason Pt with a Central, PICC or Fol: Yes vital signs Vital Sign Date Time Temp Pulse Resp B/P (MAP) Pulse Ox O2 Delivery O2 Flow Rate FiO2 11/09/24 10:29 64 16 100 11/09/24 10:21 Nasal Cannula* 2 28 11/09/24 10:00 89/53 11/09/24 09:30 97.7 97.7 Total Intake and Output 11/08/24 11/08/24 11/09/24 15:00 23:00 07:00 Intake Total 980 ml 600 ml Output Total 1080 ml 900 ml Balance -100 ml -300 ml medications Current Medications Medications Dose Ordered Sig/Yari Route Start Time Stop Time Status Last Admin Dose Admin Albuterol 2.5 mg Q4HPRN PRN NEB 10/24/24 08:45 11/09/24 10:21 2.5 MG Acetaminophen/ Hydrocodone Bitart 1 tab Q4HP PRN PO 10/24/24 08:45 11/08/24 22:32 1 TAB Ondansetron HCl 4 mg Q4HP PRN IV 10/24/24 08:45 10/25/24 11:29 4 MG Docusate Sodium 100 mg BIDPRN PRN PO 10/24/24 08:45 Acetaminophen 650 mg Q6HP PRN PO 10/24/24 08:45 11/08/24 16:49 650 MG Morphine Sulfate 2 mg Q4HPRN PRN IV 10/24/24 08:45 11/01/24 22:03 2 MG Atorvastatin Calcium 20 mg HS PO 10/24/24 22:00 11/08/24 21:10 20 MG Nitroglycerin 0.4 mg Q5MINP PRN SL 10/24/24 09:15 Morphine Sulfate 2 mg Q30M PRN IV 10/24/24 09:15 Phenol/Menthol 1 spr Q2HP PRN MT 10/26/24 18:45 10/29/24 01:45 1 SPR Budesonide 0.5 mg BID NEB 10/28/24 10:00 11/09/24 06:51 0.5 MG Sodium Chloride 10 ml QSHIFT@10,22 IV 10/29/24 22:00 11/09/24 10:08 10 ML Mesalamine 800 mg TID PO 11/01/24 22:00 11/09/24 05:06 800 MG Furosemide 40 mg DAILY IV 11/06/24 10:00 11/08/24 14:12 40 MG Ipratropium [place] 0.5 mg Q4HPRN PRN NEB 11/07/24 07:15 11/09/24 10:21 0.5 MG Prednisone 30 mg DAILY PO 11/08/24 10:00 11/09/24 10:07 30 MG laboratory and microbiology Laboratory Tests 11/07/24 06:30 Test 11/07/24 06:30 Range/Units Serum Glucose 110 H 74-106 mg/dL Assessment/Plan Impression: Acute hypoxic respiratory failure Dependence on supplemental oxygen Sepsis Colitis Diarrhea Shock Obesity Patient seen and examined Events: Low oxygen requirements On 3 liters nasal cannula- at baseline No acute events Labs and imaging reviewed Management Supplemental oxygen Titrate to maintain sats 90% or above Incentive spirometry Bronchodilators PRN. Mucomyst, Pulmicort BID Continue antibiotics Continue steroids Incentive spirometry Pain control Avoid oversedation Diet as tolerated Disposition per primary dvt proph Dietary Evaluation Review Comments: 1) Advance Diet as medically feasible 2) TPN to meet at leaast 75% estimated needs within 7 days Expected Outcomes/Goals: GI symptoms to improve To meet 75% estimated needs in 7 days FU 2-3 days Plan discussed with: Patient KELLY ABRAHAM MD Nov 09, 2024 12:49
[2024-11-09] MEDS ORDERED: FURO1TAB33 PO ×2 (13:15→15:15)
--- NOTE | 2024-11-09 13:25 | DVHDS2 ---
Discharge Summary Date of Admission Oct 24, 2024 at 09:07 Date of Discharge: Nov 09, 2024 Admitting Diagnosis Septic shock Labs/Diagnostic Data: Laboratory Results Test 11/07/24 06:30 11/05/24 15:43 11/04/24 22:35 11/04/24 03:51 White Blood Count 14.6 10^3/uL (4.4-10.8) Red Blood Count 3.99 10^6/uL (4.5-5.90) Hemoglobin 12.7 g/dL (13.5-17.5) Hematocrit 36.6 % (41.0-53.0) Mean Corpuscular Volume 91.8 fL (80.0-100.0) Mean Corpuscular Hemoglobin 31.9 pg (28.0-32.0) Mean Corpuscular Hemoglobin Concent 34.7 g/dL (32.0-36.0) Red Cell Distribution Width 13.5 % (11.8-14.3) Platelet Count 213 10^3/uL (140-450) Mean Platelet Volume 8.8 fL (6.9-10.8) Neutrophils (%) (Auto) 88.6 % (37.0-80.0) Lymphocytes (%) (Auto) 5.3 % (10.0-50.0) Monocytes (%) (Auto) 6.0 % (0.0-12.0) Eosinophils (%) (Auto) 0.1 % (0.0-7.0) Basophils (%) (Auto) 0.0 % (0.0-2.0) Neutrophils # (Auto) 13.0 10 ^3/uL (1.6-8.6) Lymphocytes # (Auto) 0.8 10 ^3/uL (0.4-5.4) Monocytes # (Auto) 0.9 10 ^3/uL (0-1.3) Eosinophils # (Auto) 0 10 ^3/uL (0-0.8) Basophils # (Auto) 0 10 ^3/uL (0-0.2) Nucleated Red Blood Cells 0.0 % Sodium Level 140 mmol/L (136-145) Potassium Level 4.0 mmol/L (3.5-5.1) Chloride Level 101 mmol/L (98-107) Carbon Dioxide Level 34 mmol/L (20-31) Anion Gap 5 (5-15) Blood Urea Nitrogen 19 mg/dL (9-23) Creatinine 0.80 mg/dL (0.700-1.30) Glomerular Filtration Rate Calc 96 mL/min (>90) BUN/Creatinine Ratio 23.8 (10.0-20.0) Serum Glucose 110 mg/dL (74-106) Calcium Level 9.3 mg/dL (8.7-10.4) Magnesium Level 2.2 mg/dL (1.6-2.6) Differential Total Cells Counted 100.0 (100) Neutrophils % (Manual) 88 (37.0-80.0) Band Neutrophils % (Manual) 3 Lymphocytes % (Manual) 4 (10.0-50.0) Monocytes % (Manual) 4 (0-12) Eosinophils % (Manual) 0 (0-7) Basophils % (Manual) 0 (0.0-2.0) Metamyelocytes % (manual) 0 Myelocytes % (Manual) 1 Promyelocytes % (Manual) 0 Blast Cells % (Manual) 0 Reactive Lymphocytes 0 Platelet Estimate Adequate Red Blood Cell Morphology Normal Hemoglobin A1c 5.7 % A1C (<5.7) Total Bilirubin 0.4 mg/dL (0.2-1.0) Aspartate Amino Transferase (AST) 40 U/L (13-40) Alanine Aminotransferase (ALT) 40 U/L (7-40) Alkaline Phosphatase 58 U/L (46-116) B-Type Natriuretic Peptide 147.25 pg/mL (0-100) Total Protein 5.2 g/dL (5.7-8.2) Albumin 3.0 g/dL (3.2-4.8) POC Glucose 148 mg/dl (70-106) Phosphorus Level 3.2 mg/dL (2.4-5.1) Test 10/29/24 02:50 10/28/24 13:50 10/27/24 09:14 10/26/24 10:46 C-Reactive Protein High Sensitivity 19.58 mg/dL (<1.0) Triglycerides Level 55 mg/dL (< 150) Atypical p-ANCA 1:20 titer (Neg:<1:20) Saccharomyces cerevisiae IgG Ab <20.0 Units (0.0-24.9) Saccharomyces cerevisiae IgA Ab <20.0 Units (0.0-24.9) Prothrombin Time 15.5 sec (9.3-11.8) Prothrombin Time INR 1.52 (0.9-1.15) Activated Partial Thromboplast Time 29.2 SEC (24.5-34.5) Stool Occult Blood Positive x 1 (Negative) Stool Occult Blood Sample #2 Negative (Negative) Stool Occult Blood Sample #3 (Negative) Stool for White Cells Many Blood Gas Specimen Type Arterial Blood Gas Sample Site Left radial Blood Gas Patient Temperature 37.0 Arterial Blood Date Drawn [id number] Arterial Blood pH 7.401 (7.350-7.450) Arterial Blood Partial Pressure CO2 31.8 mmHg (35.0-48.0) Arterial Blood Partial Pressure O2 65.2 mmHg (83.0-108.0) Arterial Blood HCO3 19.3 mmol/L (21.0-28.0) Arterial Blood Oxygen Saturation 91.5 % (94.0-98.0) Arterial Blood Base Excess -4.5 mmol/L (-2.0-3.0) Arterial Blood Oxyhemoglobin 90.7 % (94.0-98.0) Arterial Blood Carboxyhemoglobin 0.3 % (0.5-1.5) Arterial Blood Methemoglobin 0.6 % (0.0-1.5) Mack Test Yes Blood Gas Total Hemoglobin 13.10 g/dL (13.5-17.5) Blood Gas Liter Flow 3.00 Blood Gas Modality Nasal cannula FiO2 % 32.0 Test 10/26/24 03:23 10/24/24 12:35 10/24/24 03:10 Lipase 20 U/L (12-53) Urine Color [place] (Yellow) Urine Clarity Turbid (Clear) Urine pH 5.5 (5.0-9.0) Urine Specific [place] 1.023 (1.001-1.035) Urine Protein 1+ (Negative) Urine Ketones 2+ (Negative) Urine Blood Negative /uL (Negative) Urine Nitrite Negative (Negative) Urine Bilirubin Negative (Negative) Urine Urobilinogen Normal mg/dL (Negative) Urine Leukocyte Esterase Trace /uL (Negative) Urine RBC 3 /hpf (0 - 3) Urine Microscopic WBC 11 /HPF (0-3) Urine Squamous Epithelial Cells Few /hpf (<5) Urine Bacteria None seen /hpf (None Seen) Urine Hyaline Casts Many /lpf (0 - 2) Urine Mucus Few (None Seen) Urine Glucose Normal mg/dL (Normal) Lactic Acid Level 1.8 mmol/L (0.4-2.0) Other Laboratory Tests 11/07/24 06:30 Brief Hx & Hospital Course: History of Present Illness The patient is a 62-year-old male with multiple past medical history including COPD, hypertension, and hyperlipidemia who presented to [facility] ED with complaint of left lower quadrant abdominal pain. Patient reports symptoms progressively get worse with explosive diarrhea for the past 1 week, notes low-grade fever, seen at urgent care last week and was prescribed Cipro and Flagyl with no improvement of symptoms. Patient was seen and evaluated in the ED, laboratory data shows WBC 15.9, platelets 371, sodium 134, potassium 4.0, BUN 13, creatinine 1.27, glucose 101, calcium 8.8, lactic acid 1.8, blood pressure 81/38 trending up to 95/65, heart rate 115 trending down to 85, temperature 99.9 F trending down to 98.2 F, O2 saturation 97% on oxygen. Abdomen/pelvis CT revealing colitis involving the sigmoid colon, rectum, and distal descending colon. Patient was started on IV antibiotic regimen levofloxacin, please see medication orders section in the computer. On my assessment, patient denied chest pain, no headache, no dizziness, no diaphoresis, no shortness of breaths, no diarrhea, nausea or vomiting at this moment, no fever, no chills. Patient was admitted for further evaluation and medical management. Course of hospitalization: Patient was started on norepinephrine drip, which was eventually weaned off. Patient had severe abdominal distention, noted on CT scan as well as KUB. Patient hemodynamically improved. Patient underwent colonoscopy with findings of severe ulcerative colitis. Patient was then started on with mesalamine and IV Solu-Medrol. Patient's abdominal distention has improved. Antibiotic therapy was completed while in the hospital. Patient is now able to tolerate oral intake without any issues. Patient did have noticeable swelling to his upper and lower extremities after starting steroids. Patient was started on IV diuresis with improvement with the patient's swelling. Discussion was made with Gastroenterology, for which the patient has been cleared for discharge from their perspective. Patient will be continued on prednisone 20 mg p.o. daily for an additional 14 days, as well as mesalamine 800 mg p.o. twice a day. He will be continued on all previous home medications. Patient was also instructed to take Lasix 20 mg every of the day, and to hold if his systolic blood pressures less than 110 mm of mercury. He will follow up with the discharge Clinic in one week. Both the patient and are agreeable with discharge plan. All questions answered. Physical examination General: Alert and Oriented x3. No acute distress. Well-nourished. Obese Eyes: EOMI. Anicteric. HENT: Moist mucous membranes. Lungs: Clear to auscultation bilaterally. No accessory muscle use. Cardiovascular: Regular rate and rhythm. No murmur. No JVD. Abdomen: Soft, non-tender and non-distended. No palpable masses. Extremities: No edema. Non-tender. Skin: No rashes or lesions. Warm. Neurologic: No focal neurological deficits. CN II-XII grossly intact, but not individually tested. Psychiatric: Cooperative. Appropriate mood and affect. Total time spent with patient discussing and formulating plan of care: 35 minutes. This medical document was created using an electronic medical record system with [employer] dictation system. Although this document has been carefully reviewed, there may still be some phonetic and typographical errors. These areas are purely typographical due to imperfections of the software programs, and do not reflect any compromise in the patient's medical care. Consults/Reason for consult Gastroenterology: Abdominal distention, colitis Operations or Procedures Colonoscopy Condition at Discharge: Guarded Final Diagnosis/Problems List Sepsis secondary to Ulcerative Colits flare up Secondary diagnosis: -septic shock -acute colitis, rule out acute gastric perforation -obesity -acute on chronic hypoxic respiratory failure -COPD -degenerative joint disease -probable ileus -ulcerative colitis Discharge Disposition: Home Discharge Instruct/Medications Diet: Consistent carbohydrate, Cardiac 2g Na,low cholest Activity: No Restrictions, As Tolerated Follow Up/Referral: Discharge clinic in 1 week PCP in 1-[address] Wing Berry in 2 weeks Medications: Mesalamine 800 mg p.o. b.i.d. Prednisone 20 mg p.o. daily x2 weeks Lasix 20 mg p.o. every other day. Hold for systolic blood pressure less than 110 mm of mercury -continue all previous home medication Scheduled Furosemide (Lasix), 1 TAB PO EOD Mesalamine (Jose Ahn), 800 MG PO BID Prednisone (Prednisone), 20 MG PO DAILY 36 Discharge Statement: "Patient was advised to return to the ER or call 911 if any headaches, dizziness, shortness of breath, chest pain, abdominal pain, bleeding, fevers, or worsening of medical condition. Patient was counseled about treatment plan, medications, possible side effects, patientverbalized understanding. All questions were answered to the best of my ability. This discharge took greater then 30 minutes in planning, reviewing documentation, counseling the patient, and discussing with other team members." DME: Diagnosis: Please assist patient with Rollator/walker diagnosis of advanced COPD with chronic respiratory failure ASSESSMENT ASSESSMENT Assessment Sepsis secondary to Ulcerative Colits flare up Date of Service: Nov 09, 2024 Billing Provider: ANAYA ONTIVEROS NP Common Visit Codes: [id number]/OBS DISCH DAY >30min ANAYA ONTIVEROS NP Nov 09, 2024 13:25
[2024-11-09] MEDS ORDERED: SULF500T37 PO (14:44)
[2024-11-09] MEDS ORDERED: FOLITAB22 PO (14:44)
[2024-11-09] MEDS ORDERED: ACE3T PO (15:15)
--- NOTE | 2024-11-09 19:00 | DVHPN2 ---
Progress Note - Dictate Date Seen: Nov 09, 2024 (Time of visit 3:00 p.m.) Medical Necessity Reason Pt with a Central, PICC or Fol: Yes Subjective No new complaints, patient is feeling better Patient is currently on a carb controlled diet which he is tolerating 3-5 bowel movements recorded Stool cultures were negative, stool for C diff negative; CRP was elevated to 19.5 Patient had fluid overload with pedal edema and some pulmonary vascular congestion which has responded to IV diuresis Patient underwent PT with the assistance and was provided a walker vital signs Vital Sign Date Time Temp Pulse Resp B/P (MAP) Pulse Ox O2 Delivery O2 Flow Rate FiO2 11/09/24 14:10 36.5 96 18 90 11/09/24 13:00 117/62 (80) 11/09/24 10:21 Nasal Cannula* 2 28 Total Intake and Output 11/08/24 11/08/24 11/09/24 15:00 23:00 07:00 Intake Total 980 ml 600 ml Output Total 1080 ml 900 ml Balance -100 ml -300 ml objective VITAL SIGNS: Afebrile, stable signs. HEENT: There is no evidence of pallor, cyanosis, or jaundice. NECK: Supple and nontender with no thyromegaly or lymphadenopathy. CHEST AND LUNGS: Clear. HEART: Within normal limits. ABDOMEN: Soft and distended. He is morbidly obese. Difficult to evaluate, but minimally tender. No rebound. EXTREMITIES: Unremarkable. NEUROLOGIC: Alert and oriented x3, nonfocal laboratory and microbiology Laboratory Tests 11/07/24 06:30 Test 11/07/24 06:30 Range/Units Serum Glucose 110 H 74-106 mg/dL Problems(with codes): (1) Abdominal pain (2) Diastolic heart failure (3) Severe ulcerative colitis (4) Ileus (5) Leukocytosis, unspecified Prognosis Plan Discharge planning is in progress Patient to be discharged home on sulfasalazine 1 g p.o. twice a day He will get prednisone 20 mg p.o. daily Soft mechanical diet Folic acid 1 mg p.o. daily Outpatient follow up with me in 2-4 weeks for ongoing GI management and discussion for repeat colonoscopy in 2-3 months Dietary Evaluation Review Comments: 1) Advance Diet as medically feasible 2) [facility] 7 days Expected Outcomes/Goals: GI symptoms to improve To meet 75% estimated needs in 7 days FU 2-3 days Plan discussed with: Other (Edi Mccartney) LAURITA RAMOS MD Nov 09, 2024 19:00
== END 2024-11-09 17:05 | disposition home health service (06) | DRG 871 ==
LOC: EDBD 02:35 → ER 02:35 → OVERFLOW 09:07 → ICU WEST 17:12 → TELE-WESTW 11-01 23:40
PROVIDERS: ADMIT Nurse Practitioner Acute Care; ATTEND Nurse Practitioner Acute Care
PROC: 0D7N8ZZ Dilation of Sigmoid Colon, Via Natural or Artificial Opening Endoscopic (ICD-10-PCS; 2024-10-28)
PROC: 0DBN8ZX Excision of Sigmoid Colon, Via Natural or Artificial Opening Endoscopic, Diagnostic (ICD-10-PCS; principal; 2024-10-28 14:30)
PROC: 02HV33Z Insertion of Infusion Device into Superior Vena Cava, Percutaneous Approach (ICD-10-PCS; 2024-10-29)
PROC: B548ZZA Ultrasonography of Superior Vena Cava, Guidance (ICD-10-PCS; 2024-10-29)
DX: A41.9 Sepsis, unspecified organism (principal); J96.21 Acute and chronic respiratory failure with hypoxia; R65.21 Severe sepsis with septic shock; K57.33 Diverticulitis of large intestine without perforation or abscess with bleeding; K51.911 Ulcerative colitis, unspecified with rectal bleeding; K56.7 Ileus, unspecified; E66.01 Morbid (severe) obesity due to excess calories; J43.9 Emphysema, unspecified; I25.10 Atherosclerotic heart disease of native coronary artery without angina pectoris; E78.5 Hyperlipidemia, unspecified; I10 Essential (primary) hypertension; M51.369 Other intervertebral disc degeneration, lumbar region without mention of lumbar back pain or lower extremity pain; Z68.32 Body mass index [BMI] 32.0-32.9, adult; Z99.81 Dependence on supplemental oxygen; Z85.820 Personal history of malignant melanoma of skin; Z79.899 Other long term (current) drug therapy; J44.9 Chronic obstructive pulmonary disease, unspecified
CPT/HCPCS: 36415; 36569; 36600; 71045; 74018; 74176; 76937; 80048; 80053; 81001; 82270; 82805; 82962; 83036; 83605; 83690; 83735; 83880; 84100; 84478; 85007; 85025; 85027; 85048; 85610; 85730; 86141; 86256; 86671; 86850; 86900; 86901; 87040; 87045; 87081; 87427; 87493; 93005; 93306; 94640; 96365; 96368; 96375; 97110; 97116; 97163; 97530; 99291; A4344; G0378; J1815; J1885; J1956; J2250; J2405; J2470; J3430; J3490; J7042; J7131

== ENCOUNTER → 2025-03-03 | Outpatient (CLI) | payer MEDICARE, BC ==
[~2025-03-03] MED LIST: ACE3T PO; FOLITAB22 PO; FURO1TAB33 PO; PRED20TA2 PO; SULF500T37 PO
[2025-03-03 13:04] LABS: Hematocrit 43.0 % (41.0-53.0); Hemoglobin 15.0 g/dL (13.5-17.5); Mean Corpuscular Hemoglobin 31.4 pg (28.0-32.0); Mean Corpuscular Volume 90.4 fL (80.0-100.0); Nucleated Red Blood Cells % 0.0 %
[2025-03-03 13:25] LABS: Chloride 105 mmol/L (98-107); Potassium 4.1 mmol/L (3.5-5.1); Sodium 144 mmol/L (136-145)
[2025-03-03 13:26] LABS: Anion Gap 10 (5-15); Carbon Dioxide 29 mmol/L (20-31)
[2025-03-03 13:27] LABS: Calcium 9.4 mg/dL (8.7-10.4)
[2025-03-03 13:31] LABS: Glucose 81 mg/dL (74-106)
[2025-03-03 13:32] LABS: BUN/Creatinine Ratio 13.5 (10.0-20.0); Blood Urea Nitrogen 12 mg/dL (9-23)
== END | disposition home or self-care (01) ==
LOC: LAB 12:13
PROVIDERS: ATTEND Internal Medicine Gastroenterology
DX: K50.90 Crohn's disease, unspecified, without complications (principal); R19.7 Diarrhea, unspecified
CPT/HCPCS: 36415; 80048; 85025